=== PATIENT | male | born 1935 | race Caucasian/White ===

== ENCOUNTER → 2018-05-08 16:13 | Outpatient (CLI) | payer MEDICARE, OTHER, SELFPAY ==
[2018-05-08 17:21] LABS: Free T4 (Free Thyroxine) 1.16 ng/dl (0.76-1.46)
== END ==
PROVIDERS: Visit Provider Nurse Practitioner Family
DX: E78.49 Other hyperlipidemia (principal)
CPT/HCPCS: 36415; 84439; 84443

== ENCOUNTER → 2019-01-01 10:51 | Outpatient (CLI) | payer MEDICARE, OTHER, SELFPAY ==
[2019-01-01 11:03] LABS: Basophils % 0.4 % (0.1-2.0); Eosinophils # 0.3 K/mm3 (0.0-0.4); Eosinophils % 3.1 % (0.1-12.0); Lymphocytes % 12.8 % (10-50); Mean Corpuscular HGB Conc 32.5 g/dL (31.8-35.4); Mean Corpuscular Hemoglobin 29.5 pg (27.0-31.2); Mean Corpuscular Volume 90.8 fl (80-94); Mean Platelet Volume 7.3 fl (7.4-10.4); Monocytes # 0.6 K/mm3 (0.1-1.0); Monocytes % 7.7 % (1.7-9.3); Neutrophils # 5.9 K/mm3 (1.8-7.8); Platelet Count 198 K/mm3 (142-424); White Blood Count 7.8 K/mm3 (4.8-10.8)
== END ==
PROVIDERS: Visit Provider Internal Medicine
DX: R53.83 Other fatigue (principal)
CPT/HCPCS: 36415; 85025

== ENCOUNTER → 2019-11-05 09:49 | Outpatient (CLI) | payer MEDICARE, OTHER, SELFPAY ==
--- NOTE | 2019-11-05 09:58 | CA_ITS ---
APPROVED REPORT Hand Twister: Adele Mcnamara RVT Laterality: Bilateral Study Quality: Good Indications: Carotid stenosis Risk Factors Hypertension: Hyperlipidemia Smoking Doppler Spectral Velocity Analysis ECA (R) 91.40/19.10 cm/s ECA (L) 146.80/16.80 cm/s dICA (R) 43.80/8.40 cm/s dICA (L) 64.30/19.60 cm/s Raciel (R) 55.00/12.20 cm/s Raciel (L) 61.40/20.60 cm/s pICA (R) 55.80/10.80 cm/s pICA (L) 47.60/11.30 cm/s dCCA (R) 65.30/13.60 cm/s dCCA (L) 62.80/11.30 cm/s pCCA (R) 70.80/13.30 cm/s pCCA (L) 85.40/18.20 cm/s Vert (R) 39.80/12.30 cm/s Vert (L) 52.20/13.30 cm/s ICA/CCA 0.86 ICA/CCA 1.02 Findings Study suggests 20-49% stenosis of the right internal cartoid artery. Study suggests 20-49% stenosis of the left internal cartoid artery. Antegrade flow seen bilateral vertebral arteries. Conclusion Study suggests 20-49% stenosis of the right internal cartoid artery. Study suggests 20-49% stenosis of the left internal cartoid artery. Antegrade flow seen bilateral vertebral arteries. Electronically signed by : James Walsh MD 11/05/2019 17:21:30
== END ==
PROVIDERS: PCP Family Medicine; Visit Provider Nurse Practitioner Family
DX: R42 Dizziness and giddiness; I65.23 Occlusion and stenosis of bilateral carotid arteries
CPT/HCPCS: 93880

== ENCOUNTER 2019-12-16 17:25 | Observation (INO) | payer MEDICARE, OTHER, SELFPAY ==
[2019-12-16] VITALS (8 sets, daily range): BP systolic 142–194; BP diastolic 84–100; PULSE 60–73; RESP 16–20; TEMP 36.8–37.1; O2SAT 94–98; BMI 26.6; BMI 27.8
--- NOTE | 2019-12-16 17:22 | ECG_ITS ---
APPROVED REPORT Exam: Resting ECG HR:67 bpm ECG Measurements Heart Rate 67 AXES QRSd 158 QRS 8 QT 482 T 116 QTc 509 <Conclusion> Atrial fibrillation,PVC'S vs Aberrancy Left bundle branch block Abnormal ECG Electronically signed by : Clint Kerns, 12/17/2019 09:00:10
--- NOTE | 2019-12-16 18:16 | HMH.EDGENADL ---
ED Disposition Clinical Impression: Chest pain Qualifiers: Chest pain type: unspecified Qualified Code(s): R07.9 - Chest pain, unspecified Disposition: Admitted as Observation Condition on Discharge: Good Time of Disposition: 20:00 - Critical Care Critical Care Time: No Attestation: On 12/16/19, the high probability of a clinically significant, sudden or life threatening deterioration of the following system(s) required my full and direct attention, intervention and personal management. The time I documented below is in addition to time spent performing reported procedures but includes the following listed in this critical care notation. Medical Decision Making - Medical Records Medical records reviewed: Yes: I reviewed the patient's medical records. - Jluis Inquiry Pt receiving controlled substance: No Vital Signs: 12/16/19 17:26 12/16/19 18:26 12/16/19 19:42 Temperature 98.2 F Temperature Source Oral Pulse Rate Pulse Rate [Right] 61 65 73 Respiratory Rate 18 20 20 Blood Pressure Blood Pressure [Right Arm] 142/91 H 181/93 H 190/91 H Blood Pressure Mean [Right Arm] 108 122 124 Blood Pressure Source Blood Pressure Source [Right Arm] Automatic Cuff Blood Pressure Position Blood Pressure Position [Right Arm] Supine Sitting 02 Sat by Pulse Oximetry 97 98 94 L Oxygen Delivery Method Room Air Room Air 12/16/19 20:35 Temperature 98.2 F Temperature Source Oral Pulse Rate 64 Pulse Rate [Right] Respiratory Rate 18 Blood Pressure 188/100 H Blood Pressure [Right Arm] Blood Pressure Mean [Right Arm] Blood Pressure Source Automatic Cuff Blood Pressure Source [Right Arm] Blood Pressure Position Sitting Blood Pressure Position [Right Arm] 02 Sat by Pulse Oximetry Oxygen Delivery Method Room Air - Lab Data Lab Results 12/16/19 17:25: WBC 7.9, RBC 4.13 L, Hgb 12.7 L, Hct 37.3 L, MCV 90.3, MCH 30.8, MCHC 34.1, RDW 14.2, Plt Count 160, MPV 7.9, Neut % (Auto) 74.2, Lymph % (Auto) 13.3, [place] % (Auto) 8.0, Eos % (Auto) 4.0, Baso % (Auto) 0.4, Neut # (Auto) 5.8, Lymph # (Auto) 1.1, [place] # (Auto) 0.6, Eos # (Auto) 0.3, Baso # (Auto) 0.0 12/16/19 17:25: Sodium 140, Potassium 3.8, Chloride 99, Carbon Dioxide 34 H, Anion Gap 10.8, BUN 17, Creatinine 0.80, Estimated Creat Clear 61, Estimated GFR 92, Est GFR ( Amer) 112, Glucose 101 H, Calcium 9.7, Troponin I < 0.01 Result diagrams: 12/16/19 17:25 12/16/19 17:25 Orders (Tests/Meds): ORDERS Category Date Time Status Consult to Cardiology [CONS] Routine Cons 12/16/19 20:00 Active CXR --portable [XR chest portable] Stat Exams 12/16/19 18:19 Taken COVID [Rapid Coronavirus-19 IgG/IgM] Stat Lab 12/16/19 17:25 Received Troponin I Q3H Lab 12/16/19 21:30 Ordered Troponin I Q3H Lab 12/17/19 00:30 Ordered EKG Request [ECG Request by /Chantell] Stat Y 12/16/19 18:20 Ordered Medical Decision Narrative: In summary this is an 84-year-old male with history of CAD and pacemaker presenting to the emergency department with left arm bruising and left-sided chest pain. Patient is clinically stable on arrival. Vital signs within normal limits. Bruising on the arm is most likely due to blood pressure cuff measurements from yesterday. Will obtain CBC, CMP, chest x-ray, EKG, troponin profile to assess for evidence of coronary occlusion. Reviewed patient's chest CT from yesterday. Findings dictate: mild fusiform dilation of the aorta measuring up to 4.2 cm. No evidence of dissection. status post median sternotomy Laboratory results remarkable for troponin within normal limits. No other gross abnormality. Patient continues to have occasional chest pains. Will admit tonight for chest pain observation and cardiology consultation tomorrow. Patient agreeable with plan. General Adult HPI - General Chief complaint: PAIN Stated complaint: LEFT ARM PAIN, BRUISING Time Seen by Provider: 12/16/19 17:46 Mode of Arrival: Ambulatory Limita
--- NOTE | 2019-12-16 18:19 | XR_ITS ---
PROCEDURE: XR CHEST PORTABLE CLINICAL HISTORY: chest pain COMPARISON: No exams were available for comparison FINDINGS: There is cardiomegaly without failure. Single lead pacemaker is present from left subclavian approach overlying the mid aspect of the heart and may be within a dilated right atrium. Left hemidiaphragm is elevated. No lobar consolidation or collapse. There has been a prior CABG. IMPRESSION: Prior CABG with cardiomegaly and cardiac pacemaker present. Dictated by: James Walsh MD 12/17/2019 06:55 James Walsh MD in [place] 12/17/2019 06:55
[2019-12-16 18:26] LABS: Basophils % 0.4 % (0.1-2.0); Eosinophils # 0.3 K/mm3 (0.0-0.4); Hematocrit 37.3 % (42.0-52.0); Hemoglobin 12.7 g/dL (14.1-18.0); Lymphocytes # 1.1 K/mm3 (0.7-4.5); Lymphocytes % 13.3 % (10-50); Mean Corpuscular HGB Conc 34.1 g/dL (31.8-35.4); Mean Corpuscular Hemoglobin 30.8 pg (27.0-31.2); Mean Corpuscular Volume 90.3 fl (80-94); Mean Platelet Volume 7.9 fl (7.4-10.4); Monocytes # 0.6 K/mm3 (0.1-1.0); Neutrophils # 5.8 K/mm3 (1.8-7.8); Neutrophils % 74.2 % (37.0-80.0); Platelet Count 160 K/mm3 (142-424); Red Blood Count 4.13 M/mm3 (4.60-6.20); Red Cell Distribution Width 14.2 % (11.5-17.5); White Blood Count 7.9 K/mm3 (4.8-10.8)
[2019-12-16 18:30] LABS: Anion Gap 10.8 mEq/L (5-15); Blood Urea Nitrogen 17 mg/dl (9-20); Calcium 9.7 mg/dl (8.4-10.2); Carbon Dioxide 34 mmol/L (22.0-30.0); Chloride 99 mmol/L (98-107); Creatinine Clearance Estimated 61 mL/min (50-200); Estimated Glomerular Filt Rate 92 ml/min (>60); GFR (African American) 112 ML/MIN (>60); Glucose 101 mg/dl (74-100); Potassium 3.8 mmoL/L (3.5-5.1); Sodium 140 mmol/L (136-145)
[2019-12-16 18:45] LABS: Troponin I < 0.01 ng/ml (0.00-0.034)
--- NOTE | 2019-12-16 19:29 | PC.NURSE ---
Dr. Torres currently talking to Dr. Durán about admitting for obs.
--- NOTE | 2019-12-16 19:30 | PC.NURSE ---
received report from day shift nurse at 1930.
--- NOTE | 2019-12-16 21:25 | PC.NURSE ---
PT ARRIVED TO FLOOR VIA W/C FROM ER AT [id number]
[2019-12-16 21:54] LABS: Coronavirus 19 IgG Antibody Negative (Negative); Coronavirus 19 IgM Antibody Negative (Negative)
[2019-12-17] VITALS (21 sets, daily range): BP systolic 112–162; BP diastolic 67–97; PULSE 57–70; RESP 14–22; TEMP 36.4–36.7; O2SAT 92–97; BMI 27.5
--- NOTE | 2019-12-17 | IR_ITS ---
APPROVED REPORT Patient Location: Inpatient PROCEDURES Left heart catheterization Left ventriculogram Selective coronary angiogram Selective engagement of the left internal mammary artery with angiography Selective engage in the saphenous vein graft to the circumflex artery Selective engage in the saphenous vein graft to the posterior descending artery Drug-eluting stent deployment to the saphenous vein graft supplying the large circumflex artery INDICATION Unstable angina, Coronary artery disease, History of coronary bypass surgery Informed consent was obtained prior to the procedure. COMPLICATIONS none Estimated Blood Loss: less than 10 mls TECHNIQUE 1% lidocaine used anesthetize the right groin the right femoral artery was accessed via the Salinger technique and a 4 Kenyan sheath was placed in the right femoral artery. A JL4 JR4 catheter was used to perform left heart catheterization left ventriculogram selective coronary angiography. The JR4 catheter was used to selectively intubate the left internal mammary artery as well as the 2 vein grafts as well as the left ventriculogram and perform left heart catheterization. At the end of the diagnostic procedure the 4 Kenyan sheath was exchanged for a 6 Kenyan sheath and therapeutic heparin was administered. An LCB guide catheter was used to intubate the saphenous vein graft and a BMW wire was placed distally. A 4 mm x 12 mm resolute ely stent was deployed at 20 roger for 30 seconds reducing the severe stenosis and thrombus to less than 10%. ESTEBAN-3 flow was present before and after the procedure. At the end of the procedure the apparatus was removed the groin was reprepped gloves were changed sheath was removed and hemostasis was achieved using Perclose device patient was transferred to the postop holding area stable condition ANGIOGRAPHIC RESULTS The left main artery Distally occluded The right coronary artery Proximally subtotally occluded with the distal aspect filling via [id number] collaterals The ANDRE ventriculogram reveals Ejection fraction 45 to 50% The left ventricular end-diastolic pressure 10 mmHg The left internal mammary artery is widely patent to the LAD The saphenous vein graft supplying a large circumflex artery has a proximal 60% stenosis with a large thrombus identified within the stent. Distally there is a 40% stenosis in the graft. At the anastomosis the obtuse marginal artery has a 60% stenosis in the retrograde manner as it supplies 3 smaller terminal obtuse marginal arteries. An 80 to 90% stenosis is also identified proximal to a vestigial first obtuse marginal artery The saphenous vein graft to the posterior descending artery is widely patent with diffuse 20-30 and 40% stenoses IMPRESSION Coronary disease as described above Successful stenting of a large saphenous vein graft to a circumflex artery severe disease accompanied by an apparent thrombus reduced to less than 10% with one drug-eluting stent Reduced ejection fraction Normal left ventricular end-diastolic pressure PLAN 1. Aspirin Plavix Xarelto for 1 month then discontinue aspirin and continue Plavix and Xarelto 2. LDL less than 55 3. Cardiac rehabilitation 4. Avoidance of tobacco products Electronically signed by : Corwin Durán, 12/17/2019 12:57:04
--- NOTE | 2019-12-17 03:20 | PC.NURSE ---
A&OX4. PT HAS TOLERATED RA WELL THIS SHIFT. PT HAS LARGE PURPLE BRUISE PRESENT TO L ARM. PT STATES, I DON'T KNOW WHERE THIS CAME FROM. PT UP INDEPENDENTLY IN ROOM. PT HAS ONLY C/O PAIN IN THE L ARM. TX WITH TYLENOL PER JUN, PT HAS HAD NO C/O PAIN SINCE. PT RESTING WELL IN BED. NO OTHER C/O THUS FAR. NO C/O CP OR SOA. VSS WILL CONTINUE TO MONITOR.
--- NOTE | 2019-12-17 06:10 | PC.NURSE ---
Carlos BAKER notified of consult
--- NOTE | 2019-12-17 07:37 | HMH.PHAVTE ---
[facility] Pharmacy VTE Monitoring - Patient Demographics Admission date: 12/17/19 Report Date: 12/17/19 Time: 07:37 Allergies/Adverse Reactions: Patient Allergies No Known Allergies Allergy (Verified 10/29/19 09:51) Height: 1.7 m Weight: 79.52 kg Patient Problems: Current Active Problems Chest pain (Acute) - VTE Risk Labs: VTE Related Lab Results Hgb 12.7 g/dL (14.1-18.0) L 12/16/19 17:25 Hct 37.3 % (42.0-52.0) L 12/16/19 17:25 Plt Count 160 K/mm3 (142-424) 12/16/19 17:25 BUN 17 mg/dl (9-20) 12/16/19 17:25 Creatinine 0.80 mg/dl (0.66-1.25) 12/16/19 17:25 Estimated Creat Clear 61 mL/min (50-200) 12/16/19 17:25 Was VTE Risk Assessment Performed: Yes VTE Score: 7 VTE Risk Level: Moderate Risk Clinical Trial Participant: No - Prophylaxis VTE Prophylaxis Ordered?: Yes Types of VTE Prophylaxis: TEDS Knee High
--- NOTE | 2019-12-17 07:41 | HMH.PHAINT ---
Completed home medication reconciliation using list from [facility] in [place].
--- NOTE | 2019-12-17 07:43 | HMH.CNCARD ---
History of Present Illness Consult date: 12/17/19 Requesting physician: Richard Minaya Consult reason: chest pain Chief complaint: chest pain Additional Medical History:: 1. Coronary artery disease with history of coronary bypass grafting in 1990 A. Left heart catheterization, 02/2018, YASMEEN to SVG to ramus. Patent SULLIVAN to LAD. SVG to diagonal with 40% lesion, medical therapy. ANGIOGRAPHIC RESULTS: 1. The left main artery is distally subtotally occluded 2. The left anterior descending artery ostially occluded 3. The circumflex artery gives rise to a very small proximal marginal branch but is effectively proximally occluded 4. The right coronary artery gives rise to a small branch but is effectively proximally occluded 5. The ANDRE ventriculogram reveals preserved at 60% 6. The left ventricular end-diastolic pressure mildly elevated at 20 mmHg 7. Left internal mammary artery is widely patent to the mid LAD 8. The saphenous vein graft to the first diagonal artery has a proximal to mid vessel 40% stenosis. It then anastomoses onto the first diagonal artery and then skips over to a terminal obtuse marginal artery. The second limb of this skip graft has 30% stenoses 9. The saphenous vein graft to the ramus intermedius has an ostial 70-80% stenosis followed by 50% stenoses. 10. The ANDRE ventriculogram reveals preserved ejection fraction estimated at 55-60% 11. The left ventricular end-diastolic pressure is 15 mmHg IMPRESSION: 1. Severe disease in the saphenous vein graft supplying the ramus intermedius 2. Successful stenting of the saphenous vein graft to the ramus intermedius severe disease reduced to less than 10% with 1 drug-eluting stent 3. Preserved ejection fraction 4. Mildly elevated LVEDP PLAN: 1. Aspirin Plavix Coumadin for one month then dropped the aspirin 2. Risk factor modification 3. Avoidance of tobacco products 4. Cardiac rehabilitation 2. Permanent pacemaker 3. Chronic atrial fibrillation, on Xarelto therapy 4. History of CVA approximately 2017 5. Hypertension 6. Hyperlipidemia, on statin 7. NATALIE with 20-49% ICA stenosis bilaterally, 10/2019 History of present illness: 84-year-old white male with known coronary artery disease presented to the emergency department here at [facility] for a second opinion regarding chest pain. Patient was originally seen at [facility] yesterday with evaluation and subsequent discharge with no evidence of acute coronary syndrome. Patient is a longtime patient of Dr. Durán's and wanted to come to [place] for further evaluation. He relates a 2-day history of near constant left-sided chest pain with radiation to the left arm and into the left neck. Some symptoms can be reproduced with positioning of the left arm. There is even some atypical features of relief of the chest discomfort with ambulation. Patient is unable to remember his angina symptoms from February 2018. Also of note is a bruise starting in the left upper arm and extending into the left forearm which appears to coincide with blood pressure cuff placement. Patient does state that there was a small bruise prior to that but it has gotten worse since the blood pressure cuff was applied yesterday. EKG shows ventricular pacing with capture. Initial troponin in the ER noted to be negative. COVID testing is negative. Discussed with Dr. Durán and the patient both wish to proceed with cardiac catheterization for further evaluation. [facility] History Medical History: Reports:: Atrial Fibrillation, Congestive Heart Failure, Coronary Artery Disease, Gastroesophageal Reflux Disease(GERD), Hyperlipidemia, Hypertension, Internal Pacemaker, Myocardial Infarction Denies:: Cancer, Diabetes Mellitus Type 1, Diabetes Mellitus Type 2, MRSA, Seizures *Have you ever received a pneumonia vaccine?: Yes *Have you received a flu vaccine this season?: No Other Surgeries: Yes: Angioplasty (2008
--- NOTE | 2019-12-17 08:44 | HMH.HP ---
*Admission Date: 12/17/19 <Wendy Luu - 12/17/19 09:05> *Chief complaint: Chest pain <Wendy Luu - 12/17/19 09:05> *History of present illness: 84-year-old white male with known coronary artery disease presented to the emergency department here at [facility] for a second opinion regarding chest pain. Patient was originally seen at [facility] yesterday with evaluation and subsequent discharge with no evidence of acute coronary syndrome. Patient is a longtime patient of Dr. Durán's and wanted to come to [place] for further evaluation. He relates a 2-day history of near constant left-sided chest pain with radiation to the left arm and into the left neck. Some symptoms can be reproduced with positioning of the left arm. There is even some atypical features of relief of the chest discomfort with ambulation. Patient is unable to remember his angina symptoms from February 2018. Also of note he has a bruise starting in the left upper arm and extending into the left forearm which appears to coincide with blood pressure cuff placement. Patient does state that there was a small bruise prior to that but it has gotten worse since the blood pressure cuff was applied yesterday. EKG shows ventricular pacing with capture. Initial troponin in the ER noted to be negative. COVID testing is negative. Discussed with Dr. Durán and the patient. Both wish to proceed with cardiac catheterization for further evaluation. This is per SAMUEL Salcedo, cardiology. As above patient has been evaluated by cardiology. He continues to have the left shoulder discomfort radiating into the chest and up into the neck and down the left arm. He has very poor range of motion of this left arm. He denies shortness of breath but states he has been short of breath with exertion. To note prior to starting the chest discomfort he had been weed eating. He does not recall any injuries to the left arm. He has been eating and drinking as usual. On admission patient a white blood cell count of 7900 with a hemoglobin of 12.7 and hematocrit of 37.3. Blood chemistries show a normal sodium and potassium with a BUN 17 creatinine 0.8. Troponin I was less than 0.01. <Wendy Luu - 12/17/19 09:05> [facility] History Medical History: Reports:: Atrial Fibrillation, Congestive Heart Failure, Coronary Artery Disease, Cerebrovascular Accident, Gastroesophageal Reflux Disease(GERD), Hyperlipidemia, Hypertension, Internal Pacemaker, Myocardial Infarction Denies:: Cancer, Diabetes Mellitus Type 1, Diabetes Mellitus Type 2, MRSA, Seizures <LuuWendy 12/17/19 09:05> *Have you ever received a pneumonia vaccine?: Yes <Luu,Wendy 12/17/19 09:05> *Have you received a flu vaccine this season?: No <Wendy Luu 12/17/19 09:05> Other Medical History: Reports: Arthritis <Wendy Luu 12/17/19 09:05> Comment:: Enlarged prostate <Wendy Luu 12/17/19 09:05> Laterality Cases: Bilateral: Cataract <Wendy Luu 12/17/19 09:05> Other Surgeries: Yes: Angioplasty (2008, 2000, 05/21/13 no stents), CABG, Cancer Surgery, Cardiac Catheterization, Colonoscopy (09/22/16), Hernia Repair, Pacemaker <Wendy Luu 12/17/19 09:05> Amputation: No <Wendy Luu 12/17/19 09:05> Fractures: No <Wendy Luu 12/17/19 09:05> Comment: Back surgery <Wendy Luu 12/17/19 09:05> - *Social History Last grade of school completed: 11th or 12th <Wendy Luu 12/17/19 09:05> Smoking Status: Never smoker <Wendy Luu 12/17/19 09:05> Alcohol Intake: never <Wendy Luu 12/17/19 09:05> Substance Use Type: denies use <Wendy Luu 12/17/19 09:05> *Occupational Status:: retired, other (He was a [employer]ield) <Wendy Luu 12/17/19 09:05> Housing: house <Wendy Luu 12/17/19 09:05> Household Members: children <Wendy Luu 12/17/19 09:05> *Travel in the last 8 weeks: None <Wendy Luu 12/17/19 09:05> Family Hx:: Coronary Artery D
--- NOTE | 2019-12-17 13:22 | SW/DCPLANNER ---
PATIENT PRESENTED IN FROM [place] AFTER BEING SEEN THERE AND RECOMMENDED TO COME TO [facility] TO BE FOLLOWED FOR POSSIBLE CATH BY DR HUNT. HE WAS ADMITTED TO DR HA AND UNDERWENT A HEART CATH... 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 HE WILL DISCHARGE HOME AFTER MD DECLARES HIM MEDICALLY STABLE TO DO SO WITH MEDICATION ADJUSTMENT. ANY PROBLEMS THAT ARISE MAY BE ADDRESSED IF THERE IS A NEED FOR HOME CARE BUT AT THIS TIME DOES NOT APPEAR TO NEED ANYTHING.. DISCHARGE SHOULD BE SOON..
[2019-12-17 15:14] LABS: CATHL Activated Clotting Time > 400 SEC (74-125)
--- NOTE | 2019-12-17 19:45 | PC.NURSE ---
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 groin site is clean dry intact with no signs of hematoma. vitals stable.
[2019-12-18] VITALS: BP 129/88; PULSE 50; PULSE 65; RESP 18; O2SAT 95
[2019-12-18 02:00] VITALS: BP 138/70; PULSE 65; RESP 16; O2SAT 95
[2019-12-18 04:00] VITALS: BP 138/77; PULSE 59; PULSE 65; RESP 16; TEMP 37.1; O2SAT 93
[2019-12-18 05:10] VITALS: BMI 27.8
--- NOTE | 2019-12-18 05:22 | PC.NURSE ---
patient russo rested well throughout shift. no complaints of chest pain, nausea, vomiting or soa. case monitor has shown junctional rhythm in the 50 and 60s with rare pvc's.
[2019-12-18 06:00] VITALS: BP 145/79; PULSE 64; RESP 18; O2SAT 95
[2019-12-18 06:41] LABS: Basophils % 0.4 % (0.1-2.0); Eosinophils # 0.4 K/mm3 (0.0-0.4); Eosinophils % 5.2 % (0.1-12.0); Hematocrit 32.8 % (42.0-52.0); Hemoglobin 10.7 g/dL (14.1-18.0); Lymphocytes % 12.5 % (10-50); Mean Corpuscular HGB Conc 32.7 g/dL (31.8-35.4); Mean Corpuscular Hemoglobin 29.8 pg (27.0-31.2); Mean Corpuscular Volume 91.1 fl (80-94); Mean Platelet Volume 7.7 fl (7.4-10.4); Monocytes # 0.7 K/mm3 (0.1-1.0); Monocytes % 8.5 % (1.7-9.3); Neutrophils # 5.6 K/mm3 (1.8-7.8); Neutrophils % 73.3 % (37.0-80.0); Platelet Count 148 K/mm3 (142-424); Red Cell Distribution Width 14.5 % (11.5-17.5); White Blood Count 7.6 K/mm3 (4.8-10.8)
[2019-12-18 06:52] LABS: Chloride 102 mmol/L (98-107)
[2019-12-18 06:53] LABS: Potassium 3.8 mmoL/L (3.5-5.1); Sodium 140 mmol/L (136-145)
[2019-12-18 06:56] LABS: Anion Gap 10.8 mEq/L (5-15); Blood Urea Nitrogen 20 mg/dl (9-20); Calcium 9.1 mg/dl (8.4-10.2); Carbon Dioxide 31 mmol/L (22.0-30.0); Creatinine Clearance Estimated 64 mL/min (50-200); Estimated Glomerular Filt Rate 81 ml/min (>60); GFR (African American) 98 ML/MIN (>60); Glucose 97 mg/dl (74-100)
[2019-12-18 08:00] VITALS: BP 152/86; PULSE 60; PULSE 64; RESP 18; TEMP 36.9; O2SAT 98
--- NOTE | 2019-12-18 08:28 | HMH.ACPN2 ---
<Roxy Oneal - Last Filed: 12/18/19 08:28> Internal Medicine - PN: Subj *Date: 12/18/19 *Time: 08:28 Interval history: Patient states he is feeling well today other than some continued left arm pain. He was seen by cardiology and had a heart cath yesterday. He is anxious to go home today. He does request to speak with Dr. Durán. Exam Vital signs and Labs for Last 24 Hours: Temp Pulse Resp BP Pulse Ox 98.7 F 64 18 145/79 H 95 12/18/19 04:00 12/18/19 06:00 12/18/19 06:00 12/18/19 06:00 12/18/19 06:00 Laboratory Results - last 24 hr 12/17/19 12:36: Activated Clotting Time > 400 H* 12/18/19 06:00: WBC 7.6, RBC 3.60 L, Hgb 10.7 L, Hct 32.8 L, MCV 91.1, MCH 29.8, MCHC 32.7, RDW 14.5, Plt Count 148, MPV 7.7, Neut % (Auto) 73.3, Lymph % (Auto) 12.5, [place] % (Auto) 8.5, Eos % (Auto) 5.2, Baso % (Auto) 0.4, Neut # (Auto) 5.6, Lymph # (Auto) 1.0, Green # (Auto) 0.7, Eos # (Auto) 0.4, Baso # (Auto) 0.0 12/18/19 06:00: Sodium 140, Potassium 3.8, Chloride 102, Carbon Dioxide 31 H, Anion Gap 10.8, BUN 20, Creatinine 0.90, Estimated Creat Clear 64, Estimated GFR 81, Est GFR ( Amer) 98, Glucose 97, Calcium 9.1 I & O for Last 24 hours: Intake & Output 12/15/19 12/16/19 12/17/19 12/18/19 11:59 11:59 11:59 11:59 Intake Total 240 / 240 240 / 240 Output Total 400 / 400 Balance 240 / 240 -160 / -160 Weight 175 lb 5 oz 177 lb 6 oz Radiology Reports for the Last 24 Hours: Heart Cath IMPRESSION Coronary disease as described above Successful stenting of a large saphenous vein graft to a circumflex artery severe disease accompanied by an apparent thrombus reduced to less than 10% with one drug-eluting stent Reduced ejection fraction Normal left ventricular end-diastolic pressure PLAN 1. Aspirin Plavix Xarelto for 1 month then discontinue aspirin and continue Plavix and Xarelto 2. LDL less than 55 3. Cardiac rehabilitation 4. Avoidance of tobacco products - Constitutional no acute distress - *Routine Respiratory Exam Present: CTA bilaterally - *Routine Cardiovascular Exam Present: RRR - *Routine Abdominal Exam Present: soft, normoactive bowel sounds. Absent: tenderness - *Routine Extremities Exam Absent: cyanosis, clubbing, edema - *Routine Skin Exam Present: warm. Absent: rash - *Routine Neurological Exam Present: alert, oriented X3 Assessment and Plan (1) Chest pain Current visit: Yes Status: Acute Qualifiers: Chest pain type: unspecified Qualified Code(s): R07.9 - Chest pain, unspecified Category: Medical Code(s): R07.9 - Chest pain, unspecified (2) Atrial fibrillation Current visit: No Status: Chronic Qualifiers: Atrial fibrillation type: unspecified chronic Qualified Code(s): I48.20 - Chronic atrial fibrillation, unspecified Category: Medical Code(s): I48.91 - Unspecified atrial fibrillation (3) Cardiac pacemaker in situ Current visit: No Status: Chronic Category: Medical Code(s): Z95.0 - Presence of cardiac pacemaker (4) Coronary arteriosclerosis Current visit: No Status: Chronic Category: Medical Code(s): I25.10 - Atherosclerotic heart disease of [place] coronary artery without angina pectoris (5) Hyperlipemia Current visit: No Status: Chronic Qualifiers: Hyperlipidemia type: mixed hyperlipidemia Qualified Code(s): E78.2 - Mixed hyperlipidemia Category: Medical Code(s): E78.5 - Hyperlipidemia, unspecified (6) Hypertensive heart disease Current visit: No Status: Chronic Qualifiers: Heart failure presence: without heart failure Qualified Code(s): I11.9 - Hypertensive heart disease without heart failure Category: Medical Code(s): I11.9 - Hypertensive heart disease without heart failure (7) On anticoagulant therapy Current visit: No Status: Chronic Category: Medical Code(s): Z79.01 - shelter (current) use of anticoagulants - Assessment and plan all Dx Assessm
--- NOTE | 2019-12-18 10:09 | HMH.PNCARD ---
Subjective Date: 12/18/19 Time: 09:15 Principal diagnosis: CAD s/p stenting Interval history: This is an 84-year-old gentleman who presented to the hospital here at [facility]. He underwent left catheterization yesterday and had a stent to the saphenous vein graft to the ramus. The patient has been placed on Plavix and aspirin for dual antiplatelet therapy in addition to his Xarelto for anticoagulation. The patient will remain on triple therapy for the first 30 days and then drop his aspirin after the first 30 days and remain on Xarelto and Plavix. However the patient states that the Plavix really makes him foggy and very hyper. He states that he has had issues with Plavix in the past and does not really want to be on this medication. He denies any chest pain or pressure this morning. He states he is still having pain in his left arm. He states that he is having issues with range of motion in the left arm as well as bruising in the left arm. He denies any shortness of breath. He denies any fever, chills, nausea, vomiting, diarrhea, PND or orthopnea. Exam Vital signs and Labs for Last 24 Hours: Temp Pulse Resp BP Pulse Ox 98.4 F 64 18 152/86 H 98 12/18/19 08:00 12/18/19 08:00 12/18/19 08:00 12/18/19 08:00 12/18/19 08:00 Laboratory Results - last 24 hr 12/17/19 12:36: Activated Clotting Time > 400 H* 12/18/19 06:00: WBC 7.6, RBC 3.60 L, Hgb 10.7 L, Hct 32.8 L, MCV 91.1, MCH 29.8, MCHC 32.7, RDW 14.5, Plt Count 148, MPV 7.7, Neut % (Auto) 73.3, Lymph % (Auto) 12.5, [place] % (Auto) 8.5, Eos % (Auto) 5.2, Baso % (Auto) 0.4, Neut # (Auto) 5.6, Lymph # (Auto) 1.0, [place] # (Auto) 0.7, Eos # (Auto) 0.4, Baso # (Auto) 0.0 12/18/19 06:00: Sodium 140, Potassium 3.8, Chloride 102, Carbon Dioxide 31 H, Anion Gap 10.8, BUN 20, Creatinine 0.90, Estimated Creat Clear 64, Estimated GFR 81, Est GFR ( Amer) 98, Glucose 97, Calcium 9.1 I & O for Last 24 hours: Intake & Output 12/15/19 12/16/19 12/17/19 12/18/19 23:59 23:59 23:59 23:59 Intake Total 480 / 480 360 / 360 Output Total 200 / 200 200 / 200 Balance 280 / 280 160 / 160 Weight 177 lb 3 oz 175 lb 5 oz 177 lb 6 oz - Constitutional no acute distress, average body habitus - *Routine HEENT Exam Head: Present: normocephalic, atraumatic Eye: Present: EOMI, PERRL ENT: Present: mucous membranes moist - *Routine Neck Exam Present: supple, full ROM, normal carotid upstroke. Absent: JVD, carotid bruit, lymphadenopathy - *Routine Respiratory Exam Present: CTA bilaterally - *Routine Cardiovascular Exam Present: Normal S1, Normal S2, irregularly irregular. Absent: murmur - *Routine Abdominal Exam Present: soft, normoactive bowel sounds. Absent: tenderness, distended - *Routine Extremities Exam Present: full ROM (Except left upper extremity. He is unable to abduct his left shoulder), pulses intact, normal capillary refill. Absent: cyanosis, clubbing, edema - *Routine Skin Exam Present: intact, warm, ecchymosis (Significant bruising noted to the left upper arm from shoulder to elbow). Absent: erythema, rash - *Routine Neurological Exam Present: alert, oriented X3, CN II-XII intact. Absent: sensory deficit, motor deficit Progress Note: A&P (1) Coronary arteriosclerosis Status: Chronic Current Visit: No (2) Atrial fibrillation Status: Chronic Current Visit: No (3) Cardiac pacemaker in situ Status: Chronic Current Visit: No (4) Hyperlipemia Status: Chronic Current Visit: No (5) Hypertensive heart disease Status: Chronic Current Visit: No (6) On anticoagulant therapy Status: Chronic Current Visit: No (7) Left shoulder pain Status: Acute Current Visit: Yes (8) Thoracic aortic aneurysm Status: Chronic Current Visit: Yes Assessment and Plan for All Diagnoses:: Plan: 1. The patient was admitted to the hospital and underwent left cardiac catheterization yesterday. He has stent to t
--- NOTE | 2019-12-18 10:39 | HMH.PHAINT ---
PHARMACY CLARIFIED BRILINTA ORDER WITH NICOLE NIELSEN APRN BECAUSE PT IS ALSO ON XARELTO AND ASPIRIN (DUPLICATE THERAPY WARNING). SHE TOLD THIS PHARMD THAT DR HUNT WANTS TRIPLE ANTIPLATELET THERAPY FOR FIRST THIRTY DAYS POST-STENTING AND THEN HE WILL HAVE PT DISCONTINUE ASPIRIN.
--- NOTE | 2019-12-18 12:28 | HMH.PHACLD ---
Britney Lua has received discharge medication counseling on the following medications: PATIENT WAS TAKING ATORVASTATIN 40 MG HS. MD STARTING BRILINTA 90 MG BID, ASPIRIN EC 81 MG (OTC) DAILY, LOSARTAN 50 MG DAILY, AND METOPROLOL SUCCINATE 50 MG DAILY. PATIENT'S NEW MEDS WERE FILLED AT CLINIC PHARMACY PRIOR TO DISCHARGE, EXCEPT OTC ASPIRIN. DISCUSSED MEDS WITH PATIENT AND DAUGHTER.
--- NOTE | 2019-12-20 09:22 | HMH.DCSUM ---
General - General Admission date:: 12/16/19 Discharge date: 12/18/19 HPI HPI: 84-year-old white male with known coronary artery disease presented to the emergency department at [facility] for a second opinion regarding chest pain. Patient was originally seen at [facility] the previous day with evaluation and subsequent discharge with no evidence of acute coronary syndrome. Patient was noted to be a longtime patient of Dr. Durán's and wanted to come to [place] for further evaluation. He related a 2-day history of near constant left-sided chest pain with radiation to the left arm and into the left neck. Some symptoms were reproduced with positioning of the left arm. There were even some atypical features of relief of the chest discomfort with ambulation. Patient was unable to remember his angina symptoms from February 2018. Also of note he had a bruise starting in the left upper arm and extending into the left forearm which appeared to coincide with blood pressure cuff placement. Patient did state that there was a small bruise prior to that but it had gotten worse since the blood pressure cuff was applied yesterday. EKG showed ventricular pacing with capture. Initial troponin in the ER noted to be negative. COVID testing was negative. Discussed with Dr. Durán and the patient. Both wished to proceed with cardiac catheterization for further evaluation. This was as per SAMUEL Salcedo, cardiology. As above, the patient was evaluated by cardiology. He continued to have the left shoulder discomfort radiating into the chest and up into the neck and down the left arm. He had limited range of motion of this left arm. He denied shortness of breath but stated he had been short of breath with exertion. To note prior to starting the chest discomfort he had been weed eating. He did not recall any injuries to the left arm. He was eating and drinking as usual. On admission lab data included a white blood cell count of 7900 with a hemoglobin of 12.7 and hematocrit of 37.3. Blood chemistries showed a normal sodium and potassium with a BUN 17 and creatinine 0.8. Troponin I was less than 0.01. Hospital Course Hospital Course: Patient was seen by cardiology on admission. He had a cardiac catheterization on 12/17/2019 with the following results and recommendations: IMPRESSION Coronary disease as described above Successful stenting of a large saphenous vein graft to a circumflex artery severe disease accompanied by an apparent thrombus reduced to less than 10% with one drug-eluting stent Reduced ejection fraction Normal left ventricular end-diastolic pressure PLAN 1. Aspirin Plavix Xarelto for 1 month then discontinue aspirin and continue Plavix and Xarelto 2. LDL less than 55 3. Cardiac rehabilitation 4. Avoidance of tobacco products He was followed by cardiology post stenting and noted to be on antiplatelet therapy with Plavix and aspirin. Due to problems with the Plavix causing him to be foggy and hyper the Plavix was discontinued and he was switched to Brilinta 90 mg twice daily in addition to the aspirin. The patient was also to remain on Xarelto for anticoagulation secondary to his atrial fibrillation. Thus he was noted to continue with triple therapy with aspirin, Brilinta, and Xarelto for the first 30 days. After the first 30 days the patient will be to drop the aspirin and just remain on the Brilinta and Xarelto. Patient continued to have pain in his left arm with decreased range of motion and extensive bruising noted as well. He was instructed to follow-up with his primary care physician for this. Also noted was that he had a 4.2 cm thoracic aneurysm. A repeat CTA of the chest in 6 months will be done to confirm stability of this thoracic aneurysm. The patient was felt to be stable for discharge and thus was discharged on this date. On 12/18/2019 patient was discharged to home in
== END 2019-12-18 13:20 | disposition home or self-care (01) ==
LOC: ER 17:41 → 2ND 20:49
PROVIDERS: Internal Medicine; Admitting Provider Family Medicine; Emergency Provider Emergency Medicine; PCP Family Medicine; Visit Provider Family Medicine
DX: I25.110 Atherosclerotic heart disease of native coronary artery with unstable angina pectoris (principal); I25.710 Atherosclerosis of autologous vein coronary artery bypass graft(s) with unstable angina pectoris; I48.20 Chronic atrial fibrillation, unspecified; Z95.0 Presence of cardiac pacemaker; Z95.1 Presence of aortocoronary bypass graft; I11.0 Hypertensive heart disease with heart failure; I50.9 Heart failure, unspecified; I25.2 Old myocardial infarction; E78.5 Hyperlipidemia, unspecified; Z79.01 Long term (current) use of anticoagulants; Z79.899 Other long term (current) drug therapy
CPT/HCPCS: 36415; 71045; 80048; 84484; 85025; 85347; 86328; 92937; 93005; 93459; 99152; 99284; C1725; C1760; C1769; C1876; C1894; C9604; G0378; J1644; Q9967

== ENCOUNTER 2020-09-19 04:40 | Emergency (ER) | payer MEDICARE, OTHER, SELFPAY ==
[2020-09-19 04:39] VITALS: BP 157/75; PULSE 62; RESP 18; TEMP 36.6; O2SAT 97; BMI 25.1
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
[2020-09-19 05:24] VITALS: BP 142/77; PULSE 61; RESP 18; TEMP 36.6; O2SAT 97
== END 2020-09-19 05:47 | disposition home or self-care (01) ==
PROVIDERS: Emergency Provider Emergency Medicine; PCP Family Medicine
DX: S61.511D Laceration without foreign body of right wrist, subsequent encounter (principal); Z79.01 Long term (current) use of anticoagulants; I48.91 Unspecified atrial fibrillation; I10 Essential (primary) hypertension; Z86.73 Personal history of transient ischemic attack (TIA), and cerebral infarction without residual deficits; I25.10 Atherosclerotic heart disease of native coronary artery without angina pectoris; E78.5 Hyperlipidemia, unspecified; I25.2 Old myocardial infarction
CPT/HCPCS: 12001; 99283

== ENCOUNTER → 2020-11-03 20:01 | Outpatient (CLI) | payer MEDICARE, OTHER, SELFPAY | PROVIDERS: PCP Nurse Practitioner Family; Visit Provider Specialist | DX: G47.33 Obstructive sleep apnea (adult) (pediatric) (principal); I10 Essential (primary) hypertension | CPT/HCPCS: 95810 ==

== ENCOUNTER → 2020-11-10 12:38 | Outpatient (CLI) | payer MEDICARE, OTHER, SELFPAY ==
--- NOTE | 2020-11-10 12:46 | CA_ITS ---
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 2D Dimensions IVSd 1.35 cm LVEF (Visual) 47.80 % PWd 1.24 cm LA Volume 145.20 mL LVDd 4.52 cm LA Volume Index 71.20 mL/m2 (M/F) 16-34 LVDs 3.44 cm Aortic Root 3.24 cm Left Atrium 5.18 cm LVOT 2.07 cm (M/F) 1.5-2.5 M-Mode Dimensions LA Diam 5.67 cm (1.9-4.0) Ao Diam 4.39 cm (2.0-3.7) TAPSE 2.26 (<1.7) LV Diastology E Decel Time 150.00 (160-240 msec) MED E' 6.20 (< 7 cm/sec) E'/MED E' Ratio 17.19 (>14) LAT E' 11.10 (<10 cm/sec) E/LAT E' Ratio 9.60 (>14) Aortic Valve LVOT Max 79.00 (70-110 cm/s) LVOT VTI 17.89 cm AoV Peak Arias. 143.00 (50-130 cm/s) AI PHT 876.00 ms AO Peak GR. 8.20 mmHg AO Mean GR. 4.00 (<5 mmHg) AO VTI 31.70 (18-25 cm) JULIANA (VTI) 1.90 (2.5-4.5 cm2) Mitral Valve MV E Max Arias. 107.00 (40-130 cm/s) MV Decel. Time 150.00 (160-240 ms) MV PHT 44.00 ms Tricuspid Valve TR P. Velocity 280.00 cm/s RAP Estimate 10.00 mmHg RVSP 41.40 mmHg Left Ventricle Left atrium is mildly enlarged, left ventricle is normal size, mild concentric left ventricular hypertrophy, visually estimated ejection fraction 45 to 50%, there is abnormal septal motion. Diastolic parameters are inconclusive. Right Ventricle Right atrium and right ventricle mildly enlarged, there is pacemaker lead seen right atrium and right ventricle. Aortic Valve Aortic valve is thickened and calcified without aortic stenosis, there is mild aortic insufficiency. Mitral Valve Mitral valve is minimally thickened, there is mild mitral regurgitation. Tricuspid Valve Tricuspid valve is grossly normal, there is mild tricuspid regurgitation, calculated right ventricular systolic pressure is 41 mmHg. Pulmonic Valve Pulmonic valve is poorly visualized. Great Vessels Aortic root is normal size. Pericardium No significant pericardial effusion noted. Conclusion 1. Mild biatrial enlargement, normal left ventricular size, mild concentric left ventricular hypertrophy, visually estimated ejection fraction 45 to 50%, there is abnormal septal motion. Diastolic parameters are inconclusive. 2. Mildly enlarged right ventricle with normal contractility. 3. Thickened and calcified aortic valve without aortic stenosis, there is mild aortic insufficiency. 4. Mild mitral and tricuspid regurgitation, calculated right ventricular systolic pressure is 41 mmHg. 5. No significant pericardial effusion noted. Electronically signed by : Buck Diaz, 11/10/2020 18:15:09
== END ==
PROVIDERS: PCP Nurse Practitioner Family; Visit Provider Internal Medicine
DX: R06.00 Dyspnea, unspecified; I25.10 Atherosclerotic heart disease of native coronary artery without angina pectoris; R60.9 Edema, unspecified; E78.2 Mixed hyperlipidemia; I11.9 Hypertensive heart disease without heart failure; I48.20 Chronic atrial fibrillation, unspecified; I65.23 Occlusion and stenosis of bilateral carotid arteries; I71.2 Thoracic aortic aneurysm, without rupture; Z79.01 Long term (current) use of anticoagulants; Z95.0 Presence of cardiac pacemaker
CPT/HCPCS: 93306

== ENCOUNTER 2020-12-06 09:13 | Emergency (ER) | payer MEDICARE, OTHER, SELFPAY ==
[2020-12-06 09:14] VITALS: BP 132/73; PULSE 61; RESP 20; TEMP 36.9; O2SAT 92; BMI 25.1
--- NOTE | 2020-12-06 09:22 | ECG_ITS ---
APPROVED REPORT Exam: Resting ECG HR:67 bpm ECG Measurements Heart Rate 67 AXES QRSd 160 QRS -1 QT 504 T 140 QTc 532 Conclusion Wide QRS rhythm with frequent premature ventricular complexes in a trigeminy pattern Left bundle branch block Abnormal ECG Electronically signed by : Blair Landry MD 12/09/2020 11:52:06
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
[2020-12-06 09:35] VITALS: BMI 25.1
[2020-12-06 09:39] LABS: Basophils % 0.4 % (0.1-2.0); Eosinophils # 0.3 K/mm3 (0.0-0.4); Eosinophils % 4.1 % (0.1-12.0); Hemoglobin 12.1 g/dL (14.1-18.0); Lymphocytes # 0.8 K/mm3 (0.7-4.5); Lymphocytes % 10.2 % (10-50); Mean Corpuscular HGB Conc 31.7 g/dL (31.8-35.4); Mean Corpuscular Hemoglobin 27.8 pg (27.0-31.2); Mean Corpuscular Volume 87.6 fl (80-94); Mean Platelet Volume 8.6 fl (7.4-10.4); Monocytes # 0.5 K/mm3 (0.1-1.0); Monocytes % 7.2 % (1.7-9.3); Neutrophils # 5.6 K/mm3 (1.8-7.8); Platelet Count 157 K/mm3 (142-424); Red Blood Count 4.35 M/mm3 (4.60-6.20); Red Cell Distribution Width 18.7 % (11.5-17.5); White Blood Count 7.2 K/mm3 (4.8-10.8)
[2020-12-06 09:48] LABS: Alanine Aminotransferase 21 U/L (12-78); Albumin Level 4.3 g/dl (3.5-5.0); Albumin/Globulin Ratio 1.3 (1.1-1.8); Alkaline Phosphatase 87 U/L (38-126); Anion Gap 11.5 mEq/L (5-15); Aspartate Amino Transferase 24 U/L (17-59); Bilirubin,Total 1.1 mg/dl (0.2-1.3); Blood Urea Nitrogen 17 mg/dl (9-20); Calcium 8.8 mg/dl (8.4-10.2); Carbon Dioxide 30 mmol/L (22.0-30.0); Chloride 106 mmol/L (98-107); Creatinine Clearance Estimated 64 mL/min (50-200); Estimated Glomerular Filt Rate 80 ml/min (>60); GFR (African American) 97 ML/MIN (>60); Globulin 3.2 g/dL (1.3-3.2); Glucose 124 mg/dl (74-100); Potassium 3.5 mmoL/L (3.5-5.1); Sodium 144 mmol/L (136-145); Total Protein,Serum 7.5 g/dl (6.3-8.2)
[2020-12-06 09:57] LABS: NT Pro Brain Natriuretic Pep. 4880 pg/mL (0-450)
[2020-12-06 10:01] LABS: Troponin I < 0.01 ng/ml (0.00-0.034)
--- NOTE | 2020-12-06 10:08 | HMH.EDGENADL ---
ED Disposition Clinical Impression: Congestive heart failure Qualifiers: Heart failure type: combined systolic and diastolic Heart failure chronicity: acute on chronic Qualified Code(s): I50.43 - Acute on chronic combined systolic (congestive) and diastolic (congestive) heart failure Disposition: Home, Self-Care Condition on Discharge: Good Instructions: Heart Failure Referrals: Acosta Syed APRN [Primary Care Provider] - Corwin Durán MD [Staff Physician] - 12/07/20 - Critical Care Critical Care Time: No Attestation: On 12/06/20, the high probability of a clinically significant, sudden or life threatening deterioration of the following system(s) required my full and direct attention, intervention and personal management. The time I documented below is in addition to time spent performing reported procedures but includes the following listed in this critical care notation. Medical Decision Making - Medical Records Medical records reviewed: Yes: I reviewed the patient's medical records. - Jluis Inquiry Pt receiving controlled substance: No Vital Signs: 12/06/20 09:14 12/06/20 10:16 Temperature 98.5 F Temperature Source Oral Pulse Rate 62 Pulse Rate [Right] 61 Respiratory Rate 20 18 Blood Pressure 133/69 Blood Pressure [Right Arm] 132/73 Blood Pressure Mean [Right Arm] 92 Blood Pressure Source [Right Arm] Automatic Cuff Blood Pressure Position [Right Arm] Supine 02 Sat by Pulse Oximetry 92 L 93 L Oxygen Delivery Method Room Air - Lab Data Lab Results 12/06/20 09:25: WBC 7.2, RBC 4.35 L, Hgb 12.1 L, Hct 38.0 L, MCV 87.6, MCH 27.8, MCHC 31.7 L, RDW 18.7 H, Plt Count 157, MPV 8.6, Neut % (Auto) 78.0, Lymph % (Auto) 10.2, [place] % (Auto) 7.2, Eos % (Auto) 4.1, Baso % (Auto) 0.4, Neut # (Auto) 5.6, Lymph # (Auto) 0.8, [place] # (Auto) 0.5, Eos # (Auto) 0.3, Baso # (Auto) 0.0 12/06/20 09:25: Sodium 144, Potassium 3.5, Chloride 106, Carbon Dioxide 30, Anion Gap 11.5, BUN 17, Creatinine 0.90, Estimated Creat Clear 64, Estimated GFR 80, Est GFR ( Amer) 97, Glucose 124 H, Calcium 8.8, Total Bilirubin 1.1, AST 24, ALT 21, Alkaline Phosphatase 87, Troponin I < 0.01, Total Protein 7.5, Albumin 4.3, Globulin 3.2, Albumin/Globulin Ratio 1.3, TSH 2.70 12/06/20 09:25: NT-Pro-B Natriuret Pep 4880 H Result diagrams: 12/06/20 09:25 12/06/20 09:25 Orders (Tests/Meds): ED MEDICATIONS Discontinued Medications Generic Name Dose Route Start Last Admin Trade Name Freq PRN Reason Stop Dose Admin Furosemide 40 mg 12/06/20 10:43 12/06/20 10:51 Furosemide 40mg/4ml Vial IV 12/06/20 10:44 40 mg ONCE ONE Administration ORDERS Category Date Time Status Troponin I Q3H Lab 12/06/20 12:45 Ordered Troponin I Q3H Lab 12/06/20 15:45 Ordered - Radiology Data #1 Image(s): Chest Image Reviewed: Yes I reviewed the patient's radiology results, Yes I reviewed the patient's radiology image, Yes I have reviewed radiologist's interpretation IMPRESSION: Elevation right hemidiaphragm. Mild adjacent atelectasis. Mild atelectasis left lung base. - ECG Data Tracing #1 No ventricular rate of 68 bpm, wide QRS consistent with ventricular pacemaker, nonspecific changes. ECG initial impression date: 12/06/20 ECG initial impression time: 09:22 - Reevaluation(s) Time: 11:23 Reevaluation #1: On reevaluation, the patient appears to be at his baseline. There is no significant respiratory distress. No critical hypoxia. We did ambulate the patient, and he was found to have no further respiratory compromise. I do believe his patient symptoms are consistent with mild heart failure. He is already on Lasix regimen. I did discuss admission with the patient, however given the current pandemic he would like to try outpatient treatment. 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 I do feel this is appropriate. I did give strict return precautions to both the patien
[2020-12-06 10:16] VITALS: BP 133/69; PULSE 62; RESP 18; O2SAT 93
[2020-12-06 11:25] VITALS: BP 139/79; PULSE 56; RESP 18; TEMP 36.8; O2SAT 96
== END 2020-12-06 11:33 | disposition home or self-care (01) ==
PROVIDERS: Emergency Provider Emergency Medicine; PCP Nurse Practitioner Family
DX: I50.43 Acute on chronic combined systolic (congestive) and diastolic (congestive) heart failure (principal); E87.70 Fluid overload, unspecified; E11.9 Type 2 diabetes mellitus without complications; I25.10 Atherosclerotic heart disease of native coronary artery without angina pectoris; I25.2 Old myocardial infarction; I10 Essential (primary) hypertension; E78.5 Hyperlipidemia, unspecified; I48.0 Paroxysmal atrial fibrillation; K21.9 Gastro-esophageal reflux disease without esophagitis; Z86.73 Personal history of transient ischemic attack (TIA), and cerebral infarction without residual deficits; Z95.0 Presence of cardiac pacemaker; Z79.899 Other long term (current) drug therapy
CPT/HCPCS: 71045; 80053; 83880; 84443; 84484; 85025; 93005; 96374; 99283

== ENCOUNTER → 2020-12-22 14:10 | Outpatient (CLI) | payer MEDICARE, OTHER, SELFPAY ==
--- NOTE | 2020-12-22 14:16 | XR_ITS ---
PROCEDURE: XR CHEST 2V CLINICAL HISTORY: dyspnea COMPARISON: CR XR CHEST PORTABLE from 12/16/2019 CR XR CHEST PORTABLE from 12/06/2020 FINDINGS: Prior CABG. There is cardiomegaly and there is prominence of the mediastinum. Pacemaker wires present from left subclavian approach. The tip of the wires anterior may be in the region the right ventricle. Left hemidiaphragm is slightly elevated. Multiple coronary artery stents are present. No lobar consolidation or collapse. No acute bony findings. IMPRESSION: Cardiomegaly. Prior CABG without failure with pacemaker present. Dictated by: James Walsh MD 12/22/2020 14:55 James Walsh MD in [place] 12/22/2020 14:55
== END ==
PROVIDERS: PCP Nurse Practitioner Family; Visit Provider Internal Medicine
DX: R06.00 Dyspnea, unspecified (principal)
CPT/HCPCS: 71046

== ENCOUNTER 2021-03-05 11:40 | Emergency (ER) | payer MEDICARE, OTHER, SELFPAY ==
[2021-03-05] VITALS (11 sets, daily range): BP systolic 91–123; BP diastolic 36–73; PULSE 60–87; RESP 13–18; TEMP 36.8; O2SAT 95–98; BMI 25.1
--- NOTE | 2021-03-05 12:01 | ECG_ITS ---
APPROVED REPORT Exam: Resting ECG HR:60 bpm ECG Measurements Heart Rate 60 AXES QRSd 166 QRS -1 QT 508 T 154 QTc 508 Conclusion Wide QRS rhythm Left bundle branch block Abnormal ECG Electronically signed by : Blair Landry MD 03/05/2021 13:50:18
--- NOTE | 2021-03-05 12:07 | XR_ITS ---
PROCEDURE: XR CHEST PORTABLE CLINICAL HISTORY: cough COMPARISON: CR XR CHEST PORTABLE from 12/16/2019 CR XR CHEST PORTABLE from 12/06/2020 CR XR CHEST 2V from 12/22/2020 FINDINGS: There is gross generalized cardiomegaly with aortic tortuosity. There is no pulmonary congestion. There are sternal wire sutures and surgical clips from previous CABG. There is a left-sided cardiac pacemaker with unipolar electrode which appears to be in satisfactory position. The lung aguirre are fairly well expanded and appear clear of infiltrate. There is minimal atelectasis or scarring at the left base. IMPRESSION: Stable generalized cardiomegaly, no acute cardiopulmonary disease noted Dictated by: Dr. Morgan Bradford MD 03/05/2021 12:38 Dr. Morgan Bradford MD in [place] 03/05/2021 12:38
[2021-03-05 12:15] LABS: Basophils # 0.1 K/mm3 (0-0.2); Basophils % 0.6 % (0.1-2.0); Eosinophils # 0.1 K/mm3 (0.0-0.4); Hematocrit 33.7 % (42.0-52.0); Hemoglobin 11.2 g/dL (14.1-18.0); Lymphocytes % 13.1 % (10-50); Mean Corpuscular HGB Conc 33.1 g/dL (31.8-35.4); Mean Corpuscular Hemoglobin 30.2 pg (27.0-31.2); Mean Corpuscular Volume 91.2 fl (80-94); Mean Platelet Volume 9.4 fl (7.4-10.4); Monocytes # 0.5 K/mm3 (0.1-1.0); Monocytes % 5.9 % (1.7-9.3); Neutrophils # 6.3 K/mm3 (1.8-7.8); Neutrophils % 79.3 % (37.0-80.0); Platelet Count 172 K/mm3 (142-424); Red Blood Count 3.69 M/mm3 (4.60-6.20); Red Cell Distribution Width 15.4 % (11.5-17.5); White Blood Count 7.9 K/mm3 (4.8-10.8)
[2021-03-05 12:21] LABS: Chloride 97 mmol/L (98-107); Sodium 138 mmol/L (136-145)
[2021-03-05 12:22] LABS: Potassium 4.4 mmoL/L (3.5-5.1)
[2021-03-05 12:24] LABS: Alanine Aminotransferase 17 U/L (12-78); Albumin Level 4.1 g/dl (3.5-5.0); Albumin/Globulin Ratio 1.4 (1.1-1.8); Alkaline Phosphatase 77 U/L (38-126); Anion Gap 13.4 mEq/L (5-15); Aspartate Amino Transferase 39 U/L (17-59); Bilirubin,Total 1.6 mg/dl (0.2-1.3); Blood Urea Nitrogen 34 mg/dl (9-20); Calcium 9.2 mg/dl (8.4-10.2); Carbon Dioxide 32 mmol/L (22.0-30.0); Estimated Glomerular Filt Rate 29 ml/min (>60); GFR (African American) 35 ML/MIN (>60); Globulin 2.9 g/dL (1.3-3.2); Glucose 137 mg/dl (74-100)
[2021-03-05 12:28] LABS: Creatinine Clearance Estimated 29 mL/min (50-200)
[2021-03-05 12:34] LABS: NT Pro Brain Natriuretic Pep. 2870 pg/mL (0-450)
[2021-03-05 13:06] LABS: Troponin I 0.01 ng/ml (0.00-0.034)
--- NOTE | 2021-03-05 13:59 | HMH.EDDIZZ ---
ED Disposition Clinical Impression: Orthostatic hypotension, Acute kidney injury Disposition: Home, Self-Care Condition on Discharge: Good Instructions: Dizziness, Nonvertigo Referrals: Acosta Syed APRN [Primary Care Provider] - - Critical Care Critical Care Time: No Attestation: On 03/05/21, the high probability of a clinically significant, sudden or life threatening deterioration of the following system(s) required my full and direct attention, intervention and personal management. The time I documented below is in addition to time spent performing reported procedures but includes the following listed in this critical care notation. Medical Decision Making - Medical Records Medical records reviewed: Yes: I reviewed the patient's medical records. - Jluis Inquiry Pt receiving controlled substance: No Vital Signs: 03/05/21 11:41 03/05/21 12:00 03/05/21 12:30 Temperature 98.3 F Temperature Source Oral Pulse Rate 60 61 Pulse Rate [Right Radial] 63 Respiratory Rate 18 16 17 Blood Pressure 107/61 L 91/60 L Blood Pressure [Right Arm] 105/60 L Blood Pressure Mean 78 67 Blood Pressure Mean [Right Arm] 75 Blood Pressure Source [Right Arm] Automatic Cuff Blood Pressure Position [Right Arm] Sitting 02 Sat by Pulse Oximetry 96 98 97 Oxygen Delivery Method Room Air 03/05/21 13:00 Temperature Temperature Source Pulse Rate 60 Pulse Rate [Right Radial] Respiratory Rate 15 Blood Pressure 96/61 L Blood Pressure [Right Arm] Blood Pressure Mean 62 Blood Pressure Mean [Right Arm] Blood Pressure Source [Right Arm] Blood Pressure Position [Right Arm] 02 Sat by Pulse Oximetry 95 Oxygen Delivery Method - Lab Data Lab Results 03/05/21 12:07: WBC 7.9, RBC 3.69 L, Hgb 11.2 L, Hct 33.7 L, MCV 91.2, MCH 30.2, MCHC 33.1, RDW 15.4, Plt Count 172, MPV 9.4, Neut % (Auto) 79.3, Lymph % (Auto) 13.1, [place] % (Auto) 5.9, Eos % (Auto) 1.0, Baso % (Auto) 0.6, Neut # (Auto) 6.3, Lymph # (Auto) 1.0, [place] # (Auto) 0.5, Eos # (Auto) 0.1, Baso # (Auto) 0.1 03/05/21 12:07: Sodium 138, Potassium 4.4, Chloride 97 L, Carbon Dioxide 32 H, Anion Gap 13.4, BUN 34 H, Creatinine 2.20 H, Estimated Creat Clear 29, Estimated GFR 29 L, Est GFR ( Amer) 35 L, Glucose 137 H, Calcium 9.2, Total Bilirubin 1.6 H, AST 39, ALT 17, Alkaline Phosphatase 77, Troponin I 0.01, NT-Pro-B Natriuret Pep 2870 H, Total Protein 7.0, Albumin 4.1, Globulin 2.9, Albumin/Globulin Ratio 1.4 Result diagrams: 03/05/21 12:07 03/05/21 12:07 Orders (Tests/Meds): ED MEDICATIONS Generic Name Dose Route Start Last Admin Trade Name Freq PRN Reason Stop Dose Admin Sodium Chloride 1,000 mls @ 500 mls/hr 03/05/21 14:00 Sod Chlor 0.9% 1000ml Bag IV 04/04/21 13:59 .Q2H TREVON ORDERS Category Date Time Status Troponin I Q3H Lab 03/05/21 15:15 Ordered Troponin I Q3H Lab 03/05/21 18:15 Ordered - Radiology Data #2 Image(s): Chest Image Reviewed: Yes I reviewed the patient's radiology results, Yes I reviewed the patient's radiology image, Yes I have reviewed radiologist's interpretation IMPRESSION: Stable generalized cardiomegaly, no acute cardiopulmonary disease noted - ECG Data Tracing #1 I reviewed this ECG and interpreted as documented below: Normal ventricular rate 60 bpm, electronic ventricular pacemaker, nonspecific changes ECG initial impression date: 03/05/21 ECG initial impression time: 12:01 - Reevaluation(s) Time: 14:02 Reevaluation #1: On reevaluation, patient is feeling much better. Does have some mild acute kidney injury. I did notify his image consultant about the patient. We are going to cut his Lasix in half to 20 mg daily and he was also given additional small fluid bolus in the emergency department. Repeat neuro exam is normal. Patient will follow up with cardiology in 48 hours. Given strict return precautions. Verbalized understanding. Medical Decision N
== END 2021-03-05 16:30 | disposition home or self-care (01) ==
PROVIDERS: Emergency Provider Emergency Medicine; PCP Nurse Practitioner Family
DX: I95.1 Orthostatic hypotension (principal); N17.9 Acute kidney failure, unspecified; I48.0 Paroxysmal atrial fibrillation; I25.10 Atherosclerotic heart disease of native coronary artery without angina pectoris; K21.9 Gastro-esophageal reflux disease without esophagitis; I25.2 Old myocardial infarction; I10 Essential (primary) hypertension; E78.5 Hyperlipidemia, unspecified; Z86.73 Personal history of transient ischemic attack (TIA), and cerebral infarction without residual deficits; Z79.899 Other long term (current) drug therapy
CPT/HCPCS: 71045; 80053; 83880; 84484; 85025; 93005; 96365; 99284

== ENCOUNTER → 2021-03-23 12:08 | Outpatient (CLI) | payer MEDICARE, OTHER, SELFPAY ==
[2021-03-23 13:00] LABS: Basophils # 0.1 K/mm3 (0-0.2); Basophils % 0.7 % (0.1-2.0); Eosinophils # 0.3 K/mm3 (0.0-0.4); Eosinophils % 4.5 % (0.1-12.0); Hematocrit 35.9 % (42.0-52.0); Hemoglobin 11.7 g/dL (14.1-18.0); Lymphocytes % 14.6 % (10-50); Mean Corpuscular HGB Conc 32.6 g/dL (31.8-35.4); Mean Corpuscular Hemoglobin 30.4 pg (27.0-31.2); Mean Corpuscular Volume 93.3 fl (80-94); Mean Platelet Volume 8.6 fl (7.4-10.4); Monocytes # 0.6 K/mm3 (0.1-1.0); Monocytes % 8.3 % (1.7-9.3); Platelet Count 185 K/mm3 (142-424); Red Blood Count 3.84 M/mm3 (4.60-6.20); Red Cell Distribution Width 15.4 % (11.5-17.5); White Blood Count 6.9 K/mm3 (4.8-10.8)
[2021-03-23 13:24] LABS: Chloride 104 mmol/L (98-107); Sodium 144 mmol/L (136-145)
[2021-03-23 13:25] LABS: Potassium 4.6 mmoL/L (3.5-5.1)
[2021-03-23 13:27] LABS: Blood Urea Nitrogen 19 mg/dl (9-20); Estimated Glomerular Filt Rate 64 ml/min (>60); GFR (African American) 77 ML/MIN (>60)
[2021-03-23 13:28] LABS: Anion Gap 10.6 mEq/L (5-15); Calcium 9.1 mg/dl (8.4-10.2); Carbon Dioxide 34 mmol/L (22.0-30.0); Glucose 86 mg/dl (74-100)
== END ==
PROVIDERS: Visit Provider Physician Assistant
DX: R06.00 Dyspnea, unspecified; I25.10 Atherosclerotic heart disease of native coronary artery without angina pectoris; I11.0 Hypertensive heart disease with heart failure; E78.2 Mixed hyperlipidemia; Z79.01 Long term (current) use of anticoagulants; I48.20 Chronic atrial fibrillation, unspecified; I65.23 Occlusion and stenosis of bilateral carotid arteries; I71.2 Thoracic aortic aneurysm, without rupture; Z95.0 Presence of cardiac pacemaker
CPT/HCPCS: 36415; 80048; 85025

== ENCOUNTER → 2021-06-17 20:12 | Outpatient (CLI) | payer MEDICARE, OTHER, SELFPAY | PROVIDERS: PCP Nurse Practitioner Family; Visit Provider Nurse Practitioner Family | DX: G47.33 Obstructive sleep apnea (adult) (pediatric) (principal); R06.83 Snoring | CPT/HCPCS: 95811 ==

== ENCOUNTER → 2021-11-02 20:19 | Outpatient (CLI) | payer MEDICARE, OTHER, SELFPAY | PROVIDERS: PCP Nurse Practitioner Family; Visit Provider Nurse Practitioner Family | DX: G47.33 Obstructive sleep apnea (adult) (pediatric) (principal); G47.52 REM sleep behavior disorder; I50.9 Heart failure, unspecified; I11.9 Hypertensive heart disease without heart failure; I65.23 Occlusion and stenosis of bilateral carotid arteries | CPT/HCPCS: 95811 ==

== ENCOUNTER → 2021-12-30 12:08 | Outpatient (CLI) | payer MEDICARE, OTHER, SELFPAY ==
--- NOTE | 2021-12-30 12:08 | NM_ITS ---
APPROVED REPORT Exam: Nuclear Stress Test Indication: CHF, HTN, HYPERLIPIDEMIA, SOB, PACE MAKER, SLEEP APNEA Patient Location: Outpatient Stress Tech: Pamela Urrutia [place] Tech:Isabel Schroeder ARRT RT(R)(N) Ht: 5 ft 11 in Wt: 180 lbs HR: 62 bpm BP: 152/87 mmHg BSA: 2.02 m2 TID: 0.95 BMI: 25.1 History: CHF, HTN, HYPERLIPIDEMIA, SOB, PACE MAKER, SLEEP APNEA Procedure: Patient received a 0.4 mg of intravenous Lexiscan, resting heart rate 62 bpm, resting blood pressure 152/87 mmHg, with Lexiscan maximum heart rate achived was 62 bpm which is Less than 85 % of the maximum predicted heart rate and blood pressure was 95/54 mmHg. With Lexiscan, patient denied any complaint of chest pain. Electrocardiogram Resting electrocardiogram shows electronically paced rhythm. With Lexiscan less than 1.[address] segment depression noted from the baseline EKG. The EKG portion of the Lexiscan is nondiagnostic. Cardiac Stress and Resting SPECT Images: Cardiac Stress and Resting SPECT images were obtained using technetium 99m Myoview 31.6 mCi stress and 10.46 mCi at rest. Gated SPECT analysis of segmental wall motion and calculation of the ejection fraction also done. Cardiac stress and rest SPECT images show uniform myocardial activity without segmental perfusion abnormality, computer derived ejection fraction is 50% with no regional wall motion abnormality, right ventricle is normal size and contractility. Conclusion: 1. The EKG portion of the Lexiscan is nondiagnostic. 2. No scintigraphic evidence of reversible ischemia seen, compared right ejection fraction 50% with no regional wall motion abnormality, right ventricle is normal size and contractility. 3. Normal Lexiscan Myoview study. Electronically signed by : Buck Diaz MD 12/31/2021 09:59:15
--- NOTE | 2021-12-30 14:20 | CA_ITS ---
APPROVED REPORT Exam: Pharmacologic Technologist: Pamela Liang, Ht: 5 ft 11 in Wt: 177 lbs BSA: 2.00 m2 HR: 60 bpm BP: 152/87 mmHg Medical History Medications: Alprazolam,,,,, Metoprolol,,,,, Gabapentin,,,,, Losartan,,,,, TAMSULOSIN,,,,, Montelukast,,,,, Protonix,,,,, Sertraline,,,,, MeLATONIN,,,,, AtorvaASTATIN,,,,, Furosemide,,,,, Stress Test Details Test: LEXISCAN Reason for pharmacologic stress test: physical limitation. HR Resting HR: 62 bpm Max Heart Rate (APMHR): 135 bpm Max HR Achieved: 78 bpm Target HR (85% APMHR): 115 bpm % of APMHR: 58 Recovery HR: 60 bpm BP Resting BP: 152/87 mmHg Max BP: 152/87 mmHg Recovery BP: 141.0/80.0 mmHg ECG Resting ECG: Ventricular paced rhythm Clinical Exercise duration: 04:00 min Highest Stage Achieved: Stress ECG Conclusion Symptoms: Lightheaded, mild soa. No CP. Arrhythmias/Ectopy: Occ PVC or aberrantly conducted beat. ST-T Changes: No significant changes Conclusion: Drop in Bp, otherwise unremarkable Lexiscan stress. Myoview images reported separately. Test Summary REST . . . . . . . Resting REST 04:04 . . 62 . 152/ 87 . . Stage 1 01:00 . . 59 . . . . Stage 2 01:00 . . 62 . . . . Stage 3 01:00 . . 62 . 95/ 54 . . Stage 4 01:00 . . 60 . 108/ 61 . Stop exercise at 04:00 RECOVERY 01:00 . . 63 . 113/ 62 . . RECOVERY 02:00 . . 63 . 113/ 62 . . RECOVERY 03:00 . . 60 . 113/ 62 . . RECOVERY 04:00 . . 62 . 100/ 60 . . RECOVERY 05:00 . . 60 . 99/ 64 . . RECOVERY 06:00 . . 60 . 99/ 64 . . RECOVERY 07:00 . . 61 . 114/ 64 . . RECOVERY 08:00 . . 63 . 117/ 68 . . RECOVERY 09:00 . . 60 . 117/ 68 . . RECOVERY 10:00 . . 64 . 144/ 79 . . RECOVERY 11:00 . . 63 . 144/ 79 . . RECOVERY 12:00 . . 62 . 129/ 79 . . RECOVERY 13:00 . . 60 . 129/ 79 . . RECOVERY 14:00 . . 60 . 129/ 79 . . RECOVERY 15:00 . . 60 . 129/ 79 . . RECOVERY 15:08 . . 60 . 129/ 79 . . Electronically signed by : Buck Diaz MD 12/31/2021 09:57:24
== END ==
PROVIDERS: PCP Nurse Practitioner Family; Visit Provider Internal Medicine
DX: R06.00 Dyspnea, unspecified; R07.9 Chest pain, unspecified; I25.10 Atherosclerotic heart disease of native coronary artery without angina pectoris; I50.43 Acute on chronic combined systolic (congestive) and diastolic (congestive) heart failure; I11.0 Hypertensive heart disease with heart failure; I65.23 Occlusion and stenosis of bilateral carotid arteries; E78.2 Mixed hyperlipidemia; G47.33 Obstructive sleep apnea (adult) (pediatric); Z79.01 Long term (current) use of anticoagulants; Z95.0 Presence of cardiac pacemaker
CPT/HCPCS: 78452; 93017; A9502; J2785

== ENCOUNTER → 2022-05-04 15:11 | Outpatient (CLI) | payer MEDICARE, OTHER, SELFPAY ==
--- NOTE | 2022-05-04 15:14 | CA_ITS ---
APPROVED REPORT EXAM: Comprehensive 2D, Doppler, and color-flow Echocardiogram Before [employer] Babysitter: Magdalena Calvo CRT Ht: 5 ft 11 in Wt: 177lbs BSA: 2.00 BP: 123/74 mmHg Indications: Chest Pain, Shortness of Breath, CVA/TIA, Fatigue, CAD, Hyperlipidemia, Hypertension/HDD, CABG, CARLOS, Pacemaker, [place], CHF 2D Dimensions LVOT 2.03 cm (M/F) 1.5-2.5 LA Volume 98.50 mL LA Volume Index 48.00 mL/m2 (M/F) 16-34 M-Mode Dimensions RVDd 3.50 cm (0.9-2.6) LA Diam 5.03 cm (1.9-4.0) LVDd 3.11 cm (3.5-5.7) Ao Diam 5.39 cm (2.0-3.7) LVDs 2.25 cm (3.5-5.7) IVSd 2.07 cm (0.6-1.1) PWd 0.93 cm (0.6-1.1) EF (Teich) 55.20% FS 27.70% EDV (Teich) 38.20 mL TAPSE 2.14 (<1.7) ESV (Teich) 17.10 mL LV Diastology E Decel Time 377.00 (160-240 msec) E/A Ratio 0.99 Aortic Valve AO Peak GR. 5.50 mmHg Mitral Valve MV A Velocity 66.00 (40-130 cm/s) E/A Ratio 0.99 MV Decel. Time 377.00 (160-240 ms) Pulmonary Valve PV Peak Velocity 180.00 (50-150 cm/s) Tricuspid Valve TR P. Velocity 266.00 cm/s RAP Estimate 10.00 mmHg RVSP 38.30 mmHg Left Ventricle Technically difficult study because of the patient factors and poor acoustic windows. Left atrium is mildly enlarged, left ventricle is normal size mild concentric left ventricular hypertrophy, estimated ejection fraction 55% with no regional wall motion abnormality, diastolic parameters are inconclusive. Right Ventricle Right atrium and right ventricle are mildly enlarged with normal contractility, pacemaker leads in the right ventricle. Aortic Valve Aortic valve is thickened and calcified without Doppler evidence of aortic stenosis or aortic insufficiency. Mitral Valve Mitral valve leaflets are minimally thickened, there is mild mitral regurgitation. Tricuspid Valve Tricuspid valve grossly normal, there is mild tricuspid regurgitation, calculated right ventricular systolic pressure 38 mmHg. Pulmonic Valve Pulmonic valve is poorly visualized. Great Vessels Aortic root is normal size. Inferior vena cava is poorly visualized. Pericardium No significant pericardial effusion noted. Conclusion 1. Mild biatrial enlargement, normal left ventricular size, mild concentric left ventricular hypertrophy, estimated ejection fraction 55% with no regional wall motion abnormality, diastolic parameters are inconclusive. 2. Mildly enlarged right ventricle with normal contractility. 3. Thickened and calcified aortic valve without aortic stenosis or aortic insufficiency. 4. Mild mitral and tricuspid regurgitation, calculated right ventricular systolic pressure 38 mmHg. 5. No significant pericardial effusion. 6. Inferior vena cava is poorly visualized. Electronically signed by : Buck Diaz MD 05/04/2022 18:28:18
[2022-05-04 17:13] LABS: Basophils # 0.1 K/mm3 (0-0.2); Basophils % 0.4 % (0.1-2.0); Eosinophils # 0.4 K/mm3 (0.0-0.4); Eosinophils % 3.4 % (0.1-12.0); Hematocrit 41.9 % (42.0-52.0); Hemoglobin 13.2 g/dL (14.1-18.0); Lymphocytes # 1.8 K/mm3 (0.7-4.5); Lymphocytes % 15.3 % (10-50); Mean Corpuscular HGB Conc 31.6 g/dL (31.8-35.4); Mean Corpuscular Hemoglobin 29.7 pg (27.0-31.2); Mean Platelet Volume 8.1 fl (7.4-10.4); Monocytes # 0.8 K/mm3 (0.1-1.0); Neutrophils # 8.9 K/mm3 (1.8-7.8); Neutrophils % 73.9 % (37.0-80.0); Platelet Count 244 K/mm3 (142-424); Red Blood Count 4.46 M/mm3 (4.60-6.20); Red Cell Distribution Width 14.4 % (11.5-17.5)
[2022-05-04 17:16] LABS: Alanine Aminotransferase 33 U/L (12-78); Albumin Level 4.1 g/dl (3.5-5.0); Alkaline Phosphatase 72 U/L (38-126); Anion Gap 11.2 mEq/L (5-15); Aspartate Amino Transferase 24 U/L (17-59); Bilirubin,Direct 0.1 mg/dl (0.0-0.4); Bilirubin,Indirect 0.6 mg/dL (0.0-0.9); Bilirubin,Total 0.7 mg/dl (0.2-1.3); Bilirubin,Unconjugated 0.5 mg/dL (0.0-1.1); Blood Urea Nitrogen 28 mg/dl (9-20); Calcium 9.4 mg/dl (8.4-10.2); Carbon Dioxide 38 mmol/L (22.0-30.0); Chloride 97 mmol/L (98-107); Chol/HDL Ratio 3.5 (1-3.5); Cholesterol 156 mg/dl (140-200); Estimated Glomerular Filt Rate 48 ml/min (>60); GFR (African American) 58 ML/MIN (>60); Glucose 103 mg/dl (74-100); HDL Cholesterol 44 mg/dl (40-60); Magnesium 2.4 mg/dl (1.6-2.3); Potassium 4.2 mmoL/L (3.5-5.1); Sodium 142 mmol/L (136-145); Total Protein,Serum 7.3 g/dl (6.3-8.2); Triglycerides 193 mg/dl (30-150); VLDL Cholesterol 39 mg/dL (0-40)
[2022-05-04 17:26] LABS: Direct LDL Cholesterol 74.34 mg/dL (100-129)
[2022-05-04 17:32] LABS: Free T4 (Free Thyroxine) 1.23 ng/dl (0.78-2.19)
[2022-05-04 17:46] LABS: Thyroid Stimulating Hormone 3.35 uIU/mL (0.465-4.68)
== END ==
PROVIDERS: PCP Nurse Practitioner Family; Visit Provider Internal Medicine
DX: R06.00 Dyspnea, unspecified; R07.9 Chest pain, unspecified; I11.0 Hypertensive heart disease with heart failure; I50.43 Acute on chronic combined systolic (congestive) and diastolic (congestive) heart failure; I25.10 Atherosclerotic heart disease of native coronary artery without angina pectoris; I48.20 Chronic atrial fibrillation, unspecified; E78.2 Mixed hyperlipidemia; I65.23 Occlusion and stenosis of bilateral carotid arteries; G47.33 Obstructive sleep apnea (adult) (pediatric); Z95.0 Presence of cardiac pacemaker
CPT/HCPCS: 36415; 80048; 80061; 80076; 83735; 84439; 84443; 85025; 93306

== ENCOUNTER 2022-07-28 22:14 | Observation (INO) | payer MEDICARE, OTHER, SELFPAY ==
[2022-07-28 22:16] VITALS: BP 144/91; PULSE 64; RESP 18; TEMP 36.6; O2SAT 95; BMI 25.1
--- NOTE | 2022-07-28 22:22 | ECG_ITS ---
APPROVED REPORT Exam: Resting ECG HR:62 bpm ECG Measurements Heart Rate 62 AXES QRSd 148 QRS 24 QT 428 T 189 QTc 432 Conclusion ELECTRONIC VENTRICULAR PACEMAKER ABNORMAL RHYTHM ECG UNCONFIRMED REPORT Electronically signed by : Blair Landry MD 07/29/2022 17:01:41
--- NOTE | 2022-07-28 22:28 | XR_ITS ---
PROCEDURE INFORMATION: Exam: XR Chest Exam date and time: 07/28/2022 10:33 PM Age: 86 years old Clinical indication: Other: Weakness; Prior surgery TECHNIQUE: Imaging protocol: Radiologic exam of the chest. Views: 2 views. COMPARISON: CR XR CHEST PORTABLE 03/05/2021 12:17 PM FINDINGS: Tubes, catheters and devices: Single lead pacemaker grossly in place. Lungs: Linear subsegmental atelectasis/infiltration of right mid lung zone. Stable atelectasis/scarring of left lung base. Pleural spaces: Unremarkable. No pleural effusion. No pneumothorax. Heart/Mediastinum: Mediastinum aorta cardiac silhouettes stable. Tortuous aorta. Bones/joints: Unremarkable. IMPRESSION: Right lung zone scarring/subsegmental atelectasis. Left basilar scarring/subsegmental atelectasis.
--- NOTE | 2022-07-28 22:28 | CT_ITS ---
PROCEDURE INFORMATION: Exam: CT Head Without Contrast Exam date and time: 07/28/2022 10:47 PM Age: 86 years old Clinical indication: Weakness, extremity TECHNIQUE: Imaging protocol: Computed tomography of the head without contrast. Radiation optimization: All CT scans at this facility use at least one of these dose optimization techniques: automated exposure control; mA and/or kV adjustment per patient size (includes targeted exams where dose is matched to clinical indication); or iterative reconstruction. REPORTING DATA: Count of CT and Cardiac NM exams in prior 12 months: This patient has received 0 known CTs and 0 known cardiac nuclear medicine studies in the 12 months prior to the current study. COMPARISON: US CA CAROTID DUPLEX BI 11/05/2019 10:06 AM FINDINGS: Brain: No abnormal intracranial fluid collection mass effect or hydrocephalus. Chronic, underlying periventricular white matter changes and parenchymal cortical volume loss. Cerebral ventricles: No ventriculomegaly. Paranasal sinuses: Visualized sinuses are unremarkable. No fluid levels. Mastoid air cells: Visualized mastoid air cells are well aerated. Bones/joints: Unremarkable. No acute fracture. Soft tissues: Unremarkable. IMPRESSION: No acute intracranial abnormality. Age-related changes.
[2022-07-28 22:35] LABS: Coronavirus 19, PCR Not Detected (NotDetected); Influenza A, PCR Not Detected (NotDetected); Influenza B, PCR Not Detected (NotDetected)
[2022-07-28 22:41] LABS: Basophils % 0.2 % (0.1-2.0); Eosinophils # 0.1 K/mm3 (0.0-0.4); Eosinophils % 0.6 % (0.1-12.0); Hematocrit 36.5 % (42.0-52.0); Hemoglobin 11.5 g/dL (14.1-18.0); Lymphocytes # 0.7 K/mm3 (0.7-4.5); Mean Corpuscular HGB Conc 31.3 g/dL (31.8-35.4); Mean Corpuscular Hemoglobin 29.9 pg (27.0-31.2); Mean Corpuscular Volume 95.5 fl (80-94); Monocytes # 0.9 K/mm3 (0.1-1.0); Monocytes % 8.7 % (1.7-9.3); Neutrophils # 8.4 K/mm3 (1.8-7.8); Neutrophils % 83.4 % (37.0-80.0); Platelet Count 169 K/mm3 (142-424); Red Blood Count 3.82 M/mm3 (4.60-6.20); Red Cell Distribution Width 14.3 % (11.5-17.5); White Blood Count 10.1 K/mm3 (4.8-10.8)
--- NOTE | 2022-07-28 22:45 | PC.NURSE ---
Pt gone to Rad via wheelchair
--- NOTE | 2022-07-28 22:51 | PC.NURSE ---
Pt back from RAD
[2022-07-28 22:52] LABS: Alanine Aminotransferase 22 U/L (12-78); Albumin Level 4.5 g/dl (3.5-5.0); Albumin/Globulin Ratio 1.4 (1.1-1.8); Alkaline Phosphatase 71 U/L (38-126); Anion Gap 9.1 mEq/L (5-15); Aspartate Amino Transferase 29 U/L (17-59); Bilirubin,Total 1.7 mg/dl (0.2-1.3); Blood Urea Nitrogen 36 mg/dl (9-20); Calcium 9.1 mg/dl (8.4-10.2); Carbon Dioxide 31 mmol/L (22.0-30.0); Chloride 102 mmol/L (98-107); Creatinine Clearance Estimated 35 mL/min (50-200); Estimated Glomerular Filt Rate 36 ml/min (>60); GFR (African American) 44 ML/MIN (>60); Globulin 3.2 g/dL (1.3-3.2); Glucose 143 mg/dl (74-100); Potassium 4.1 mmoL/L (3.5-5.1); Sodium 138 mmol/L (136-145); Total Protein,Serum 7.7 g/dl (6.3-8.2)
[2022-07-28 23:00] VITALS: BP 150/77; PULSE 63; O2SAT 94
[2022-07-28 23:03] LABS: Troponin I 0.02 ng/ml (0.00-0.034)
--- NOTE | 2022-07-28 23:11 | PC.NURSE ---
Dr. Arredondo at
--- NOTE | 2022-07-28 23:12 | HMH.EDWEAK ---
Discharge Plan Disposition Patient Disposition: Admitted As Inpatient Chief Complaint: Weakness Prescriptions Prescriptions: No Action gabapentin 300 mg capsule 300 mg PO DIRECTED Qty: 90 5RF Rx Instructions: 300 mg p.o. every morning and 600 mg at night as long as he experienced persistent pain and no side effects. atorvastatin 40 mg tablet 40 mg PO HS tamsulosin 0.4 mg capsule,extended release 24hr 0.4 mg PO DAILY montelukast 10 mg tablet 10 mg PO QPM pantoprazole [Protonix] 20 mg tablet,delayed release (DR/EC) 20 mg PO HS Xarelto 20 mg tablet 20 mg PO HS Rx Instructions: must administer with evening meal sertraline 50 mg tablet 25 mg PO HS Rx Instructions: CUT 50 MG IN HALF melatonin 3 mg capsule 3 mg PO HS PRN (Reason: Sleep) losartan 25 mg tablet 25 mg PO DAILY furosemide 40 mg tablet 40 mg PO BID Qty: 180 3RF metoprolol succinate 25 MG tablet extended release 24 hr 25 mg PO DAILY ipratropium-albuterol 0.5 mg-3 mg(2.5 mg base)/3 mL solution for nebulization 3 ml INHALATION Q4-6H PRN (Reason: Breathing) Label Comments: INHALE THREE (3) ML EVERY 4-6 HOURS BY NEBULIZATION ROUTE. Saccharomyces boulardii [Probiotic (S.boulardii)] 250 mg capsule 250 mg PO DAILY Label Comments: TAKE ONE (1) CAPSULE BY MOUTH EVERY DAY cholecalciferol (vitamin D3) 50 mcg (2,000 unit) capsule 50 mcg PO DAILY Label Comments: TAKE ONE (1) CAPSULE EVERY DAY BY ORAL ROUTE FOR 30 DAYS. alprazolam 0.25 mg tablet 0.125 mg PO HS Referrals Follow up/Referrals: Acosta Syed APRN [Primary Care Provider] - See instructions Clinical Impressions Clinical Impression: Congestive heart failure, Cardiac pacemaker in situ, Unsteady gait, Falls, Bronchitis Discharge ED Provider: Maria Elena (ED)Josue [facility] General Chief complaint: Weakness Stated complaint: SOB, Unsteady on feet, Time Seen by Provider: 07/28/22 23:00 Mode of Arrival: Wheelchair Source of Information: Patient, Relative and Medical Record Limitations: No Limitations Description of Symptoms (Recalled from ER Triage Doc. by RN): 86 M presents with daughter for c/o unsteady gait that has gotten worse over the last week. Patient lives alone at home, but has a good support system that checks on him daily. His daughter came to his house this evening, noticed him stumbling and thought it was best to have him checked out. Patient has significant cardiac history, denies CVA. No focal neurological deficit on exam. NAD History of Present Illness HPI Narrative: pt with c/c of weakness and unsteady gait which has been progressive this week - family and pt report cough and congestion but no fever and feels sob -has hx of chf MD Complaint: generalized weakness Onset (ago): day(s) Severity: moderate Associated symptoms: shortness of breath Related Data Home Medications Medication Instructions Recorded Confirmed atorvastatin 40 mg tablet 40 mg PO HS Cholesterol 05/15/17 07/28/22 tamsulosin 0.4 mg capsule 0.4 mg PO DAILY BPH 05/15/17 07/28/22 montelukast 10 mg tablet 10 mg PO QPM Asthma 09/06/17 07/28/22 pantoprazole 20 mg tablet,delayed 20 mg PO HS GERD 08/21/18 07/28/22 release (Protonix) rivaroxaban 20 mg tablet (Xarelto) 20 mg PO HS anticoagulant 10/29/19 07/28/22 metoprolol succinate 25 mg 25 mg PO DAILY High blood pressure 09/19/20 07/28/22 tablet,extended release 24 hr melatonin 3 mg capsule 3 mg PO HS PRN Sleep 11/19/20 07/28/22 alprazolam 0.25 mg tablet 0.125 mg PO HS Sleep 05/20/21 07/28/22 losartan 25 mg tablet 25 mg PO DAILY Cholesterol 07/22/21 07/28/22 sertraline 50 mg tablet 25 mg PO HS Depression 12/16/21 07/28/22 Saccharomyces boulardii 250 mg 250 mg PO DAILY Supplement 07/28/22 07/28/22 capsule (Probiotic (S.boulardii)) cholecalciferol (vitamin D3) 50 50 mcg PO DAILY Supplement 07/28/22 07/28/22 mcg (2,000 unit)
[2022-07-28 23:30] VITALS: BP 138/79; PULSE 59; RESP 19; O2SAT 93
[2022-07-28 23:33] LABS: Magnesium 2.1 mg/dl (1.6-2.3)
[2022-07-29] VITALS (17 sets, daily range): BP systolic 111–143; BP diastolic 61–91; PULSE 60–81; RESP 16–26; TEMP 36.4–37.2; O2SAT 80–99; BMI 25.2
[2022-07-29 00:15] LABS: Microscopic, Urine URINE MICROSCOPIC (MICROSCOPIC)
[2022-07-29 00:33] LABS: Appearance,Urine CLEAR (Clear); Bilirubin,Urine Negative (Negative); Blood, Urine 1+ (Negative); Color,Urine YELLOW (Yellow); Glucose,Urine (UA) Negative (Negative); Ketones,Urine Negative (Negative); Leukocyte Esterase,Urine Negative (Negative); Nitrate,Urine Negative (Negative); Protein,Urine TRACE (Negative); Specific Gravity, Urine 1.015 (1.005-1.030); Urobilinogen,Urine 0.2 EU/dl (0.2)
[2022-07-29 00:42] LABS: Magnesium 2.4 mg/dl (1.6-2.3)
[2022-07-29 00:52] LABS: NT Pro Brain Natriuretic Pep. 4950 pg/mL (0-450)
[2022-07-29 01:03] LABS: Squamous Epithelial Cell,Urine Occasional #/hpf (0-5)
--- NOTE | 2022-07-29 01:06 | PC.NURSE ---
second trop drawn and sent to lab
[2022-07-29 01:30] LABS: Troponin I 0.02 ng/ml (0.00-0.034)
--- NOTE | 2022-07-29 02:06 | PC.NURSE ---
Dr. Arredondo s/eddie Meza, hospitalist, for possible admission
--- NOTE | 2022-07-29 02:09 | PC.NURSE ---
hospitalist Susana at bedside to discuss care and possible admission.
--- NOTE | 2022-07-29 02:26 | EXP.HP ---
History of Present Illness *Admission Date: 07/29/22 *Reason for visit:: gait disturbance *History of present illness: this is a very pleasant 86-year-old male with a past medical history of CAD, atrial fibrillation with pacemaker, CKD, CHF who presents emergency department today with his daughter with complaints of gait disturbances and increased shortness of breath daughter reports in the last 4 days he has had increasing shortness of breath, cough and congestion and gait disturbances. Patient reports being unable to hold onto his coffee cup at home. He also reports productive sputum yellow in color. He denies any fever or any sick COVID contacts. He does endorse mild orthopnea. Does see Dr. Durán for cardiology services and was seen approximately 3 months ago. Emergency department work-up remarkable for elevated BNP of 4000, prior BNP around 1999. Chest x-ray with notable scarring and chronic disease. On exam patient was noted to be rhonchorous and clinically volume overloaded. He also endorses sputum production that is yellow in color so will likely component bronchitis/pneumonia. Given the above-mentioned complaints he will be admitted to hospital service for further evaluation management [facility] Disclaimer: The information contained in this section may have been updated after the patient was seen, as this information can be updated by other users. Medical History (Updated 07/29/22 @ 11:36 by Rodrigo Tate MD) Abnormal breath sounds Bleeding nose CHF (congestive heart failure) Confusion Difficulty with speech Dyspnea TIA (transient ischemic attack) Surgical History (Updated 07/29/22 @ 04:51 by Darling Siddiqi RN) History of cardiac catheterization History of colonoscopy History of esophagogastroduodenoscopy (EGD) History of hernia repair History of permanent cardiac pacemaker placement Hx of CABG Family History Other No significant family history Social History (Updated 07/29/22 @ 03:20 by Darling Siddiqi RN) Smoking Status: Never smoker second hand exposure: No alcohol intake: never substance use type: denies use current occupational status: retired Travel in the last 8 weeks: None household members: none housing: house lives independently: Yes marital status: current occupational exposures/hazards: No caffeine: No special freddy needs: No agree to transfusion: No Review of Systems Review of Systems Review of systems:: pertinent systems reviewed and negative unless documented below Constitutional Constitutional: Reports as per HPI Eyes Eyes: Reports as per HPI ENT Ears, Nose, Mouth, and Throat: Reports as per HPI *Cardiovascular Cardiovascular: Reports as per HPI *Respiratory Respiratory: Reports as per HPI Meds Home Medications and Allergies Home Medications Medication Instructions Recorded Confirmed Type atorvastatin 40 mg tablet 40 mg PO HS Cholesterol 05/15/17 07/28/22 History tamsulosin 0.4 mg capsule 0.4 mg PO HS prostate 05/15/17 07/29/22 History montelukast 10 mg tablet 10 mg PO PM Asthma 09/06/17 07/29/22 History pantoprazole 20 mg tablet,delayed 20 mg PO BID Acid reflux 08/21/18 07/29/22 History release (Protonix) rivaroxaban 20 mg tablet (Xarelto) 20 mg PO QPMWITHMEAL 10/29/19 07/29/22 History anticoagulant/atrial fib metoprolol succinate 25 mg 25 mg PO DAILY blood pressure 09/19/20 07/28/22 History tablet,extended release 24 hr alprazolam 0.25 mg tablet 0.125 mg PO HS Sleep 05/20/21 07/28/22 History losartan 25 mg tablet 25 mg PO DAILY blood pressure 07/22/21 07/28/22 History gabapentin 300 mg capsule 300 mg PO DIRECTED Pain #90 caps 09/29/21 07/28/22 Rx furosemide 40 mg tablet 40 mg PO BID Fluid #180 tabs 05/10/22 07/28/22 Rx Saccharomyces boulardii 250 mg 250 mg PO DAILY Supplement 07/28/22 07/28/22 History capsule (Probiotic (S.boulardii)) cholecalcifero
--- NOTE | 2022-07-29 02:41 | PC.NURSE ---
Pt arrived to floor via wheelchair @ [phone]
[2022-07-29 05:04] LABS: Troponin I 0.02 ng/ml (0.00-0.034)
--- NOTE | 2022-07-29 05:41 | PC.NURSE ---
0500 was noted that pt had significant amount of bright red blood on underwear, pants, in bsc and was noted around scrotal area, Susana Lima was called, telephone order to in and out cath to assess hematuria was given repeated and verified, #16 fr 3-way was used for assessment, catheter was inserted using sterile technique and urine was sent to lab for urinalysis, upon insertion of catheter there was no indication of blood in urine at and catheter was removed, catheter insertion was without difficulty, upon removal it was noted small amounft of bleeding from end of penis, moderate amount of bleeding was also noted on bed sheets, rectal area was assessed by Susana lima and no indication of bleeding from rectal area. pt tolerated well.
--- NOTE | 2022-07-29 05:58 | PC.NURSE ---
pt admitted this shift, vss, pt soa with exertion, lung sounds diminished with fine crackles and wheezes in bases, 02 at 1L pnc placed for drop in 02 sats to 80% upon standing at bedside and voiding, pt recovers slowly to above 90%, no acute distress, pt is alert to name, bd, but was confused to place and year, pt forgetful at times. bed alarm in place, pt states he falls at home, pt also stated he lost two of his children in the past 2or 3 years.
[2022-07-29 06:13] LABS: Basophils % 0.2 % (0.1-2.0); Eosinophils % 0.3 % (0.1-12.0); Hematocrit 32.9 % (42.0-52.0); Hemoglobin 10.6 g/dL (14.1-18.0); Lymphocytes # 0.5 K/mm3 (0.7-4.5); Lymphocytes % 5.7 % (10-50); Mean Corpuscular HGB Conc 32.1 g/dL (31.8-35.4); Mean Corpuscular Hemoglobin 30.1 pg (27.0-31.2); Mean Corpuscular Volume 93.9 fl (80-94); Mean Platelet Volume 8.6 fl (7.4-10.4); Monocytes # 0.9 K/mm3 (0.1-1.0); Monocytes % 9.9 % (1.7-9.3); Neutrophils # 7.9 K/mm3 (1.8-7.8); Neutrophils % 83.9 % (37.0-80.0); Platelet Count 144 K/mm3 (142-424); Red Blood Count 3.51 M/mm3 (4.60-6.20); Red Cell Distribution Width 14.3 % (11.5-17.5); White Blood Count 9.4 K/mm3 (4.8-10.8)
[2022-07-29 06:31] LABS: Chloride 105 mmol/L (98-107); Potassium 3.7 mmoL/L (3.5-5.1); Sodium 142 mmol/L (136-145)
[2022-07-29 06:34] LABS: Anion Gap 11.7 mEq/L (5-15); Blood Urea Nitrogen 31 mg/dl (9-20); Carbon Dioxide 29 mmol/L (22.0-30.0); Cholesterol 104 mg/dl (140-200); Creatinine Clearance Estimated 39 mL/min (50-200); Estimated Glomerular Filt Rate 41 ml/min (>60); GFR (African American) 50 ML/MIN (>60); Triglycerides 67 mg/dl (30-150); VLDL Cholesterol 13 mg/dL (0-40)
[2022-07-29 06:35] LABS: Calcium 8.5 mg/dl (8.4-10.2); Chol/HDL Ratio 3.2 (1-3.5); Glucose 143 mg/dl (74-100); HDL Cholesterol 33 mg/dl (40-60); Magnesium 1.9 mg/dl (1.6-2.3)
[2022-07-29 06:45] LABS: Direct LDL Cholesterol 53.79 mg/dL (100-129)
--- NOTE | 2022-07-29 07:47 | HMH.PHAINT1 ---
Pharmacy Intervention Comments: home medication list verified using list from outpatient pharmacy
--- NOTE | 2022-07-29 08:17 | EXP.CARD.CON ---
History of Present Illness History of Present Illness Consult date: 07/29/22 Requesting physician: Rodrigo Tate Consult reason: shortness of breath Chief complaint: SOA Additional Medical History:: 1.? Coronary artery disease with history of coronary bypass grafting in 1990 A.? Left heart catheterization, 02/2018, YASMEEN to SVG to ramus.? Patent SULLIVAN to LAD.? SVG to diagonal with 40% lesion, medical therapy. 2.? [employer]/[place] [employer] permanent pacemaker, implanted October 14, 2011 A. Last interrogation, 05/14/2022, 1.9 years battery life left. No events. Ventricular pacing 96%. 3.? Chronic atrial fibrillation A. On Xarelto therapy 4.? History of CVA approximately [address] of the head, 07/28/22, no acute abnormality with chronic age-related changes. 5.? Hypertension A. Echocardiogram, 05/04/2022, mild biatrial enlargement, normal LV size, mild concentric LVH with EF 55% and no regional WMA. Diastolic parameters inconclusive. Mild RV enlargement with normal contractility. Thickened and calcified aortic valve without aortic stenosis. Mild MR and TR with RVSP 38 mmHg. 6.? Hyperlipidemia, on statin A. LDL 33 on 07/29/2022 7.? NATALIE with 20-49% ICA stenosis bilaterally, 10/2019 History of present illness: this is a very pleasant 86-year-old male with a past medical history of CAD, atrial fibrillation with pacemaker, CKD, CHF who presents emergency department today with his daughter with complaints of gait disturbances and increased shortness of breath daughter reports in the last 4 days he has had increasing shortness of breath, cough and congestion and gait disturbances.? Patient reports being unable to hold onto his coffee cup at home.? He also reports productive sputum yellow in color.? He denies any fever or any sick COVID contacts.? He does endorse mild orthopnea.? Does see Dr. Durán for cardiology services and was seen approximately 3 months ago. ? Emergency department work-up remarkable for elevated BNP of 4000, prior BNP around 1999.? Chest x-ray with notable scarring and chronic disease.? On exam patient was noted to be rhonchorous and clinically volume overloaded.? He also endorses sputum production that is yellow in color so will likely component bronchitis/pneumonia.? Given the above-mentioned complaints he will be admitted to hospital service for further evaluation management The above per SHERI Menjivar, for the Hospitalist service. Patient confirms increasing shortness of breath along with cough and congestion. He is unsure of how he takes his diuretics at home stating that his daughter takes care of his medication. She is not present at this time but is expected later this morning. Patient does feel like his breathing has improved overnight. He is upset about the attempts at [place] catheter placement last evening and states that he has had history of prostate cancer but denies any difficulty urinating at this time. [facility] Disclaimer: The information contained in this section may have been updated after the patient was seen, as this information can be updated by other users. Medical History (Updated 07/29/22 @ 11:36 by Rodrigo Tate MD) Abnormal breath sounds Bleeding nose CHF (congestive heart failure) Confusion Difficulty with speech Dyspnea TIA (transient ischemic attack) Surgical History (Updated 07/29/22 @ 04:51 by Darling Siddiqi RN) History of cardiac catheterization History of colonoscopy History of esophagogastroduodenoscopy (EGD) History of hernia repair History of permanent cardiac pacemaker placement Hx of CABG Family History No significant family history Social History (Updated 07/29/22 @ 03:20 by Darling Siddiqi, JOVANNA) Smoking Status: Never smoker second hand exposure: No alcohol intake: never substance use type: denies use current occupational status: retired Travel in the last 8 weeks: None household members: none housing:
--- NOTE | 2022-07-29 11:28 | EXP.PN ---
Subjective *Date: 07/29/22 *Time: 11:28 Interval history: No acute events overnight. No chest pain. No dyspnea when at rest. He denies recent hospitalization hasn't recently taken any antibiotics. Exam Data for Last 24 hours Vital signs and Labs for Last 24 Hours: Temp Pulse Resp BP Pulse Ox 99.0 F 63 18 111/76 96 07/29/22 08:00 07/29/22 08:00 07/29/22 08:00 07/29/22 08:00 07/29/22 08:00 Laboratory Results - last 24 hr 07/28/22 00:00: Magnesium 2.4 H, NT-Pro-B Natriuret Pep 4950 H 07/28/22 22:23: SARS-CoV-2 (PCR) Not detected, Influenza A Untype (PCR) Not detected, Influenza Type B (PCR) Not detected 07/28/22 22:34: WBC 10.1, RBC 3.82 L, Hgb 11.5 L, Hct 36.5 L, MCV 95.5 H, MCH 29.9, MCHC 31.3 L, RDW 14.3, Plt Count 169, MPV 9.0, Neut % (Auto) 83.4 H, Lymph % (Auto) 7.0 L, [place] % (Auto) 8.7, Eos % (Auto) 0.6, Baso % (Auto) 0.2, Neut # (Auto) 8.4 H, Lymph # (Auto) 0.7, [place] # (Auto) 0.9, Eos # (Auto) 0.1, Baso # (Auto) 0.0 07/28/22 22:34: Sodium 138, Potassium 4.1, Chloride 102, Carbon Dioxide 31 H, Anion Gap 9.1, BUN 36 H, Creatinine 1.80 H, Estimated Creat Clear 35, Estimated GFR 36 L, Est GFR ( Amer) 44 L, Glucose 143 H, Calcium 9.1, Total Bilirubin 1.7 H, AST 29, ALT 22, Alkaline Phosphatase 71, Troponin I 0.02, Total Protein 7.7, Albumin 4.5, Globulin 3.2, Albumin/Globulin Ratio 1.4 07/28/22 22:34: Magnesium 2.1 D 07/29/22 00:10: Urine Color Yellow, Urine Appearance Clear, Urine pH 6.0, Ur Specific [place] 1.015, Urine Protein Trace, Urine Glucose (UA) Negative, Urine Ketones Negative, Urine Blood 1+, Urine Nitrate Negative, Urine Bilirubin Negative, Urine Urobilinogen 0.2, Ur Leukocyte Esterase Negative, Urine RBC 3-5, Ur Squamous Epith Cells Occasional, Urine Bacteria None 07/29/22 01:00: Troponin I 0.02 07/29/22 04:30: Troponin I 0.02 07/29/22 06:05: WBC 9.4, RBC 3.51 L, Hgb 10.6 L, Hct 32.9 L, MCV 93.9, MCH 30.1, MCHC 32.1, RDW 14.3, Plt Count 144, MPV 8.6, Neut % (Auto) 83.9 H, Lymph % (Auto) 5.7 L, [place] % (Auto) 9.9 H, Eos % (Auto) 0.3, Baso % (Auto) 0.2, Neut # (Auto) 7.9 H, Lymph # (Auto) 0.5 L, [place] # (Auto) 0.9, Eos # (Auto) 0.0, Baso # (Auto) 0.0 07/29/22 06:05: Sodium 142, Potassium 3.7, Chloride 105, Carbon Dioxide 29, Anion Gap 11.7, BUN 31 H, Creatinine 1.60 H, Estimated Creat Clear 39, Estimated GFR 41 L, Est GFR ( Amer) 50 L, Glucose 143 H, Calcium 8.5, Magnesium 1.9, Triglycerides 67, Cholesterol 104 L, LDL Cholesterol Direct 53.79 L, VLDL Cholesterol 13, HDL Cholesterol 33 L, Cholesterol/HDL Ratio 3.2 I & O for Last 24 hours: Intake & Output 07/26/22 07/27/22 07/28/22 07/29/22 23:59 23:59 23:59 23:59 Intake Total 120 / 120 Output Total 600 / 600 Balance -480 / -480 Weight 81.647 kg 81.647 kg Microbiology Reports for the Last 24 Hours: Microbiology 07/29/22 00:32 Sputum - Expectorated Sputum Gram Stain - Final Constitutional Constitutional: no acute distress *Routine HEENT Exam Head: Present normocephalic Eye: Present EOMI and PERRL ENT: Present mucous membranes moist *Routine Neck Exam Neck: Present supple; Absent lymphadenopathy *Routine Respiratory Exam Respiratory: Present accessory muscle use, crackles (bilateral bases) and able to speak in complete sentences *Routine Cardiovascular Exam Cardiovascular: Present RRR *Routine Abdominal Exam Abdominal: Present soft and normoactive bowel sounds; Absent tenderness *Routine Extremities Exam Extremities: Absent cyanosis, clubbing or edema *Routine Skin Exam Skin: Present warm; Absent rash *Routine Neurological Exam Neurological: Present alert and oriented X3 Assessment and Plan *Assessment and plan (1) CHF exacerbation: Status: Acute Category: Medical Code(s): I50.9 - Heart failure, unspecified (2) CKD (chronic kidney disease): Status: Acute Category: Medical Code(s): N18.9 - Chronic kidney disease, unspecified (3) Atrial fibrillation: Status: Chronic
--- NOTE | 2022-07-29 14:13 | HMH.OTEV ---
OT Inpatient Evaluation Rehab OT IP Evaluation Start: 07/29/22 10:46 Freq: ONCE Status: Active Protocol: [facility]29/22 14[facility]07 [facility] (Rec: 07/29/22 14:13 [facility] [id number]) Rehab OT IP Assessment Subjective History Pt oriented x 3 on arrival. Pt agreeable to engage in therapy evaluation. Pt's daughter present and supportive. Pt was admitted on 07/29/22 due to gait disturbance and CHF. Prior to being in the hosptial, pt lived at home alone. Pt claims he was independent with all ADLs such as feeding, dressing, and bathing. Pt also explains he could complete most IADLs independently, but did have neighbors that would assist him if needed. he does still drive. He uses a cane during ambulation. Pt has a past medical history of: Abnormal breath sounds Bleeding nose CHF (congestive heart failure) Confusion Difficulty with speech Dyspnea TIA (transient ischemic attack ) Subjective I am moving much better than yesterday. Objective Patient Orientation Person,Place,Birthday Upper Extremity Gross ROM WFL Bed Mobility bed mobility-scooting,bed mobility - supine/sit,bed mobility - rolling Assist Level Supervision/Stand by Transfer Training Sit/Stand Transfer Assist Level Contact Guard/Hand Hold Chair Transfer Ability Contact Guard/Hand Hold Chair Transfer Technique Sit to/from Ambulatory Chair Transfer Assistive Devices Straight Cane Lower Body Dressing Ability Standby Assistance Performing Toilet Hygiene Ability Standby Assistance Overall Commode/Toilet Transfer Ability Assistance x1 Commode/Toilet Transfer Technique Sit to/from Ambulatory Rehab OT IP prob,goals,plan Problems Date of Evaluation: 07/29/22 OT IP Problems Bed Mobility,Transfers,Balance ,Self care,Safety Rehab Potential
--- NOTE | 2022-07-29 14:52 | DIET.NUTRFU ---
Patient ordered 2gmNa diet with 1500ml fluid restriction. This RD provided handouts and reviewed diet recommended. Also reviewed dinner menu selection. According to daughter he typically sips on coffee all day, but he does like soups and ice cream which explained that those counted. Denied any GI distress with last BM today.
--- NOTE | 2022-07-29 16:27 | HMH.PTEV ---
Physical Therapy Evaluation Rehab PT IP Evaluation Start: 07/29/22 10:46 Freq: ONCE Status: Active Protocol: Document 07/29/22 14:39 MICHAEL (Rec: 07/29/22 14:54 MICHAEL [id number]) Subjective/History History History Pt is a pleasant 86 year old male that presents to the ED with reports of increased dyspnea and recent falls/ difficulty walking. Pt has a PMH significant for CAD, atrial fibrillation with pacemaker, CKD, CHF. Pt experienced multiple falls at home over the past few days. Work-up in the ED revealed elevated BNP of 4000, prior BNP around 2000, chest x-ray with notable scarring and chronic disease, and n exam patient was noted to be rhonchorous and clinically volume overloaded. Subjective Subjective Pt presents seated on BSC, daughter at bedside pleasant and agreeable to therapy initial evaluation. Pt denies reports of pain at rest. Pt reports he lives alone in a multilevel home, states he has had too many falls to count prior to coming to the ED. Pt states that he does not use the upstairs of his home. Pt reports that he ambulates with a cane at baseline, is currently driving and gets meals delivered from neighbors /friends. Pt's daughter reports that he is on a meal delivery program that provides one meal/day. Pt performed bed mobility with supervision assistance, sit to stand transfer with CGA for safety and ambulation with CGA and the use of a SPC. Pt required VC for proper use of straight cane and demonstrated poor safety awareness during ambulation such as carrying
--- NOTE | 2022-07-29 17:57 | PC.NURSE ---
HEMATURIA NOTED MULTIPLE TIMES THIS SHIFT. MD JORDAN MADE AWARE. HOLDING XARELTO TONIGHT R/T BLEEDING. TOLERATING ROOM AIR WELL. PT HAS BEEN AMBULATING TO RESTROOM WITH ASSISTANCE.
--- NOTE | 2022-07-29 23:19 | PC.NURSE ---
Susana CHAVES made aware of patients hematuria with clots noted.
[2022-07-30] VITALS (12 sets, daily range): BP systolic 105–146; BP diastolic 65–74; PULSE 50–74; RESP 16–22; TEMP 36.6–36.7; O2SAT 91–96; BMI 25.2
--- NOTE | 2022-07-30 05:01 | PC.NURSE ---
Pt A&Ox4. Wearing 2L NC through the night CARLOS. Received IV abx. Patient had two voids with clots noted. Denies pain when voiding. Most recent void had no clots and was starting to turn nicolas. Patient has rested well through the night. VSS.
--- NOTE | 2022-07-30 07:00 | XR_ITS ---
PROCEDURE INFORMATION: Exam: XR Chest Exam date and time: 07/30/2022 6:08 AM Age: 86 years old Clinical indication: Condition or disease; Lung condition and disease; Pneumonia; Additional info: Chf exacerbation, pneumonia TECHNIQUE: Imaging protocol: Radiologic exam of the chest. Views: 1 view. COMPARISON: CR XR CHEST 2V 07/28/2022 10:33 PM FINDINGS: Lungs: Opacity in the right mid lung and left base may represent atelectasis or pneumonia.. Pleural spaces: Unremarkable. No pleural effusion. No pneumothorax. Heart/Mediastinum: Cardiomegaly Bones/joints: Median sternotomy IMPRESSION: Opacity in the right mid lung and left base may represent atelectasis or pneumonia..
[2022-07-30 07:43] LABS: Basophils % 0.4 % (0.1-2.0); Eosinophils # 0.2 K/mm3 (0.0-0.4); Eosinophils % 3.6 % (0.1-12.0); Hematocrit 32.6 % (42.0-52.0); Hemoglobin 10.4 g/dL (14.1-18.0); Lymphocytes % 16.9 % (10-50); Mean Corpuscular HGB Conc 31.9 g/dL (31.8-35.4); Mean Corpuscular Hemoglobin 29.8 pg (27.0-31.2); Mean Corpuscular Volume 93.5 fl (80-94); Mean Platelet Volume 8.4 fl (7.4-10.4); Monocytes # 0.5 K/mm3 (0.1-1.0); Neutrophils # 4.2 K/mm3 (1.8-7.8); Neutrophils % 70.1 % (37.0-80.0); Platelet Count 156 K/mm3 (142-424); Red Blood Count 3.49 M/mm3 (4.60-6.20); Red Cell Distribution Width 14.2 % (11.5-17.5)
[2022-07-30 07:51] LABS: Chloride 103 mmol/L (98-107); Potassium 3.5 mmoL/L (3.5-5.1); Sodium 143 mmol/L (136-145)
[2022-07-30 07:53] LABS: Blood Urea Nitrogen 34 mg/dl (9-20); Creatinine Clearance Estimated 42 mL/min (50-200); Estimated Glomerular Filt Rate 44 ml/min (>60); GFR (African American) 54 ML/MIN (>60)
[2022-07-30 07:54] LABS: Anion Gap 12.5 mEq/L (5-15); Carbon Dioxide 31 mmol/L (22.0-30.0); Glucose 104 mg/dl (74-100)
[2022-07-30 07:59] LABS: NT Pro Brain Natriuretic Pep. 4340 pg/mL (0-450)
--- NOTE | 2022-07-30 08:37 | EXP.PN ---
Subjective *Date: 07/30/22 *Time: 11:26 Interval history: He was placed on NC overnight but this AM saturating well on RA. i/o +780/-1600mL CBC with 6K wbcs, down from 9K Cr is trending down 1.8 - 1.6 -> 1.5 ProBNP trending down 4950 ->4340 CXR this AM: Opacity in the right mid lung and left base may represent atelectasis or pneumonia He feels much better than yesterday. Less dyspnea. He has been having hematuria ever since he had an i/o catheterization for a urine sample but this seems to be resolving. Exam Data for Last 24 hours Vital signs and Labs for Last 24 Hours: Temp Pulse Resp BP Pulse Ox 97.8 F 65 22 123/74 91 L 07/30/22 08:00 07/30/22 08:00 07/30/22 08:00 07/30/22 08:00 07/30/22 08:00 Laboratory Results - last 24 hr 07/30/22 07:28: WBC 6.0 D, RBC 3.49 L, Hgb 10.4 L, Hct 32.6 L, MCV 93.5, MCH 29.8, MCHC 31.9, RDW 14.2, Plt Count 156, MPV 8.4, Neut % (Auto) 70.1, Lymph % (Auto) 16.9, [place] % (Auto) 9.0, Eos % (Auto) 3.6, Baso % (Auto) 0.4, Neut # (Auto) 4.2, Lymph # (Auto) 1.0, [place] # (Auto) 0.5, Eos # (Auto) 0.2, Baso # (Auto) 0.0 07/30/22 07:28: Sodium 143, Potassium 3.5, Chloride 103, Carbon Dioxide 31 H, Anion Gap 12.5, BUN 34 H, Creatinine 1.50 H, Estimated Creat Clear 42, Estimated GFR 44 L, Est GFR ( Amer) 54 L, Glucose 104 H, Calcium 9.0 07/30/22 07:28: NT-Pro-B Natriuret Pep 4340 H I & O for Last 24 hours: Intake & Output 07/27/22 07/28/22 07/29/22 07/30/22 23:59 23:59 23:59 23:59 Intake Total 702 / 902 200 / 200 Output Total 1300 / 1900 900 / 900 Balance -598 / -998 -700 / -700 Weight 81.647 kg 81.67 kg 81.67 kg Microbiology Reports for the Last 24 Hours: Microbiology 07/29/22 00:32 Sputum - Expectorated Sputum Gram Stain - Final Constitutional Constitutional: no acute distress *Routine HEENT Exam Head: Present normocephalic Eye: Present EOMI and PERRL ENT: Present mucous membranes moist *Routine Neck Exam Neck: Present supple; Absent lymphadenopathy *Routine Respiratory Exam Respiratory: Present accessory muscle use, wheezes, crackles (bilateral bases) and able to speak in complete sentences *Routine Cardiovascular Exam Cardiovascular: Present RRR *Routine Abdominal Exam Abdominal: Present soft and normoactive bowel sounds; Absent tenderness *Routine Extremities Exam Extremities: Absent cyanosis, clubbing or edema *Routine Skin Exam Skin: Present warm; Absent rash *Routine Neurological Exam Neurological: Present alert and oriented X3 Assessment and Plan *Assessment and plan (1) CHF exacerbation: Status: Acute Category: Medical Code(s): I50.9 - Heart failure, unspecified (2) CKD (chronic kidney disease): Status: Acute Category: Medical Code(s): N18.9 - Chronic kidney disease, unspecified (3) Atrial fibrillation: Status: Chronic Qualifiers: Atrial fibrillation type: unspecified chronic Qualified Code(s): I48.20 - Chronic atrial fibrillation, unspecified Category: Medical Code(s): I48.91 - Unspecified atrial fibrillation (4) Coronary arteriosclerosis: Status: Chronic Category: Medical Code(s): I25.10 - Atherosclerotic heart disease of [place] coronary artery without angina pectoris (5) Hyperlipemia: Status: Chronic Qualifiers: Hyperlipidemia type: mixed hyperlipidemia Qualified Code(s): E78.2 - Mixed hyperlipidemia Category: Medical Code(s): E78.5 - Hyperlipidemia, unspecified Plan #CHF exacerbation #Possible pneumonia #hematuria #CKD #CAD #atrial fibrillation #BPH Overall he's doing better today. Continue rocephin/azithromycin. There is gram positive cocci on sputum gram stain; culture is pending i/o +780/-1600mL. Cardiology added aldactone on 07/29. Continue lasix iv 40mg BID. He takes lasix PO 40mg BID at baseline. strict i/o. daily weights 1.5L fluid and 2 g salt restriction. Continue duonebs q6h Will ord
--- NOTE | 2022-07-30 09:23 | PC.NURSE ---
courtesy tech note; rounded on pt, assisted pt to bedside commode, pt voided 150 ml, pt denied need for a drink at this time, call light within reach, no further requests at this time. Saritha Orellana, SRNA
--- NOTE | 2022-07-30 15:38 | PC.NURSE ---
courtesy tech note; rounded on pt, pt denied need for snack, drink, need to use the restroom, need to reposition in bed. call light within reach. no further requests at this time. Saritha Orellana, SRNA
--- NOTE | 2022-07-30 16:03 | PC.NURSE ---
courtesy tech note; assisted pt to bedside commode, standby assist. pt voided 300 ml of cloudy yellow urine at this time. assisted pt back to bed and repositioned in bed. call light within reach. TRENT Romero
--- NOTE | 2022-07-30 18:26 | PC.NURSE ---
courtesy tech note; rounded on pt, pt denies drink, need to reposition, need to use the restroom. call light within reach, no further requests at this time. Saritha Orellana, SRNA
--- NOTE | 2022-07-30 18:42 | PC.NURSE ---
pt has done well this shift. hematuria improving. not requiring o2 support. states he feels better.
[2022-07-31] VITALS: BP 130/64; PULSE 62; PULSE 65; RESP 16; TEMP 36.6; O2SAT 94
[2022-07-31 04:00] VITALS: BP 112/63; PULSE 63; PULSE 72; RESP 16; TEMP 36.7; O2SAT 94; BMI 24.5
--- NOTE | 2022-07-31 05:12 | PC.NURSE ---
pt rested well through the night. 2LNC while sleeping, patient wears at home. received iv abx. no complaints through the night.
--- NOTE | 2022-07-31 05:20 | PC.NURSE ---
No hematuria noted this shift. urine is yellow/clear
[2022-07-31 06:31] VITALS: PULSE 61; O2SAT 94
--- NOTE | 2022-07-31 07:00 | XR_ITS ---
PROCEDURE INFORMATION: Exam: XR Chest Exam date and time: 07/31/2022 8:54 AM Age: 86 years old Clinical indication: Shortness of breath; Additional info: Chf exac, pna? TECHNIQUE: Imaging protocol: Radiologic exam of the chest. Views: 1 view. COMPARISON: CR XR CHEST PORTABLE 07/30/2022 6:08 AM FINDINGS: Tubes, catheters and devices: Cardiac rhythm maintenance device is in place. Lungs: Similar airspace opacity in the mid right lung. Pleural spaces: Unremarkable. No pleural effusion. No pneumothorax. Heart/Mediastinum: Cardiomegaly. Bones/joints: Prior median sternotomy. IMPRESSION: Similar airspace opacity in the mid right lung.
[2022-07-31 07:20] LABS: Basophils % 0.5 % (0.1-2.0); Eosinophils # 0.3 K/mm3 (0.0-0.4); Hematocrit 30.9 % (42.0-52.0); Hemoglobin 10.1 g/dL (14.1-18.0); Lymphocytes # 1.5 K/mm3 (0.7-4.5); Lymphocytes % 22.1 % (10-50); Mean Corpuscular HGB Conc 32.6 g/dL (31.8-35.4); Mean Corpuscular Hemoglobin 30.1 pg (27.0-31.2); Mean Corpuscular Volume 92.3 fl (80-94); Mean Platelet Volume 8.7 fl (7.4-10.4); Monocytes # 0.6 K/mm3 (0.1-1.0); Monocytes % 8.5 % (1.7-9.3); Neutrophils # 4.2 K/mm3 (1.8-7.8); Neutrophils % 63.9 % (37.0-80.0); Platelet Count 175 K/mm3 (142-424); Red Blood Count 3.35 M/mm3 (4.60-6.20); Red Cell Distribution Width 14.2 % (11.5-17.5); White Blood Count 6.6 K/mm3 (4.8-10.8)
[2022-07-31 07:21] LABS: Chloride 101 mmol/L (98-107); Potassium 3.6 mmoL/L (3.5-5.1); Sodium 142 mmol/L (136-145)
[2022-07-31 07:24] LABS: Anion Gap 10.6 mEq/L (5-15); Blood Urea Nitrogen 32 mg/dl (9-20); Carbon Dioxide 34 mmol/L (22.0-30.0); Creatinine Clearance Estimated 41 mL/min (50-200); Estimated Glomerular Filt Rate 44 ml/min (>60); GFR (African American) 54 ML/MIN (>60)
[2022-07-31 07:25] VITALS: BP 107/71; PULSE 65; RESP 20; TEMP 36.3; O2SAT 93
[2022-07-31 07:25] LABS: Calcium 8.8 mg/dl (8.4-10.2); Glucose 105 mg/dl (74-100)
[2022-07-31 07:32] LABS: NT Pro Brain Natriuretic Pep. 2010 pg/mL (0-450)
[2022-07-31 08:00] VITALS: PULSE 60; O2SAT 96
--- NOTE | 2022-07-31 08:52 | EXP.PN ---
Subjective *Date: 07/31/22 *Time: 08:52 Interval history: He is saturating 93% on 2L NC i/o +1.4L/ -2.0L Hgb is stable at 10.1 BNP is improved from 4339 to 2009 Echo reveals LVEF 52% Exam Data for Last 24 hours Vital signs and Labs for Last 24 Hours: Temp Pulse Resp BP Pulse Ox 97.4 F L 65 20 107/71 L 93 L 07/31/22 07:25 07/31/22 07:25 07/31/22 07:25 07/31/22 07:25 07/31/22 07:25 Laboratory Results - last 24 hr 07/31/22 06:57: WBC 6.6, RBC 3.35 L, Hgb 10.1 L, Hct 30.9 L, MCV 92.3, MCH 30.1, MCHC 32.6, RDW 14.2, Plt Count 175, MPV 8.7, Neut % (Auto) 63.9, Lymph % (Auto) 22.1, [place] % (Auto) 8.5, Eos % (Auto) 5.0, Baso % (Auto) 0.5, Neut # (Auto) 4.2, Lymph # (Auto) 1.5, [place] # (Auto) 0.6, Eos # (Auto) 0.3, Baso # (Auto) 0.0 07/31/22 06:57: NT-Pro-B Natriuret Pep 2009 H 07/31/22 06:57: Sodium 142, Potassium 3.6, Chloride 101, Carbon Dioxide 34 H, Anion Gap 10.6, BUN 32 H, Creatinine 1.50 H, Estimated Creat Clear 41, Estimated GFR 44 L, Est GFR ( Amer) 54 L, Glucose 105 H, Calcium 8.8 I & O for Last 24 hours: Intake & Output 07/28/22 07/29/22 07/30/22 07/31/22 23:59 23:59 23:59 23:59 Intake Total 702 / 902 1040 / 1240 560 / 560 Output Total 1300 / 1900 1951 / 2601 1100 / 1100 Balance -598 / -998 -911 / -1361 -540 / -540 Weight 81.647 kg 81.67 kg 81.67 kg 79.651 kg Microbiology Reports for the Last 24 Hours: Microbiology 07/29/22 00:32 Sputum - Expectorated Sputum Gram Stain - Final 07/29/22 00:32 Sputum - Expectorated Sputum Sputum Culture - Preliminary Assessment and Plan *Assessment and plan (1) CHF exacerbation: Status: Acute Category: Medical Code(s): I50.9 - Heart failure, unspecified (2) CKD (chronic kidney disease): Status: Acute Category: Medical Code(s): N18.9 - Chronic kidney disease, unspecified (3) Atrial fibrillation: Status: Chronic Qualifiers: Atrial fibrillation type: unspecified chronic Qualified Code(s): I48.20 - Chronic atrial fibrillation, unspecified Category: Medical Code(s): I48.91 - Unspecified atrial fibrillation (4) Coronary arteriosclerosis: Status: Chronic Category: Medical Code(s): I25.10 - Atherosclerotic heart disease of [place] coronary artery without angina pectoris (5) Hyperlipemia: Status: Chronic Qualifiers: Hyperlipidemia type: mixed hyperlipidemia Qualified Code(s): E78.2 - Mixed hyperlipidemia Category: Medical Code(s): E78.5 - Hyperlipidemia, unspecified Plan 5 day sof an antibiotic? Resume xarelto? #CHF exacerbation #Possible pneumonia #hematuria #CKD #CAD #atrial fibrillation #BPH Overall he's doing better today. Continue rocephin/azithromycin. There is gram positive cocci on sputum gram stain; culture is pending i/o +780/-1600mL. Cardiology added aldactone on 07/29. Continue lasix iv 40mg BID. He takes lasix PO 40mg BID at baseline. strict i/o. daily weights 1.5L fluid and 2 g salt restriction. Continue duonebs q6h Will order am cxr and a probnp level. will need to f/u on echo report Hematuria is resolving. Hgb is stable. It was likely due to trauma from I/O catheterization for UA. He has a history of BPH. Continue holding Xarelto. Continue pt/ot Full code DVT ppx: holding xarelto due to hematuria
--- NOTE | 2022-07-31 09:55 | PC.NURSE ---
ambulated pt in hood. his RA saturation during ambulation was 90% at rest he was 96%
--- NOTE | 2022-07-31 11:01 | EXP.DC.SUM ---
General Admission date:: 07/29/22 Discharge date: 07/31/22 HPI HPI HPI: this is a very pleasant 86-year-old male with a past medical history of CAD, atrial fibrillation with pacemaker, CKD, CHF who presents emergency department today with his daughter with complaints of gait disturbances and increased shortness of breath daughter reports in the last 4 days he has had increasing shortness of breath, cough and congestion and gait disturbances. Patient reports being unable to hold onto his coffee cup at home. He also reports productive sputum yellow in color. He denies any fever or any sick COVID contacts. He does endorse mild orthopnea. Does see Dr. Durán for cardiology services and was seen approximately 3 months ago. Emergency department work-up remarkable for elevated BNP of 4000, prior BNP around 1999. Chest x-ray with notable scarring and chronic disease. On exam patient was noted to be rhonchorous and clinically volume overloaded. He also endorses sputum production that is yellow in color so will likely component bronchitis/pneumonia. Given the above-mentioned complaints he will be admitted to hospital service for further evaluation management Hospital Course Hospital Course Hospital Course: Repeat CXR revealed airspace opacity in the right mid lung. The patient was given Rocephin and azithromycin throughout the hospital course. He required supplemental oxygen via [place] throughout most of the hospital course but on the day of discharge a six minute walk test was done and he did not have hypoxia. He will need to take 5 days of Augmentin. He was given IV lasix 40mg BID for CHF exacerbation and urinated approximately 2 liters per day. The patient was taking lasix PO 40mg BID up until it around 3 weeks ago when it was a reduced to 40mg daily by his Director Of Database Marketing. Cardiology was consulted and started aldactone. His kidney function and potassium levels were stable throughout the hospital course. An echocardiogram revealed an LVEF of 52%. He already has an appointment with Nephrology in one week. Hospital course was complicated by hematuria that began shortly after an i/o urinary catheterization was done. His Xarelto was held and hematuria resolved by day of discharge. He can resume his Xarelto tomorrow. #Acute community acquired pneumonia #CHF exacerbation #hematuria #CKD #CAD #atrial fibrillation #BPH Exam Data for Last 24 hours Vital signs and Labs for Last 24 Hours: Temp Pulse Resp BP Pulse Ox 97.4 F L 60 20 107/71 L 96 07/31/22 07:25 07/31/22 08:00 07/31/22 07:25 07/31/22 07:25 07/31/22 08:00 Laboratory Results - last 24 hr 07/31/22 06:57: WBC 6.6, RBC 3.35 L, Hgb 10.1 L, Hct 30.9 L, MCV 92.3, MCH 30.1, MCHC 32.6, RDW 14.2, Plt Count 175, MPV 8.7, Neut % (Auto) 63.9, Lymph % (Auto) 22.1, [place] % (Auto) 8.5, Eos % (Auto) 5.0, Baso % (Auto) 0.5, Neut # (Auto) 4.2, Lymph # (Auto) 1.5, [place] # (Auto) 0.6, Eos # (Auto) 0.3, Baso # (Auto) 0.0 07/31/22 06:57: NT-Pro-B Natriuret Pep 2010 H 07/31/22 06:57: Sodium 142, Potassium 3.6, Chloride 101, Carbon Dioxide 34 H, Anion Gap 10.6, BUN 32 H, Creatinine 1.50 H, Estimated Creat Clear 41, Estimated GFR 44 L, Est GFR ( Amer) 54 L, Glucose 105 H, Calcium 8.8 I & O for Last 24 hours: Intake & Output 07/28/22 07/29/22 07/30/22 07/31/22 23:59 23:59 23:59 23:59 Intake Total 702 / 902 1040 / 1240 560 / 560 Output Total 1300 / 1900 1951 / 2601 1350 / 1350 Balance -598 / -998 -911 / -1361 -790 / -790 Weight 81.647 kg 81.67 kg 81.67 kg 79.651 kg Microbiology Reports for the Last 24 Hours: Microbiology 07/29/22 00:32 Sputum - Expectorated Sputum Gram Stain - Final 07/29/22 00:32 Sputum - Expectorated Sputum Sputum Culture - Preliminary Results Data Completed and Pending Labs on day of discharge: Labs from last 24 hours 07/31/22 07/31/22 07/31/22 06:57 06:57 06:57 WBC 6.6 RBC 3.35 L Hgb 10.1 L Hct 30.9 L MCV 92.3
[2022-07-31 11:05] VITALS: PULSE 62; O2SAT 90
--- NOTE | 2022-07-31 13:29 | PC.NURSE ---
pt has been discahrged from the unit. Took all belongings with him and voiced understanding of all discahrge education and follow up appts. medications picked up by bhanu @ [facility]. tolerating RA well.
--- NOTE | 2022-08-01 14:22 | CARE MANAGER ---
Spoke with Marizol regarding patient post-discharge, she states patient is doing well and has no issues at this time.
== END 2022-07-31 12:59 | disposition home or self-care (01) ==
LOC: ER 07-29 02:12 → 2ND 07-29 02:44
PROVIDERS: Nurse Practitioner Acute Care; Admitting Provider Internal Medicine; Emergency Provider Emergency Medicine; PCP Nurse Practitioner Family; Visit Provider Internal Medicine
DX: I13.0 Hypertensive heart and chronic kidney disease with heart failure and stage 1 through stage 4 chronic kidney disease, or unspecified chronic kidney disease; N18.9 Chronic kidney disease, unspecified; I48.20 Chronic atrial fibrillation, unspecified; I25.10 Atherosclerotic heart disease of native coronary artery without angina pectoris; I65.23 Occlusion and stenosis of bilateral carotid arteries; Z79.899 Other long term (current) drug therapy; Z79.01 Long term (current) use of anticoagulants; I50.33 Acute on chronic diastolic (congestive) heart failure; Z95.0 Presence of cardiac pacemaker; Z95.1 Presence of aortocoronary bypass graft; Z20.822 Contact with and (suspected) exposure to COVID-19; I71.20 Thoracic aortic aneurysm, without rupture, unspecified
CPT/HCPCS: G0378; 36415; 70450; 71045; 71046; 80048; 80053; 80061; 81001; 83735; 83880; 84484; 85025; 87070; 87077; 87186; 87205; 93005; 93308; 94640; 97116; 97162; 97166; 99285; C9803; J0456; J0696; U0003; U0005

== ENCOUNTER 2022-08-16 15:25 | Inpatient (IN) | payer MEDICARE, OTHER, SELFPAY ==
[2022-08-16] VITALS (7 sets, daily range): BP systolic 98–131; BP diastolic 66–86; PULSE 61–70; RESP 16–18; TEMP 36.4–36.6; O2SAT 90–98; BMI 25.1; BMI 23.8
--- NOTE | 2022-08-16 15:38 | XR_ITS ---
PROCEDURE INFORMATION: Exam: XR Chest Exam date and time: 08/16/2022 4:26 PM Age: 86 years old Clinical indication: Shortness of breath; Prior surgery; Surgery date: 6+ months; Surgery type: Pacemaker, open heart SX; Additional info: SOA TECHNIQUE: Imaging protocol: Radiologic exam of the chest. Views: 1 view. COMPARISON: CR XR CHEST PORTABLE 07/31/2022 8:54 AM FINDINGS: Tubes, catheters and devices: Stable position of the single lead pacer device. Lungs: Mild bibasilar atelectasis or scarring similar to previous. Lungs are otherwise clear. Pleural spaces: Unremarkable. No pleural effusion. No pneumothorax. Heart/Mediastinum: Mild cardiac enlargement with post CABG changes redemonstrated. Vascularity appears normal. Bones/joints: Unremarkable. IMPRESSION: Essentially stable portable chest with cardiomegaly and mild bilateral atelectasis or scarring.
--- NOTE | 2022-08-16 15:38 | CT_ITS ---
FINAL REPORT CLINICAL HISTORY: abnormal movements COMPARISON: July 28, 2022 FINDINGS: Axial images of the head were obtained without contrast. Coronal reformatted images were also obtained. This study was performed with techniques to keep radiation doses as low as reasonably achievable (ALARA). Individualized dose reduction techniques using automated exposure control or adjustment of mA and/or kV according to the patient''s size were employed. There is generalized age-appropriate atrophy. Mild ventriculomegaly is stable. Periventricular low-attenuation areas are seen consistent with mild chronic ischemic changes. There is no evidence of intracranial hemorrhage or mass. There is no evidence of acute infarct. There is no evidence of shift of the midline structures. No skull abnormality is seen on the bone window images. There is mild mucosal thickening in the left maxillary sinus. IMPRESSION: Atrophy and mild periventricular chronic ischemic changes. No acute intracranial abnormality identified. Reviewed, Interpreted and Dictated by Cezar Rachel III, MD Transcribed by Nito Musa Authenticated and [facility]
--- NOTE | 2022-08-16 15:44 | ECG_ITS ---
APPROVED REPORT Exam: Resting ECG HR:60 bpm ECG Measurements Heart Rate 60 AXES QRSd 158 QRS 18 QT 445 T 241 QTc 447 Conclusion ELECTRONIC VENTRICULAR PACEMAKER ABNORMAL RHYTHM ECG UNCONFIRMED REPORT Electronically signed by : Blair Landry MD 08/17/2022 20:30:51
[2022-08-16 16:01] LABS: Basophils % 0.6 % (0.1-2.0); Eosinophils # 0.5 K/mm3 (0.0-0.4); Hematocrit 37.6 % (42.0-52.0); Hemoglobin 12.1 g/dL (14.1-18.0); Lymphocytes # 1.2 K/mm3 (0.7-4.5); Mean Corpuscular HGB Conc 32.1 g/dL (31.8-35.4); Mean Corpuscular Hemoglobin 30.1 pg (27.0-31.2); Mean Corpuscular Volume 93.8 fl (80-94); Mean Platelet Volume 8.1 fl (7.4-10.4); Monocytes # 0.4 K/mm3 (0.1-1.0); Monocytes % 5.4 % (1.7-9.3); Neutrophils # 4.9 K/mm3 (1.8-7.8); Neutrophils % 69.8 % (37.0-80.0); Platelet Count 239 K/mm3 (142-424); Red Cell Distribution Width 14.3 % (11.5-17.5)
[2022-08-16 16:02] LABS: Chloride 99 mmol/L (98-107); Sodium 134 mmol/L (136-145)
[2022-08-16 16:04] LABS: Alanine Aminotransferase 28 U/L (12-78); Aspartate Amino Transferase 31 U/L (17-59); Blood Urea Nitrogen 46 mg/dl (9-20); Creatinine Clearance Estimated 16 mL/min (50-200); Estimated Glomerular Filt Rate 15 ml/min (>60); GFR (African American) 18 ML/MIN (>60)
[2022-08-16 16:05] LABS: Albumin Level 4.8 g/dl (3.5-5.0); Albumin/Globulin Ratio 1.3 (1.1-1.8); Alkaline Phosphatase 73 U/L (38-126); Bilirubin,Total 0.7 mg/dl (0.2-1.3); Calcium 9.4 mg/dl (8.4-10.2); Globulin 3.7 g/dL (1.3-3.2); Glucose 110 mg/dl (74-100); Magnesium 2.5 mg/dl (1.6-2.3); Potassium 6.1 mmoL/L (3.5-5.1); Total Protein,Serum 8.5 g/dl (6.3-8.2)
--- NOTE | 2022-08-16 16:05 | PC.NURSE ---
notified ER of critical potassium result
--- NOTE | 2022-08-16 16:07 | HMH.EDGENADL ---
Discharge Plan Disposition Patient Disposition: Admitted As Inpatient Clinical Impressions Clinical Impression: ZACK (acute kidney injury) Discharge ED Provider: Gera Gonzalez General Adult HPI General Chief complaint: Weakness Stated complaint: weak,unstable Time Seen by Provider: 08/16/22 15:30 Mode of Arrival: Wheelchair Source of Information: Patient and Relative Limitations: No Limitations Description of Symptoms (Recalled from ER Triage Doc. by RN): pt presents with daughterin wheelchair. daughter reports that she has noticed pt becoming more weak over the past week. pt is independant and lives alone. no with no complaints other than being weak. History of Present Illness HPI narrative: 86-year-old male feeling weak over the last week and lightheaded. He has no headache or abdominal pain or chest pain. He has history of pacemaker CHF atrial fibrillation. No cough or fever. Daughter is concerned that he might be over diuresed. No urinary symptoms. No diarrhea. Related Data Home Medications Medication Instructions Recorded Confirmed atorvastatin 40 mg tablet 40 mg PO HS Cholesterol 05/15/17 08/16/22 tamsulosin 0.4 mg capsule 0.4 mg PO HS prostate 05/15/17 08/16/22 pantoprazole 20 mg tablet,delayed 20 mg PO BID Acid reflux 08/21/18 08/16/22 release (Protonix) rivaroxaban 20 mg tablet (Xarelto) 20 mg PO QPMWITHMEAL 10/29/19 08/16/22 anticoagulant/atrial fib metoprolol succinate 25 mg 25 mg PO DAILY blood pressure 09/19/20 08/16/22 tablet,extended release 24 hr alprazolam 0.25 mg tablet 0.125 mg PO HS Sleep 05/20/21 08/16/22 Saccharomyces boulardii 250 mg 250 mg PO DAILY Supplement 07/28/22 08/16/22 capsule (Probiotic (S.boulardii)) cholecalciferol (vitamin D3) 50 50 mcg PO DAILY Supplement 07/28/22 08/16/22 mcg (2,000 unit) capsule ipratropium 0.5 mg-albuterol 3 mg 3 ml inhalation Q4-6H PRN Breathing 07/28/22 08/16/22 (2.5 mg base)/3 mL nebulization soln acetaminophen 500 mg tablet 500 mg PO DIRECTED Pain 07/29/22 08/16/22 cetirizine 10 mg tablet 10 mg PO DAILY Allergy symptoms 07/29/22 08/16/22 melatonin 5 mg tablet 5 mg PO HS sleep 07/29/22 08/16/22 gabapentin 300 mg capsule 300 mg PO DIRECTED Pain 08/03/22 08/16/22 furosemide 20 mg tablet (Lasix) 40 mg PO DAILY 08/16/22 sulfamethoxazole 800 1 tab PO Q12H 08/16/22 08/16/22 mg-trimethoprim 160 mg tablet Previous Rx's Medication Instructions Recorded spironolactone 25 mg tablet 25 mg PO DAILY #30 tabs 08/03/22 Allergies Allergy/AdvReac Type Severity Reaction Status Date / Time nitroglycerin AdvReac Verified 08/16/22 13:07 [facility] Disclaimer: The information contained in this section may have been updated after the patient was seen, as this information can be updated by other users. Medical History Abnormal breath sounds Bleeding nose CHF (congestive heart failure) Confusion Difficulty with speech Dyspnea TIA (transient ischemic attack) Surgical History History of cardiac catheterization History of colonoscopy History of esophagogastroduodenoscopy (EGD) History of hernia repair History of permanent cardiac pacemaker placement Hx of CABG Family History Other No significant family history Social History Smoking Status: Former smoker second hand exposure: No alcohol intake: never substance use type: denies use current occupational status: retired Travel in the last 8 weeks: None household members: none housing: house lives independently: Yes marital status: current occupational exposures/hazards: No caffeine: No special freddy needs: No agree to transfusion: No ROS Obtained: Yes All systems reviewed & no additional complaints except as docume
[2022-08-16 16:20] LABS: NT Pro Brain Natriuretic Pep. 1150 pg/mL (0-450)
[2022-08-16 16:27] LABS: Troponin I < 0.01 ng/ml (0.00-0.034)
--- NOTE | 2022-08-16 16:36 | PC.NURSE ---
BRADFORD BECKETT speaking with hospitalist at this time
[2022-08-16 16:41] LABS: Thyroid Stimulating Hormone 3.32 uIU/mL (0.465-4.68)
--- NOTE | 2022-08-16 16:44 | PC.NURSE ---
notified [facility] of admission.
--- NOTE | 2022-08-16 16:44 | EXP.HP ---
History of Present Illness *Admission Date: 08/16/22 *Reason for visit:: weakness, tremor *History of present illness: Mr. Lua is an 86-year-old male with history of CHF, pacemaker in situ, A-fib, CKD who was recently admitted earlier this month with CHF exacerbation. Started on diuretics due to volume overload and discharged home. He presents today to the ER with his daughter who reports that she has noticed him being more weak over the past week. He is previously independent and lives alone. Denies any confusion, falls, nausea or vomiting. Does complain of some mild constipation with no bowel movement in over a day. No diarrhea, no fevers. Given fatigue, work-up initiated in the ER. Labs concerning for hyperkalemia and acute kidney injury. Of note, per chart review and discussion with family patient has had URI symptoms that were treated with 2 rounds of antibiotics. Most recent course was Bactrim initiated on 08/08. States his breathing is feeling better since diuresis and the antibiotic but he was more weak and having tremors. Afebrile and hemodynamically stable. Medicine consulted for admission. On evaluation, patient is alert and oriented x3. States he has had some decreased urine output over the past week. Has been taking his diuretics as previously prescribed on discharge until the past few days and he has decreased what he has been taking due to weakness and daughters concern for overdiuresis. [facility] Disclaimer: The information contained in this section may have been updated after the patient was seen, as this information can be updated by other users. Medical History Abnormal breath sounds Bleeding nose CHF (congestive heart failure) Confusion Difficulty with speech Dyspnea History of heart attack History of pacemaker TIA (transient ischemic attack) Surgical History History of cardiac catheterization History of colonoscopy History of esophagogastroduodenoscopy (EGD) History of hernia repair History of permanent cardiac pacemaker placement Hx of CABG Family History No significant family history Social History Smoking Status: Former smoker second hand exposure: No alcohol intake: never substance use type: denies use current occupational status: retired Travel in the last 8 weeks: None household members: none housing: house lives independently: Yes marital status: current occupational exposures/hazards: No caffeine: No special freddy needs: No agree to transfusion: No Review of Systems Review of Systems Review of systems (narrative): 14 point review of systems performed, pertinent positives and negatives as per HPI ENT Ears, Nose, Mouth, and Throat: Denies dizziness *Neurologic Neurologic: Denies dizziness Meds Home Medications and Allergies Home Medications Medication Instructions Recorded Confirmed Type atorvastatin 40 mg tablet 40 mg PO HS Cholesterol 05/15/17 08/16/22 History tamsulosin 0.4 mg capsule 0.4 mg PO HS prostate 05/15/17 08/16/22 History pantoprazole 20 mg tablet,delayed 20 mg PO BID Acid reflux 08/21/18 08/16/22 History release (Protonix) rivaroxaban 20 mg tablet (Xarelto) 20 mg PO QPMWITHMEAL 10/29/19 08/16/22 History anticoagulant/atrial fib metoprolol succinate 25 mg 25 mg PO DAILY blood pressure 09/19/20 08/16/22 History tablet,extended release 24 hr alprazolam 0.25 mg tablet 0.125 mg PO HS Sleep 05/20/21 08/16/22 History Saccharomyces boulardii 250 mg 250 mg PO DAILY Supplement 07/28/22 08/16/22 History capsule (Probiotic (S.boulardii)) cholecalciferol (vitamin D3) 50 50 mcg PO DAILY Supplement 07/28/22 08/16/22 History mcg (2,000 unit) capsule ipratropium 0.5 mg-albuterol 3 mg 3 ml inhalation Q4-6H PRN Breathing
[2022-08-16 16:48] LABS: Coronavirus 19, PCR Not Detected (NotDetected); Influenza A, PCR Not Detected (NotDetected); Influenza B, PCR Not Detected (NotDetected)
[2022-08-16 16:49] LABS: Anion Gap 15.1 mEq/L (5-15); Carbon Dioxide 26 mmol/L (22.0-30.0)
--- NOTE | 2022-08-16 16:59 | PC.NURSE ---
report called to Lorena Back on second floor
--- NOTE | 2022-08-16 17:09 | PC.NURSE ---
lab staff reports covid swab will be resulted in approx 2 minutes
--- NOTE | 2022-08-16 17:13 | PC.NURSE ---
Dr. Harden, Hospitalist at
[2022-08-16 17:28] LABS: Microscopic, Urine URINE MICROSCOPIC (MICROSCOPIC)
[2022-08-16 17:29] LABS: Appearance,Urine CLEAR (Clear); Bilirubin,Urine Negative (Negative); Blood, Urine TRACE-I (Negative); Color,Urine YELLOW (Yellow); Glucose,Urine (UA) Negative (Negative); Ketones,Urine Negative (Negative); Leukocyte Esterase,Urine Negative (Negative); Nitrate,Urine Negative (Negative); Protein,Urine Negative (Negative); Urobilinogen,Urine 0.2 EU/dl (0.2)
[2022-08-16 17:54] LABS: Bacteria,Urine Trace /lpf; RBC,Urine Occasional #/hpf (0-3); WBC,Urine Occasional #/hpf (0-3)
--- NOTE | 2022-08-16 18:42 | PC.NURSE ---
Requested medical records from [place]
[2022-08-16 20:55] LABS: Troponin I < 0.01 ng/ml (0.00-0.034)
[2022-08-16 22:12] LABS: Troponin I < 0.01 ng/ml (0.00-0.034)
[2022-08-17] VITALS (13 sets, daily range): BP systolic 97–166; BP diastolic 51–95; PULSE 60–80; RESP 18; TEMP 36.4–37.1; O2SAT 90–96; BMI 24.5
--- NOTE | 2022-08-17 04:03 | PC.NURSE ---
Pt up with assist times one to restroom, also uses a urinal, aox2-3, states he wears 02-2l at night as needed at home.
--- NOTE | 2022-08-17 06:23 | EXP.ACUTE.PN ---
Subjective *Date: 08/17/22 *Time: 15:28 Interval history: Patient did well overnight. No chest pain or shortness of breath. Slight improvement in labs this morning. In bedside chair on exam. Stable on room air. Tolerating p.o. intake. Medical Exam Vital signs and Labs for Last 24 Hours: Vital Signs Temp Pulse Pulse Resp BP BP Pulse Ox 08/17/22 05:55 60 08/17/22 05:55 60 08/17/22 05:55 94 L 08/17/22 04:00 60 08/17/22 04:00 97.5 F L 60 18 97/51 L 90 L 08/17/22 00:00 63 08/17/22 00:00 97.6 F 64 18 120/67 92 L 08/16/22 20:00 97 08/16/22 20:00 97.9 F 63 18 104/66 L 90 L 08/16/22 17:43 97.6 F 64 18 115/66 98 08/16/22 17:02 61 131/68 98 08/16/22 16:30 63 117/86 96 08/16/22 15:44 70 117/73 98 08/16/22 15:37 65 98/73 L 96 08/16/22 15:40 97.8 F 68 16 98/73 L 97 Intake and Output 08/16/22 08/16/22 08/17/22 15:59 23:59 07:59 Intake Total 500 / 500 Output Total 200 / 200 450 / 450 Balance 300 / 300 -450 / -450 Intake: Intake, Total IV Amount 500 / 500 0.9 % Sodium Chloride 1000ML 500 / 500 500 ml @ 250 mls/hr IV .Q2H [facility] Rx#:[id number] Output: Output, Urine Amount 200 / 200 450 / 450 Other: Weight 81.647 kg 77.564 kg 79.492 kg Patient Weight 08/17/22 23:59 Weight 79.492 kg Laboratory Results - last 24 hr 08/16/22 15:51: WBC 7.0, RBC 4.00 L, Hgb 12.1 L, Hct 37.6 L, MCV 93.8, MCH 30.1, MCHC 32.1, RDW 14.3, Plt Count 239, MPV 8.1, Neut % (Auto) 69.8, Lymph % (Auto) 17.0, [place] % (Auto) 5.4, Eos % (Auto) 7.0, Baso % (Auto) 0.6, Neut # (Auto) 4.9, Lymph # (Auto) 1.2, [place] # (Auto) 0.4, Eos # (Auto) 0.5 H, Baso # (Auto) 0.0 08/16/22 15:51: Sodium 134 L, Potassium 6.1 H*, Chloride 99, Carbon Dioxide 26, Anion Gap 15.1 H, BUN 46 H, Creatinine 3.90 H, Estimated Creat Clear 16, Estimated GFR 15 L*, Est GFR ( Amer) 18 L*, Glucose 110 H, Calcium 9.4, Magnesium 2.5 H, Total Bilirubin 0.7, AST 31, ALT 28, Alkaline Phosphatase 73, Troponin I < 0.01, NT-Pro-B Natriuret Pep 1150 H, Total Protein 8.5 H, Albumin 4.8, Globulin 3.7 H, Albumin/Globulin Ratio 1.3, TSH 3.32 08/16/22 16:38: SARS-CoV-2 (PCR) Not detected, Influenza A Untype (PCR) Not detected, Influenza Type B (PCR) Not detected 08/16/22 17:25: Urine Color Yellow, Urine Appearance Clear, Urine pH 6.0, Ur Specific [place] 1.010, Urine Protein Negative, Urine Glucose (UA) Negative, Urine Ketones Negative, Urine Blood Trace-i, Urine Nitrate Negative, Urine Bilirubin Negative, Urine Urobilinogen 0.2, Ur Leukocyte Esterase Negative, Urine RBC Occasional, Urine WBC Occasional, Ur Squamous Epith Cells 3-5, Urine Bacteria Trace 08/16/22 18:50: Troponin I < 0.01 08/16/22 21:33: Troponin I < 0.01 I & O for Labs for Last 24 Hours: Intake & Output 08/14/22 08/15/22 08/16/22 08/17/22 23:59 23:59 23:59 23:59 Intake Total 500 / 500 Output Total 200 / 200 450 / 450 Balance 300 / 300 -450 / -450 Weight 77.564 kg 79.492 kg Constitutional: Present no acute distress, average body habitus and chronically ill appearing Head: Present atraumatic and normocephalic ENT: Present normal exam Neck: Present normal inspection Respiratory: Present normal respiratory effort; Absent rhonchi, wheezes or crackles Comment:: irregularly irregular GI: Present soft and normal bowel sounds; Absent distention or tenderness Extremities: Present normal inspection and full ROM Skin: Present intact; Absent erythema Neuro: Present Grossly Intact, alert, awake, oriented x 3 and moves all extremities Assessment and Plan *Assessment and plan (1) ZACK (acute kidney injury): Status: Acute Category: Medical Code(s): N17.9 - Acute kidney failure, unspecified (2) Hyperkalemia: Status: Acute Category: Medical Code(s): E87.5 - Hyperkalemia (3) Diastolic congestive heart failure, NYHA class 3: Status: Chroni
[2022-08-17 06:32] LABS: Basophils % 0.7 % (0.1-2.0); Eosinophils # 0.4 K/mm3 (0.0-0.4); Eosinophils % 7.1 % (0.1-12.0); Hematocrit 32.9 % (42.0-52.0); Hemoglobin 10.9 g/dL (14.1-18.0); Lymphocytes # 1.3 K/mm3 (0.7-4.5); Lymphocytes % 20.4 % (10-50); Mean Corpuscular Hemoglobin 30.4 pg (27.0-31.2); Mean Corpuscular Volume 92.3 fl (80-94); Mean Platelet Volume 8.5 fl (7.4-10.4); Monocytes # 0.6 K/mm3 (0.1-1.0); Monocytes % 8.8 % (1.7-9.3); Neutrophils # 3.9 K/mm3 (1.8-7.8); Platelet Count 217 K/mm3 (142-424); Red Blood Count 3.57 M/mm3 (4.60-6.20); Red Cell Distribution Width 14.4 % (11.5-17.5); White Blood Count 6.2 K/mm3 (4.8-10.8)
[2022-08-17 06:38] LABS: Chloride 103 mmol/L (98-107); Potassium 5.8 mmoL/L (3.5-5.1); Sodium 137 mmol/L (136-145)
[2022-08-17 06:41] LABS: Alanine Aminotransferase 23 U/L (12-78); Albumin Level 3.9 g/dl (3.5-5.0); Albumin/Globulin Ratio 1.3 (1.1-1.8); Alkaline Phosphatase 62 U/L (38-126); Anion Gap 12.8 mEq/L (5-15); Aspartate Amino Transferase 25 U/L (17-59); Bilirubin,Total 0.5 mg/dl (0.2-1.3); Blood Urea Nitrogen 43 mg/dl (9-20); Calcium 9.4 mg/dl (8.4-10.2); Carbon Dioxide 27 mmol/L (22.0-30.0); Creatinine Clearance Estimated 19 mL/min (50-200); Estimated Glomerular Filt Rate 19 ml/min (>60); GFR (African American) 22 ML/MIN (>60); Glucose 97 mg/dl (74-100); Magnesium 2.2 mg/dl (1.6-2.3); Total Protein,Serum 6.9 g/dl (6.3-8.2)
--- NOTE | 2022-08-17 08:16 | HMH.PHAINT1 ---
Pharmacy Intervention Comments: Reconciled patient's home medications using pharmacy fill history ([facility]) and patient interview.
--- NOTE | 2022-08-17 09:30 | EXP.CARD.CON ---
History of Present Illness History of Present Illness Consult date: 08/17/22 Requesting physician: Terrell Harden Chief complaint: weakness, hypotension, ZACK Additional Medical History:: 1.? Coronary artery disease with history of coronary bypass grafting in 1990 A.? Left heart catheterization, 02/2018, YASMEEN to SVG to ramus.? Patent SULLIVAN to LAD.? SVG to diagonal with 40% lesion, medical therapy. 2.? [employer] permanent pacemaker, implanted October 14, 2011 A.? Last interrogation, 05/14/2022, 1.9 years battery life left.? No events.? Ventricular pacing 96%. 3.? Chronic atrial fibrillation A.? On Xarelto therapy 4.? History of CVA approximately [address] of the head, 07/28/22, no acute abnormality with chronic age-related changes. 5.? Hypertension A.? Echocardiogram, 05/04/2022, mild biatrial enlargement, normal LV size, mild concentric LVH with EF 55% and no regional WMA.? Diastolic parameters inconclusive.? Mild RV enlargement with normal contractility.? Thickened and calcified aortic valve without aortic stenosis.? Mild MR and TR with RVSP 38 mmHg.? B. Echocardiogram, 08/01/2022, EF 52%. 6.? Hyperlipidemia, on statin A.? LDL 33 on 07/29/2022 7.? NATALIE with 20-49% ICA stenosis bilaterally, 10/2019 8. 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 Lua is an 86-year-old male with history of CHF, pacemaker in situ, A-fib, CKD who was recently admitted earlier this month with CHF exacerbation.? Started on diuretics due to volume overload and discharged home.? He presents today to the ER with his daughter who reports that she has noticed him being more weak over the past week.? He is previously independent and lives alone.? Denies any confusion, falls, nausea or vomiting.? Does complain of some mild constipation with no bowel movement in over a day.? No diarrhea, no fevers.? Given fatigue, work-up initiated in the ER.? Labs concerning for hyperkalemia and acute kidney injury.? Of note, per chart review and discussion with family patient has had URI symptoms that were treated with 2 rounds of antibiotics.? Most recent course was Bactrim initiated on 08/08.? States his breathing is feeling better since diuresis and the antibiotic but he was more weak and having tremors.? Afebrile and hemodynamically stable.? Medicine consulted for admission. On evaluation, patient is alert and oriented x3.? States he has had some decreased urine output over the past week.? Has been taking his diuretics as previously prescribed on discharge until the past few days and he has decreased what he has been taking due to weakness and daughters concern for overdiuresis. The above per Dr. Harden Events as noted above confirmed with the patient. Patient is in no acute distress this morning. Potassium is decreasing and renal function improving with IV fluids along with holding diuretic therapy. BNP on admission was 1150 which is significantly improved compared to earlier this month. Chest x-ray shows no evidence of effusions. CT of the head without contrast shows atrophy and mild periventricular chronic ischemic changes. No acute abnormality noted. EKG shows ventricular pacing with pacer induced left bundle branch block at 60 bpm. [facility] Disclaimer: The information contained in this section may have been updated after the patient was seen, as this information can be updated by other users. Medical History (Updated 08/17/22 @ 09:45 by SAMUEL Martino) (HFpEF) heart failure with preserved ejection fraction Abnormal breath sounds Bleeding nose CHF (congestive heart failure) Confusion Difficulty with speech Dyspnea History of heart attack History of pacemaker TIA (transient ischemic attack) Surgical History History of cardiac catheterization History of colono
--- NOTE | 2022-08-17 09:47 | HMH.OTEV ---
OT Inpatient Evaluation Rehab OT IP Evaluation Start: 08/17/22 06:34 Freq: ONCE Status: Active Protocol: Document 08/17/22 09:36 RACHELLELISA (Rec: 08/17/22 09:47 RACHELLELISA [id number]) Rehab OT IP Assessment Subjective History Mr. Lua is an 86-year-old male with history of CHF, pacemaker in situ, A-fib, CKD who was recently admitted earlier this month with CHF exacerbation. Started on diuretics due to volume overload and discharged home. He presents today to the ER with his daughter who reports that she has noticed him being more weak over the past week. He is previously independent and lives alone. Denies any confusion, falls, nausea or vomiting. Does complain of some mild constipation with no bowel movement in over a day. No diarrhea, no fevers. Given fatigue, work-up initiated in the ER. Labs concerning for hyperkalemia and acute kidney injury. Of note, per chart review and discussion with family patient has had URI symptoms that were treated with 2 rounds of antibiotics. Most recent course was Bactrim initiated on 08/08. States his breathing is feeling better since diuresis and the antibiotic but he was more weak and having tremors. Afebrile and hemodynamically stable. Medicine consulted for admission. On evaluation, patient is alert and oriented x3. States he has had some decreased urine output over the past week. Has been taking his diuretics as previously prescribed on discharge until the past few days and he has decreased what he has been
--- NOTE | 2022-08-17 10:38 | SW/DCPLANNER ---
Addendum entered by Norma Koroma 08/18/22 10:18: Nicolas morgan/ [facility] stated that services will begin 08/19/22 or 08/22/22 for this patient. Addendum entered by Norma Koroma 08/18/22 09:54: Patient information has been faxed to [facility]. Original Note: PT/OT evaluated patient this AM and recommended home with home health services. CM spoke with patient: agreeable to home health services and prefers [facility]. I will set up home health services at time of discharge.
--- NOTE | 2022-08-17 11:29 | HMH.PTEV ---
Physical Therapy Evaluation Rehab PT IP Evaluation Start: 08/17/22 06:34 Freq: ONCE Status: Active Protocol: Document 08/17/22 11:24 ADALID (Rec: 08/17/22 11:29 ADALID [id number]) Subjective/History History History 86 yowm adm to [facility] with ZACK with hx of CHF, pacemaker, CKD . He reports he lives alone, 1 -2 steps to enter the home, he ambulates independently without AD at baseline. He does have a daughter that helps him with ADLs at times. Subjective Subjective Pt reports no c/o this am, agrees to ambulation. Rehab PT IP Eval Objective Appearance Patient Behavior Appropriate Patient Orientation Person,Place,Time Difficulty following instructions none Speech Pattern Clear Ambulation Patient Able to Ambulate Yes Ambulation Observation IP General Gait Pattern Observation No Deviations/Normal Ambulation Distance (feet) 100 Ambulation Assistive Device None Ambulation Ability Supervision/Stand by Balance Ability to Arise Able, uses arms to help Sitting Balance Steady, safe Standing Balance Steady, wide stance Dynamic Sitting Balance Ability Good Dynamic Standing Balance Ability Good Transfers Bed Transfer Ability Independent Chair Transfer Ability Independent Sit to Stand Bed Transfer Ability Independent Sit to Stand Chair Transfer Ability Independent ROM All Extremities PT ROM Status WFL MMT All Extremities PT MMT WFL Rehab PT IP prob,goals,plan Problems Date of Evaluation: 08/17/22 Discharge Plan PT Discharge Plan Pt is currently appropriate to return home once medically stable for d/c. He presents at baseline for all mobility at this time. G -code Required No Eval Complexity Eval Charge Codes 34400 - Moderate Complexity PHYSICIAN CERTIFICATION: I certify the specified therapy services for Britney Lua are required, authorized, and reviewed every 30 days.
--- NOTE | 2022-08-17 15:15 | PC.NURSE ---
A&OX4. TOLERATING RA WELL. UP WITH STANDBY ASSIST IN ROOM. HAS BEEN UP TO CHAIR MAJORITY OF DAY. HAS HAD NO NEEDS OR C/O NOTED. STRICT I&O BEING MEASURED. FAMILY AT BEDSIDE. VSS.
[2022-08-17 17:08] LABS: Chloride 100 mmol/L (98-107); Potassium 5.9 mmoL/L (3.5-5.1); Sodium 135 mmol/L (136-145)
[2022-08-17 17:11] LABS: Anion Gap 14.9 mEq/L (5-15); Blood Urea Nitrogen 38 mg/dl (9-20); Calcium 9.7 mg/dl (8.4-10.2); Carbon Dioxide 26 mmol/L (22.0-30.0); Creatinine Clearance Estimated 18 mL/min (50-200); Estimated Glomerular Filt Rate 18 ml/min (>60); GFR (African American) 22 ML/MIN (>60); Glucose 111 mg/dl (74-100)
--- NOTE | 2022-08-17 18:29 | PC.NURSE ---
STARTING LR AT 125ML/HR AT THIS TIME. STOP AFTER 1 BAG IS GIVEN. PER MD GARCÍA.
[2022-08-18] VITALS: PULSE 60
[2022-08-18 04:00] VITALS: BP 101/64; PULSE 60; PULSE 63; RESP 18; TEMP 36.5; O2SAT 94; BMI 24.5
[2022-08-18 06:01] VITALS: PULSE 65; PULSE 68; O2SAT 96
[2022-08-18 06:24] LABS: Chloride 103 mmol/L (98-107); Potassium 5.8 mmoL/L (3.5-5.1); Sodium 136 mmol/L (136-145)
[2022-08-18 06:25] LABS: Basophils % 0.3 % (0.1-2.0); Eosinophils # 0.4 K/mm3 (0.0-0.4); Eosinophils % 5.5 % (0.1-12.0); Hematocrit 34.4 % (42.0-52.0); Lymphocytes % 13.4 % (10-50); Mean Corpuscular HGB Conc 31.9 g/dL (31.8-35.4); Mean Corpuscular Hemoglobin 29.5 pg (27.0-31.2); Mean Corpuscular Volume 92.3 fl (80-94); Mean Platelet Volume 7.8 fl (7.4-10.4); Monocytes # 0.6 K/mm3 (0.1-1.0); Monocytes % 7.5 % (1.7-9.3); Neutrophils # 5.4 K/mm3 (1.8-7.8); Neutrophils % 73.2 % (37.0-80.0); Platelet Count 197 K/mm3 (142-424); Red Blood Count 3.73 M/mm3 (4.60-6.20); Red Cell Distribution Width 14.5 % (11.5-17.5); White Blood Count 7.3 K/mm3 (4.8-10.8)
[2022-08-18 06:27] LABS: Alanine Aminotransferase 24 U/L (12-78); Alkaline Phosphatase 63 U/L (38-126); Anion Gap 11.8 mEq/L (5-15); Aspartate Amino Transferase 26 U/L (17-59); Bilirubin,Total 0.7 mg/dl (0.2-1.3); Blood Urea Nitrogen 39 mg/dl (9-20); Calcium 9.4 mg/dl (8.4-10.2); Carbon Dioxide 27 mmol/L (22.0-30.0); Creatinine Clearance Estimated 22 mL/min (50-200); Estimated Glomerular Filt Rate 22 ml/min (>60); GFR (African American) 26 ML/MIN (>60); Glucose 97 mg/dl (74-100)
[2022-08-18 06:28] LABS: Albumin Level 4.2 g/dl (3.5-5.0); Albumin/Globulin Ratio 1.4 (1.1-1.8); Total Protein,Serum 7.2 g/dl (6.3-8.2)
--- NOTE | 2022-08-18 07:15 | EXP.DC.SUM ---
General Admission date:: 08/16/22 Discharge date: 08/18/22 HPI HPI HPI: Mr. Lua is an 86-year-old male with history of CHF, pacemaker in situ, A-fib, CKD who was recently admitted earlier this month with CHF exacerbation. Started on diuretics due to volume overload and discharged home. He presents today to the ER with his daughter who reports that she has noticed him being more weak over the past week. He is previously independent and lives alone. Denies any confusion, falls, nausea or vomiting. Does complain of some mild constipation with no bowel movement in over a day. No diarrhea, no fevers. Given fatigue, work-up initiated in the ER. Labs concerning for hyperkalemia and acute kidney injury. Of note, per chart review and discussion with family patient has had URI symptoms that were treated with 2 rounds of antibiotics. Most recent course was Bactrim initiated on 08/08. States his breathing is feeling better since diuresis and the antibiotic but he was more weak and having tremors. Afebrile and hemodynamically stable. Medicine consulted for admission. On evaluation, patient is alert and oriented x3. States he has had some decreased urine output over the past week. Has been taking his diuretics as previously prescribed on discharge until the past few days and he has decreased what he has been taking due to weakness and daughters concern for overdiuresis. Hospital Course Hospital Course Hospital Course: Mr. Lua is an 86-year-old male who presented with weakness, found to have ZACK, hyperkalemia.? Suspected secondary to overdiuresis versus medication induced kidney injury (Bactrim in conjunction with Lasix spironolactone).? Responded well to gentle rehydration. Creatinine showed continued improvement. Medically stable for discharge home. Problems addressed as follows: HFpEF CAD Atrial fibrillation -Patient on room air at time of admission. BNP elevated to 1100 on admission however this is better than last admission. Diuretics were held. He was given gentle hydration with 1 L a day IV during admission. Improvement in kidney function. Cardiology was consulted. Recommended holding diuretics and plan to resume as an outpatient when his kidney function improves to baseline with creatinine between 1.4-1.6. Continued home regimen for A-fib with metoprolol and Xarelto. Xarelto renally dosed during admission, resume home dose of 20mg at [place]. Discussed with patient's daughter that I would recommend avoiding Bactrim in the future given ZACK event and risk for recurrence if he takes that medication again. ZACK on CKD -Baseline creatinine 1.4-1.6; creatinine 3.9 on admission, BUN 46. Improved to 2.8 and 39 respectively by day of discharge. Patient seeing a pattern of improvement. Anticipate continued improvement with oral hydration and holding nephrotoxins/diuretics. Will need close follow-up with cardiology in the coming week for repeat labs and to reconsider initiation of diuretic. Potassium elevated above 6 on admission. EKG did not show any significant changes or T wave peaking. Stable less than 6 on serial labs. Anticipate improvement with holding spironolactone and potassium replacement which she has been on previously. Continue tamsulosin for BPH Continue pantoprazole for GERD Continue gabapentin, renally dosed for neuropathy. Takes this for trigeminal neuralgia. Recommend taking 300 mg BID for renal dosing. Continue melatonin for sleep Held alprazolam in the setting of ZACK and fatigue. With improving kidney function, okay to resume at bedtime only if helps with sleep. Dose is very small. Medically stable for discharge home. Will refer to home health for PT and OT. Exam Data for Last 24 hours Vital signs and Labs for Last 24 Hours: Temp Pulse Resp BP Pulse Ox 97.7 F 68 18 101/64 L 96 08/18/22 04:00 08/18/22 06:01 08/18/22 04:00 08/18/22 04:00 08/18/22 06:01 Laboratory Results - last 24 hr 08/17
--- NOTE | 2022-08-18 07:39 | P.PN_ITS ---
Subjective Subjective Date: 08/18/22 Time: 07:39 Principal diagnosis: ZACK Interval history: 86-year-old white male eating breakfast in no acute distress but does complain of some nausea. He still has a congested cough. Creatinine is down to 2.8 this morning with potassium hanging around 5.8 Exam Data for Last 24 hours Vital signs and Labs for Last 24 Hours: Temp Pulse Resp BP Pulse Ox 97.7 F 68 18 101/64 L 96 08/18/22 04:00 08/18/22 06:01 08/18/22 04:00 08/18/22 04:00 08/18/22 06:01 Laboratory Results - last 24 hr 08/17/22 15:50: Sodium 135 L, Potassium 5.9 H, Chloride 100, Carbon Dioxide 26, Anion Gap 14.9, BUN 38 H, Creatinine 3.30 H, Estimated Creat Clear 18, Estimated GFR 18 L*, Est GFR ( Amer) 22 L, Glucose 111 H, Calcium 9.7 08/18/22 06:11: WBC 7.3, RBC 3.73 L, Hgb 11.0 L, Hct 34.4 L, MCV 92.3, MCH 29.5, MCHC 31.9, RDW 14.5, Plt Count 197, MPV 7.8, Neut % (Auto) 73.2, Lymph % (Auto) 13.4, Sierra % (Auto) 7.5, Eos % (Auto) 5.5, Baso % (Auto) 0.3, Neut # (Auto) 5.4, Lymph # (Auto) 1.0, Sierra # (Auto) 0.6, Eos # (Auto) 0.4, Baso # (Auto) 0.0 08/18/22 06:11: Sodium 136, Potassium 5.8 H, Chloride 103, Carbon Dioxide 27, Anion Gap 11.8, BUN 39 H, Creatinine 2.80 H, Estimated Creat Clear 22, Estimated GFR 22 L, Est GFR ( Amer) 26 L, Glucose 97, Calcium 9.4, Magnesium 2.0, Total Bilirubin 0.7, AST 26, ALT 24, Alkaline Phosphatase 63, Total Protein 7.2, Albumin 4.2, Globulin 3.0, Albumin/Globulin Ratio 1.4 I & O for Last 24 hours: Intake & Output 04/08/16/22 08/17/22 08/18/22 11:59 11:59 11:59 11:59 Intake Total 860 / 860 1788 / 1788 Output Total 650 / 650 1150 / 1150 Balance 210 / 210 638 / 638 Weight 175 lb 3.927 oz 175 lb 3 oz Constitutional Constitutional: no acute distress *Routine Respiratory Exam Respiratory: Present rhonchi *Routine Cardiovascular Exam Cardiovascular: Present RRR Progress Note: A&P Assessment and plan (1) ZACK (acute kidney injury): Status: Acute (2) Hyperkalemia: Status: Acute (3) Diastolic congestive heart failure, NYHA class 3: Status: Chronic (4) On anticoagulant therapy: Status: Chronic (5) Cardiac pacemaker in situ: Status: Chronic (6) Atrial fibrillation: Status: Chronic Assessment and Plan Assessment and Plan for All Diagnoses:: 1.? Acute on chronic kidney disease caused by recent antibiotic usage (Bactrim) on top of diuretic therapy.? Diuretics being held at this time with IV fluids ordered. Creatinine down to 2.8 this morning 2.? Hyperkalemia, improving with current potassium 5.8 3.? HFpEF, clinically stable.? Resume diuretic therapy once renal functions return to near baseline creatinine of 1.5-1.6. 4.? Cardiac pacemaker in situ 5.? History of atrial fibrillation, chronic anticoagulation therapy with no recent bleeding. 6. Right lung rhonchi on exam with recent airspace disease on chest x-ray 07/31/2022 That is improving on chest x-ray from 08/16/2022 Continue holding diuretic therapy. If patient is discharged home in the next 24 to 48 hours Continue to hold diuretic therapy until repeat lab work on 08/22/2022 Follow-up in our office next week
[2022-08-18 07:52] VITALS: BP 143/73; PULSE 62; RESP 19; TEMP 36.6; O2SAT 97
[2022-08-18 08:00] VITALS: PULSE 60
--- NOTE | 2022-08-18 09:36 | HMH.PHAINT1 ---
Pharmacy Intervention Comments: Counseled patient and family on medications to HOLD at discharge and medications to STOP at discharge. Patient and family expressed understanding of medication changes.
--- NOTE | 2022-08-19 14:04 | CARE MANAGER ---
Spoke with patient related to hospital discharge. He states that he has diarrhea. His daughter has all his appointments written down and are aware of his meds. Denies other questions or concerns. JOVANNA Stallings
== END 2022-08-18 10:59 | disposition home health service (06) | DRG 683 ==
LOC: ER 16:10 → 2ND 18:23
PROVIDERS: Admitting Provider Internal Medicine Adolescent Medicine; Emergency Provider Emergency Medicine; PCP Nurse Practitioner Family; Visit Provider Internal Medicine Adolescent Medicine
DX: N17.9 Acute kidney failure, unspecified (principal); I48.20 Chronic atrial fibrillation, unspecified; I65.23 Occlusion and stenosis of bilateral carotid arteries; I50.30 Unspecified diastolic (congestive) heart failure; I12.9 Hypertensive chronic kidney disease with stage 1 through stage 4 chronic kidney disease, or unspecified chronic kidney disease; Z79.899 Other long term (current) drug therapy; Z79.01 Long term (current) use of anticoagulants; I25.2 Old myocardial infarction; E87.5 Hyperkalemia; Z95.0 Presence of cardiac pacemaker; N18.9 Chronic kidney disease, unspecified
CPT/HCPCS: 36415; 70450; 71045; 80048; 80053; 81001; 83735; 83880; 84443; 84484; 85025; 93005; 94640; 97162; 97165; 99285; C9803; U0003; U0005

== ENCOUNTER 2022-08-20 16:04 | Inpatient (IN) | payer MEDICARE, OTHER, SELFPAY ==
[2022-08-20] VITALS (8 sets, daily range): BP systolic 114–151; BP diastolic 65–71; PULSE 60–64; RESP 15–20; TEMP 36.4–36.6; O2SAT 93–97; BMI 23.6; BMI 23.9
--- NOTE | 2022-08-20 16:27 | ECG_ITS ---
APPROVED REPORT Exam: Resting ECG HR:60 bpm ECG Measurements Heart Rate 60 AXES QRSd 148 QRS 22 QT 434 T 205 QTc 434 Conclusion ELECTRONIC VENTRICULAR PACEMAKER ABNORMAL RHYTHM ECG UNCONFIRMED REPORT Electronically signed by : Blair Landry MD 08/21/2022 13:39:19
--- NOTE | 2022-08-20 16:29 | CT_ITS ---
PROCEDURE INFORMATION: Exam: CT Cervical Spine Without Contrast Exam date and time: 08/20/2022 5:00 PM Age: 86 years old Clinical indication: Weakness; Additional info: Frequent falls on eliquis TECHNIQUE: Imaging protocol: Computed tomography of the cervical spine without contrast. Radiation optimization: All CT scans at this facility use at least one of these dose optimization techniques: automated exposure control; mA and/or kV adjustment per patient size (includes targeted exams where dose is matched to clinical indication); or iterative reconstruction. REPORTING DATA: Count of CT and Cardiac NM exams in prior 12 months: This patient has received 2 known CTs and 0 known cardiac nuclear medicine studies in the 12 months prior to the current study. COMPARISON: CT HEAD/BRAIN WO CON 08/20/2022 4:57 PM FINDINGS: Bones/joints: Vertebral alignment is maintained. There is preservation of vertebral body heights. Facet joints are aligned. Odontoid process is intact. Atlantoaxial interval maintained. No acute fracture. Uncovertebral and facet arthropathy result in varying degrees of neural foraminal narrowing at multiple levels. Auditory system: Nodular soft tissue thickening in bilateral external auditory canals. While nonspecific statistically represent cerumen. Lungs: Lung apices are normal. Vasculature: The main pulmonary trunk is prominent, which can be seen in the context of pulmonary hypertension. Azygous vein lobule noted Soft tissues: Prevertebral and paravertebral soft tissues are maintained IMPRESSION: No acute fracture. No traumatic subluxation.
--- NOTE | 2022-08-20 16:29 | CT_ITS ---
PROCEDURE INFORMATION: Exam: CT Head Without Contrast Exam date and time: 08/20/2022 4:57 PM Age: 86 years old Clinical indication: Dizziness; Additional info: Frequent falls on eliquis TECHNIQUE: Imaging protocol: Computed tomography of the head without contrast. Radiation optimization: All CT scans at this facility use at least one of these dose optimization techniques: automated exposure control; mA and/or kV adjustment per patient size (includes targeted exams where dose is matched to clinical indication); or iterative reconstruction. REPORTING DATA: Count of CT and Cardiac NM exams in prior 12 months: This patient has received 2 known CTs and 0 known cardiac nuclear medicine studies in the 12 months prior to the current study. COMPARISON: CT HEAD/BRAIN WO CON 08/16/2022 3:56 PM FINDINGS: Brain: There is no evidence of acute intracranial hemorrhage, extra-axial collection or locoregional mass effect. There are scattered hypodensities in the periventricular and subcortical white matter. The appearance is nonspecific, but most likely represents chronic small vessel disease in a person of this age Cerebral ventricles: There is diffuse prominence of the ventricles and CSF containing spaces which can be attributed to age-related volume loss. No hydrocephalus or midline shift identified. Pituitary gland and sella: Sellar/parasellar structures, craniocervical junction and orbits are unremarkable Paranasal sinuses: Visualized sinuses are unremarkable. No fluid levels. Mastoid air cells: Visualized mastoid air cells are well aerated. Bones/joints: No calvarial fracture Soft tissues: Unremarkable. IMPRESSION: No acute intracranial abnormality. No calvarial fracture.
--- NOTE | 2022-08-20 16:29 | XR_ITS ---
PROCEDURE INFORMATION: Exam: XR Chest Exam date and time: 08/20/2022 5:14 PM Age: 86 years old Clinical indication: Shortness of breath; Prior surgery; Surgery date: 6+ months; Surgery type: Open heart, pacemaker; Additional info: SOA TECHNIQUE: Imaging protocol: Radiologic exam of the chest. Views: 1 view. COMPARISON: CR XR CHEST PORTABLE 08/16/2022 4:26 PM FINDINGS: Tubes, catheters and devices: Left subclavian pacemaker leads overlie the right ventricle. Lungs: No acute cardiopulmonary findings. Pleural spaces: Unremarkable. No pleural effusion. No pneumothorax. Heart/Mediastinum: Unremarkable. No cardiomegaly. Bones/joints: Median sternotomy. IMPRESSION: No acute cardiopulmonary findings.
--- NOTE | 2022-08-20 16:31 | HMH.EDGENADL ---
Discharge Plan Disposition Patient Disposition: Admitted As Inpatient Condition: Fair Chief Complaint: Shortness of Breath/Dyspnea Prescriptions Prescriptions: No Action furosemide [Lasix] 20 mg tablet 20 mg PO BID Hold Instructions: Pending follow-up with cardiology atorvastatin 40 mg tablet 40 mg PO HS tamsulosin 0.4 mg capsule,extended release 24hr 0.4 mg PO HS pantoprazole [Protonix] 20 mg tablet,delayed release (DR/EC) 20 mg PO BID Xarelto 20 mg tablet 20 mg PO QPMWITHMEAL Rx Instructions: must administer with evening meal metoprolol succinate 25 MG tablet extended release 24 hr 25 mg PO DAILY ipratropium-albuterol 0.5 mg-3 mg(2.5 mg base)/3 mL solution for nebulization 3 ml INHALATION Q4-6H PRN (Reason: Breathing) Label Comments: INHALE THREE (3) ML EVERY 4-6 HOURS BY NEBULIZATION ROUTE. Saccharomyces boulardii [Probiotic (S.boulardii)] 250 mg capsule 250 mg PO DAILY Label Comments: TAKE ONE (1) CAPSULE BY MOUTH EVERY DAY cholecalciferol (vitamin D3) 50 mcg (2,000 unit) capsule 50 mcg PO DAILY Label Comments: TAKE ONE (1) CAPSULE EVERY DAY BY ORAL ROUTE FOR 30 DAYS. cetirizine 10 mg tablet 10 mg PO DAILY Label Comments: TAKE ONE (1) TABLET BY MOUTH EVERY DAY acetaminophen 500 mg tablet 1,000 mg PO AM Label Comments: TAKE TWO (2) TABLETS (1,000 MG) BY MOUTH IN THE MORNING AND TAKE ONE (1) TABLET IN THE EVENING Rx Instructions: TAKE TWO (2) TABLETS (1,000 MG) BY MOUTH IN THE MORNING AND TAKE ONE (1) TABLET IN THE EVENING melatonin 5 mg tablet 5 mg PO HS Label Comments: TAKE ONE (1) TABLET EVERY DAY BY ORAL ROUTE AT BEDTIME FOR 30 DAYS. furosemide 20 mg tablet 20 - 40 mg PO DAILYP PRN (Reason: Fluid) Hold Instructions: Pending follow-up with cardiology Label Comments: TAKE ONE (1) TO TWO (2) TABLETS BY MOUTH DAILY FOR FLUID NEEDED - IN ADDITION TO PILL PACK LASIX THAT IS SCHEDULED acetaminophen 500 mg tablet 500 mg PO PM Label Comments: TAKE TWO (2) TABLETS (1,000 MG) BY MOUTH IN THE MORNING AND TAKE ONE (1) TABLET IN THE EVENING spironolactone 25 mg tablet 25 mg PO BID Hold Instructions: Pending follow-up with cardiology gabapentin 300 mg capsule 300 mg PO BID 30 Days Qty: 0 0RF Rx Instructions: 300 mg p.o. every morning and 600 mg at night as long as he experienced persistent pain and no side effects. alprazolam 0.25 mg tablet 0.125 mg PO HS Referrals Follow up/Referrals: Acosta Syed APRN [Primary Care Provider] - See instructions Clinical Impressions Clinical Impression: ZACK (acute kidney injury), Diarrhea Discharge ED Provider: Sidney Kelley General Adult HPI General Chief complaint: Shortness of Breath/Dyspnea Stated complaint: Weakness,Diarrhea,SOA Time Seen by Provider: 08/20/22 16:25 Mode of Arrival: Wheelchair Source of Information: Patient and Relative Limitations: No Limitations Description of Symptoms (Recalled from ER Triage Doc. by RN): pt here recently 08/16/22 and discharged home 08/18/22. pt and daughter report that since discharge home pt has been having diarrhea. pt has also been having frequent falls. pt states that he catches himself before he has a hard fall . pt states that he is able to catch himself and slide down to the ground. last reported fall was yesterday. pt reports he did not harm himself. pt does have extensive health health history. 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 History is obtained by patient, daughter at bedside, recent discharge summary from hospital medi
[2022-08-20 16:47] LABS: Basophils # 0.1 K/mm3 (0-0.2); Basophils % 0.9 % (0.1-2.0); Eosinophils # 0.3 K/mm3 (0.0-0.4); Eosinophils % 4.7 % (0.1-12.0); Hematocrit 35.3 % (42.0-52.0); Hemoglobin 11.5 g/dL (14.1-18.0); Lymphocytes # 1.3 K/mm3 (0.7-4.5); Lymphocytes % 18.8 % (10-50); Mean Corpuscular HGB Conc 32.5 g/dL (31.8-35.4); Mean Corpuscular Hemoglobin 29.7 pg (27.0-31.2); Mean Corpuscular Volume 91.6 fl (80-94); Mean Platelet Volume 8.5 fl (7.4-10.4); Monocytes # 0.6 K/mm3 (0.1-1.0); Neutrophils # 4.7 K/mm3 (1.8-7.8); Neutrophils % 67.7 % (37.0-80.0); Platelet Count 216 K/mm3 (142-424); Red Blood Count 3.85 M/mm3 (4.60-6.20); Red Cell Distribution Width 14.6 % (11.5-17.5); White Blood Count 6.9 K/mm3 (4.8-10.8)
[2022-08-20 16:51] LABS: Chloride 97 mmol/L (98-107)
[2022-08-20 16:52] LABS: Potassium 5.1 mmoL/L (3.5-5.1); Sodium 139 mmol/L (136-145)
[2022-08-20 16:54] LABS: Alanine Aminotransferase 32 U/L (12-78); Aspartate Amino Transferase 39 U/L (17-59); Bilirubin,Total 1.1 mg/dl (0.2-1.3); Blood Urea Nitrogen 51 mg/dl (9-20); Creatinine Clearance Estimated 14 mL/min (50-200); Estimated Glomerular Filt Rate 14 ml/min (>60); GFR (African American) 17 ML/MIN (>60)
[2022-08-20 16:55] LABS: Albumin Level 4.6 g/dl (3.5-5.0); Albumin/Globulin Ratio 1.3 (1.1-1.8); Alkaline Phosphatase 81 U/L (38-126); Anion Gap 21.1 mEq/L (5-15); Carbon Dioxide 26 mmol/L (22.0-30.0); Globulin 3.6 g/dL (1.3-3.2); Glucose 120 mg/dl (74-100); Magnesium 2.5 mg/dl (1.6-2.3); Total Protein,Serum 8.2 g/dl (6.3-8.2)
[2022-08-20 17:00] LABS: VBG Base Excess -2.9 mmol/L (-2.4-2.3); VBG HCO3 22.5 mmol/L (23-30); VBG Oxygen Saturation 72.2 % (50-70); VBG PCO2 40.7 mmol/L (35-51); VBG PH 7.36 mmol/L (7.31-7.41); VBG PO2 40.4 mmol/L (28-40); VBG Total CO2 23.8 mmol/L (23-27)
--- NOTE | 2022-08-20 17:00 | PC.NURSE ---
critical lab value called, creat 4.1. MD Kelley made aware.
[2022-08-20 17:04] LABS: NT Pro Brain Natriuretic Pep. 2640 pg/mL (0-450)
[2022-08-20 17:08] LABS: Troponin I < 0.01 ng/ml (0.00-0.034)
--- NOTE | 2022-08-20 17:19 | PC.NURSE ---
speaking with the hospitalist about admitting pt
--- NOTE | 2022-08-20 17:28 | PC.NURSE ---
covid swab sent to lab
--- NOTE | 2022-08-20 17:29 | PC.NURSE ---
called house for bed assignment
[2022-08-20 17:31] LABS: Coronavirus 19, PCR Not Detected (NotDetected); Influenza A, PCR Not Detected (NotDetected); Influenza B, PCR Not Detected (NotDetected)
--- NOTE | 2022-08-20 17:59 | PC.NURSE ---
report called to Ladi on second floor
--- NOTE | 2022-08-20 18:32 | PC.NURSE ---
patient arrived by w/c from ED
--- NOTE | 2022-08-20 18:56 | PC.NURSE ---
per pt and family, all diuretics are currently being held. Xarelto is being held due to a procedure to be done on monday. gabapentin is 300 bid and pt is no longer taking 600 @ hs
--- NOTE | 2022-08-20 19:10 | PC.NURSE ---
pt has had multiple falls at home. His daughter is as involved as she can be but she lives in [place]. Per daughter pts meds were scattered when she arrived to his home. he gets SOA with exertion. care management consult put in
--- NOTE | 2022-08-20 19:31 | EXP.HP ---
History of Present Illness *Admission Date: 08/20/22 *Reason for visit:: Diarrhea *History of present illness: This is a 86 yearold male with a PMHx of HFpEF, atrial fibrillation with cardiac pacer in situ, CAD,CKD who presents to the emergency department with complaints of diarrhea. Patient recently discharged on 08/18/2022 for hospitalization for hyperkalemia and ZACK. He was admitted prior to that for evaluation of volume overload. He was placed on antibiotics at discharge and last admission for upper respiratory infection. Since discharge he has complained of diarrhea and generalized fatigue. He denies any fever, increased shortness of breath, cough or congestion at this time. Emergency department work-up significant for worsening ZACK with a creatinine of 4.5. Discharge creatinine on 08/18/2022 was 2.8. Potassium 5.1. BNP elevated at 2640. He currently is on room air and in no distress from a respiratory standpoint. Given patient's continued diarrhea with new ZACK will admit him for gentle volume resuscitation. He is admitted to hospital service for further evaluation management. [facility] Disclaimer: The information contained in this section may have been updated after the patient was seen, as this information can be updated by other users. Medical History (HFpEF) heart failure with preserved ejection fraction Abnormal breath sounds Bleeding nose CHF (congestive heart failure) Confusion Difficulty with speech Dyspnea History of heart attack History of pacemaker TIA (transient ischemic attack) Surgical History History of cardiac catheterization History of colonoscopy History of esophagogastroduodenoscopy (EGD) History of hernia repair History of permanent cardiac pacemaker placement Hx of CABG Family History No significant family history Social History Smoking Status: Former smoker second hand exposure: No alcohol intake: never substance use type: denies use current occupational status: retired Travel in the last 8 weeks: None household members: none housing: house lives independently: Yes marital status: current occupational exposures/hazards: No caffeine: No special freddy needs: No agree to transfusion: No Review of Systems Review of Systems Review of systems:: pertinent systems reviewed and negative unless documented below Constitutional Constitutional: Reports weakness *Respiratory Respiratory: Reports as per HPI *Gastrointestinal Gastrointestinal: Reports as per HPI *Neurologic Neurologic: Reports weakness Meds Home Medications and Allergies Home Medications Medication Instructions Recorded Confirmed Type atorvastatin 40 mg tablet 40 mg PO HS Cholesterol 05/15/17 08/20/22 History tamsulosin 0.4 mg capsule 0.4 mg PO HS prostate 05/15/17 08/20/22 History pantoprazole 20 mg tablet,delayed 20 mg PO BID Acid reflux 08/21/18 08/20/22 History release (Protonix) rivaroxaban 20 mg tablet (Xarelto) 20 mg PO QPMWITHMEAL 10/29/19 08/20/22 History anticoagulant/atrial fib metoprolol succinate 25 mg 25 mg PO DAILY High blood pressure 09/19/20 08/20/22 History tablet,extended release 24 hr alprazolam 0.25 mg tablet 0.125 mg PO HS Sleep 05/20/21 08/20/22 History Saccharomyces boulardii 250 mg 250 mg PO DAILY Supplement 07/28/22 08/20/22 History capsule (Probiotic (S.boulardii)) cholecalciferol (vitamin D3) 50 50 mcg PO DAILY Supplement 07/28/22 08/20/22 History mcg (2,000 unit) capsule ipratropium 0.5 mg-albuterol 3 mg 3 ml inhalation Q4-6H PRN Breathing 07/28/22 08/20/22 History (2.5 mg base)/3 mL nebulization soln acetaminophen 500 mg tablet 1,000 mg PO AM Pain 07/29/22 08/20/22 History cetirizine 10 mg tablet 10 mg PO DAILY Allergy symptoms
[2022-08-20 20:46] LABS: Troponin I < 0.01 ng/ml (0.00-0.034)
[2022-08-20 23:12] LABS: Troponin I < 0.01 ng/ml (0.00-0.034)
[2022-08-21 03:34] VITALS: BP 130/80; PULSE 63; RESP 16; TEMP 36.7; O2SAT 96; BMI 24.3
[2022-08-21 08:00] VITALS: BP 122/65; PULSE 61; RESP 18; TEMP 36.9; O2SAT 98
[2022-08-21 08:58] LABS: Chloride 104 mmol/L (98-107); Sodium 138 mmol/L (136-145)
[2022-08-21 08:59] LABS: Potassium 4.4 mmoL/L (3.5-5.1)
[2022-08-21 09:01] LABS: Alanine Aminotransferase 28 U/L (12-78); Albumin/Globulin Ratio 1.3 (1.1-1.8); Alkaline Phosphatase 67 U/L (38-126); Anion Gap 12.4 mEq/L (5-15); Aspartate Amino Transferase 34 U/L (17-59); Blood Urea Nitrogen 44 mg/dl (9-20); Calcium 9.1 mg/dl (8.4-10.2); Carbon Dioxide 26 mmol/L (22.0-30.0); Creatinine Clearance Estimated 23 mL/min (50-200); Estimated Glomerular Filt Rate 24 ml/min (>60); GFR (African American) 29 ML/MIN (>60); Globulin 3.1 g/dL (1.3-3.2); Glucose 110 mg/dl (74-100); Total Protein,Serum 7.1 g/dl (6.3-8.2)
[2022-08-21 09:02] LABS: Magnesium 2.3 mg/dl (1.6-2.3)
[2022-08-21 09:04] LABS: Basophils % 0.6 % (0.1-2.0); Eosinophils # 0.5 K/mm3 (0.0-0.4); Eosinophils % 9.5 % (0.1-12.0); Hematocrit 34.1 % (42.0-52.0); Hemoglobin 11.1 g/dL (14.1-18.0); Lymphocytes % 19.4 % (10-50); Mean Corpuscular HGB Conc 32.6 g/dL (31.8-35.4); Mean Corpuscular Hemoglobin 29.8 pg (27.0-31.2); Mean Corpuscular Volume 91.5 fl (80-94); Mean Platelet Volume 7.9 fl (7.4-10.4); Monocytes # 0.4 K/mm3 (0.1-1.0); Monocytes % 7.3 % (1.7-9.3); Neutrophils # 3.2 K/mm3 (1.8-7.8); Neutrophils % 63.1 % (37.0-80.0); Platelet Count 196 K/mm3 (142-424); Red Blood Count 3.73 M/mm3 (4.60-6.20); Red Cell Distribution Width 14.6 % (11.5-17.5); White Blood Count 5.1 K/mm3 (4.8-10.8)
--- NOTE | 2022-08-21 09:57 | P.CONPHA_ITS ---
Pharmacy Intervention Comments: MEDICATION RECONCILIATION COMPLETE
--- NOTE | 2022-08-21 09:57 | HMH.PHAINT1 ---
Pharmacy Intervention Comments: MEDICATION RECONCILIATION COMPLETE
--- NOTE | 2022-08-21 10:49 | EXP.ACUTE.PN ---
Subjective *Date: 08/21/22 *Time: 12:03 Interval history: Subject for better today however had an episode of incontinence overnight, was incontinent of stool and did not know he had a bowel movement. Kidney function improved on morning labs however still elevated above baseline. More unsteady, daughter expresses significant concern about his safety going home as he was falling since last admission due to dizziness associated with his diarrhea and dehydration. He has also been more unsteady for the past month plus per his daughter. She is uncomfortable with him going home by himself. Patient stable on room air, afebrile. Normotensive. Medical Exam Vital signs and Labs for Last 24 Hours: Vital Signs Temp Pulse Pulse Resp BP BP Pulse Ox 08/21/22 08:00 98.5 F 61 18 122/65 98 08/21/22 03:34 98.1 F 63 16 130/80 96 08/20/22 20:00 98 F 64 16 114/71 96 08/20/22 18:34 97.6 F 61 20 130/70 96 08/20/22 18:11 97.7 F 62 16 151/71 H 08/20/22 18:01 62 151/71 H 96 08/20/22 17:30 60 133/67 95 08/20/22 16:30 63 121/71 97 08/20/22 16:12 62 119/65 94 L 08/20/22 16:06 97.7 F 62 15 119/65 93 L Intake and Output 08/20/22 08/21/22 08/21/22 23:59 07:59 15:59 Intake Total 453 / 1173 720 / 1173 Output Total 150 / 150 151 / 151 Balance -150 / 303 302 / 1022 720 / 1022 Intake: Intake, Oral Amount 720 / 720 Intake, Total IV Amount 453 / 453 Lactated Ringers 1000ML 1,000 453 / 453 ml @ 50 mls/hr IV .Q20H [facility] Rx# :[id number] Output: Output, Urine Amount 150 / 150 151 / 151 Other: Number of Unmeasured Voids 1 250 Weight 77.763 kg 78.744 kg Patient Weight 08/21/22 23:59 Weight 78.744 kg Laboratory Results - last 24 hr 08/20/22 16:30: VBG pH 7.36, VBG pCO2 40.7, VBG pO2 40.4 H, VBG HCO3 22.5 L, VBG Total CO2 23.8, VBG O2 Saturation 72.2 H, VBG Base Excess -2.9 L 08/20/22 16:38: WBC 6.9, RBC 3.85 L, Hgb 11.5 L, Hct 35.3 L, MCV 91.6, MCH 29.7, MCHC 32.5, RDW 14.6, Plt Count 216, MPV 8.5, Neut % (Auto) 67.7, Lymph % (Auto) 18.8, [place] % (Auto) 8.0, Eos % (Auto) 4.7, Baso % (Auto) 0.9, Neut # (Auto) 4.7, Lymph # (Auto) 1.3, [place] # (Auto) 0.6, Eos # (Auto) 0.3, Baso # (Auto) 0.1 08/20/22 16:38: Sodium 139, Potassium 5.1, Chloride 97 L, Carbon Dioxide 26, Anion Gap 21.1 H, BUN 51 H D, Creatinine 4.10 H D, Estimated Creat Clear 14, Estimated GFR 14 L*, Est GFR ( Amer) 17 L* D, Glucose 120 H, Calcium 10.0, Magnesium 2.5 H D, Total Bilirubin 1.1, AST 39 D, ALT 32 D, Alkaline Phosphatase 81, Troponin I < 0.01, NT-Pro-B Natriuret Pep 2640 H, Total Protein 8.2, Albumin 4.6, Globulin 3.6 H, Albumin/Globulin Ratio 1.3 08/20/22 17:27: SARS-CoV-2 (PCR) Not detected, Influenza A Untype (PCR) Not detected, Influenza Type B (PCR) Not detected 08/20/22 19:45: Troponin I < 0.01 08/20/22 22:45: Troponin I < 0.01 08/21/22 07:55: WBC 5.1 D, RBC 3.73 L, Hgb 11.1 L, Hct 34.1 L, MCV 91.5, MCH 29.8, MCHC 32.6, RDW 14.6, Plt Count 196, MPV 7.9, Neut % (Auto) 63.1, Lymph % (Auto) 19.4, [place] % (Auto) 7.3, Eos % (Auto) 9.5, Baso % (Auto) 0.6, Neut # (Auto) 3.2, Lymph # (Auto) 1.0, [place] # (Auto) 0.4, Eos # (Auto) 0.5 H, Baso # (Auto) 0.0 08/21/22 07:55: Sodium 138, Potassium 4.4, Chloride 104, Carbon Dioxide 26, Anion Gap 12.4, BUN 44 H, Creatinine 2.60 H D, Estimated Creat Clear 23, Estimated GFR 24 L, Est GFR ( Amer) 29 L D, Glucose 110 H, Calcium 9.1, Magnesium 2.3, Total Bilirubin 1.0, AST 34, ALT 28, Alkaline Phosphatase 67, Total Protein 7.1, Albumin 4.0 D, Globulin 3.1, Albumin/Globulin Ratio 1.3 I & O for Labs for Last 24 Hours: Intake & Output 08/18/22 08/19/22 08/20/22 08/21/22 23:59 23:59 23:59 23:59 Intake Total 1173 / 1173 Output Total 150 / 150 151 / 151 Balance -150 / 303 1022 / 1022 Weight 77.763 kg 78.744 kg Constitutional: Present no acute distress, average body habitus and chronically ill appearing Head: Present at
--- NOTE | 2022-08-21 11:54 | PC.NURSE ---
stool sample sent to LAB
[2022-08-21 11:57] LABS: Adenovirus F 40/41, stool Not Detected (NotDetected); Astrovirus Not Detected (NotDetected); Campylobacter Not Detected (NotDetected); Clostridium Difficile A/B, PCR Not Detected (NotDetected); Cryptosporidium Not Detected (NotDetected); Cyclospora Cayetanesis Not Detected (NotDetected); Entamoeba histolytica Not Detected (NotDetected); Enteroaggregative E coli Not Detected (NotDetected); Enteropathogenic E coli Not Detected (NotDetected); Enterotoxigenic E coli Not Detected (NotDetected); Giardia lamblia Not Detected (NotDetected); Norovirus Not Detected (NotDetected); Plesimonas Shigalloides, PCR Not Detected (NotDetected); Rotavirus A Not Detected (NotDetected); Salmonella, PCR Not Detected (NotDetected); Sapovirus Not Detected (NotDetected); Shiga-like toxin E coli Not Detected (NotDetected); Shigella Enterovasive E coli Not Detected (NotDetected); Vibrio Cholerae Not Detected (NotDetected); Vibrio, PCR Not Detected (NotDetected); Yersinia Entercolitica, PCR Not Detected (NotDetected)
[2022-08-21 16:00] VITALS: BP 170/93; PULSE 62; RESP 18; TEMP 36.9; O2SAT 98
--- NOTE | 2022-08-21 18:06 | PC.NURSE ---
spoke with pt and daughter regarding care management consult. Daughter would like to speak with someone regarding follow up care and pt requiring multiple hospitalizations along with falls and limited support at home.
[2022-08-21 20:00] VITALS: BP 93/57; PULSE 71; RESP 16; TEMP 36.7; O2SAT 97
--- NOTE | 2022-08-22 01:07 | PC.NURSE ---
Pt c/o nausea without emesis upon evening assessment. Rodolfo Pettit APRN contacted for prn zofran order. Zofran administered per MAR with good effect. Pt sleeping without further complaint upon reassessment.
[2022-08-22 04:00] VITALS: BP 120/71; PULSE 63; RESP 16; TEMP 36.7; O2SAT 93; BMI 24.5
[2022-08-22 07:10] LABS: Basophils % 0.4 % (0.1-2.0); Eosinophils # 0.5 K/mm3 (0.0-0.4); Eosinophils % 9.8 % (0.1-12.0); Hematocrit 34.4 % (42.0-52.0); Hemoglobin 11.2 g/dL (14.1-18.0); Lymphocytes # 1.1 K/mm3 (0.7-4.5); Lymphocytes % 20.4 % (10-50); Mean Corpuscular HGB Conc 32.5 g/dL (31.8-35.4); Mean Corpuscular Hemoglobin 30.2 pg (27.0-31.2); Mean Platelet Volume 7.6 fl (7.4-10.4); Monocytes # 0.5 K/mm3 (0.1-1.0); Neutrophils # 3.3 K/mm3 (1.8-7.8); Neutrophils % 60.3 % (37.0-80.0); Platelet Count 183 K/mm3 (142-424); Red Cell Distribution Width 14.6 % (11.5-17.5); White Blood Count 5.5 K/mm3 (4.8-10.8)
[2022-08-22 07:27] LABS: Alanine Aminotransferase 26 U/L (12-78); Albumin Level 3.9 g/dl (3.5-5.0); Albumin/Globulin Ratio 1.3 (1.1-1.8); Alkaline Phosphatase 66 U/L (38-126); Anion Gap 17.6 mEq/L (5-15); Aspartate Amino Transferase 34 U/L (17-59); Bilirubin,Total 0.9 mg/dl (0.2-1.3); Blood Urea Nitrogen 37 mg/dl (9-20); Carbon Dioxide 25 mmol/L (22.0-30.0); Chloride 101 mmol/L (98-107); Creatinine Clearance Estimated 30 mL/min (50-200); Estimated Glomerular Filt Rate 32 ml/min (>60); GFR (African American) 39 ML/MIN (>60); Glucose 90 mg/dl (74-100); Magnesium 2.1 mg/dl (1.6-2.3); Potassium 4.6 mmoL/L (3.5-5.1); Sodium 139 mmol/L (136-145); Total Protein,Serum 6.9 g/dl (6.3-8.2)
[2022-08-22 07:59] VITALS: BP 133/71; PULSE 61; RESP 21; TEMP 36.4; O2SAT 96
--- NOTE | 2022-08-22 09:30 | EXP.DC.SUM ---
General Admission date:: 08/20/22 Discharge date: 08/22/22 HPI HPI HPI: This is a 86 yearold male with a PMHx of HFpEF, atrial fibrillation with cardiac pacer in situ, CAD,CKD who presents to the emergency department with complaints of diarrhea. Patient recently discharged on 08/18/2022 for hospitalization for hyperkalemia and ZACK. He was admitted prior to that for evaluation of volume overload. He was placed on antibiotics at discharge and last admission for upper respiratory infection. Since discharge he has complained of diarrhea and generalized fatigue. He denies any fever, increased shortness of breath, cough or congestion at this time. Emergency department work-up significant for worsening ZACK with a creatinine of 4.5. Discharge creatinine on 08/18/2022 was 2.8. Potassium 5.1. BNP elevated at 2640. He currently is on room air and in no distress from a respiratory standpoint. Given patient's continued diarrhea with new ZACK will admit him for gentle volume resuscitation. He is admitted to hospital service for further evaluation management. Hospital Course Hospital Course Hospital Course: The patient was admitted to the telemetry unit with IV fluid resuscitation for his diarrhea. He characterizes diarrhea as water faucet. His laboratory studies and inflammatory markers were trended. His presenting creatinine was 4.1 and on discharge it reduced to 2.0 with a baseline of 1.8. He typically follows with Dr. 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 He was maintained on PPI therapy. He identified improvement and inquired about discharge home. His daughter at bedside on day of discharge inquired about cardiology consult for planned upcoming cardiomems procedure. Cardiology evaluated the patient. Case management assisted with next site of care and the patient requested home discharge. He was amendable to home health with PT/OT evaluations, ongoing speech evaluations and group home for medication education, daily weight review and heart failure education. The patient will hold his loop diuretic therapy until his cardiology appointment on Monday, August 22. We have recommended BMP as outpatient to follow-up on his improved creatinine clearance. He will continue routine follow-up with his PCP. Exam Data for Last 24 hours Vital signs and Labs for Last 24 Hours: Temp Pulse Resp BP Pulse Ox 97.5 F L 61 21 133/71 96 08/22/22 07:59 08/22/22 07:59 08/22/22 07:59 08/22/22 07:59 08/22/22 07:59 Laboratory Results - last 24 hr 08/21/22 11:50: Stl Aeromonas (PCR) Not detected, Stl C. cayetanensis PCR Not detected, Stool Rotavirus (PCR) Not detected, Stl Adenov F 40/41 PCR Not detected, Stool Astrovirus (PCR) Not detected, Stool Campylobacter PCR Not detected, Stl C.difficile Tox PCR Not detected, Stool Cryptosporidium PCR Not detected, Stl E.coli Shiga Tox PCR Not detected, Stool E coli O157 PCR Not detected, Stl Enterotoxigenic E PCR Not detected, Stool EPEC (PCR) Not detected, Stool EAEC (PCR) Not detected, Stl E. histolytica PCR Not detected, Stool Giardia Lamblia PCR Not detected, Stool Salmonella PCR Not detected, Stool Sapovirus (PCR) Not detected, Stl P. shigelloides PCR Not detected, Stl Shigella/EIEC PCR Not detected, St Y.enterocolitica PCR Not detected, Stool Vibrio (PCR) Not detected, Stl Vibrio cholerae PCR Not detected, Stl Norovirus GI/GII PCR Not detected 08/22/22 06:52: WBC 5.5, RBC 3.70 L, Hgb 11.2 L, Hct 34.4 L, MCV 93.0, MCH 30.2, MCHC 32.5, RDW 14.6, Plt Count 183, MPV 7.6, Neut % (Auto) 60.3, Lymph % (Auto) 20.4, [place] % (Auto) 9.0, Eos % (Auto) 9.8, Baso % (Auto) 0.4, Neut # (Auto) 3.3, Lymph # (Auto) 1.1, [place] # (Auto) 0.5, Eos # (Auto) 0.5 H, Baso # (Auto) 0.0 08/22/22 06:52: Sodium 139, Potassi
--- NOTE | 2022-08-22 09:41 | EXP.CARD.CON ---
History of Present Illness History of Present Illness Consult date: 08/22/22 Requesting physician: Terrell Harden Chief complaint: diarrhea History of present illness: This is an 86-year-old white gentleman who presented to the emergency department complaints of diarrhea. The patient was recently discharged from [facility] on 08/18/2022 for hyperkalemia and acute kidney injury. The patient was discharged and represented to the hospital for complaints of diarrhea and fatigue. The patient states that he had abrupt onset of diarrhea and described his diarrhea as running out of me like a water faucet . He denies chest pain or pressure. He does have some shortness of breath with exertion. He states that this is nearly baseline for him and no worse than usual but has not gotten any better. He denies any lower extremity edema. He denies any fever, chills, nausea, vomiting, PND or orthopnea. On admission the patient had a creatinine of 4.1 and elevated BNP of 2640. At the time of discharge the patient creatinine was 2.8 but after developing diarrhea his creatinine went up to 4.1. The patient was admitted and given some gentle fluid resuscitation. This morning he states he is feeling a little bit better and still having fatigue. He does not verbalize any diarrhea this morning. [facility] Disclaimer: The information contained in this section may have been updated after the patient was seen, as this information can be updated by other users. Medical History (Updated 08/22/22 @ 09:46 by Yaritza Sarabia APRN) (HFpEF) heart failure with preserved ejection fraction Abnormal breath sounds Bleeding nose CHF (congestive heart failure) Confusion Difficulty with speech Dyspnea History of heart attack History of pacemaker TIA (transient ischemic attack) Surgical History History of cardiac catheterization History of colonoscopy History of esophagogastroduodenoscopy (EGD) History of hernia repair History of permanent cardiac pacemaker placement Hx of CABG Family History No significant family history Social History Smoking Status: Former smoker second hand exposure: No alcohol intake: never substance use type: denies use current occupational status: retired Travel in the last 8 weeks: None household members: none housing: house lives independently: Yes marital status: current occupational exposures/hazards: No caffeine: No special freddy needs: No agree to transfusion: No Review of Systems Review of Systems Review of systems:: pertinent systems reviewed and negative unless documented below Constitutional Constitutional: Reports fatigue, Reports lethargy and Reports weakness Eyes Eyes: Reports system reviewed and no additional complaints, except as documented ENT Ears, Nose, Mouth, and Throat: Reports system reviewed and no additional complaints, except as documented *Cardiovascular Cardiovascular: Reports system reviewed and no additional complaints, except as documented, Denies chest pain and Reports dyspnea on exertion *Respiratory Respiratory: Reports system reviewed and no additional complaints, except as documented and Reports dyspnea on exertion *Gastrointestinal Gastrointestinal: Reports system reviewed and no additional complaints, except as documented, Reports diarrhea and Denies vomiting *Genitourinary Genitourinary: Reports system reviewed and no additional complaints, except as documented *Musculoskeletal Musculoskeletal: Reports system reviewed and no additional complaints, except as documented Integumentary/Breasts Skin/Breast: Reports system reviewed and no additional complaints, except as documented *Neurologic Neurologic: Reports weakness Psychiatric Psychiatric: Reports system reviewed and no additional complaints, except as docu
--- NOTE | 2022-08-22 10:00 | SW/DCPLANNER ---
Addendum entered by Norma Koroma 08/22/22 13:03: Stephanie morgan/ [facility] stated that services will start tomorrow 08/23/22. Original Note: Patient was recently discharged from [facility] and set up home health services. Home Health has not started at this time due to re-admission. PT/OT evaluated patient this AM and recommended returning home with home health services. Patient information/order will be faxed to [facility]. I will follow up with [facility] once information is reviewed.
--- NOTE | 2022-08-22 10:44 | HMH.OTEV ---
OT Inpatient Evaluation Rehab OT IP Evaluation Start: 08/21/22 10:24 Freq: ONCE Status: Active Protocol: Document 08/22/22 10:39 [facility] (Rec: 08/22/22 10:44 [facility] [id number]) Rehab OT IP Assessment Subjective History Pt oriented x 4 on arrival. Pt agreeable to engage in therapy evaluation. Pt was admitted on 08/20/22 due to dehydration and diarrhea. Patient recently discharged on 08/18/2022 for hospitalization for hyperkalemia and ZACK. He was admitted prior to that for evaluation of volume overload. He was placed on antibiotics at discharge and last admission for upper respiratory infection. Since discharge he has complained of diarrhea and generalized fatigue. Pt was living at home alone and was independent with all ADLs. He was also able to complete all IADLs such as cleaning and cooking. He still drove short distances like to his muslim. He uses a cane during ambulation. His daugther takes him grocery shopping. Pt has a past medical history of: HFpEF) heart failure with preserved ejection fraction Abnormal breath sounds Bleeding nose CHF (congestive heart failure) Confusion Difficulty with speech Dyspnea History of heart attack History of pacemaker TIA (transient ischemic attack ) Subjective I do feel better today. Objective Patient Orientation Person,Place,Birthday,Year Upper Extremity Gross ROM WFL Bed Mobility bed mobility-scooting,bed mobility - supine/sit,bed mobility - rolling Assist Level Supervision/Stand by Transfer Training Sit/Stand Transfer Assist Arielle
--- NOTE | 2022-08-22 10:48 | HMH.PTEV ---
Physical Therapy Evaluation Rehab PT IP Evaluation Start: 08/21/22 10:24 Freq: ONCE Status: Active Protocol: Document 08/22/22 09:15 [facility] (Rec: 08/22/22 10:47 PHOTYREL [id number]) Subjective/History History History 86 yowm adm to [facility] with ZACK and diarrhea. He has hx of CHF and CKD. He was scheduled for a cardiac procedure today, but this has been put on hold. He reports he lives alone, 1- 2 steps to enter the home, he uses a cane for all ambulation at baseline. Subjective Subjective Pt reports no c/o at this time except he continues to feel as if he may have diarrhea. Rehab PT IP Eval Objective Appearance Patient Behavior Appropriate Patient Orientation Person,Place,Time Difficulty following instructions none Speech Pattern Clear Ambulation Patient Able to Ambulate Yes Ambulation Observation IP General Gait Pattern Observation No Deviations/Normal Ambulation Distance (feet) 50 Ambulation Assistive Device Straight Cane Ambulation Ability Independent Balance Ability to Arise Able, w/o using arms Sitting Balance Steady, safe Standing Balance Narrow stance w/o support Dynamic Sitting Balance Ability Good Dynamic Standing Balance Ability Good Transfers Bed Transfer Ability Independent Chair Transfer Ability Independent Sit to Stand Bed Transfer Ability Independent Sit to Stand Chair Transfer Ability Independent ROM All Extremities PT ROM Status WFL MMT All Extremities PT MMT WFL Rehab PT IP prob,goals,plan Problems Date of Evaluation: 08/22/22 Discharge Plan PT Discharge Plan Pt is currently at baseline for all mobility and is appropriate to return home once medically stable. Recommend Home Health therapy after d/c. G -code Required No Eval Complexity Eval Charge Codes 59906 - Moderate Complexity PHYSICIAN CERTIFICATION: I certify the specified therapy services for Britney Lua are required, authorized, and reviewed every 30 days.
--- NOTE | 2022-08-23 13:27 | CARE MANAGER ---
Spoke with patient for post-discharge phone interview, no issues noted.
== END 2022-08-22 13:06 | disposition home health service (06) | DRG 683 ==
LOC: ER 17:28 → 2ND 17:32
PROVIDERS: Admitting Provider Internal Medicine Adolescent Medicine; Emergency Provider Emergency Medicine; PCP Nurse Practitioner Family; Visit Provider Internal Medicine Adolescent Medicine
DX: N17.9 Acute kidney failure, unspecified (principal); I48.20 Chronic atrial fibrillation, unspecified; I50.32 Chronic diastolic (congestive) heart failure; Z79.01 Long term (current) use of anticoagulants; Z95.0 Presence of cardiac pacemaker; E78.2 Mixed hyperlipidemia; N18.9 Chronic kidney disease, unspecified; I25.10 Atherosclerotic heart disease of native coronary artery without angina pectoris; I65.23 Occlusion and stenosis of bilateral carotid arteries; Z95.1 Presence of aortocoronary bypass graft; Z95.5 Presence of coronary angioplasty implant and graft; Z86.73 Personal history of transient ischemic attack (TIA), and cerebral infarction without residual deficits; R19.7 Diarrhea, unspecified
CPT/HCPCS: 36415; 70450; 71045; 72125; 80053; 82803; 83735; 83880; 84484; 85025; 87507; 93005; 97162; 97165; 99285; C9803; J2405; U0003; U0005

== ENCOUNTER 2022-08-26 09:35 | Day surgery (SDC) | payer MEDICARE, OTHER, SELFPAY ==
[2022-08-26] VITALS (12 sets, daily range): BP systolic 115–156; BP diastolic 61–88; PULSE 60–70; RESP 16–20; O2SAT 96–98; BMI 25.7
--- NOTE | 2022-08-26 07:09 | IR_ITS ---
APPROVED REPORT Patient Location: Outpatient [facility] Consultant: SUJATA Greenwood RT (R) PROCEDURES Right heart catheterization Right femoral vein central access Catheter placement in the left pulmonary artery Left pulmonary artery selective angiogram Placement of Cardiomem-pulmonary artery sensor in the left pulmonary artery Post pulmonary artery sensor right heart catheterization INDICATION Left pulmonary artery pressure measuring, Acute on chronic CHF exacerbation Informed consent was obtained prior to the procedure. COMPLICATIONS None Estimated Blood Loss: Less than 10 ML TECHNIQUE One percent lidocaine was used to anesthetize the right groin. The right femoral vein was accessed via the Seldinger technique and an 11 Italian sheath was placed in the right femoral vein. A Spring-Ester catheter was floated into the pulmonary artery and a right heart catheterization was performed along with cardiac output using the Fabricio correlation. The Spring-Ester catheter was then wedged into the left pulmonary artery and a pulmonary artery angiogram was performed. Following this an nitinol wire was placed into the pulmonary artery and the Spring-Ester catheter was removed. The Cardiomem pulmonary artery sensor was deployed in the left pulmonary artery. Following this the Spring-Ester catheter was placed back into the pulmonary artery and repeat right heart catheterization was performed. The device was then synchronized with the pulmonary artery tracings. At the end of the procedure the patient was transferred to the postop holding area in stable condition for sheath removal. ANGIOGRAPHIC RESULTS HEMODYNAMICS: Right atrial pressure is 15 mm Hg. Right ventricular pressure is 37/15 mm Hg. Pulmonary arterial pressure is 40/22 mm Hg. Pulmonary artery occlusion pressure is 22 mm Hg. SATURATIONS: RA is 71.4 %. PA is 72.5 %. Femoral artery saturation: 99 % Fabricio cardiac output: L/m IMPRESSION Successful placement of Cardiomem pulmonary artery sensor into the pulmonary artery Successful pulmonary artery angiogram Successful right heart catheterization PLAN 1. Continue management of congestive heart hailure Electronically signed by : Corwin Durán MD 08/26/2022 14:13:09
[2022-08-26 10:07] LABS: Basophils % 0.5 % (0.1-2.0); Eosinophils # 0.5 K/mm3 (0.0-0.4); Eosinophils % 9.5 % (0.1-12.0); Hematocrit 34.8 % (42.0-52.0); Hemoglobin 10.8 g/dL (14.1-18.0); Lymphocytes % 17.5 % (10-50); Mean Corpuscular HGB Conc 31.1 g/dL (31.8-35.4); Mean Corpuscular Hemoglobin 29.6 pg (27.0-31.2); Mean Corpuscular Volume 95.2 fl (80-94); Monocytes # 0.5 K/mm3 (0.1-1.0); Monocytes % 9.2 % (1.7-9.3); Neutrophils # 3.5 K/mm3 (1.8-7.8); Neutrophils % 63.4 % (37.0-80.0); Platelet Count 160 K/mm3 (142-424); Red Blood Count 3.66 M/mm3 (4.60-6.20); Red Cell Distribution Width 14.6 % (11.5-17.5); White Blood Count 5.6 K/mm3 (4.8-10.8)
[2022-08-26 10:09] LABS: Chloride 101 mmol/L (98-107)
[2022-08-26 10:10] LABS: Potassium 4.9 mmoL/L (3.5-5.1); Sodium 141 mmol/L (136-145)
[2022-08-26 10:13] LABS: Anion Gap 15.9 mEq/L (5-15); Blood Urea Nitrogen 26 mg/dl (9-20); Calcium 8.7 mg/dl (8.4-10.2); Carbon Dioxide 29 mmol/L (22.0-30.0); Creatinine Clearance Estimated 43 mL/min (50-200); Estimated Glomerular Filt Rate 44 ml/min (>60); GFR (African American) 54 ML/MIN (>60); Glucose 98 mg/dl (74-100)
[2022-08-26 12:27] LABS: CATHL Arterial O2 SAT 72.5 % (90-100); CATHL Venous O2 SAT 71.4 % (75-80)
== END 2022-08-26 15:51 | disposition home or self-care (01) ==
PROVIDERS: PCP Nurse Practitioner Family; Visit Provider Internal Medicine
DX: I11.0 Hypertensive heart disease with heart failure (principal); I50.33 Acute on chronic diastolic (congestive) heart failure; I65.23 Occlusion and stenosis of bilateral carotid arteries; I48.20 Chronic atrial fibrillation, unspecified; Z79.899 Other long term (current) drug therapy; Z79.01 Long term (current) use of anticoagulants
CPT/HCPCS: 33289; 80048; 82810; 85025; 99152; 99153; C1769; C2624; J1644; Q9967

== ENCOUNTER 2023-07-10 13:34 | Outpatient (CLI) | payer MEDICARE, OTHER, SELFPAY ==
--- NOTE | 2023-07-10 13:39 | XR_ITS ---
FINAL REPORT CLINICAL HISTORY: dyspnea COMPARISON: 08/16/2022 FINDINGS: Two views of the chest were obtained. Cardiomegaly is present. The patient has undergone a previous midline sternotomy. A left subclavian pacemaker is once again noted. The mediastinum is normal. There is worsening of a previously noted left base opacity, that may represent atelectasis or pneumonia. There is no pneumothorax. The bony thorax is intact. IMPRESSION: Worsening of previously noted left base opacity, atelectasis or pneumonia. Reviewed, Interpreted and Dictated by Cezar Rachel III, MD Transcribed by Shirley Zhang Authenticated and . [facility]
[2023-07-10 14:18] LABS: Basophils % 0.5 % (0.1-2.0); Eosinophils # 0.3 K/mm3 (0.0-0.4); Eosinophils % 5.5 % (0.1-12.0); Hematocrit 38.6 % (42.0-52.0); Hemoglobin 12.1 g/dL (14.1-18.0); Lymphocytes % 17.9 % (10-50); Mean Corpuscular HGB Conc 31.5 g/dL (31.8-35.4); Mean Corpuscular Hemoglobin 30.6 pg (27.0-31.2); Mean Corpuscular Volume 97.2 fl (80-94); Mean Platelet Volume 8.6 fl (7.4-10.4); Monocytes # 0.3 K/mm3 (0.1-1.0); Monocytes % 5.5 % (1.7-9.3); Neutrophils % 70.6 % (37.0-80.0); Platelet Count 164 K/mm3 (142-424); Red Blood Count 3.97 M/mm3 (4.60-6.20); White Blood Count 5.7 K/mm3 (4.8-10.8)
--- NOTE | 2023-07-10 14:26 | CA_ITS ---
APPROVED REPORT EXAM: Comprehensive 2D, Doppler, and color-flow Echocardiogram Coding File Clerk: Adele Mcnamara RVT Ht: 5 ft 11 in Wt: 178lbs BSA: 2.01 BP: 151/94 mmHg Indications: DYSPENA,CABG,PACER,CARLOS,CHF,A-FIB,PHTN,HTN TDS-LIMITED WINDOWS 2D Dimensions LA Volume 102.10 mL LA Volume Index 50.80 mL/m2 (M/F) 16-34 M-Mode Dimensions RVDd 2.79 cm (0.9-2.6) LA Diam 5.92 cm (1.9-4.0) LVDd 4.55 cm (3.5-5.7) LVDs 3.48 cm (3.5-5.7) IVSd 1.22 cm (0.6-1.1) PWd 0.39 cm (0.6-1.1) EF (Teich) 47.10% FS 23.50% EDV (Teich) 94.90 mL ESV (Teich) 50.20 mL LV Diastology E Decel Time 150 (160-240 msec) E/A Ratio 4.3 Aortic Valve JULIANA Index 1.17 cm2/m2 AoV Peak Arias. 75.0 (50-130 cm/s) AI PHT 1403.00 ms AO Peak GR. 2.30 mmHg AO Mean GR. 1.20 (<5 mmHg) AO VTI 17.4 (18-25 cm) JULIANA (VTI) 2.41 (2.5-4.5 cm2) Mitral Valve MV E Max Arias. 119.0 (40-130 cm/s) MV A Velocity 28.0 (40-130 cm/s) E/A Ratio 4.18 MV PHT 44.0 ms Pulmonary Valve PV Peak Velocity 68.0 (50-150 cm/s) Tricuspid Valve TR P. Velocity 271.00 cm/s RAP Estimate 10.00 mmHg RVSP 39.30 mmHg Left Ventricle The left ventricle is normal size. Left ventricular systolic function is mildly decreased. There is increased LV wall thickness. Mild global hypokinesis is present. The septum is asynchronous. Grade 3 diastolic dysfunction is present. LVEF is 45%. Right Ventricle The right ventricle is not very well-visualized, but grossly appears mildly dilated with mild reduction in RV function. There is a device lead present in the right ventricle. Atria Left atrium is moderately dilated. Right atrium is moderately dilated. There is no Doppler evidence of interatrial shunt. Aortic Valve The aortic valve is mildly thickened. There is no aortic valvular stenosis. Mild aortic regurgitation. Mitral Valve The mitral valve leaflets are mildly thickened. No evidence of mitral valve stenosis. Mild mitral regurgitation. Tricuspid Valve The tricuspid valve leaflets are thin and pliable. Moderate tricuspid regurgitation. RVSP is 30 mmHg + RA pressure. Pulmonic Valve The pulmonary valve is normal in structure. Trace pulmonic regurgitation. Great Vessels The aortic root is normal in size. Ascending aorta is not well-visualized. The IVC is not well-visualized. Pericardium There is no pericardial effusion. Other Information Study Quality: Technically Difficult Conclusion Technically difficult study due to poor acoustic windows. Mild reduction in LV systolic function (LVEF 45%). Right ventricle is not well-visualized. Asynchronous septum. Biatrial dilation. Mild AI, mild MR. Moderate TR. RVSP 30 mmHg + RA pressure. Electronically signed by : Kristy Robledo MD 07/12/2023 12:00:11
[2023-07-10 14:46] LABS: Chloride 110 mmol/L (98-107); Potassium 4.5 mmoL/L (3.5-5.1); Sodium 144 mmol/L (136-145)
[2023-07-10 14:48] LABS: Alanine Aminotransferase 25 U/L (12-78); Anion Gap 9.5 mEq/L (5-15); Aspartate Amino Transferase 26 U/L (17-59); Bilirubin,Unconjugated 0.9 mg/dL (0.0-1.1); Blood Urea Nitrogen 23 mg/dl (9-20); Carbon Dioxide 29 mmol/L (22.0-30.0); Estimated Glomerular Filt Rate 48 ml/min (>60); GFR (African American) 58 ML/MIN (>60)
[2023-07-10 14:49] LABS: Albumin Level 4.1 g/dl (3.5-5.0); Alkaline Phosphatase 64 U/L (38-126); Bilirubin,Direct 0.1 mg/dl (0.0-0.4); Bilirubin,Indirect 0.9 mg/dL (0.0-0.9); Calcium 9.2 mg/dl (8.4-10.2); Chol/HDL Ratio 4.5 (1-3.5); Cholesterol 163 mg/dl (140-200); Glucose 139 mg/dl (74-100); HDL Cholesterol 36 mg/dl (40-60); Magnesium 2.2 mg/dl (1.6-2.3); Total Protein,Serum 6.8 g/dl (6.3-8.2); Triglycerides 107 mg/dl (30-150); VLDL Cholesterol 21 mg/dL (0-40)
[2023-07-10 15:21] LABS: Direct LDL Cholesterol 87.71 mg/dL (100-129)
[2023-07-10 17:08] LABS: Free T4 (Free Thyroxine) 1.26 ng/dl (0.78-2.19)
== END 2023-07-10 23:59 ==
LOC: RT 13:35
PROVIDERS: PCP Nurse Practitioner Family; Visit Provider Internal Medicine
DX: I25.10 Atherosclerotic heart disease of native coronary artery without angina pectoris (principal); I11.0 Hypertensive heart disease with heart failure; I50.43 Acute on chronic combined systolic (congestive) and diastolic (congestive) heart failure; I65.23 Occlusion and stenosis of bilateral carotid arteries; I48.20 Chronic atrial fibrillation, unspecified; R06.2 Wheezing; E78.2 Mixed hyperlipidemia; Z79.01 Long term (current) use of anticoagulants; Z95.0 Presence of cardiac pacemaker; Z87.891 Personal history of nicotine dependence
CPT/HCPCS: 36415; 71046; 80048; 80061; 80076; 83735; 84439; 84443; 85025; 93306

== ENCOUNTER 2023-07-21 11:12 | Day surgery (SDC) | payer MEDICARE, OTHER, SELFPAY ==
--- NOTE | 2023-07-21 07:05 | IR_ITS ---
APPROVED REPORT Patient Location: Outpatient [facility]: SUJATA Cerda RT (R) PROCEDURES 1. Pocket Revision 2. Placement of left ventricular sensing pacing lead into the coronary sinus. 3. Permanent cardiac resynchronization therapy with ICD implantation/biventricular pacemaker. INDICATION 94% RV pacing Informed consent was obtained prior to the procedure. COMPLICATIONS NONE Estimated Blood Loss: LESS THAN 10 ML TECHNIQUE 1% lidocaine with epinephrine used to anesthetize the left anterior aspect of the chest. Scalpel was used to make the initial cutaneous incision and to dissect down into the fascia. The generator was removed from the existing pocket. Digital manipulation was required along with intermittent usage of scalpel in order to revise the pocket. The leads were removed from the old generator. The patient was then placed in Trendelenburg position and the subclavian vein was accessed 1 time via the Selinger technique. A 9.5 Kiswahili sheath was placed under fluoroscopic guidance into the subclavian vein. The dilator was removed from the sheath. Under fluoroscopic guidance the coronary sinus was cannulated and confirmed with an injection of contrast. An 0.014 wire was then placed distally in the inferior posterior segment of the left ventricle via the coronary sinus and the left ventricular lead was advanced. After achieving excellent thresholds and interrogation numbers the sheath was then peeled away and the lead was then secured into place using silk suture. Ancef was used to flush the pocket and the 3 leads were attached to the [employer]-D generator. The generator was then secured into place by heavy silk suture. Monocryl was used to close the subcutaneous layers while prasad were used to close the subcutaneous layers while prasad were used to close the cutaneous layer. A pressure dressing was placed and the patient was transferred to the postop holding area in stable condition for postoperative care. INTERROGATION Generator Model number: Snip.ly Lissa MP [id number] Generator Serial number: [id number] Right Ventricular lead model number: [id number] Right Ventricular lead serial number: [id number] R-wave: 8 mV Impedence: 390 Ohms Threshold: 0.875V @ 0.4ms Left Ventricular lead model number: Quartet [id number] Left Ventricular lead serial number: [id number] R-wave: [place]edence: Threshold: 0.5V @ 1.0ms Pacing Parameters: Mode: DDDR Base/Max Track:60 ppm / 130 ppm No diaphragmatic stimulation at 10 volts. IMPRESSION 1. Successful pocket revision for biventricular pacemaker generator with cardiac resynchronization/defibrillator therapy. 2. Successful placement of left ventricular sensing pacing lead via the coronary sinus. 3. Successful permanent cardiac resynchronization plus AICD generator device. PLAN 1. Postop wound care. Electronically signed by : Corwin Durán MD 07/31/2023 10:20:23
[2023-07-21 11:17] VITALS: BMI 24.8
[2023-07-21 12:30] LABS: Basophils # 0.1 K/mm3 (0-0.2); Basophils % 1.4 % (0.1-2.0); Eosinophils # 0.5 K/mm3 (0.0-0.4); Eosinophils % 6.7 % (0.1-12.0); Hematocrit 41.1 % (42.0-52.0); Hemoglobin 12.9 g/dL (14.1-18.0); Lymphocytes # 1.2 K/mm3 (0.7-4.5); Lymphocytes % 15.7 % (10-50); Mean Corpuscular HGB Conc 31.4 g/dL (31.8-35.4); Mean Corpuscular Hemoglobin 30.9 pg (27.0-31.2); Mean Corpuscular Volume 98.5 fl (80-94); Mean Platelet Volume 8.1 fl (7.4-10.4); Monocytes # 0.5 K/mm3 (0.1-1.0); Monocytes % 6.6 % (1.7-9.3); Neutrophils # 5.5 K/mm3 (1.8-7.8); Neutrophils % 69.6 % (37.0-80.0); Platelet Count 164 K/mm3 (142-424); Red Blood Count 4.17 M/mm3 (4.60-6.20); White Blood Count 7.8 K/mm3 (4.8-10.8)
[2023-07-21 12:31] LABS: Chloride 105 mmol/L (98-107); Potassium 4.2 mmoL/L (3.5-5.1); Sodium 142 mmol/L (136-145)
[2023-07-21 12:34] LABS: Anion Gap 7.2 mEq/L (5-15); Blood Urea Nitrogen 24 mg/dl (9-20); Calcium 9.5 mg/dl (8.4-10.2); Carbon Dioxide 34 mmol/L (22.0-30.0); Creatinine Clearance Estimated 36 mL/min (50-200); Estimated Glomerular Filt Rate 38 ml/min (>60); GFR (African American) 46 ML/MIN (>60); Glucose 98 mg/dl (74-100)
[2023-07-21] MEDS: LIDOCAINE 1% W/EPI 1:100,000 20ML VIAL 20 ML SQ (14:26)
[2023-07-21] MEDS: CEFAZOLIN SODIUM 1 GM in 0.9 % SODIUM CHLORIDE 50 ML IV (14:27)
[2023-07-21] MEDS: CEFAZOLIN 1GM VIAL 1 GM TP (14:27)
[2023-07-21] MEDS: 0.9 % SODIUM CHLORIDE 500 ML 25 ML IV (14:27)
[2023-07-21] MEDS: FENTANYL 100MCG/2ML VIAL 50 MCG IV (14:45)
[2023-07-21] MEDS: MIDAZOLAM HCL 1MG/1ML 5ML VIAL 1 MG IV (14:45)
--- NOTE | 2023-07-21 15:33 | XR_ITS ---
FINAL REPORT CLINICAL HISTORY: post pacemaker COMPARISON: 07/10/2023 FINDINGS: SINGLE-VIEW CHEST There is moderate cardiomegaly. The patient is status post median sternotomy. Pacer is identified. There is scarring at the left base. There is no pneumothorax. IMPRESSION: No acute cardiopulmonary process. Reviewed, Interpreted and Dictated by Jose G Andres MD Transcribed by Wendy Wayne Authenticated and [facility]
[2023-07-21 15:44] VITALS: BP 123/69; PULSE 76; RESP 19; O2SAT 96
[2023-07-21] MEDS: IOPAMIDOL-370 (76%);100ML BOTTLE 15 ML IV (15:44)
[2023-07-21 16:00] VITALS: BP 128/79; PULSE 80; RESP 16; O2SAT 95
[2023-07-21 16:15] VITALS: BP 119/71; PULSE 70; RESP 16; O2SAT 97
[2023-07-21 16:30] VITALS: BP 110/70; PULSE 72; RESP 17; O2SAT 96
[2023-07-21 16:45] VITALS: BP 110/46; PULSE 76; RESP 17; O2SAT 98
[2023-07-21 17:00] VITALS: BP 113/82; PULSE 75; RESP 17; RESP 18; O2SAT 94; O2SAT 96
== END 2023-07-21 17:36 | disposition home or self-care (01) ==
PROVIDERS: PCP Nurse Practitioner Family; Visit Provider Internal Medicine
DX: Z45.02 Encounter for adjustment and management of automatic implantable cardiac defibrillator (principal); I11.0 Hypertensive heart disease with heart failure; I50.43 Acute on chronic combined systolic (congestive) and diastolic (congestive) heart failure; I48.20 Chronic atrial fibrillation, unspecified; Z79.01 Long term (current) use of anticoagulants; I65.23 Occlusion and stenosis of bilateral carotid arteries; Z87.891 Personal history of nicotine dependence; I42.8 Other cardiomyopathies; Z79.899 Other long term (current) drug therapy; G47.33 Obstructive sleep apnea (adult) (pediatric)
CPT/HCPCS: 33225; 33229; 71045; 80048; 85025; C1769; C1900; C2621; Q9967

== ENCOUNTER 2023-07-26 13:53 | Observation (INO) | payer MEDICARE, OTHER, SELFPAY ==
--- NOTE | 2023-07-26 14:09 | HMH.PHAINT1 ---
Pharmacy Intervention Comments: HOME MEDICATIONS VERIFIED VIA OUTSIDE PHARMACY AND OFFICE VISIT
[2023-07-26 14:15] VITALS: BP 119/71; PULSE 69; RESP 18; TEMP 36.5; O2SAT 98
--- NOTE | 2023-07-26 14:17 | EXP.CARD.CON ---
History of Present Illness History of Present Illness Consult date: 07/26/23 Consult reason: post-op evaluation Chief complaint: pacemaker site hematoma History of present illness: This is an 87-year-old white male with a history of CAD status post CABG, YASMEEN 2020. He also has paroxysmal A-fib and pacemaker. Recent evaluation indicated he was pacing 90% and had a decline in EF to 45% with daily exertional dyspnea on exertion and fatigue. Monday he came for outpatient elective upgrade to BiV pacer. He returned to the office today with complaints of severe pressure and swelling around his pacemaker site. On exam he has significant hematoma and bruising noted over the entire left chest which is very tender to palpation. Of note patient is on Xarelto. He also complains of rash on right lower quadrant with several small vesicles noted which are itchy rather than painful. He has had shingles previously and is vaccinated. Patient was admitted for pain control and possible drainage of hematoma site tomorrow in the [facility]. Labs are pending. [facility] Disclaimer: The information contained in this section may have been updated after the patient was seen, as this information can be updated by other users. Medical History Dyspnea In the setting of CHF exacerbation, cardiomyopathy. Improving w/ diuretic therapy according to daughter. (HFpEF) heart failure with preserved ejection fraction History of pacemaker History of heart attack CHF (congestive heart failure) Abnormal breath sounds Bleeding nose Difficulty with speech Confusion TIA (transient ischemic attack) Surgical History Hx of CABG History of hernia repair History of esophagogastroduodenoscopy (EGD) History of cardiac catheterization History of colonoscopy History of permanent cardiac pacemaker placement Family History Other No significant family history Social History (Updated 07/26/23 @ 15:33 by Rosa Isela Elaine RN) Smoking Status: Former smoker second hand exposure: No alcohol intake: never substance use type: denies use current occupational status: retired Travel in the last 8 weeks: None household members: none housing: house lives independently: Yes marital status: current occupational exposures/hazards: No caffeine: No special freddy needs: No agree to transfusion: No Review of Systems Review of Systems Review of systems:: pertinent systems reviewed and negative unless documented below *Respiratory Comments: Chest wall pain and bruising Exam Constitutional Constitutional: no acute distress Routine Chest/Breast/Axilla Exam Breast: Present tenderness and swelling Comments: Left anterior chest wall hematoma noted around pacemaker site with bruising and tenderness present *Routine Respiratory Exam Respiratory: Present CTA bilaterally and symmetric chest movement *Routine Cardiovascular Exam Cardiovascular: Present RRR, Normal S1 and Normal S2 *Routine Abdominal Exam Abdominal: Present soft and normoactive bowel sounds; Absent tenderness *Routine Extremities Exam Extremities: Present full ROM and normal capillary refill; Absent edema *Routine Skin Exam Skin: Present intact, dry and warm Detailed Neck Exam: Thyroids Thyroid: Absent bruit Meds Home Medications and Allergies Home Medications Medication Instructions Recorded Confirmed Type atorvastatin 40 mg tablet 40 mg PO HS Cholesterol 05/15/17 07/26/23 History tamsulosin 0.4 mg capsule 0.4 mg PO HS 05/15/17 07/26/23 History pantoprazole 20 mg tablet,delayed 20 mg PO BID 08/21/18 07/26/23 History release (Protonix) rivaroxaban 20 mg tablet (Xarelto) 20 mg PO QPMWITHMEAL 10/29/19 07/26/23 History anticoagulant/atrial fib metoprolol succinate 25 mg 25 mg PO DAILY 09/19/20 07/26/23 History tablet,extended release 24 hr alprazolam 0.25 mg tablet 0.125 mg PO HS Sleep 05/20/21 07/26/23 History Saccharomyces boulardii 250 mg 250 mg PO DAILY Supplement 07/28/22 07/26/23 History capsule (Probiotic (S.boulardii)) cholecalciferol (vitamin D3) 50 50 mcg PO DAILY Supplement 07/28/22 07/26/23 History mcg (2,000 unit) capsule ipratropium 0.5 mg-albuterol 3 mg 3 ml inhalation Q4-6H PRN Breathing 07/28/22 07/26/23 History (2.5 mg base)/3 mL nebulization soln acetaminophen 500 mg tablet 1,000 mg PO AM 07/29/22 07/26/23 History cetirizine 10 mg tablet 10 mg PO DAILY Allergy symptoms 07/29/22 07/26/23 History melatonin 5 mg tablet 5 mg PO HS sleep 07/29/22 07/26/23 History acetaminophen 500 mg tablet 500 mg PO PM 08/17/22 07/26/23 History gabapentin 300 mg capsule 300 mg PO BID Pain 30 days #0 caps 08/18/22 07/26/23 Rx ondansetron 4 mg disintegrating 4 mg PO Q8H PRN nausea and 08/22/22 07/26/23 Rx tablet vomiting #10 tabs furosemide 40 mg tablet (Lasix) 20 mg PO DAILY 11/30/22 07/26/23 History folic acid 1 mg tablet 1 mg PO DAILY 04/10/23 07/26/23 History mecobalamin (vitamin B12) 1,000 1,000 mcg PO WEEKLY 04/10/23 07/26/23 History mcg chewable tablet levofloxacin 500 mg tablet 500 mg PO DAILY #10 tabs 07/18/23 07/26/23 Rx acyclovir 400 mg tablet 400 mg PO TID 5 days #15 tabs 07/27/23 Rx diphenhydramine-zinc acetate 2 0 applic topical BID 10 days #10 07/27/23 Rx %-0.1 % topical cream (Itch Relief) grams tramadol 25 mg tablet 25 mg PO Q4-6H PRN pain #10 tabs 07/27/23 Rx New Prescriptions to Start Prescriptions: acyclovir Erwin Luna diphenhydramine-zinc acetate [Itch Relief] Erwin Luna Allergies Allergy/AdvReac Type Severity Reaction Status Date / Time nitroglycerin AdvReac Verified 07/26/23 13:06 Assessment and Plan *Assessment and plan (1) Cardiac pacemaker in situ: Status: Chronic Category: Medical Code(s): Z95.0 - Presence of cardiac pacemaker (2) Pacemaker pocket hematoma: Status: Acute Category: Medical Code(s): T82.837A - Hemorrhage due to cardiac prosthetic devices, implants and grafts, initial encounter (3) Heart failure with reduced ejection fraction: Status: Acute Category: Medical Code(s): I50.20 - Unspecified systolic (congestive) heart failure Plan History of HFrEF Recent upgrade to BiV pacemaker History of A-fib on Xarelto Pacemaker pocket hematoma -Hold evening dose of xarelto -Plan to go to [facility] tomorrow for drainage of pocket hematoma. Discussed risk versus benefits with patient he is agreeable to proceed -Will defer pain management to primary service Shingles-like rash to abdomen -Defer to primary service CV summary 07/26/2023: Will proceed with drainage of pocket hematoma tomorrow in the [facility]. Please keep patient n.p.o. after midnight.
[2023-07-26 14:38] VITALS: BMI 24.5
[2023-07-26 15:38] LABS: Basophils # 0.1 K/mm3 (0-0.2); Basophils % 0.7 % (0.1-2.0); Eosinophils # 0.3 K/mm3 (0.0-0.4); Eosinophils % 3.5 % (0.1-12.0); Hematocrit 36.8 % (42.0-52.0); Hemoglobin 11.8 g/dL (14.1-18.0); Lymphocytes % 13.7 % (10-50); Mean Corpuscular Hemoglobin 31.5 pg (27.0-31.2); Mean Corpuscular Volume 98.4 fl (80-94); Monocytes # 0.5 K/mm3 (0.1-1.0); Monocytes % 6.5 % (1.7-9.3); Neutrophils # 5.4 K/mm3 (1.8-7.8); Neutrophils % 75.6 % (37.0-80.0); Platelet Count 178 K/mm3 (142-424); Red Blood Count 3.74 M/mm3 (4.60-6.20); White Blood Count 7.2 K/mm3 (4.8-10.8)
[2023-07-26 15:46] LABS: Chloride 105 mmol/L (98-107); Potassium 3.8 mmoL/L (3.5-5.1); Sodium 140 mmol/L (136-145)
[2023-07-26 15:49] LABS: Anion Gap 7.8 mEq/L (5-15); Blood Urea Nitrogen 20 mg/dl (9-20); Carbon Dioxide 31 mmol/L (22.0-30.0); Creatinine Clearance Estimated 35 mL/min (50-200); Estimated Glomerular Filt Rate 38 ml/min (>60); GFR (African American) 46 ML/MIN (>60)
[2023-07-26 15:50] LABS: Glucose 120 mg/dl (74-100)
--- NOTE | 2023-07-26 16:33 | P.HP_ITS ---
History of Present Illness *Admission Date: 07/26/23 *Reason for visit:: hematoma chest *History of present illness: Patient is a 87-year-old female with past medical history of heart failure with preserved ejection fraction atrial fibrillation obstructive sleep apnea CKD who presented to hospital from cardiology office due to bleeding from site of pacemaker implantation. Reportedly patient had pacemaker implantation on Monday, she has been on Xarelto for atrial fibrillation, patient has been bruising and bleeding from the site of pacemaker. She had visit today in cardiology office and she was recommended to come to the hospital for further evaluation and possible drainage of bleeding site. [facility] Disclaimer: The information contained in this section may have been updated after the patient was seen, as this information can be updated by other users. Medical History Dyspnea In the setting of CHF exacerbation, cardiomyopathy. Improving w/ diuretic therapy according to daughter. (HFpEF) heart failure with preserved ejection fraction History of pacemaker History of heart attack CHF (congestive heart failure) Abnormal breath sounds Bleeding nose Difficulty with speech Confusion TIA (transient ischemic attack) Surgical History Hx of CABG History of hernia repair History of esophagogastroduodenoscopy (EGD) History of cardiac catheterization History of colonoscopy History of permanent cardiac pacemaker placement Family History Other No significant family history Social History (Updated 07/26/23 @ 15:33 by Rosa Isela Elaine RN) Smoking Status: Former smoker second hand exposure: No alcohol intake: never substance use type: denies use current occupational status: retired Travel in the last 8 weeks: None household members: none housing: house lives independently: Yes marital status: current occupational exposures/hazards: No caffeine: No special freddy needs: No agree to transfusion: No Review of Systems Review of Systems Review of systems (narrative): as per [facility] Meds Home Medications and Allergies Home Medications Medication Instructions Recorded Confirmed Type atorvastatin 40 mg tablet 40 mg PO HS Cholesterol 05/15/17 07/26/23 History tamsulosin 0.4 mg capsule 0.4 mg PO HS prostate 05/15/17 07/26/23 History pantoprazole 20 mg tablet,delayed 20 mg PO BID Acid reflux 08/21/18 07/26/23 History release (Protonix) rivaroxaban 20 mg tablet (Xarelto) 20 mg PO QPMWITHMEAL 10/29/19 07/26/23 History anticoagulant/atrial fib metoprolol succinate 25 mg 25 mg PO DAILY High blood pressure 09/19/20 07/26/23 History tablet,extended release 24 hr alprazolam 0.25 mg tablet 0.125 mg PO HS Sleep 05/20/21 07/26/23 History Saccharomyces boulardii 250 mg 250 mg PO DAILY Supplement 07/28/22 07/26/23 Hi story capsule (Probiotic (S.boulardii)) cholecalciferol (vitamin D3) 50 50 mcg PO DAILY Supplement 07/28/22 07/26/23 History mcg (2,000 unit) capsule ipratropium 0.5 mg-albuterol 3 mg 3 ml inhalation Q4-6H PRN Breathing 07/28/22 07/26/23 History (2.5 mg base)/3 mL nebulization soln acetaminophen 500 mg tablet 1,000 mg PO AM Pain 07/29/22 07/26/23 History cetirizine 10 mg tablet 10 mg PO DAILY Allergy symptoms 07/29/22 07/26/23 History melatonin 5 mg tablet 5 mg PO HS sleep 07/29/22 07/26/23 History acetaminophen 500 mg tablet 500 mg PO PM Pain 08/17/22 07/26/23 History gabapentin 300 mg capsule 300 mg PO BID Pain 30 days #0 caps 08/18/22 07/26/23 Rx ondansetron 4 mg disintegrating 4 mg PO Q8H PRN nausea and 08/22/22 07/26/23 Rx tablet vomiting #10 tabs furosemide 40 mg tablet (Lasix) 20 mg PO DAILY 11/30/22 07/26/23 History folic acid 1 mg tablet 1 mg PO DAILY 04/10/23 07/26/23 History mecobalamin (vitamin B12) 1,000 1,000 mcg PO WEEKLY 04/10/23 07/26/23 History mcg chewable tablet levofloxacin 500 mg tablet 500 mg PO DAILY #10 tabs 07/18/23 07/26/23 Rx New Prescriptions to Start Prescriptions: Allergies Allergy/AdvReac Type Severity Reaction Status Date / Time nitroglycerin AdvReac Verified 07/26/23 13:06 Exam Data for Last 24 hours Vital signs and Labs for Last 24 Hours: Temp Pulse Resp BP Pulse Ox O2 Del Method 97.7 F 69 18 119/71 98 Room Air 07/26/23 14:15 07/26/23 14:15 07/26/23 14:15 07/26/23 14:15 07/26/23 14:15 07/26/23 14:15 Laboratory Results - last 24 hr 07/26/23 15:25: WBC 7.2, RBC 3.74 L, Hgb 11.8 L, Hct 36.8 L, MCV 98.4 H, MCH 31.5 H, MCHC 32.0, RDW 14.0, Plt Count 178, MPV 8.0, Neut % (Auto) 75.6, Lymph % (Auto) 13.7, [place] % (Auto) 6.5, Eos % (Auto) 3.5, Baso % (Auto) 0.7, Neut # (Auto) 5.4, Lymph # (Auto) 1.0, [place] # (Auto) 0.5, Eos # (Auto) 0.3, Baso # (Auto) 0.1, Sodium 140, Potassium 3.8, Chloride 105, Carbon Dioxide 31 H, Anion Gap 7.8, BUN 20, Creatinine 1.70 H, Estimated Creat Clear 35, Estimated GFR 38 L , Est GFR ( Amer) 46 L, Glucose 120 H, Calcium 9.0 I & O for Last 24 hours: Intake & Output 07/23/23 07/24/23 07/25/23 07/26/23 23:59 23:59 23:59 23:59 Weight 79.832 kg Constitutional Constitutional: no acute distress *Routine HEENT Exam Head: Present normocephalic Eye: Present EOMI and PERRL ENT: Present mucous membranes moist *Routine Neck Exam Neck: Present supple; Absent lymphadenopathy *Routine Respiratory Exam Respiratory: Present CTA bilaterally *Routine Cardiovascular Exam Cardiovascular: Present RRR *Routine Abdominal Exam Abdominal: Present soft and normoactive bowel sounds; Absent tenderness *Routine Rectal Exam Rectal:: deferred *Routine Genitalia Exam Genitalia:: deferred *Routine Extremities Exam Extremities: Absent cyanosis, clubbing or edema *Routine Skin Exam Skin: Present erythema and warm; Absent rash Comments: on RLQ abdomen with redenss *Routine Neurological Exam Neurological: Present alert and oriented X3 Assessment and Plan *Assessment and plan (1) Pacemaker pocket hematoma: Status: Acute Category: Medical Code(s): T82.837A - Hemorrhage due to cardiac prosthetic devices, implants and grafts, initial encounter (2) (HFpEF) heart failure with preserved ejection fraction: Status: Acute Qualifiers: Heart failure chronicity: chronic Qualified Code(s): I50.32 - Chronic diastolic (congestive) heart failure Category: Medical Code(s): I50.30 - Unspecified diastolic (congestive) heart failure (3) Cardiac pacemaker in situ: Status: Chronic Category: Medical Code(s): Z95.0 - Presence of cardiac pacemaker (4) Atrial fibrillation: Status: Chronic Qualifiers: Atrial fibrillation type: unspecified chronic Qualified Code(s): I48.20 - Chronic atrial fibrillation, unspecified Category: Medical Code(s): I48.91 - Unspecified atrial fibrillation (5) Coronary arteriosclerosis: Status: Chronic Category: Medical Code(s): I25.10 - Atherosclerotic heart disease of [place] coronary artery without angina pectoris (6) Hyperlipemia: Status: Chronic Qualifiers: Hyperlipidemia type: mixed hyperlipidemia Qualified Code(s): E78.2 - Mixed hyperlipidemia Category: Medical Code(s): E78.5 - Hyperlipidemia, unspecified (7) Carotid artery stenosis: Status: Chronic Qualifiers: Laterality: bilateral Qualified Code(s): I65.23 - Occlusion and stenosis of bilateral carotid arteries Category: Medical Code(s): I65.29 - Occlusion and stenosis of unspecified carotid artery (8) Hypertensive heart disease: Status: Chronic Qualifiers: Heart failure chronicity: acute on chronic Heart failure presence: with heart failure Heart failure type: diastolic Qualified Code(s): I11.0 - Hypertensive heart disease with heart failure; I50.33 - Acute on chronic diastolic (congestive) heart failure Category: Medical Code(s): I11.9 - Hypertensive heart disease without heart failure Plan Patient is a 87-year-old female with past medical history of heart failure with preserved ejection fraction atrial fibrillation obstructive sleep apnea CKD who presented to hospital from cardiology office due to bleeding from site of pacemaker implantation. Reportedly patient had pacemaker implantation on Monday, she has been on Xarelto for atrial fibrillation, patient has been bruising and bleeding from the site of pacemaker. She had visit today in cardiology office and she was recommended to come to the hospital for further evaluation and possible drainage of bleeding site. Assessment and plan Hematoma at site of pacemaker implantation History of atrial fibrillation on Xarelto Heart failure with refused ejection fraction Hold home Xarelto, antiplatelets Cardiology consulted Monitor hemoglobin Monitor and replace electrolytes Monitor on cardiac telemetry N.p.o. after midnight Shingles rash on Abdomen - Oral topical acyclovir - Topical Benadryl - Patient is vaccinated against zoster History of TIA History of CABG History of CKD Monitor BMP, CBC, resume home statin, Lasix, Protonix, Flomax DVT prophylaxis-SCDs for now
[2023-07-26 16:34] VITALS: O2SAT 98
[2023-07-26] MEDS: APAP/HYDROCODONE 325MG/7.5MG TAB 1 TAB PO (17:48)
[2023-07-26] MEDS: diphenhydrAMINE 50MG/ML VIAL 50 MG IV (17:49)
[2023-07-26 20:00] VITALS: BP 135/59; PULSE 72; RESP 17; TEMP 36.4; O2SAT 97
[2023-07-26] MEDS: ATORVASTATIN 40MG TABLET 40 MG PO (22:25)
[2023-07-26] MEDS: ALPRAZolam 0.25MG TABLET 0.125 MG PO (22:25)
[2023-07-26] MEDS: GABAPENTIN 300MG CAPSULE 300 MG PO (22:26)
[2023-07-26] MEDS: MELATONIN 5MG TABLET 5 MG PO (22:27)
[2023-07-26] MEDS: TAMSULOSIN 0.4MG CAPSULE 0.400000000000000022 MG PO (22:28)
[2023-07-26] MEDS: PANTOPRAZOLE 20 MG PO (22:28)
[2023-07-26] MEDS: [UNRECOGNIZED DRUG - OTHER] PO (22:28)
[2023-07-27 04:00] VITALS: BP 102/59; PULSE 69; RESP 17; TEMP 36.4; O2SAT 95; BMI 25.4
--- NOTE | 2023-07-27 05:45 | PC.NURSE ---
LARGE AMT OF BRUISING PRESENT ON THE LEFT UPPER CHEST WALL DUE TO HEMATOMA FORMATION OVER NEW PACEMAKER.. HAS BEEN NPO PAST [place] FOR I&D OF HEMATOMA. CONSENT SIGNED . VITAL SIGNS STABLE/AFEBRILE. HAS NOT REQUIRED PAIN PILL THIS SHIFT.
[2023-07-27 07:54] VITALS: O2SAT 95
[2023-07-27 08:00] VITALS: BP 104/56; PULSE 71; RESP 20; TEMP 36.6; O2SAT 97
--- NOTE | 2023-07-27 08:50 | P.PN_ITS ---
Subjective Subjective Date: 07/27/23 Time: 08:00 Interval history: Doing well this morning, no complaints. morning labs reviewed. Exam Data for Last 24 hours Vital signs and Labs for Last 24 Hours: Temp Pulse Resp BP Pulse Ox O2 Del Method 97.8 F 71 20 104/56 L 97 Room Air 07/27/23 08:00 07/27/23 08:00 07/27/23 08:00 07/27/23 08:00 07/27/23 08:00 07/27/23 08:00 Laboratory Results - last 24 hr 07/26/23 15:25: WBC 7.2, RBC 3.74 L, Hgb 11.8 L, Hct 36.8 L, MCV 98.4 H, MCH 31.5 H, MCHC 32.0, RDW 14.0, Plt Count 178, MPV 8.0, Neut % (Auto) 75.6, Lymph % (Auto) 13.7, [place] % (Auto) 6.5, Eos % (Auto) 3.5, Baso % (Auto) 0.7, Neut # (Auto) 5.4, Lymph # (Auto) 1.0, [place] # (Auto) 0.5, Eos # (Auto) 0.3, Baso # (Auto) 0.1, Sodium 140, Potassium 3.8, Chloride 105, Carbon Dioxide 31 H, Anion Gap 7.8, BUN 20, Creatinine 1.70 H, Estimated Creat Clear 35, Estimated GFR 38 L , Est GFR ( Amer) 46 L, Glucose 120 H, Calcium 9.0 I & O for Last 24 hours: Intake & Output 07/24/23 07/25/23 07/26/23 07/27/23 23:59 23:59 23:59 23:59 Intake Total 540 / 980 680 / 680 Output Total 0 / 0 0 / 0 Balance 540 / 980 680 / 680 Weight 176 lb 182 lb Constitutional Constitutional: no acute distress Routine Chest/Breast/Axilla Exam Breast: Present tenderness and swelling Comments: Left anterior chest wall hematoma noted around pacemaker site with bruising and tenderness present *Routine Respiratory Exam Respiratory: Present CTA bilaterally and symmetric chest movement *Routine Cardiovascular Exam Cardiovascular: Present RRR, Normal S1 and Normal S2 *Routine Abdominal Exam Abdominal: Present soft and normoactive bowel sounds; Absent tenderness *Routine Extremities Exam Extremities: Present full ROM and normal capillary refill; Absent edema *Routine Skin Exam Skin: Present intact, dry and warm Detailed Neck Exam: Thyroids Thyroid: Absent bruit Progress Note: A&P Assessment and plan (1) Pacemaker pocket hematoma: Status: Acute (2) (HFpEF) heart failure with preserved ejection fraction: Status: Acute (3) Cardiac pacemaker in situ: Status: Chronic (4) Atrial fibrillation: Status: Chronic (5) Coronary arteriosclerosis: Status: Chronic (6) Hyperlipemia: Status: Chronic (7) Carotid artery stenosis: Status: Chronic (8) Hypertensive heart disease: Status: Chronic Assessment and Plan Assessment and Plan for All Diagnoses:: History of HFrEF Recent upgrade to BiV pacemaker History of A-fib on Xarelto Pacemaker pocket hematoma -Hold evening dose of xarelto -Will defer pain management to primary service 07/27/2023: Hgb stable. will dc patient and have patient follow up in cards clinic on Monday. Will DC home with Tramadol for pain. Shingles-like rash to abdomen -Defer to primary service CV summary 07/27/2023: Patient CV stable for discharge home. Please have patient follow-up in cardiology clinic on Monday for reevaluation. Patient is to continue to hold Xarelto until after follow-up. Prescription for tramadol has been sent to pharmacy, please see order. The following risks of using controlled substances were discussed with patient: Risk associated with treatment using controlled substances include side effects such as constipation, difficulty in thinking, sleepiness, nausea and vomiting, etc. Controlled substance medications may make it unsafe to drive or operate machinery. Inappropriate use of controlled substances can have adverse effects on breathing which can lead to brain damage or . Combining medications and drugs such as benzodiazepines, narcotics and/or alcohol can have additive effects which can also lead to respiratory depression, brain damage or . Sharing or selling prescribed controlled substances may cause serious injury or to others and is a federal offense. Abruptly stopping prescribed controlled substances without your doctors knowledge may cause serious withdrawal symptoms. Controlled substances may cause addiction. In women who are and taking controlled substances the baby may be harmed. Over time, people taking controlled substance can develop a tolerance to the medication resulting in an increase in dosage in order to reduce symptoms. Taking high doses of controlled substances for pain can result in a condition called hyperalgesia where increasing the controlled substance dosage can increase pain. Patient verbalizes understanding and denies further questions.
[2023-07-27] MEDS: LACTOBACILLUS PROBIOTIC COMB CAPSULE 1 CAP PO (10:03)
[2023-07-27] MEDS: METOPROLOL SUCCINATE XL 25MG TABLET 25 MG PO (10:04)
[2023-07-27] MEDS: FOLIC ACID 1MG TABLET 1 MG PO (10:04)
[2023-07-27] MEDS: LORATADINE 10MG TABLET 10 MG PO (10:04)
[2023-07-27] MEDS: FUROSEMIDE 20MG TABLET 20 MG PO (10:04)
[2023-07-27] MEDS: GABAPENTIN 300MG CAPSULE 300 MG PO (10:04)
[2023-07-27] MEDS: DIPHENHYDRAMINE 2% CREAM 28GM TP (10:05)
[2023-07-27] MEDS: ACYCLOVIR 5% TP ×2 (10:06→12:56)
--- NOTE | 2023-07-27 14:04 | EXP.DC.SUM ---
General Admission date:: 07/26/23 Discharge date: 07/27/23 HPI HPI HPI: Patient is a 87-year-old female with past medical history of heart failure with preserved ejection fraction atrial fibrillation obstructive sleep apnea CKD who presented to hospital from cardiology office due to bleeding from site of pacemaker implantation. Reportedly patient had pacemaker implantation on Monday, she has been on Xarelto for atrial fibrillation, patient has been bruising and bleeding from the site of pacemaker. She had visit today in cardiology office and she was recommended to come to the hospital for further evaluation and possible drainage of bleeding site. Hospital Course Hospital Course Hospital Course: Patient is a 87-year-old female with past medical history of heart failure with preserved ejection fraction atrial fibrillation obstructive sleep apnea CKD who presented to hospital from cardiology office due to bleeding from site of pacemaker implantation. Reportedly patient had pacemaker implantation on Monday, she has been on Xarelto for atrial fibrillation, patient has been bruising and bleeding from the site of pacemaker. She had visit today in cardiology office and she was recommended to come to the hospital for further evaluation and possible drainage of bleeding site. Assessment and plan Hematoma at site of pacemaker implantation History of atrial fibrillation on Xarelto Heart failure with refused ejection fraction Hold home Xarelto, antiplatelets until cardiology Ok to take, cardiology plans to drain as OP Shingles rash on Abdomen - Oral acyclovir 400 TID for 5 days, reduced dose gievn CKD, patient advised to f/u with PCP as well - Topical Benadryl - Patient is vaccinated against zoster History of TIA History of CABG History of CKD - stable Exam Data for Last 24 hours Vital signs and Labs for Last 24 Hours: Temp Pulse Resp BP Pulse Ox O2 Del Method 97.8 F 71 20 104/56 L 97 Room Air 07/27/23 08:00 07/27/23 08:00 07/27/23 08:00 07/27/23 08:00 07/27/23 08:00 07/27/23 13:00 Laboratory Results - last 24 hr 07/26/23 15:25: WBC 7.2, RBC 3.74 L, Hgb 11.8 L, Hct 36.8 L, MCV 98.4 H, MCH 31.5 H, MCHC 32.0, RDW 14.0, Plt Count 178, MPV 8.0, Neut % (Auto) 75.6, Lymph % (Auto) 13.7, [place] % (Auto) 6.5, Eos % (Auto) 3.5, Baso % (Auto) 0.7, Neut # (Auto) 5.4, Lymph # (Auto) 1.0, [place] # (Auto) 0.5, Eos # (Auto) 0.3, Baso # (Auto) 0.1, Sodium 140, Potassium 3.8, Chloride 105, Carbon Dioxide 31 H, Anion Gap 7.8, BUN 20, Creatinine 1.70 H, Estimated Creat Clear 35, Estimated GFR 38 L, Est GFR ( Amer) 46 L, Glucose 120 H, Calcium 9.0 I & O for Last 24 hours: Intake & Output 07/24/23 07/25/23 07/26/23 07/27/23 23:59 23:59 23:59 23:59 Intake Total 540 / 980 680 / 680 Output Total 0 / 0 0 / 0 Balance 540 / 980 680 / 680 Weight 79.832 kg 82.554 kg Constitutional Constitutional: no acute distress *Routine HEENT Exam Head: Present normocephalic Eye: Present EOMI and PERRL ENT: Present mucous membranes moist *Routine Neck Exam Neck: Present supple; Absent lymphadenopathy *Routine Respiratory Exam Respiratory: Present CTA bilaterally *Routine Cardiovascular Exam Cardiovascular: Present RRR *Routine Abdominal Exam Abdominal: Present soft and normoactive bowel sounds; Absent tenderness Comments: he seems to have zoster/shingles rash in RLQ *Routine Extremities Exam Extremities: Absent cyanosis, clubbing or edema *Routine Skin Exam Skin: Present warm; Absent rash *Routine Neurological Exam Neurological: Present alert and oriented X3 Results Data Completed and Pending Labs on day of discharge: Labs from last 24 hours 07/26/23 15:25 WBC 7.2 RBC 3.74 L Hgb 11.8 L Hct 36.8 L MCV 98.4 H MCH 31.5 H MCHC 32.0 RDW 14.0 Plt Count 178 MPV 8.0 Neut % (Auto) 75.6 Lymph % (Auto) 13.7 [place] % (Auto) 6.5 Eos % (Auto) 3.5 Baso % (Auto) 0.7 Neut # (Auto) 5.4 Lymph # (Auto) 1.0 [place] # (Auto) 0.5 Eos # (Auto) 0.3 Baso # (Auto) 0.1 Sodium 140 Potassium 3.8 Chloride 105 Carbon Dioxide 31 H Anion Gap 7.8 BUN 20 Creatinine 1.70 H Estimated Creat Clear 35 Estimated GFR 38 L Est GFR ( Amer) 46 L Glucose 120 H Calcium 9.0 DS: Diagnosis Discharge Diagnosis (1) Pacemaker pocket hematoma: Status: Acute Code(s): T82.837A - Hemorrhage due to cardiac prosthetic devices, implants and grafts, initial encounter (2) (HFpEF) heart failure with preserved ejection fraction: Status: Acute Code(s): I50.30 - Unspecified diastolic (congestive) heart failure Qualifiers: Heart failure chronicity: chronic Qualified Code(s): I50.32 - Chronic diastolic (congestive) heart failure (3) Cardiac pacemaker in situ: Status: Chronic Code(s): Z95.0 - Presence of cardiac pacemaker (4) Atrial fibrillation: Status: Chronic Code(s): I48.91 - Unspecified atrial fibrillation Qualifiers: Atrial fibrillation type: unspecified chronic Qualified Code(s): I48.20 - Chronic atrial fibrillation, unspecified (5) Coronary arteriosclerosis: Status: Chronic Code(s): I25.10 - Atherosclerotic heart disease of [place] coronary artery without angina pectoris (6) Hyperlipemia: Status: Chronic Code(s): E78.5 - Hyperlipidemia, unspecified Qualifiers: Hyperlipidemia type: mixed hyperlipidemia Qualified Code(s): E78.2 - Mixed hyperlipidemia (7) Carotid artery stenosis: Status: Chronic Code(s): I65.29 - Occlusion and stenosis of unspecified carotid artery Qualifiers: Laterality: bilateral Qualified Code(s): I65.23 - Occlusion and stenosis of bilateral carotid arteries (8) Hypertensive heart disease: Status: Chronic Code(s): I11.9 - Hypertensive heart disease without heart failure Qualifiers: Heart failure presence: with heart failure Heart failure type: diastolic Heart failure chronicity: acute on chronic Qualified Code(s): I11.0 - Hypertensive heart disease with heart failure; I50.33 - Acute on chronic diastolic (congestive) heart failure Meds Home Medications and Allergies Home Medications Medication Instructions Recorded Confirmed Type atorvastatin 40 mg tablet 40 mg PO HS Cholesterol 05/15/17 07/26/23 History tamsulosin 0.4 mg capsule 0.4 mg PO HS 05/15/17 07/26/23 History pantoprazole 20 mg tablet,delayed 20 mg PO BID 08/21/18 07/26/23 History release (Protonix) rivaroxaban 20 mg tablet (Xarelto) 20 mg PO QPMWITHMEAL 10/29/19 07/26/23 History anticoagulant/atrial fib metoprolol succinate 25 mg 25 mg PO DAILY 09/19/20 07/26/23 History tablet,extended release 24 hr alprazolam 0.25 mg tablet 0.125 mg PO HS Sleep 05/20/21 07/26/23 History Saccharomyces boulardii 250 mg 250 mg PO DAILY Supplement 07/28/22 07/26/23 History capsule (Probiotic (S.boulardii)) cholecalciferol (vitamin D3) 50 50 mcg PO DAILY Supplement 07/28/22 07/26/23 History mcg (2,000 unit) capsule ipratropium 0.5 mg-albuterol 3 mg 3 ml inhalation Q4-6H PRN Breathing 07/28/22 07/26/23 History (2.5 mg base)/3 mL nebulization soln acetaminophen 500 mg tablet 1,000 mg PO AM 07/29/22 07/26/23 History cetirizine 10 mg tablet 10 mg PO DAILY Allergy symptoms 07/29/22 07/26/23 History melatonin 5 mg tablet 5 mg PO HS sleep 07/29/22 07/26/23 History acetaminophen 500 mg tablet 500 mg PO PM 08/17/22 07/26/23 History gabapentin 300 mg capsule 300 mg PO BID Pain 30 days #0 caps 08/18/22 07/26/23 Rx ondansetron 4 mg disintegrating 4 mg PO Q8H PRN nausea and 08/22/22 07/26/23 Rx tablet vomiting #10 tabs furosemide 40 mg tablet (Lasix) 20 mg PO DAILY 11/30/22 07/26/23 History folic acid 1 mg tablet 1 mg PO DAILY 04/10/23 07/26/23 History mecobalamin (vitamin B12) 1,000 1,000 mcg PO WEEKLY 04/10/23 07/26/23 History mcg chewable tablet levofloxacin 500 mg tablet 500 mg PO DAILY #10 tabs 07/18/23 07/26/23 Rx acyclovir 400 mg tablet 400 mg PO TID 5 days #15 tabs 07/27/23 Rx diphenhydramine-zinc acetate 2 0 applic topical BID 10 days #10 07/27/23 Rx %-0.1 % topical cream (Itch Relief) grams tramadol 25 mg tablet 25 mg PO Q4-6H PRN pain #10 tabs 07/27/23 Rx New Prescriptions to Start Prescriptions: acyclovir Jeremy,Irfan diphenhydramine-zinc acetate [Itch Relief] Jeremy,Irfan Allergies Allergy/AdvReac Type Severity Reaction Status Date / Time nitroglycerin AdvReac Verified 07/26/23 13:06 Discharge Plan Disposition Patient Disposition: Home, Self-Care Condition: Good Follow up Plan Follow up with: Acosta Syed APRN [Primary Care Provider] - 08/15/23 2:20 pm Corwin Durán MD [Staff Physician] - 07/31/23 9:00 am Prescriptions/Medication Reconciliation: New Itch Relief 2-0.1 % Cream 0 applic topical BID 10 Days Qty: 10 0RF acyclovir 400 mg tablet 400 mg PO TID 5 Days Qty: 15 0RF Continued furosemide [Lasix] 40 mg tablet 20 mg PO DAILY atorvastatin 40 mg tablet 40 mg PO HS tamsulosin 0.4 mg capsule,extended release 24hr 0.4 mg PO HS pantoprazole [Protonix] 20 mg tablet,delayed release (DR/EC) 20 mg PO BID folic acid 1 mg tablet 1 mg PO DAILY mecobalamin (vitamin B12) 1,000 mcg tablet,chewable 1,000 mcg PO WEEKLY levofloxacin 500 mg tablet 500 mg PO DAILY Qty: 10 0RF tramadol 25 mg tablet 25 mg PO Q4-6H PRN (Reason: pain) Qty: 10 0RF metoprolol succinate 25 MG tablet extended release 24 hr 25 mg PO DAILY ipratropium-albuterol 0.5 mg-3 mg(2.5 mg base)/3 mL solution for nebulization 3 ml INHALATION Q4-6H PRN (Reason: Breathing) Patient Comments: INHALE THREE (3) ML EVERY 4-6 HOURS BY NEBULIZATION ROUTE. Saccharomyces boulardii [Probiotic (S.boulardii)] 250 mg capsule 250 mg PO DAILY Patient Comments: TAKE ONE (1) CAPSULE BY MOUTH EVERY DAY cholecalciferol (vitamin D3) 50 mcg (2,000 unit) capsule 50 mcg PO DAILY Patient Comments: TAKE ONE (1) CAPSULE EVERY DAY BY ORAL ROUTE FOR 30 DAYS. cetirizine 10 mg tablet 10 mg PO DAILY Patient Comments: TAKE ONE (1) TABLET BY MOUTH EVERY DAY acetaminophen 500 mg tablet 1,000 mg PO AM Rx Instructions: TAKE TWO (2) TABLETS (1,000 MG) BY MOUTH IN THE MORNING AND TAKE ONE (1) TABLET IN THE EVENING melatonin 5 mg tablet 5 mg PO HS Patient Comments: TAKE ONE (1) TABLET EVERY DAY BY ORAL ROUTE AT BEDTIME FOR 30 DAYS. acetaminophen 500 mg tablet 500 mg PO PM Patient Comments: TAKE TWO (2) TABLETS (1,000 MG) BY MOUTH IN THE MORNING AND TAKE ONE (1) TABLET IN THE EVENING gabapentin 300 mg capsule 300 mg PO BID 30 Days Qty: 0 0RF alprazolam 0.25 mg tablet 0.125 mg PO HS ondansetron 4 mg tablet,disintegrating 4 mg PO Q8H PRN (Reason: nausea and vomiting) Qty: 10 0RF Held Xarelto 20 mg tablet 20 mg PO QPMWITHMEAL Rx Instructions: must administer with evening meal Problem Reconciliation Problems Reviewed?: Yes Patient Discharge Instructions ACTIVITY: Ambulate as tolerated DIET: continue same diet Providers Primary Care Provider: Acosta Syed Admit Provider: Erwin Luna Attending Provider: Erwin Luna
--- NOTE | 2023-07-28 15:40 | CARE MANAGER ---
Called and spoke with patient's regarding recent discharge. She stated that he has started new medication and it seems to be helping. Was aware of scheduled f/u appts. No concerns voiced at time of call.
== END 2023-07-27 14:12 | disposition home or self-care (01) ==
PROVIDERS: Internal Medicine Cardiovascular Disease; Nurse Practitioner; Admitting Provider Internal Medicine; PCP Nurse Practitioner Family; Visit Provider Internal Medicine
DX: T82.837A Hemorrhage due to cardiac prosthetic devices, implants and grafts, initial encounter (principal); Z95.0 Presence of cardiac pacemaker; I48.20 Chronic atrial fibrillation, unspecified; I25.10 Atherosclerotic heart disease of native coronary artery without angina pectoris; E78.2 Mixed hyperlipidemia; I65.23 Occlusion and stenosis of bilateral carotid arteries; I50.33 Acute on chronic diastolic (congestive) heart failure; Y83.1 Surgical operation with implant of artificial internal device as the cause of abnormal reaction of the patient, or of later complication, without mention of misadventure at the time of the procedure; Z86.73 Personal history of transient ischemic attack (TIA), and cerebral infarction without residual deficits; Z95.1 Presence of aortocoronary bypass graft; I13.0 Hypertensive heart and chronic kidney disease with heart failure and stage 1 through stage 4 chronic kidney disease, or unspecified chronic kidney disease; N18.9 Chronic kidney disease, unspecified; Z79.01 Long term (current) use of anticoagulants; B02.9 Zoster without complications
CPT/HCPCS: G0379; 36415; 80048; 85025; G0378

== ENCOUNTER 2023-09-12 12:30 | Outpatient (CLI) | payer MEDICARE, OTHER, SELFPAY ==
--- NOTE | 2023-09-12 12:35 | XR_ITS ---
FINAL REPORT CLINICAL HISTORY: cough, congestion, pacemaker. COMPARISON: 07/21/2023 FINDINGS: TWO-VIEW CHEST There is moderate cardiomegaly. Patient is status post median sternotomy. Pacer is identified. There is scarring at the left base. There is no pneumothorax. IMPRESSION: No acute cardiopulmonary process. Right knee Reviewed, Interpreted and Dictated by Jose G Andres MD Transcribed by Wendy Wayne Authenticated and [facility]
[2023-09-12 13:09] LABS: Basophils % 0.3 % (0.1-2.0); Eosinophils # 0.4 K/mm3 (0.0-0.4); Eosinophils % 6.9 % (0.1-12.0); Hematocrit 34.8 % (42.0-52.0); Hemoglobin 12.2 g/dL (14.1-18.0); Lymphocytes % 16.1 % (10-50); Mean Corpuscular Hemoglobin 34.3 pg (27.0-31.2); Mean Corpuscular Volume 97.9 fl (80-94); Mean Platelet Volume 8.7 fl (7.4-10.4); Monocytes # 0.5 K/mm3 (0.1-1.0); Monocytes % 8.3 % (1.7-9.3); Neutrophils # 4.2 K/mm3 (1.8-7.8); Neutrophils % 68.4 % (37.0-80.0); Platelet Count 133 K/mm3 (142-424); Red Blood Count 3.56 M/mm3 (4.60-6.20); White Blood Count 6.1 K/mm3 (4.8-10.8)
[2023-09-12 14:01] LABS: 25-OH Vitamin D, Total 64.2 ng/mL (30-100)
== END 2023-09-12 23:59 | disposition home or self-care (01) ==
LOC: LAB 12:32
PROVIDERS: PCP Nurse Practitioner Family; Visit Provider Internal Medicine
DX: R06.00 Dyspnea, unspecified (principal); R05.9 Cough, unspecified; R09.89 Other specified symptoms and signs involving the circulatory and respiratory systems; R06.2 Wheezing; I50.32 Chronic diastolic (congestive) heart failure; Z79.01 Long term (current) use of anticoagulants; Z95.0 Presence of cardiac pacemaker; I48.20 Chronic atrial fibrillation, unspecified; I25.10 Atherosclerotic heart disease of native coronary artery without angina pectoris; E78.2 Mixed hyperlipidemia; I65.23 Occlusion and stenosis of bilateral carotid arteries; I11.0 Hypertensive heart disease with heart failure; I50.33 Acute on chronic diastolic (congestive) heart failure; G47.33 Obstructive sleep apnea (adult) (pediatric); I50.30 Unspecified diastolic (congestive) heart failure
CPT/HCPCS: 36415; 71046; 82306; 85025

== ENCOUNTER 2024-01-08 11:48 | Outpatient (CLI) | payer MEDICARE, OTHER, SELFPAY ==
--- NOTE | 2024-01-08 11:53 | XR_ITS ---
FINAL REPORT CLINICAL HISTORY: cough COMPARISON: 09/12/2023 FINDINGS: 2 views of the chest were obtained . There is stable cardiomegaly. Patient is status post median sternotomy. Left subclavian pacemaker is unchanged. The mediastinum is within normal limits. New right midlung opacity is seen. Pneumonia not excluded. There is no pneumothorax. Osseous structures are unremarkable. IMPRESSION: New mid right lung opacity. Pneumonia not excluded. Reviewed, Interpreted and Dictated by Shirin Barrientos MD Transcribed by Zoey Can Authenticated and [facility]
== END 2024-01-08 23:59 | disposition home or self-care (01) ==
LOC: RAD 11:50
PROVIDERS: PCP Nurse Practitioner Family; Visit Provider Internal Medicine
DX: R09.89 Other specified symptoms and signs involving the circulatory and respiratory systems (principal); I95.9 Hypotension, unspecified; R05.9 Cough, unspecified
CPT/HCPCS: 71046

== ENCOUNTER 2024-12-01 17:28 | Inpatient (IN) | payer MEDICARE, OTHER, SELFPAY ==
--- OUTSIDE RECORDS SUMMARY | 2024-11-29 09:40 | XMS_ITS | Encounter Summary ---
Author Organization Healthcare Address [address] [place] [address] Care Team Providers Care Spikemaking Supervisor Name Role Phone Robel Castellanos MD Primary Care Provider [phone] Reason for Visit * Reason Comments Neuroendocrine neoplasm of stomach Abdominal Pain Encounter Details Date Type Department Care Team (Late st Contact Info) Description 11/29/2024 9:40 AM EDT Office Visit [place] [facility] Medicine [facility] [address] [place] [address] Justin Daniels MD [address] [place] [address] Gastric intestinal metaplasia with low [...] Patient confirms they are physically located in [place]? Yes If the patient is not physically located in [place], the provider has confirmed with [facility] thatthe provider is authorized to provide services in patient's stated location? N/A Provider Location: [facility] facility Audio and video or audio only? [...] gastric lesion. He is currently in a correction following pneumonia and UTI and he tells [...] Date BACK SURGERY N/A Back Surgery from [email or web address] CARDIAC STENT x2 most recent ~ 2019 CARDIAC SURGERY N/A CABG 5V ~ 1989 CATARACT EXTRACTION W/ INTRAOCULAR LENS IMPLANT N/A Cataract Extraction With Insertion Of Intraocular Lens from [email or web address] ESOPHAGOGASTRODUODENOSCOPY 05/28/2024 with biopsy x2 in 2024. GALLBLADDER SURGERY N/A Gallbladder Surgery from [email or web address] HERNIA REPAIR N/A Hernia Repair from [email or web address] INSERT / REPLACE / REMOVE PACEMAKER pacemaker [...] documented as of this encounter Care Teams Spikemaking Supervisor Relationship Specialty Start Date End Date Robel Castellanos MD [address] [place] [address] PCP - General 09/04/20 documented as of this encounter
[2024-12-01] VITALS (10 sets, daily range): BP systolic 96–110; BP diastolic 57–65; PULSE 70–72; RESP 13–22; TEMP 35.7–37; O2SAT 96–98; BMI 27.8; BMI 21.6
--- NOTE | 2024-12-01 17:33 | ECG_ITS ---
APPROVED REPORT Exam: Resting ECG HR:69 bpm ECG Measurements Heart Rate 69 AXES QRSd 140 QRS 133 QT 493 T 220 QTc 513 Conclusion ELECTRONIC VENTRICULAR PACEMAKER ABNORMAL RHYTHM ECG UNCONFIRMED REPORT Electronically signed by : GISELLE LEIGH, 12/02/2024 23:48:51
--- OUTSIDE RECORDS SUMMARY | 2024-12-01 17:40 | XMS_ITS | Encounter Summary ---
Author Organization [facility] Address [address] [place] [address] Care Team Providers Care Web Operations Lead Name Role Phone Robel Castellanos MD Primary Care Provider [phone] Encounter Details Date Type Department Care Team (Late st Contact Info) Description 10/15/2024 Telephone [facility] Medicine Specialties [address] [place] [id number] [place] [address] Social History Tobacco Use Types Packs/Day Years Used Date Smoking Tobacco: Former Pipe Smokeless Tobacco: Never Comments:Remote hx of pipe s moking and younger years smoked cigarettes Alcohol Use Standard Drinks/Week Comments Not Currently 0 (1 standard drink = 0.6 oz pur e alcohol) PHQ-2 Answer Date Recorded Patient Health Questionnaire-2 Score 0 12/03/2020 Sex and Gender Information Value Date Recorded Sex Assigned at Not on file Legal Sex Male 6:12 PM EDT Gender Identity Not on file Sexual Orientation Not on file documented as of this encounter Miscellaneous Notes * Telephone Encounter - Piedad Taylor - 11/22/2024 12:44 PM EDT Patient's daughter called She was calling to follow up and see if patient's appointment on Monday can be a telehealth appointment CB: [phone] * Telephone Encounter - Izabella Lugo - 10/15/2024 10:37 AM EDT ----- Message from Justin Daniels MD sent at 10/15/2024 7:56 AM EDT ----- Regarding: Clinic in October or November Can this patient be scheduled into one of my Monday clinics in October or November to discuss next steps? Telehalth or phone visit is fine if the patient is unable to come in person. Thanks! documented in this encounter Plan of Treatment Not on file documented as of this encounter Visit Diagnoses Not on filedocumented in this encounter Additional Health Concerns Assessment Noted Time A fall risk assessment has been complete d for the patient 12/03/2020 2:58 PM EDT documented as of this encounter Care Teams Web Operations Lead Relationship Specialty [place] [address] [place] [address] PCP - General 09/04/20 documented as of this encounter
--- OUTSIDE RECORDS SUMMARY | 2024-12-01 17:40 | XMS_ITS | Encounter Summary ---
Author Organization Healthcare Address [address] [place] [address] Care Team Providers Care Oil Change Technician Name Role Phone Robel Castellanos MD Primary Care Provider [phone] Encounter Details Date Type Department Care Team (Latest Contact Info) Description 11/25/2024 Travel Social History Tobacco Use Types Packs/Day Years [...] on file documented as of this encounter Plan of Treatment Not on file documented as of this encounter Visit Diagnoses Not on filedocumented in this encounter Additional Health Concerns Assessment Noted Time A fall risk assessment has been complete d for the patient 12/03/2020 2:58 PM EDT documented as of this encounter Care Teams Oil Change Technician Relationship Specialty Start Date End Date Robel Castellanos MD [address] [place] [address] PCP - General 09/04/20 documented as of this encounter
--- OUTSIDE RECORDS SUMMARY | 2024-12-01 17:40 | XMS_ITS | Encounter Summary ---
Author Organization [facility] Address [address] [place] [address] Care Team Providers Care Computer Consultant Name Role Phone Robel Castellanos MD Primary Care Provider [phone] Encounter Details Date Type Department Care Team (Late st Contact Info) Description 04/09/2024 Orders Only External Location [address] [place] [address] Kymberly Syed, PRODUCT/INDUSTRY CONSULTANT [address] [facility] [place] [address] Social History Tobacco Use Types Packs/Day Years Used Date Smoking Tobacco: Former Smokeless Tobacco: Never PHQ-2 Answer Date Recorded Patient Health Questionnaire-2 Score 0 12/03/2020 Sex and Gender Information Value Date Recorded Sex Assigned at Not on file Legal Sex Male 6:12 PM EDT Gender Identity Not on file Sexual Orientation Not on file documented as of this encounter Plan of Treatment Not on file documented as of this encounter Procedures Procedure Name Priority Date/Time Associated Diagnosis Comments US OUTSIDE IMAGES 04/09/2024 12:29 PM EST documented in this encounter Results * US OUTSIDE IMAGES (04/09/2024 12:29 PM EST) Anatomical Region Laterality Modality Ultrasound 04/09/2024 12:2 9 PM EST us Kymberly Syed PRODUCT/INDUSTRY CONSULTANT IMG US PROCEDURES Final Result documented in this encounter Visit Diagnoses Not on filedocumented in this encounter Additional Health Concerns Assessment Noted Time A fall risk assessment has been complete d for the patient 12/03/2020 2:58 PM EDT documented as of this encounter Care Teams Computer Consultant Relationship Specialty Start Date End Date Robel Castellanos MD [address] [place] [address] PCP - General 09/04/20 documented as of this encounter
--- OUTSIDE RECORDS SUMMARY | 2024-12-01 17:40 | XMS_ITS | Clinical Summary ---
Author Organization [facility] Address [address] [place] [address] Care Team Providers Care Clinical Laboratory Director Name Role Phone Robel Castellanos MD Primary Care Provider [phone] Allergies Active Allergy Reactions Criticality Noted Date Comments Carbamazepine Other - please docum ent in the comment field Low 11/29/2024 Hallucinations Clopidogrel Unknown - Patient st ates they do not know rxn details Low 02/12/2016 Patient and daughter states they do not recall him having a reaction to Plavix Nitroglycerin Unknown - Patient st ates they do not know rxn details,Headache Low 02/12/2016 Medications ALPRAZolam (Xanax) 0.25 MG tablet Take 0.0125 mg by mouth nightly. 6 Active atorvastatin (Lipitor) 40 MG tablet Take 1 tablet by mouth nightly. 6 Active olopatadine (Patanol) 0.1 % ophthalmic solution Take by mouth every 6 (six) hours. 6 Active tamsulosin (Flomax) 0.4 MG 24 hr capsule Take 1 capsule by mouth nightly. 6 Active gabapentin (Neurontin) 300 MG capsule Take 1 capsule by mouth nightly. 1 Active metoprolol succinate XL (Toprol-XL) 25 MG 24 hr tablet TAKE ONE (1) TABLET BY MOUTH EVERY DAY 1 Active pantoprazole (ProtoNix) 20 MG EC tablet Take 1 tablet by mouth 2 (two) times a day. 1 Active Xarelto 20 MG tablet Take 1 tablet by mouth nightly. 1 Active Melatonin 5 MG tablet tablet Take 1 tablet by mouth at night as needed. Active acetaminophen (Tylenol) 500 MG tablet Take 2 tablets by mouth 2 (two) times a day. 1000 qam, 500mg qhs Active lactobacillus (Culturelle Immunity Support) capsule Take 1 capsule by mouth daily. Active cholecalciferol (Vitamin D-3) 50 MCG (2000 UT) capsule Take 1 capsule by mouth daily. Active Cyanocobalamin ER 1000 MCG tablet controlled-rele ase daily. Active cetirizine (ZyrTEC) 10 MG tablet Take 1 tablet by mouth daily. Active docusate sodium (Colace) 100 MG capsule Take 1 capsule by mouth 2 (two) times a day. Active folic acid (Folvite) 1 MG tablet Take 1 tablet by mouth daily. Active ofloxacin (Ocuflox) 0.3 % ophthalmic solution Administer 2 drops into both eyes as needed. Active ipratropium-alb uterol (Duo-Neb) 0.5-2.5 mg/3 mL nebulizer solution Take 3 mL by nebulization as needed for wheezing. Active clotrimazole-be tamethasone (Lotrisone) cream Apply 1 Application topically 2 (two) times a day. Active famotidine (Pepcid) 20 MG tablet Take 1 tablet by mouth daily. 5 Active omeprazole (PriLOSEC) [address] capsule Take 1 capsule by mouth daily. 5 Active ondansetron (Zofran) 4 MG tablet Take 1 tablet by mouth as needed. 5 Active polyethylene glycol (Miralax) 17 GM/SCOOP powder Take 17 g by mouth as needed. 5 Active saccharomyces boulardii (Florastor) 250 MG capsule Take 1 capsule by mouth daily. Active metoprolol tartrate (Lopressor) 25 MG tablet Take 1 tablet by mouth daily. 5 Active mirtazapine (Remeron) 7.5 MG tablet Take 1 tablet by mouth nightly. 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); Neuroendocrine neoplasm of stomach 11/25/2024 Travel 10/15/2024 Telephone [facility] [address] [place] [address] Izabella Lugo from Last 3 Months Immunizations Immunization Administration Dates Next Due Influenza, High-dose, Split Virus, Trivalent, Injectable, preservative free 01/02/2024,01/26/2018,01/27/2017 Influenza, high-dose, quadrivalent 01/25,01/18/2022,01/12/2021,02/07 Influenza, injectable, quadr ivalent, preservative free 02/08/2020 Pneumococcal Conjugate PCV 13 11/10/2020, 017 Pneumococcal Polysaccharide PPV23 12/30/2021,04/2009 Td (adult), unspecified 07/16/2020 Tetanus Toxoid, Unspecified 01/22/2010 Zoster, Recombinant 11/30/2022 Zoster, live 06/10/2009 Family History Medical History Relation Name Comments Diabetes Daughter Cardiac disorder Father Hypertension Father Cardiac disorder Mother Cataracts Mother Hypertension Mother Anesthesia problems Neg Hx Malig Hyperthermia Neg Hx Relation Name Status Comments Daughter Father Mother Social History Tobacco Use Types Packs/Day Years Used Date Smoking Tobacco: Former Pipe Smokeless Tobacco: Never Tobacco Cessation:Counseling Given: Not Answered Comments:Remote hx of pipe smoking and younger years smoked cigarettes Alcohol Use [...] on file Sexual Orientation Not on file Last Filed Vital Signs Vital Sign Reading Time Taken Comments Blood Pressure 119/83 08/15/2024 10:55 AM EDT Pulse 70 08/15/2024 10:55 AM EDT Temperature 36.1 C (97 F) 08/15/2024 10:40 AM EDT Respiratory Rate 19 08/15/2024 10:55 AM EDT Oxygen Saturation 96% 08/15/2024 10:55 AM EDT Inhaled Oxygen Concentration - - Weight 71.2 kg (157 lb) 11/29/2024 9:42 AM EDT Height 180.3 cm (5' 11 ) 11/29/2024 9:42 AM EDT Body Mass Index 21.9 11/29/2024 9:42 AM EDT Plan of Treatment Health Maintenance Due Date Last Done Comments [facility]-Medicare Annual Wellness (AWV) 1935 [facility]-/Child/Adol SDOH Screenings 1935 [facility]- SDOH Screenings 1954 [facility]-Adult SDOH Screenings 1953 [facility]-RSV Vaccine: 60+ Years or (1 - 1-dose 75+ series) 09/15/2011 [facility]-DTaP,Tdap,and Td Vaccines (1 - Tdap) 07/17/2020 07/16/2020 [facility]-Zoster Vaccines (2 of 2) 01/25/2023 11/30/2022, 06/10/2009 [id number]-[id number]-88 Vaccine (6 - 2023- season) 2023 02/14/2023, 02/14/2022, 03/12/2021, Additional history exists [facility]-Influenza Vaccine (#1) 12/23/202401/01, 01/25/2023, 01/18/2022, Additional history exists [facility]-Depression Screening 11/29/2025 11/29/2024, 0811/2024 [facility]-Pneumococcal Vaccine: 50+ Years Completed 12/30/2021, 11/10/2020, 03/31/2017, Additional history exists HPV Vaccines Aged Out No longer eligi ble based on patient's age to complete this topic [facility]-HIB Vaccines Aged Out No longer e ligible based on patient's age to complete this topic [facility]-Hepatitis A Vaccines Aged Out No longer eligible based on patient's age to complete this topic [facility]-IPV Vaccines Aged Out No longer e ligible based on patient's age to complete this topic [facility]-Rotavirus Vaccines Aged Out No lo nger eligible based on patient's age to complete this topic Medical Devices Implanted Type Area Wood Piler Device Identifier Shelf Expiration Date Model / Serial / Lot Duraclip 16mm - [id number] Implanted:Qty: 1 on 08/15/2024 by Justin Daniels MD at [id number] 11/21/2026 [id number] / / [id number] Insurance MEDICARE [employer] Care Teams Clinical Laboratory Director Relationship Specialty Start Date End Date Robel Castellanos MD [address] [place] [id number] PCP - General 09/04/20
--- OUTSIDE RECORDS SUMMARY | 2024-12-01 17:40 | XMS_ITS | Clinical Summary ---
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 863365206 (SNOMED CT) 05/29 Removed 05/29 Red Jane MA Spondylolisthes is LUMBAR RADICULOPATH Y, RIGHT 359912916 (SNOMED CT) 05/29 Active 05/29 Denis Vincent MD Lumbar radiculopathy SACROILIAC JOINT DYSFUNCTION 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 (SNOMED CT) 05/11 Active 05/11 Gail Sims MD Sacroiliac disorder SPINAL STENOSIS, LUMBAR M48.06 (ICD-10-CM ) 05/11 Active 05/11 Gail Sims MD Spinal stenosis, lumbar region SPONDYLOLIST HESIS 928401923 (SNOMED CT) 05/11 Active 05/11 Gail Sims MD Spondylolisthes is Medications Medication Instructions Start Date Stop Date Generic Name [facility] Provider MEDROL 4 MG TBPK Use as directed METHYLPREDNISOLONE 61275594964 Gail Sims MD LISINOPRIL 10 MG TABS 1 daily Non-Harmony LISINOPRIL 23025773985 Gail Sims MD NAPROXEN SODIUM TABS 1 daily Non-Harmony NAPROXEN SODIUM TABS 21291745856 Gail Sims MD FLOMAX 0.4 MG ORAL CAPSULE 1 daily Non-Harmony TAMSULOSIN HCL 32035665093 Gail Sims MD PRADAXA CAPS 1 daily Non-Fry DABIGATRAN ETEXILATE MESYLATE CAPS 40039329137 Gail Sims MD VYTORIN 10-80 MG TABS 1 daily Non-Fry EZETIMIBE-SIMVASTATI N 57931021730 Gail Sims MD Medications Administered No information available. Allergies, Adverse Reactions, Alerts Allergy Name Reaction Description Start Date Severity Statu s Provider NITROGLYCERIN Severe headache Critical Gail Sims MD Results No information available. Plan of Care No information available. Procedures Code Procedure Name Date Entry Date G8427 Medication Reconciliation Completed CPT-G 8427 [id number] Lumbar or Sacral CPT-73100 2 [id number] Additional Level, Lumbar or Sacral CPT-64 484 J1100 Dexamethosone 1 MG 1 Vital Signs Date Name Value Unit Description BMI (Body Mass Index) 25.80 kg/m2 Bod y Mass Index (Ratio) BP Diastolic 68 mm[Hg] blood pressu re, diastolic BP Systolic 119 mm[Hg] blood pressur e, systolic Heart Rate 60 /min pulse rate Height 71 [in_us] height E&M Weight Measured 185 [lb_av] weight E& M Weight Measured 185 [lb_av] weight E& M Immunizations No information available. Advance Directives No information available.
--- OUTSIDE RECORDS SUMMARY | 2024-12-01 17:40 | XMS_ITS | Encounter Summary ---
Author Organization [facility] Address [address] [place] [address] Care Team Providers Care Float Builder Name Role Phone Robel Castellanos MD Primary Care Provider [phone] Encounter Details Date Type Department Care Team (Late st Contact Info) Description 08/26/2024 Lab Requisition [facility] [address] [place] [address] Wolfgang Abraham MD [address] [facility] [address] [place] [address] Acute gastric ulcer without hemorrhage or perforation Social History Tobacco Use Types Packs/Day Years [...] Procedure Name Priority Date/Time Associated Diagnosis Comments SURGICAL PATHOLOGY CONSULT Routine 08/26/2024 10:15 AM EDT Acute gastric ulcer without hemorrhage or perforation documented in this encounter Results * Surgical Pathology Consult (08/26/2024 10:15 AM EDT) Case Report Sugical Pathology Consult Case: [id number] Authorizing Provider: Wolfgang Abraham MD Collected: 08/26/2024 1015 Ordering Location: [facility] Lab Received: 08/26/2024 1015 Pathologist: Yanet Bella MD Specimen: Gastric, [id number] 08/27/2024 11:[address] [facility] Final Diagnosis STOMACH, ANTRUM, BIOPSY ([id number]; 04/23/2024): - REACTIVE GASTROPATHY. - NO H. PYLORI ORGANISMS IDENTIFIED ON H&E SLIDE. - NEGATIVE FOR INTESTINAL METAPLASIA. STOMACH, BODY, BIOPSY ([id number]; 04/23/2024): - NO PATHOLOGIC ABNORMALITIES. - NO H. PYLORI ORGANISMS IDENTIFIED ON H&E SLIDE. - NEGATIVE FOR INTESTINAL METAPLASIA. STOMACH, POLYPOID LESION, BIOPSY ([id number]; 04/23/2024): - WELL-DIFFERENTIATED NEUROENDOCRINE TUMOR, GRADE 1 (Ki-67 INDEX: <1%, SIZE OF TUMOR ON THE BIOPSY: 5 MM). - NEGATIVE FOR INTESTINAL METAPLASIA ON THE SUBMITTED BIOPSY. 08/27/2024 11:[address] [facility] at 1116 EDT Comment The submitted immunohistochemical stains are positive for INSM1 and negative for gastrin. 08/27/2024 11:[address] [facility] Clinical Information K25.3 - Acute gastric ulcer without hemorrhage or perforation [ICD-10-CM] 08/27/2024 11:[address] [facility] Gross Description A. [id number] Received along with a corresponding pathology report from [facility] are 7 slide(s) labeled outside case: [id number] collected on 04/23/2024. 08/27/2024 11:[address] [facility] Note: A resident was involved in the service. I attest I examined the relevant preparations for the specimens and confirmed the diagnosis or interpretation. 08/27/2024 11:[address] [facility] Tissue Stomach structure / Unknown 08/26/2024 10:15 AM EDT 08/26/2024 10:15 AM EDT us Wolfgang Abraham MD LAB PATHOLOGY ORDERABLES Fin al Result [facility] [address] [place] [address] documented in this encounter Visit Diagnoses Diagnosis Acute gastric ulcer without hemorrhage or perforation Acute gastric ulcer without mention of hemorrhage, perforation, or obstruction documented in this encounter Additional Health Concerns Assessment Noted Time A fall risk assessment has been complete d for the patient 12/03/2020 2:58 PM EDT documented as of this encounter Care Teams Float Builder Relationship Specialty Start Date End Date Robel Castellanos MD [address] [place] [address] PCP - General 09/04/20 documented as of this encounter
--- NOTE | 2024-12-01 17:46 | CT_ITS ---
PROCEDURE INFORMATION: Exam: CTA Chest With Contrast Exam date and time: 12/01/2024 7:08 PM Age: 89 years old Clinical indication: Other: Hypoxic TECHNIQUE: Imaging protocol: Computed tomographic angiography of the chest with contrast. Exam focused on the arteries. 3D rendering (Not supervised by radiologist): MIP and/or 3D reconstructed images were created by the technologist. Radiation optimization: All CT scans at this facility use at least one of these dose optimization techniques: automated exposure control; mA and/or kV adjustment per patient size (includes targeted exams where dose is matched to clinical indication); or iterative reconstruction. Contrast material: ISOVUE; Contrast volume: 80 ml; Contrast route: INTRAVENOUS (IV); COMPARISON: XA CL PULMONARY ANGIOGRAM 08/26/2022 11:09 AM FINDINGS: Limitations: Motion artifact does moderately limit the sensitivity of this examination. Tubes, catheters and devices: Triple chamber pacemaker/cardioverter in appropriate position with lead tips in the right atrium, coronary sinus, and right ventricle. Pulmonary arteries: Enlargement of the main pulmonary artery measuring 3.8 cm, seen with pulmonary arterial hypertension. No pulmonary emboli within the main pulmonary arteries or segmental branches. Subsegmental branches are obscured by motion artifact. Aorta: Ectasia of the mid ascending thoracic aorta measuring 4 cm. Moderate diffuse calcific atherosclerosis of the aorta. No acute pathology in the aorta. Trachea: Mucoid material within the trachea. Lungs: Normal variant azygous fissure is present. Subpleural atelectasis of the dependent portions of the lungs. Bilateral bronchial wall thickening. Subtle ground-glass and patchy consolidations in the right lung base. Chronic lingular scarring/atelectasis. Pleural spaces: Unremarkable. No pneumothorax. No pleural effusion. Heart: Calcifications of the aortic valve annulus. Severe cardiomegaly. Questionable eccentric/peripheral filling defect in the tip of the left atrial appendage. The right heart chambers are enlarged, however this is of chronic etiology. There is no significant septal flattening or bulging to suggest acute right heart strain at this time. Coronary arteries: There is severe atherosclerotic calcification of the coronary arteries. Lymph nodes: Unremarkable. No enlarged lymph nodes. Bones/joints: Sternotomy wires and mediastinal surgical clips are present, consistent with previous coronary arterial bypass grafting. There are healed right rib fractures. There are healed left rib fractures. Moderate multilevel degenerative changes of the spine. Chronic superior endplate compression/burst fractures at T11, T12, and L1 (worse at L1 with greater than 50% loss in vertebral body height and 6 mm retropulsion of fracture fragments, causing mild central canal stenosis. No acute skeletal abnormality or aggressive osseous lesion. Soft tissues: Unremarkable. IMPRESSION: 1. Questionable eccentric/peripheral filling defect in the tip of the left atrial appendage. A chronic thrombus is in the differential diagnosis. Consider correlation with echocardiography. 2. No pulmonary emboli within the main pulmonary arteries or segmental branches. Subsegmental branches are obscured by motion artifact. 3. Acute/chronic bronchitis or reactive airways disease. 4. Subtle ground-glass and patchy consolidations in the right lung base. Most probably compressive atelectasis, though developing pneumonia is in the differential diagnosis. 5. Mucoid material within the trachea. Aspiration or retained secretions in the differential diagnosis. COMMENTS: Please review abdomen and pelvic CT performed on the same date for other findings.
--- NOTE | 2024-12-01 17:46 | CT_ITS ---
PROCEDURE INFORMATION: Exam: CT Abdomen And Pelvis With Contrast Exam date and time: 12/01/2024 7:08 PM Age: 89 years old Clinical indication: Abdominal pain TECHNIQUE: Imaging protocol: Computed tomography of the abdomen and pelvis with contrast. 3D rendering (Not supervised by radiologist): MIP and/or 3D reconstructed images were created by the technologist. Radiation optimization: All CT scans at this facility use at least one of these dose optimization techniques: automated exposure control; mA and/or kV adjustment per patient size (includes targeted exams where dose is matched to clinical indication); or iterative reconstruction. Contrast material: ISOVUE; Contrast volume: 80 ml; Contrast route: IV; COMPARISON: CR XR CHEST 2V 01/08/2024 11:55 AM FINDINGS: Tubes, catheters and devices: There are sternal wires consistent with previous sternotomy incision. Lungs: Patchy consolidations in the right lung base with bilateral bronchial wall thickening and bilateral dependent atelectasis. Heart: Severe cardiomegaly. Liver: Multiple (less than 10) liver cysts, the largest measuring 8.3 cm in the right hepatic lobe. 20 cm hepatomegaly and suggested mild diffuse hepatic steatosis. Gallbladder and biliary ducts: Cholecystectomy. No biliary dilation. Pancreas: Normal. No ductal dilation. Spleen: Normal. No splenomegaly. Adrenal glands: Normal. No mass. Kidneys and ureters: Benign bilateral renal cysts, largest on the right measuring 5.2 cm and largest on the left 3 cm. No follow-up recommended. No hydronephrosis or hydroureter. No solid renal masses. Stomach and bowel: Severe wall thickening and mucosal hyperenhancement in the rectum sigmoid, and descending colon with extensive pericolonic inflammatory changes and engorgement of the pericolonic vasculature. And fluid distended transverse and ascending colon. Diffusely air and fluid-filled small bowel loops throughout the abdomen, measuring up to 3.5 cm in greatest dimension without a discernible pinpoint transition. Mild diverticulosis. Appendix: No evidence of appendicitis. Intraperitoneal space: Low volume reactive ascites in the pelvis. No fluid collections. No free intraperitoneal air. Vasculature: Severe calcific atherosclerosis. 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 Lymph nodes: Unremarkable. No enlarged lymph nodes. Urinary bladder: Bladder is decompressed and difficult to evaluate. There are multiple punctate stones layering in the urinary bladder. Reproductive: Severe prostatomegaly with a prostate volume of 138 cc. Bones/joints: There are healed right rib fractures. Bone demineralization. Chronic compression/burst fractures at T11, T12, and L1 (worse at L1 with more than 50% loss in vertebral body height and 6 mm retropulsion of fracture fragments, causing mild central canal stenosis. Severe multilevel degenerative changes of the spine. Grade 2 anterolisthesis of L5 in relation to S1. Bilateral pars interarticularis defects at L5-S1. No acutely displaced fractures. No joint dislocation. Soft tissues: Unremarkable. IMPRESSION: 1. Severe acute proctocolitis. 2. Moderate reactive ileus. A component of partial obstruction by the severe distal colonic inflammation is also possible, but felt less likely. 3. Suspect early pneumonia in the right lung base versus more prominent compressive atelectasis. 4. Severe prostatomegaly with a prostate volume of 138 cc. A component of urinary retention is likely present. Consider correlation with PSA levels and bladder ultrasound (to include pre and postvoid images). COMMENTS: Consistent with the [employer]'s Incidental Findings Committee white paper (J Am Duran Radiol 2018): Any incidental renal lesion less than 1 cm or classified as too small to characterize, or any incidental cystic renal lesion characterized as simple-appearing, is likely benign. No follow-up imaging is recommended for these lesions per consensus recommendations based on imaging criteria.
[2024-12-01] MEDS: 0.9 % SODIUM CHLORIDE 1000ML 1,000 ML 999 ML IV (18:03)
[2024-12-01 18:09] LABS: Hematocrit 34.5 % (42.0-52.0); Hemoglobin 10.6 g/dL (14.1-18.0); Immature Granulocytes % 0.3 %; Mean Corpuscular HGB Conc 30.7 g/dL (31.8-35.4); Mean Corpuscular Hemoglobin 29.0 pg (27.0-31.2); Mean Corpuscular Volume 94.3 fl (80-94); Nucleated Red Blood Cells % 0 %; Platelet Count 172 K/mm3 (142-424); Red Blood Count 3.66 M/mm3 (4.60-6.20); Red Cell Distribution Width-SD 55.8 fL; White Blood Count 10.0 K/mm3 (4.8-10.8)
[2024-12-01 18:11] LABS: Albumin Level 3.1 g/dl (3.5-5.0); Chloride 106 mmol/L (98-107); Sodium 141 mmol/L (136-145)
[2024-12-01 18:12] LABS: Potassium 3.8 mmoL/L (3.5-5.1)
[2024-12-01 18:14] LABS: Alanine Aminotransferase 17 U/L (12-78); Albumin/Globulin Ratio 1.1 (1.1-1.8); Alkaline Phosphatase 68 U/L (38-126); Anion Gap 12.8 mEq/L (5-15); Aspartate Amino Transferase 28 U/L (17-59); Bilirubin,Total 1.2 mg/dl (0.2-1.3); Blood Urea Nitrogen 63 mg/dl (9-20); Carbon Dioxide 26 mmol/L (22.0-30.0); Creatinine Clearance Estimated 28 mL/min (50-200); Creatinine,Serum 2.30 mg/dl (0.66-1.25); Estimated Glomerular Filt Rate 27 ml/min (>60); GFR (African American) 33 ML/MIN (>60); Globulin 2.7 g/dL (1.3-3.2); Lipase 13 U/L (23-300); Phosphorous 5.2 mg/dl (2.5-4.5); Total Protein,Serum 5.8 g/dl (6.3-8.2)
[2024-12-01 18:15] LABS: Calcium 7.6 mg/dl (8.4-10.2); Glucose 152 mg/dl (74-100); INR 2.08 (0.9-1.1); Magnesium 2.6 mg/dl (1.6-2.3); Prothrombin Time 21.9 seconds (10.1-12.5)
[2024-12-01 18:26] LABS: Troponin I 0.04 ng/ml (0.00-0.034)
[2024-12-01 18:39] LABS: RBC Morphology Normal; Total Cells Counted 100
--- NOTE | 2024-12-01 18:45 | HMH.ITSTN ---
This two way radio installer called the ER regarding this patients GFR level, to see if the MD wanted to proceed with scans since the GFR is low. Polo Melendez said the MD was in the room with another patient and she would call radiology back when she talked to the MD.
--- NOTE | 2024-12-01 19:03 | HMH.EDGENADL ---
Discharge Plan Disposition Patient Disposition: Admitted Condition: Fair Clinical Impressions Clinical Impression: Sepsis Qualifiers: Sepsis type: sepsis due to unspecified organism Severe sepsis acute organ dysfunction type: unspecified Severe sepsis shock status: without septic shock Discharge ED Provider: Veronica Palacios Adult HPI General Chief complaint: Abdominal Pain Stated complaint: abd pain Time Seen by Provider: 12/01/24 17:30 Mode of Arrival: Ambulatory Source of Information: Patient, EMS and Medical Record Description of Symptoms (Recalled from ER Triage Doc. by RN): pt was sent from [facility] for abd pain and low bp, pt has been given suppositories and is having lots of liquid stool now, pt is alox3 and only complains of all over belly pain History of Present Illness HPI narrative: Patient is an 89-year-old gentleman who presented to the emergency department from the nursing facility with concern for diarrhea and abdominal pain. Patient states that she is having lower suprapubic abdominal pain. Patient states that he had not had a bowel movement for 3 or 4 days therefore he was getting suppositories and then had diarrhea today. No blood in the diarrhea. Patient reports some mild chest pain no shortness of breath. Patient states that he typically wears oxygen at night does not typically wear oxygen during the day. Patient denies any fevers. Patient denies any nausea or vomiting. Patient denies any recent surgeries. Patient is on Xarelto for A-fib. Related Data Home Medications ?Medication ?Instructions ?Recorded ?Confirmed atorvastatin 40 mg tablet 40 mg PO HS Cholesterol 05/15/17 12/01/24 tamsulosin 0.4 mg capsule 0.4 mg PO HS 05/15/17 12/01/24 rivaroxaban 20 mg tablet (Xarelto) 20 mg PO QPMWITHMEAL 10/29/19 12/01/24 anticoagulant/atrial fib alprazolam 0.25 mg tablet 0.25 mg PO BID 05/20/21 12/02/24 Saccharomyces boulardii 250 mg 250 mg PO DAILY Supplement 07/28/22 12/01/24 capsule (Probiotic (S.boulardii)) cholecalciferol (vitamin D3) 50 50 mcg PO DAILY Supplement 07/28/22 12/01/24 mcg (2,000 unit) capsule acetaminophen 500 mg tablet 1,000 mg PO QIDP PRN Back Pain 07/29/22 12/02/24 cetirizine 10 mg tablet 10 mg PO DAILY Allergy symptoms 07/29/22 12/01/24 melatonin 5 mg tablet 5 mg PO HS sleep 07/29/22 12/01/24 famotidine 20 mg tablet 20 mg PO BID 12/02/24 12/02/24 gabapentin 100 mg capsule 100 mg PO DAILY 12/02/24 12/02/24 lidocaine 4 % topical patch 1 patch topical DAILY Back Pain 12/02/24 12/02/24 metoprolol tartrate 25 mg tablet 25 mg PO DAILY 12/02/24 12/02/24 mirtazapine 7.5 mg tablet 7.5 mg PO HS 12/02/24 12/02/24 omeprazole 20 mg capsule,delayed 20 mg PO DAILY 12/02/24 12/02/24 release polyethylene glycol 3350 17 17 g PO DAILY 12/02/24 12/02/24 gram/dose oral powder (Miralax) sennosides 8.6 mg-docusate sodium 2 tab-cap PO DAILYP PRN 12/02/24 12/02/24 50 mg tablet (Senna-S) Constipation therapeutic multivitamin 1 tab PO DAILY 12/02/24 12/02/24 (Thera-Tabs tablet) Previous Rx's ?Medication ?Instructions ?Recorded diphenhydramine-zinc acetate 2 0 applic topical BID 10 days #10 07/27/23 %-0.1 % topical cream (Itch Relief) grams Allergies Allergy/AdvReac Type Severity Reaction Status Date / Time No Known Allergies Allergy Verified 12/01/24 18:20 [facility] Disclaimer: The information contained in this section may have been updated after the patient was seen, as this information can be updated by other users. Medical History (Updated 12/04/24 @ 13:50 by Rachael Arceo APRN) Acute respiratory failure with hypoxia Aspiration pneumonia Altered mental status Failure to thrive Gastroparesis Chest congestion Dyspnea (HFpEF) heart failure with preserved ejection fraction History of pacemaker History of heart attack CHF (congestive heart failure) Abnormal breath sounds Bleeding nose Difficulty with speech Confusion TIA (transient ischemic attack) Surgical History Hx of CABG History of hernia repair History of esophagogastroduodenoscopy (EGD) History of cardiac catheterization History of colonoscopy History of permanent cardiac pacemaker placement Family History Other No significant family history Social History Smoking Status: Unknown if ever smoked second hand exposure: No alcohol intake: never substance use type: denies use current occupational status: retired Travel in the last 8 weeks?: None household members: none housing: house lives independently: Yes marital status: current occupational exposures/hazards: No caffeine: No special freddy needs: No agree to transfusion: No Other Medical History Have you received the Flu Vaccine for this season: No Have you received the Pneumonia Vaccine: Yes ROS Obtained: Yes All systems reviewed & no additional complaints except as documented and Yes Systems reviewed as appropriate & no additional complaints except as documented Physical Exam General General appearance: alert and in no apparent distress Head Head exam: atraumatic, normocephalic and normal inspection Eye Eye exam: Present normal appearance, PERRL and EOMI; Absent scleral icterus ENT ENT exam: Present normal exam and normal external ear exam Neck Neck exam: Present normal inspection and full ROM Chest Chest inspection: Present normal inspection and symmetric chest wall rise Respiratory Respiratory exam: Present normal lung sounds bilaterally; Absent respiratory distress or wheezes Cardiovascular Cardiovascular exam: Present regular rate, normal rhythm and normal heart sounds Abdominal Exam Abdominal exam: Present soft, distention and tenderness (Suprapubic); Absent guarding or rebound Extremities Exam Extremities exam: Present normal inspection and full ROM Back Exam Back exam: Present normal inspection and full ROM Neurological Exam Neurological exam: Present alert and oriented X3 Psychiatric Psychiatric exam: Present normal affect and normal mood Skin Skin exam: Present warm and dry Medical Decision Making Medical Records Screening: Per USPSTF and CDC recommendations, given the prevalence of disease in our region, it is our hospital?s policy to screen for HIV and viral Hepatitis for all patients aged 18 and over and those with ongoing risk factors. Jluis Inquiry Pt receiving controlled substance: No Vital Signs: 12/01/24 17:56 12/01/24 18:00 12/01/24 18:55 Temperature 98.5 F Temperature Source Rectal Pulse Rate 70 Pulse Rate [Left Radial] 70 Respiratory Rate 13 22 17 Blood Pressure 96/57 L 107/63 L Blood Pressure [Right Arm] 96/57 L Blood Pressure Mean [Right Arm] 70 Blood Pressure Source Blood Pressure Position 02 Sat by Pulse Oximetry 96 97 Oxygen Delivery Method Nasal Cannula Nasal Cannula Oxygen Flow Rate (LPM) 2 2 12/01/24 19:30 12/01/24 19:57 12/01/24 20:00 Temperature 96.3 F L Temperature Source Pulse Rate 70 71 70 Pulse Rate [Left Radial] Respiratory Rate 19 19 15 Blood Pressure 97/61 L 109/61 L 100/60 L Blood Pressure [Right Arm] Blood Pressure Mean [Right Arm] Blood Pressure Source Blood Pressure Position 02 Sat by Pulse Oximetry 98 96 98 Oxygen Delivery Method Oxygen Flow Rate (LPM) 12/01/24 20:31 12/01/24 21:00 12/01/24 21:52 Temperature 98.4 F 98.4 F Temperature Source Pulse Rate 70 70 Pulse Rate [Left Radial] Respiratory Rate 17 22 Blood Pressure 98/62 L 108/64 L Blood Pressure [Right Arm] Blood Pressure Mean [Right Arm] Blood Pressure Source Blood Pressure Position 02 Sat by Pulse Oximetry 97 98 Oxygen Delivery Method Nasal Cannula Oxygen Flow Rate (LPM) 3 12/01/24 22:03 Temperature 98.4 F Temperature Source Core Pulse Rate 72 Pulse Rate [Left Radial] Respiratory Rate 18 Blood Pressure 100/65 L Blood Pressure [Right Arm] Blood Pressure Mean [Right Arm] Blood Pressure Source Automatic Cuff Blood Pressure Position Sitting 02 Sat by Pulse Oximetry Oxygen Delivery Method Nasal Cannula Oxygen Flow Rate (LPM) 3 Lab Data Lab results reviewed: Yes I reviewed the patient's lab results. Lab Results 12/01/24 17:24: NT-Pro-B Natriuret Pep 3330 H 12/01/24 17:27: WBC 10.0, RBC 3.66 L, Hgb 10.6 L, Hct 34.5 L, MCV 94.3 H, MCH 29.0, MCHC 30.7 L, RDW 16.2, Plt Count 172, MPV 11.1 H, Neut % (Auto) 81.1 H, Lymph % (Auto) 4.7 L, Phillips % (Auto) 13.8 H, Eos % (Auto) 0.0 L, Baso % (Auto) 0.1, Neut # (Auto) 8.1 H, Lymph # (Auto) 0.5 L, Phillips # (Auto) 1.4 H, Eos # (Auto) 0.0, Baso # (Auto) 0.0, Total Counted 100, Neutrophils % (Manual) 85 H, Lymphocytes % (Manual) 10, Monocytes % (Manual) 5, Platelet Estimate Normal, RBC Morphology Normal, PT 21.9 H, INR 2.08 H, Sodium 141, Potassium 3.8, Chloride 106, Carbon Dioxide 26, Anion Gap 12.8, BUN 63 H, Creatinine 2.30 H, Estimated Creat Clear 28, Estimated GFR 27 L, Est GFR ( Amer) 33 L, Glucose 152 H, Calcium 7.6 L, Phosphorus 5.2 H, Magnesium 2.6 H, Total Bilirubin 1.2, AST 28, ALT 17, Alkaline Phosphatase 68, Troponin I 0.04 H, Total Protein 5.8 L, Albumin 3.1 L, Globulin 2.7, Albumin/Globulin Ratio 1.1, Lipase 13 L 12/01/24 18:56: Stl C. cayetanensis PCR Not detected, Stool Rotavirus (PCR) Not detected, Stl Adenov F 40/41 PCR Not detected, Stool Astrovirus (PCR) Not detected, Stool Campylobacter PCR Not detected, Stl C.difficile Tox PCR Not detected, Stool Cryptosporidium PCR Not detected, Stl E.coli Shiga Tox PCR Not detected, Stool E coli O157 PCR Not detected, Stl Enterotoxigenic E PCR Not detected, Stool EPEC (PCR) Not detected, Stool EAEC (PCR) Not detected, Stl E. histolytica PCR Not detected, Stool Giardia Lamblia PCR Not detected, Stool Salmonella PCR Not detected, Stool Sapovirus (PCR) Not detected, Stl P. shigelloides PCR Not detected, Stl Shigella/EIEC PCR Not detected, St Y.enterocolitica PCR Not detected, Stool Vibrio (PCR) Not detected, Stl Vibrio cholerae PCR Not detected, Stl Norovirus GI/GII PCR Not detected 12/01/24 19:45: Urine Color Yellow, Urine Appearance Clear, Urine pH 6.5, Ur Specific [place] 1.025, Urine Protein 2+ A, Urine Glucose (UA) Negative, Urine Ketones 1+, Urine Blood 3+ A, Urine Nitrate Positive A, Urine Bilirubin 2+ A, Urine Urobilinogen 1.0, Ur Leukocyte Esterase 1+ A, Urine RBC Tntc, Ur Squamous Epith Cells 12/01/24 20:28: Lactate 1.5 12/04/24 08:12 12/04/24 08:12 Orders (Tests/Meds): ED MEDICATIONS Generic Name Dose Route Start Last Admin Trade Name Yadi PRN Reason Stop Dose Admin Acetaminophen 650 mg 12/01/24 21:41 12/04/24 17:45 Acetaminophen 325mg Tab PO 12/31/24 21:40 325 mg Q4HP PRN Administration Fever or Mild Pain (1-3) Albuterol/Ipratropium 3 ml 12/02/24 10:59 Ipratropium/Albuterol 3 Ml Neb IH 01/01/25 10:58 Q6HP PRN Shortness Of Breath Diazepam 2.5 mg 12/04/24 19:55 12/04/24 20:16 Diazepam 10mg/2ml Syringe IV 12/04/24 19:56 2.5 mg ONCE ONE Administration Docusate Sodium 100 mg 12/02/24 09:00 12/04/24 09:49 Docusate Sodium 100 Mg Capsule PO 01/01/25 08:59 100 mg DAILY TREVON Administration Famotidine 20 mg 12/02/24 21:00 12/04/24 21:46 Famotidine 20mg Tablet PO 01/01/25 20:59 20 mg Q48H TREVON Administration Metronidazole 500 mg in 100 mls @ 100 mls/hr 12/04/24 14:00 12/04/24 15:13 Flagyl 500mg/100ml Ivpb IV 12/14/24 13:59 100 mls/hr Q12H TREVON Administration Levofloxacin 750 mg 12/04/24 11:00 12/04/24 12:07 Levofloxacin 750 Mg Tablet PO 12/08/24 11:01 750 mg Q48H TREVON Administration Metoprolol Tartrate 25 mg 12/03/24 09:00 12/04/24 09:49 Metoprolol Tartrate 25mg Tablet PO 01/02/25 08:59 25 mg DAILY TREVON Administration Mirtazapine 7.5 mg 12/02/24 21:00 12/04/24 21:47 Mirtazapine 15 Mg Tablet PO 01/01/25 20:59 7.5 mg HS TREVON Administration Pantoprazole Sodium 40 mg 12/04/24 21:00 12/04/24 21:46 Pantoprazole 40mg Tablet PO 01/03/25 20:59 40 mg BID TREVON Administration Polyethylene Glycol 17 gm 12/03/24 09:00 12/04/24 10:04 Polyethylene Glycol 3350 238gm Powder PO 01/02/25 08:59 17 gm DAILY TREVON Administration Senna/Docusate Sodium 2 tab 12/02/24 10:45 Sennosides 8.6mg/Docusate 50mg Tablet PO 01/01/25 10:44 DAILYP PRN Constipation Tamsulosin HCl 0.4 mg 12/02/24 21:00 12/04/24 21:46 Tamsulosin 0.4mg Capsule PO 01/01/25 20:59 0.4 mg HS TREVON Administration Discontinued Medications Generic Name Dose Route Start Last Admin Trade Name Freq PRN Reason Stop Dose Admin Aspirin 81 mg 12/03/24 09:00 12/04/24 11:58 Aspirin 81mg Chewable Tablet PO 01/02/25 08:59 Not Given DAILY TREVON Hydralazine HCl 25 mg 12/04/24 00:48 12/04/24 01:11 Hydralazine Hcl 25mg Tablet PO 12/04/24 00:49 Not Given ONCE ONE Sodium Chloride 1,000 mls @ 999 mls/hr 12/01/24 17:51 12/01/24 18:03 Sod Chlor 0.9% 1000ml Bag IV 12/01/24 18:51 999 mls/hr .Q1H1M ONE Administration Ceftriaxone Sodium 2 gm/ 100 mls @ 200 mls/hr 12/01/24 20:15 12/01/24 20:49 Sodium Chloride IV 12/11/24 20:14 200 mls/hr Q24H TREVON Administration Metronidazole 500 mg in 100 mls @ 100 mls/hr 12/01/24 20:59 12/01/24 21:05 Flagyl 500mg/100ml Ivpb IV 12/01/24 21:58 100 mls/hr ONCE ONE Administration Lactated Ringer's 1,000 mls @ 50 mls/hr 12/01/24 21:45 12/01/24 22:37 Lactated Ringer's 1000 Ml Bag IV 12/31/24 21:44 50 mls/hr .Q20H TREVON Administration Levofloxacin/Dextrose 750 mg in 150 mls @ 100 mls/hr 12/02/24 12:00 12/02/24 11:34 Levofloxacin 750mg/150ml Premix IV 12/12/24 11:59 100 mls/hr Q48H TREVON Administration Iopamidol 80 ml 12/01/24 19:05 12/01/24 19:09 Iopamidol-370 (76%);100ml Bottle IV 12/01/24 19:06 80 ml ONCE ONE Administration Lorazepam 0.25 mg 12/04/24 01:08 12/04/24 02:01 Lorazepam 2mg/Ml Vial IV 12/04/24 01:09 0.25 mg ONCE ONE Administration Ondansetron HCl 4 mg 12/03/24 12:33 12/03/24 13:20 Ondansetron 4mg/2ml Vial IV 01/02/25 12:32 4 mg Q6HP PRN Administration Nausea Pantoprazole Sodium 40 mg 12/03/24 21:00 12/03/24 21:18 Pantoprazole 40mg Tablet PO 01/02/25 20:59 40 mg HS TREVON Administration Pantoprazole Sodium 40 mg 12/04/24 09:30 12/04/24 09:00 Pantoprazole 40mg Vial IV 01/03/25 09:29 Not Given BID TREVON Perflutren Lipid Microsphere 2 mg 12/02/24 07:59 12/02/24 08:01 Definity Us Echo Contrast 2ml Inj IV 12/02/24 08:00 2 mg ONCE ONE Administration Potassium Chloride 40 meq 12/04/24 09:45 12/04/24 15:13 Potassium Chloride 20meq Tab PO 12/04/24 13:46 40 meq Q4H TREVON Administration Rivaroxaban 15 mg 12/02/24 17:30 12/03/24 17:19 Rivaroxaban 15mg Tablet PO 01/01/25 17:29 15 mg QPMWITHMEAL TREVON Administration Sodium Chloride 40 ml 12/01/24 19:05 12/01/24 19:09 0.9 % Sodium Chloride 50 Ml Vial IV 12/01/24 19:06 40 ml ONCE ONE Administration Sodium Chloride 10 ml 12/01/24 21:41 Sodium Chloride 0.9% 10ml Flush Syringe IV 12/31/24 21:40 NEEDED PRN Maintain IV Site Sodium Chloride 10 ml 12/04/24 01:08 Sodium Chloride 0.9% 10ml Vial IV 01/03/25 01:07 NEEDED PRN to Dilute Lorazepam inj Sodium Chloride 10 ml 12/04/24 09:29 12/04/24 09:39 Sodium Chloride 0.9% 10ml Vial IV 01/03/25 09:28 10 ml NEEDED PRN Administration dilute protonix ORDERS Category Date Time Status CT abdomen pelvis w con Stat Cat Scan 12/01/24 17:[address] angio chest PE protocol Stat Cat Scan 12/01/24 17:46 Completed CXR --portable [XR chest portable] Stat Exams 12/01/24 19:08 Completed BNP [NT Pro Brain Natriuretic Pep.] Stat Lab 12/01/24 17:24 Completed CBC w/Auto Diff [Complete Blood Count Auto Diff] Stat Lab 12/01/24 17:27 Completed CMP [Comprehensive Metabolic Panel] Stat Lab 12/01/24 17:27 Completed Diarrhea 6-11 Panel, Cdiff PCR Stat Lab 12/01/24 18:56 Completed Lactic Acid Stat Lab 12/01/24 20:28 Completed Lipase Stat Lab 12/01/24 17:27 Completed MAG [Magnesium] Stat Lab 12/01/24 17:27 Completed PHOS [Phosphorous] Stat Lab 12/01/24 17:27 Completed PT INR [Prothrombin Time INR] Stat Lab 12/01/24 17:27 Completed Trop I [Troponin I] Stat Lab 12/01/24 17:27 Completed Troponin I Q3H Lab 12/01/24 21:25 Completed Troponin I Q3H Lab 12/02/24 00:50 Completed UA [Urinalysis and Microscopic] Stat Lab 12/01/24 19:45 Completed Blood Culture Stat Micro 12/01/24 20:46 Results Urine Culture Stat Micro 12/01/24 19:45 Results Medical Decision Narrative: Patient is an 89-year-old man who presented to the emergency department with abdominal pain and diarrhea. On arrival, patient was borderline hypotensive, not tachycardic, vital signs were otherwise unremarkable. Differential includes but not limited to: C.difficile, other GI illness, diarrhea secondary to stool softeners, ileus, bowel obstruction, intra-abdominal abscess, dehydration, electrolyte abnormalities, amongst others. Patient's labs were reviewed and interpreted by myself, CBC showed no leukocytosis, hemoglobin was stable. INR elevated at 2.08. Magnesium normal, phosphorus normal. CMP did have an elevated creatinine of 2.3 up from patient's baseline of 1.7. Initial troponin 0.04. Lipase normal. Initial troponin 0.04. Patient did CT scans reviewed and interpreted by myself: Patient CT abdomen showed concern for proctocolitis as well as ileus. Patient CT scan of the chest showed concern for possible developing pneumonia. Patient was given IV fluids in the emergency department. However given patient's elevated BNP I did not want to give patient with his elevated creatinine. Patient's urine showed significant UTI. Patient was treated for pneumonia, UTI as well as proctocolitis with antibiotics. Given patient's ZACK, borderline low blood pressure and multiple abnormalities on CT scans and felt the patient warranted admission. Hospital medicine was consulted and patient was ultimately admitted to their service for further evaluation workup. Critical Care Critical Care Time Critical Care Time: No
[2024-12-01 19:08] LABS: Adenovirus F 40/41, stool Not Detected (NotDetected); Clostridium Difficile A/B, PCR Not Detected (NotDetected); Cyclospora Cayetanesis Not Detected (NotDetected); Plesimonas Shigalloides, PCR Not Detected (NotDetected); Salmonella, PCR Not Detected (NotDetected); Shiga-like toxin E coli Not Detected (NotDetected); Shigella Enterovasive E coli Not Detected (NotDetected); Vibrio, PCR Not Detected (NotDetected); Yersinia Entercolitica, PCR Not Detected (NotDetected)
--- NOTE | 2024-12-01 19:08 | XR_ITS ---
PROCEDURE INFORMATION: Exam: XR Chest Exam date and time: 12/01/2024 7:14 PM Age: 89 years old Clinical indication: Pain; Chest pressure; Additional info: Chest pain TECHNIQUE: Imaging protocol: Radiologic exam of the chest. Views: 1 view. COMPARISON: CT ANGIO CHEST PE PROTOCOL 12/01/2024 7:08 PM FINDINGS: Tubes, catheters and devices: Triple chamber pacemaker/cardioverter in appropriate position with lead tips in the right atrium, coronary sinus, and right ventricle. Lungs: Patchy consolidation in the right lung base. Pleural spaces: Blunting of the right costophrenic angle. Left costophrenic angle is grossly clear. No pneumothorax. Heart/Mediastinum: Severe cardiomegaly. Vasculature: Calcified aortic knob. Bones/joints: Sternotomy wires and mediastinal surgical clips are present, consistent with previous coronary arterial bypass grafting. Gastrointestinal tract: Dilated small bowel loops in the upper abdomen. Please review abdomen and pelvic CT performed on the same date for further details. IMPRESSION: Concern for a small right pleural effusion and a likely combination of atelectasis and developing pneumonia in the right lung base. Differential would include developing focal pulmonary edema.
[2024-12-01] MEDS: IOPAMIDOL-370 (76%);100ML BOTTLE 80 ML IV (19:09)
[2024-12-01] MEDS: 0.9 % SODIUM CHLORIDE 50 ML VIAL 40 ML IV (19:09)
--- NOTE | 2024-12-01 19:13 | PC.NURSE ---
patient back from radiology
[2024-12-01 20:00] LABS: Microscopic, Urine URINE MICROSCOPIC (MICROSCOPIC)
[2024-12-01 20:03] LABS: Color,Urine YELLOW (Yellow); Glucose,Urine (UA) Negative (Negative); Ketones,Urine 1+ (Negative); Leukocyte Esterase,Urine 1+ (Negative); PH,Urine 6.5 (5.0-8.5); Protein,Urine 2+ (Negative); Specific Gravity, Urine 1.025 (1.005-1.030); Urobilinogen,Urine 1.0 EU/dl (0.2)
[2024-12-01 20:06] LABS: Bilirubin,Urine 2+ (Negative)
[2024-12-01 20:15] LABS: NT Pro Brain Natriuretic Pep. 3330 pg/mL (0-450)
--- NOTE | 2024-12-01 20:21 | PC.NURSE ---
Addendum entered by Rosangela Loera RN 12/01/24 20:22: 194 pericare provided due to patient having loose bowel movement. In/out catheter performed per provider order. after sample was obtained provider requested mendez catheter be inserted to monitor patient output.Catheter placed by Francesca NUGENT Original Note: [id number]
[2024-12-01 20:34] LABS: RBC,Urine TNTC #/hpf (0-3)
[2024-12-01] MEDS: METRONIDAZ/SOD CHL 500 MG/100 ML PIGGYBACK 100 MG IV (21:05)
[2024-12-01 21:52] LABS: Troponin I 0.03 ng/ml (0.00-0.034)
--- NOTE | 2024-12-01 21:53 | PC.NURSE ---
report called to [facility]
--- NOTE | 2024-12-01 22:03 | PC.NURSE ---
1899- patient noted to have blanchable redness on bottom at arrival
--- NOTE | 2024-12-01 22:33 | P.HP_ITS ---
<Statement entered by Terrell Harden MD - 12/02/24 18:42> Rounded on patient after nurse practitioner. Personally examined and interviewed patient. Agree with exam findings and care plan as documented. History of Present Illness *Admission Date: 12/01/24 *Reason for visit:: Blood in urine question pneumonia failure to thrive *History of present illness: Mr. Lua an 89-year-old correction patient, has had increased weakness no longer able to ambulate by himself blood in urine.. Also showing some confusion. After talking with the ER physician do agree there is potential for pneumonia specially right lower lung. Also blood in urine with possible UTI., Question some colitis with alternating constipation and diarrhea. Noting that the patient's H&H is also decreasing with significant amount of blood in urine after Meyers placed patient is on anticoagulation Question distal coronary artery bypass thing has had cath with extra stents has been in A-fib. Pacemaker has been placed believe it was changed to a dual chamber place maker in the past. Ejection fraction being in A-fib began to decrease from 52% down to 45% per notes. Also given a cardiac mems implant.. Patient now requiring oxygen which she normally just wears at night. Patient do es have sleep apnea but never adjusted to mask and never wears it. Notes began to list congestive heart failure in 2021 and now also some gastroparesis. Will go ahead and admit the patient after talking the ER provider provide oxygen. Try to tune the patient up balance any fluid needs. Meyers catheter with blood may need to adjust anticoagulation. Consult cardiology to look at the cardiac mems and to adjust any medication as able. Patient is a DNR but will keep on monitor and pulse ox while on the floor.. Noting ER has started Rocephin and Flagyl questioning whether the patient was developing sepsis, and noting that the BNP is greater than 3000 troponin was only at 0.04 but will continue to monitor PFSH PFSH Disclaimer: The information contained in this section may have been updated after the patient was seen, as this information can be updated by other users. Medical History (Updated 12/02/24 @ 14:59 by SAMUEL Martino) Acute respiratory failure with hypoxia Aspiration pneumonia Altered mental status Failure to thrive Gastroparesis Chest congestion Dyspnea (HFpEF) heart failure with preserved ejection fraction History of pacemaker History of heart attack CHF (congestive heart failure) Abnormal breath sounds Bleeding nose Difficulty with speech Confusion TIA (transient ischemic attack) Surgical History Hx of CABG History of hernia repair History of esophagogastroduodenoscopy (EGD) History of cardiac catheterization History of colonoscopy History of permanent cardiac pacemaker placement Family History Other No significant family history Social History Smoking Status: Unknown if ever smoked second hand exposure: No alcohol intake: never substance use type: denies use current occupational status: retired Travel in the last 8 weeks?: None household members: none housing: house lives independently: Yes marital status: current occupational exposures/hazards: No caffeine: No special freddy needs: No agree to transfusion: No Other Medical History Have you received the Flu Vaccine for this season: No Have you received the Pneumonia Vaccine: Yes Review of Systems Review of Systems Review of systems:: pertinent systems reviewed and negative unless documented below Constitutional Constitutional: Reports as per HPI, Reports anorexia, Reports fatigue, Reports lethargy, Reports stops breathing during sleep, Reports weakness and Reports weight loss Comments: Daughter states the patient has lost 25 pounds in the last year ENT Ears, Nose, Mouth, and Throat: Reports as per HPI *Cardiovascular Cardiovascular: Reports as per HPI and Reports dyspnea *Respiratory Respiratory: Reports as per HPI and Reports dyspnea *Gastrointestinal Gastrointestinal: Reports as per HPI *Genitourinary Genitourinary: Reports as per HPI *Musculoskeletal Musculoskeletal: Reports as per HPI, Reports atrophy and Reports muscle weakness Integumentary/Breasts Skin/Breast: Reports as per HPI *Neurologic Neurologic: Reports as per HPI and Reports weakness Comments: Confusion at this point in time difficult to understand his speech Endocrine Endocrine: Reports as per HPI and Reports fatigue Hematologic/Lymphatic Hematologic/Lymphatic: Reports as per HPI Allergic/Immunologic Allergic/Immunologic: Reports as per HPI Meds Home Medications and Allergies Home Medications ?Medication ?Instructions ?Recorded ?Confirmed ?Type atorvastatin 40 mg tablet 40 mg PO HS Cholesterol 04/2512/01/24 History tamsulosin 0.4 mg capsule 0.4 mg PO HS 05/15/17 History rivaroxaban 20 mg tablet (Xarelto) 20 mg PO QPMWITHMEA L 10/29/19 12/01/24 History anticoagulant/atrial fib alprazolam 0.25 mg tablet 0.25 mg PO BID 05/20/2111/22 History Saccharomyces boulardii 250 mg 250 mg PO DAILY Supplem ent 07/28/22 12/01/24 History capsule (Probiotic (S.boulardii)) cholecalciferol (vitamin D3) 50 50 mcg PO DAILY Supple ment 07/28/22 12/01/24 History mcg (2,000 unit) capsule acetaminophen 500 mg tablet 1,000 mg PO QIDP PRN Back Pain 07/29/22 12/02/24 History cetirizine 10 mg tablet 10 mg PO DAILY Allergy sympt oms 07/29/22 12/01/24 History melatonin 5 mg tablet 5 mg PO HS sleep 07/29/22 History diphenhydramine-zinc acetate 2 0 applic topical BID 10 days #10 07/27/23 12/01/24 Rx %-0.1 % topical cream (Itch Relief) grams famotidine 20 mg tablet 20 mg PO BID 12/02/24 History gabapentin 100 mg capsule 100 mg PO DAILY 12/02/2403/18 History lidocaine 4 % topical patch 1 patch topical DAILY Back Pain 12/02/24 12/02/24 History metoprolol tartrate 25 mg tablet 25 mg PO DAILY 12/02/24 History mirtazapine 7.5 mg tablet 7.5 mg PO HS 12/02/24 History omeprazole 20 mg capsule,delayed 20 mg PO DAILY 12/02/24 History release polyethylene glycol 3350 17 17 g PO DAILY 12/02/2403/18 History gram/dose oral powder (Miralax) sennosides 8.6 mg-docusate sodium 2 tab-cap PO DAILYP PRN 12/02/24 12/02/24 History 50 mg tablet (Senna-S) Constipation therapeutic multivitamin 1 tab PO DAILY 12/02/2411/22 History (Thera-Tabs tablet) New Prescriptions to Start Prescriptions: Allergies Allergy/AdvReac Type Severity Reaction Status Date / Time No Known Allergies Allergy Verified 12/01/24 18:20 Exam Data for Last 24 hours Vital signs and Labs for Last 24 Hours: Temp Pulse Resp BP Pulse Ox O2 Del Method O2 Flow Rate 98.4 F 72 18 100/65 L 98 Nasal Cannula 3 12/01/24 22:03 12/01/24 22:03 12/01/24 22:03 12/01/24 22:03 12/01/24 21:00 12/01/24 22:03 12/01/24 22:03 Laboratory Results - last 24 hr 12/01/24 17:24: NT-Pro-B Natriuret Pep 3330 H 12/01/24 17:27: WBC 10.0, RBC 3.66 L, Hgb 10.6 L, Hct 34.5 L, MCV 94.3 H, MCH 29.0, MCHC 30.7 L, RDW 16.2, Plt Count 172, MPV 11.1 H, Neut % (Auto) 81.1 H, Lymph % (Auto) 4.7 L, [place] % (Auto) 13.8 H, Eos % (Auto) 0.0 L, Baso % (Auto) 0.1, Neut # (Auto) 8.1 H, Lymph # (Auto) 0.5 L, [place] # (Auto) 1.4 H, Eos # (Auto) 0.0, Baso # (Auto) 0.0, Total Counted 100, Neutrophils % (Manual) 85 H, Lymphocytes % (Manual) 10, Monocytes % (Manual) 5, Platelet Estimate Normal, RBC Morphology Normal, PT 21.9 H, INR 2.08 H, Sodium 141, Potassium 3.8, Chloride 106, Carbon Dioxide 26, Anion Gap 12.8, BUN 63 H, Creatinine 2.30 H, Estimated Creat Clear 28, Estimated GFR 27 L, Est GFR ( Amer) 33 L, Glucose 152 H, Calcium 7.6 L, Phosphorus 5.2 H, Magnesium 2.6 H, Total Bilirubin 1.2, AST 28, ALT 17, Alkaline Phosphatase 68, Troponin I 0.04 H, Total Protein 5.8 L, Albumin 3.1 L, Globulin 2.7, Albumin/Globulin Ratio 1.1, Lipase 13 L 12/01/24 19:45: Urine Color Yellow, Urine Appearance Clear, Urine pH 6.5, Ur Specific Lyle 1.025, Urine Protein 2+ A, Urine Glucose (UA) Negative, Urine Ketones 1+, Urine Blood 3+ A, Urine Nitrate Positive A, Urine Bilirubin 2+ A, Urine Urobilinogen 1.0, Ur Leukocyte Esterase 1+ A, Urine RBC Tntc, Ur Squamous Epith Cells 12/01/24 20:28: Lactate 1.5 12/01/24 21:25: Troponin I 0.03 I & O for Last 24 hours: Intake & Output 11/29/24 11/30/24 12/01/24 12/02/24 05:59 05:59 05:59 05:59 Weight 200 lb Radiology Reports for the Last 24 Hours: Questionable eccentric/peripheral filling defect in the tip of the left atrial appendage. A chronic thrombus is in the differential IMAGING [phone] [facility] 3 Patient name: Britney Lua diagnosis. Consider correlation with echocardiography. 2. No pulmonary emboli within the main pulmonary arteries or segmental branches. Subsegmental branches are obscured by motion artifact. 3. Acute/chronic bronchitis or reactive airways disease. 4. Subtle ground-glass and patchy consolidations in the right lung base. Most probably compressive atelectasis, though developing pneumonia is in the differential diagnosis. 5. Mucoid material within the trachea. Aspiration or retained Constitutional Constitutional: mild distress, thin, cachectic, chronically ill appearing, cooperative and somnolent Comments: Patient lying in hospital bed does answer some questions difficult to understand his speech., Daughter is in room and feels he is confused and states normally is very bright and alert *Routine HEENT Exam Head: Present normocephalic and atraumatic Eye: Present EOMI and PERRL ENT: Present mucous membranes moist *Routine Neck Exam Neck: Present supple *Routine Respiratory Exam Respiratory: Present decreased breath sounds, respiratory distress, able to speak in complete sentences and symmetric chest movement *Routine Cardiovascular Exam Cardiovascular: Present irregularly irregular Comments: Has pacer and has capture on monitor history of atrial fibs *Routine Abdominal Exam Abdominal: Present soft and tenderness Comments: Mild tenderness throughout abdomen *Routine Rectal Exam Rectal:: deferred *Routine Genitalia Exam Genitalia:: deferred Comment:: Meyers in place *Routine Extremities Exam Extremities: Present pallor and vascular access *Routine Skin Exam Skin: Present intact, dry and warm *Routine Neurological Exam Neurological: Present alert and altered mental status Comments: Mild confusion H&P: Result Impressions 1. Failure to thrive. With weight loss 2. Chronic A-fib with pacer and history of CHF 3. Right lower lung infiltrate versus atelectasis question early pneumonia 4. Chronic abdominal pain with constipation alternating with diarrhea with now some colitis involved per scanning 5. Chronic anticoagulation with blood in urine possible UTI Imaging and Cardiology CT scan - abdomen: Status: image reviewed by me Additional comments: Questionable eccentric/peripheral filling defect in the tip of the left atrial appendage. A chronic thrombus is in the differential IMAGING [id number] [facility] 3 Patient name: Britney Lua diagnosis. Consider correlation with echocardiography. 2. No pulmonary emboli within the main pulmonary arteries or segmental branches. Subsegmental branches are obscured by motion artifact. 3. Acute/chronic bronchitis or reactive airways disease. 4. Subtle ground-glass and patchy consolidations in the right lung base. Most probably compressive atelectasis, though developing pneumonia is in the differential diagnosis. 5. Mucoid material within the trachea. Aspiration or retained Assessment and Plan *Assessment and plan (1) Pneumonia: Status: Acute Qualifiers: Laterality: right Lung location: lower lobe of lung Pneumonia type: due to unspecified organism Qualified Code(s): J18.9 - Pneumonia, unspecified organism Category: Medical Code(s): J18.9 - Pneumonia, unspecified organism (2) Dyspnea: Status: Acute Qualifiers: Dyspnea type: dyspnea on exertion Qualified Code(s): R06.00 - Dyspnea, unspecified Category: Medical Code(s): R06.00 - Dyspnea, unspecified (3) ZACK (acute kidney injury): Status: Acute Category: Medical Code(s): N17.9 - Acute kidney failure, unspecified (4) Failure to thrive: Status: Acute Qualifiers: Failure to thrive age range: in adult Qualified Code(s): R62.7 - Adult failure to thrive Category: Medical (5) Hematuria: Status: Acute Qualifiers: Hematuria type: gross Qualified Code(s): R31.0 - Gross hematuria Category: Medical Code(s): R31.9 - Hematuria, unspecified (6) Atrial fibrillation: Status: Chronic Qualifiers: Atrial fibrillation type: unspecified chronic Qualified Code(s): I48.20 - Chronic atrial fibrillation, unspecified Category: Medical Code(s): I48.91 - Unspecified atrial fibrillation (7) Heart failure with reduced ejection fraction: Status: Chronic Category: Medical Code(s): I50.20 - Unspecified systolic (congestive) heart failure (8) Gastroparesis: Status: Acute Category: Medical Code(s): K31.84 - Gastroparesis (9) Chronic anemia: Problem Comment: Due for CMP, CBC today as directed by 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 Status: Chronic Category: Medical Code(s): D64.9 - Anemia, unspecified (10) Hypotension: Problem Comment: Active follow-up with cardiology. Furosemide was discontinued and he was given a prescription for midodrine but currently not taking it. Status: Chronic Qualifiers: Hypotension type: other hypotension type Qualified Code(s): I95.89 - Other hypotension Category: Medical Code(s): I95.9 - Hypotension, unspecified (11) Altered mental status: Status: Acute Qualifiers: Altered mental status type: unspecified Qualified Code(s): R41.82 - Altered mental status, unspecified Category: Medical Code(s): R41.82 - Altered mental status, unspecified Plan 1. Will place patient on the floor continuous cardiac monitoring and continuous pulse ox with oxygen provided on a continuous basis 2. Continue Meyers until hematuria but with IV fluid only at 50 cc an hour. 3. Consult cardiology to look at pacemaker and cardiac mems implant., Possible need for adjustment of medications 4. Failure to thrive will have physical therapy evaluate the patient to see if he is able to stand. 5. Alternating constipation and diarrhea. Question inflammation of the bowel. 6. I will adjust patient's medications as needed valuate labs for any adjustments that would be needed. Patient has failure to thrive has been going downhill for quite some time. Question condition of cardiac function whether or not he is falling further into congestive heart failure or whether he truly has a pneumonia/atelectasis that is now requiring 24 hours a day oxygen.
[2024-12-01] MEDS: LACTATED RINGERS 1000ML 1,000 ML 50 ML IV (22:37)
[2024-12-02] VITALS (7 sets, daily range): BP systolic 119–149; BP diastolic 72–88; PULSE 69–91; RESP 14–20; TEMP 36.3–37.1; O2SAT 93–99; BMI 21.6
[2024-12-02 01:21] LABS: Troponin I 0.03 ng/ml (0.00-0.034)
--- NOTE | 2024-12-02 02:08 | PC.NURSE ---
pt new admit this shift. AOx1-2. has had several bowel movements since being admitted. mendez anchored and draining brown urine. pt receiving fluidis @ 50mL/hr. currently resting in bed with eyes closed. respirations even and unlabored. bed is low, locked, and call light in reach. bed alarm on and functioning.
[2024-12-02 06:05] LABS: Hematocrit 38.5 % (42.0-52.0); Hemoglobin 11.6 g/dL (14.1-18.0); Immature Granulocytes % 0.3 %; Mean Corpuscular HGB Conc 30.1 g/dL (31.8-35.4); Mean Corpuscular Hemoglobin 28.9 pg (27.0-31.2); Mean Corpuscular Volume 95.8 fl (80-94); Nucleated Red Blood Cells % 0 %; Platelet Count 146 K/mm3 (142-424); Red Blood Count 4.02 M/mm3 (4.60-6.20); Red Cell Distribution Width-SD 57.8 fL; White Blood Count 9.5 K/mm3 (4.8-10.8)
[2024-12-02 06:17] LABS: Albumin Level 3.9 g/dl (3.5-5.0); Chloride 107 mmol/L (98-107); Potassium 4.0 mmoL/L (3.5-5.1); Sodium 142 mmol/L (136-145)
[2024-12-02 06:20] LABS: Alanine Aminotransferase 21 U/L (12-78); Albumin/Globulin Ratio 1.3 (1.1-1.8); Alkaline Phosphatase 110 U/L (38-126); Anion Gap 17.0 mEq/L (5-15); Aspartate Amino Transferase 68 U/L (17-59); Bilirubin,Total 1.3 mg/dl (0.2-1.3); Blood Urea Nitrogen 71 mg/dl (9-20); Calcium 7.9 mg/dl (8.4-10.2); Carbon Dioxide 22 mmol/L (22.0-30.0); Creatinine Clearance Estimated 24 mL/min (50-200); Creatinine,Serum 2.10 mg/dl (0.66-1.25); Estimated Glomerular Filt Rate 30 ml/min (>60); GFR (African American) 36 ML/MIN (>60); Globulin 3.1 g/dL (1.3-3.2); Glucose 137 mg/dl (74-100); Magnesium 2.9 mg/dl (1.6-2.3); Total Protein,Serum 7.0 g/dl (6.3-8.2)
[2024-12-02 06:22] LABS: INR 1.37 (0.9-1.1); Prothrombin Time 14.9 seconds (10.1-12.5)
[2024-12-02 06:36] LABS: Total Cells Counted 100
[2024-12-02 07:12] LABS: VBG HCO3 22.0 mmol/L (23-30); VBG PCO2 40.2 mmol/L (35-51); VBG PH 7.36 mmol/L (7.31-7.41); VBG PO2 55.8 mmol/L (28-40)
[2024-12-02 07:15] LABS: Lactate Venous 2.3 mmol/L (0.4-2.0)
[2024-12-02] MEDS: DEFINITY US ECHO CONTRAST 2ML INJ 2 MG IV (08:01)
--- NOTE | 2024-12-02 08:17 | SW/DCPLANNER ---
Addendum entered by Norma Koroma 12/06/24 14:25: Patient will return to [facility] level of care today. Addendum entered by Norma Koroma 12/06/24 11:00: I have updated Janie that patient may be ready for discharge later today or over the weekend. Per Janie patient can return over the weekend. Addendum entered by Norma Koroma 12/05/24 07:44: Updated patient information faxed to Janie morgan/ [facility]. Addendum entered by Norma Koroma 12/03/24 10:33: I have updated Janie the plan for this patient is to return tomorrow pending no setbacks. Per Janie will return SNF level of care. I will continue to follow up. Addendum entered by Norma Koroma 12/03/24 08:57: Updated patient information has been faxed to Janie morgan/ [facility]. Original Note: aruna currently resides at [facility] level of care. Updated patient information has been faxed. I will continue to follow up wWilliam Lima at [facility] until medically stable for discharge. Discharge date is unknown at this time.
[2024-12-02] MEDS: DOCUSATE SODIUM 100 MG CAPSULE PO (08:20)
--- NOTE | 2024-12-02 08:49 | P.CONPHA_ITS ---
Pharmacy Intervention Comments: VERIFIED HOME MEDICATION LIST USING LIST FROM [facility]
--- NOTE | 2024-12-02 08:49 | HMH.PHAINT1 ---
Pharmacy Intervention Comments: VERIFIED HOME MEDICATION LIST USING LIST FROM [facility]F [facility]
--- NOTE | 2024-12-02 09:42 | HMH.OTEV ---
OT Inpatient Evaluation Rehab OT IP Evaluation Start: 12/01/24 22:46 Freq: ONCE Status: Active Protocol: [facility]02/24 09:[address] [facility] (Rec: 12/02/24 09:42 [facility] [id number]) Rehab OT IP Assessment Subjective History Pt oriented x 2 on arrival. Pt agreeable to engage in therapy evaluation. Pt admitted on 12/01/24 due to UTI and sepsis. History and physical: Mr. Mobley an 89-year-old residential patient, has had increased weakness no longer able to ambulate by himself blood in urine.. Also showing some confusion. After talking with the ER physician do agree there is potential for pneumonia specially right lower lung. Also blood in urine with possible UTI., Question some colitis with alternating constipation and diarrhea. Noting that the patient's H&H is also decreasing with significant amount of blood in urine after Meyers placed patient is on anticoagulation Question distal coronary artery bypass thing has had cath with extra stents has been in A-fib. Pacemaker has been placed believe it was changed to a dual chamber place maker in the past. Ejection fraction being in A-fib began to decrease from 52% down to 45% per notes. Also given a cardiac mems implant.. Patient now requiring oxygen which she normally just wears at night. Patient does have sleep apnea but never adjusted to mask and never wears it. Notes began to list congestive heart failure in 2021 and now also some gastroparesis. Will go ahead and admit the patient after talking the ER provider provide oxygen. Try to tune the patient up balance any fluid needs. Meyers catheter with blood may need to adjust anticoagulation. Consult cardiology to look at the cardiac mems and to adjust any medication as able. Patient is a DNR but will keep on monitor and pulse ox while on the floor.. Noting ER has started Rocephin and Flagyl questioning whether the patient was developing sepsis, and noting that the BNP is greater than 3000 troponin was only at 0.04 but will continue to monitor Subjective Pt slightly confused; he reports he was living alone prior to being in the hospital, but after chart review he was a residential patient for nursing home care. Pt claims he was able to transfer with rolling walker and complete ADLs independently; however information provided by patient may be untrustworthy due to his confusion. Objective Patient Orientation Person,Name Bed Mobility bed mobility-scooting,bed mobility - supine/sit Assist Level Moderate x 1 (50% assist) Transfer Training Sit/Stand/Step Transfer Assist Level Moderate x 1 (50% assist) Chair Transfer Moderate x 1 (50% assist) Ability Chair Transfer Stand Step Pivot Technique Rehab OT IP prob,goals,plan Problems Date of Evaluation: 12/02/24 OT IP Problems Bed Mobility,Transfers,Balance,Self care,Safety Rehab Potential Rehab Potential Good Equipment Needs Assistive Devices Rolling / Wheeled Walker Plan OT intervention Plan Bed Mobility,Transfers,Balance,Self care,Safety, Therapeutic Exercise OT Plan Frequency Daily Duration LOS Discharge Goals Bed Mobility Ability Assistance x1 Sit to Stand Chair Minimal x 1 (25% assist) Transfer Ability Chair Transfer Minimal x 1 (25% assist) Ability Chair Transfer Sit to/from Ambulatory Technique Chair Transfer Rolling Walker Assistive Devices Lower Body Dressing Minimal Assistance Ability Upper Body Dressing Standby Assistance Ability Performing Toilet Moderate Assistance Hygiene Ability Overall Commode/ Minimal Assistance Toilet Transfer Ability Commode/Toilet Sit to/from Ambulatory Transfer Technique Discharge Plan OT Discharge Plan Pt will continue to be seen for OT services while at [facility]. Pt would benefit most from short term rehab when returning back to SNF. Continued skilled therapy is important in order for patient to improve strength, safety, endurance, ADL independence, and functional transfers to reach PLOF. Eval Complexity Eval Charge Codes 80729 - Moderate Complexity PHYSICIAN CERTIFICATION: I certify the specified therapy services for Britney Lua are required, authorized, and reviewed every 30 days.
--- NOTE | 2024-12-02 10:39 | HMH.PTEV ---
Physical Therapy Evaluation Rehab PT IP Evaluation Start: 12/01/24 22:46 Freq: ONCE Status: Active Protocol: Document 12/02/24 10:26 DUKE (Rec: 12/02/24 10:38 DUKE [id number]) Subjective/History History History Per H&P: Mr. Mobley an 89-year-old [facility] patient, has had increased weakness no longer able to ambulate by himself blood in urine.. Also showing some confusion. After talking with the ER physician do agree there is potential for pneumonia specially right lower lung. Also blood in urine with possible UTI., Question some colitis with alternating constipation and diarrhea. Noting that the patient's H&H is also decreasing with significant amount of blood in urine after Meyers placed patient is on anticoagulation Question distal coronary artery bypass thing has had cath with extra stents has been in A-fib. Pacemaker has been placed believe it was changed to a dual chamber place maker in the past. Ejection fraction being in A-fib began to decrease from 52% down to 45% per notes. Also given a cardiac mems implant.. Patient now requiring oxygen which she normally just wears at night. Patient does have sleep apnea but never adjusted to mask and never wears it. Notes began to list congestive heart failure in 2021 and now also some gastroparesis. Will go ahead and admit the patient after talking the ER provider provide oxygen. Try to tune the patient up balance any fluid needs. Meyers catheter with blood may need to adjust anticoagulation. Consult cardiology to look at the cardiac mems and to adjust any medication as able. Patient is a DNR but will keep on monitor and pulse ox while on the floor.. Noting ER has started Rocephin and Flagyl questioning whether the patient was developing sepsis, and noting that the BNP is greater than 3000 troponin was only at 0.04 but will continue to monitor Subjective Subjective Pt had difficulty answering hx questions. Questionable historian. Pt reports he lives alone in a single-story home. Pt uses a RW for ambulation. New diagnosis of No cancer in past 12 months? [facility] How much help from another person do you currently need... Turning from your A little back to your side while in a flat bed without using bedrails? Moving from lying on A little back to sitting on the side of a flat bed without using bedrails? Moving to and from a A lot bed to a chair ( including a wheelchair)? Standing up from a A lot chair using your arms? (e.g., wheelchair, bedside chair) Walking in hospital A lot room? Climbing 3-5 steps A lot with a railing? Mobility Score 14 Mobility Level [facility] Mobility 4 Move to chair/commode Mobility Calculator Rehab PT IP Eval Objective Appearance Patient Behavior Appropriate,Cooperative Patient Orientation Person Difficulty following none instructions Speech Pattern Clear Ambulation Patient Able to No Ambulate Balance Ability to Arise Able, uses arms to help Sitting Balance Steady, safe Standing Balance Unsteady Transfers Bed Transfer Ability Moderate x 1 (50% assist) Chair Transfer Moderate x 1 (50% assist) Ability Sit to Stand Bed Moderate x 1 (50% assist) Transfer Ability Rehab PT IP prob,goals,plan Problems Date of Evaluation: 12/02/24 PT IP Problems Bed Mobility,Transfers,Gait,Balance,Self care,Safety Rehab Potential Rehab Potential Good Plan PT Intervention Plan Bed Mobility,Transfers,Gait,Balance,Self care,Safety, Therapeutic Exercise Other Intervention 1-2 time Plan PT Plan Frequency Daily Duration LOS Discharge Goals Bed Transfer Ability Minimal x 1 (25% assist) Sit to Stand Chair Minimal x 1 (25% assist) Transfer Ability Discharge Plan PT Discharge Plan Initial physical therapy evaluation performed. Patient presents below baseline at this time in functional mobility, transfers, and strength. Pt not safe to return home at this time d/t current level of functional mobility. PT recommending short-term rehabilitation stay upon d/c from [facility]. Pt would benefit from skilled PT while at [facility] to prevent further functional decline and maximize safety with mobility. Eval Complexity Eval Charge Codes 67365 - Moderate Complexity PHYSICIAN CERTIFICATION: I certify the specified therapy services for Britney Lua are required, authorized, and reviewed every 30 days.
[2024-12-02 11:16] LABS: Reflex Lactic Add Lactic Reflex
--- NOTE | 2024-12-02 11:29 | P.PN_ITS ---
Subjective *Date: 12/02/24 *Time: 18:59 Interval history: Patient still weak today but showing some improved energy per daughter at bedside. Eating breakfast on exam. No nausea or vomiting. States he gets full easily. Has known history of tortuous esophagus. Along with history of melisa roparesis. Catheter remains in place, has had indwelling catheter due to enlarged prostate. Denies significant urinary pain. We oxygen, currently on 1 L. Afebrile Medical Exam Vital signs and Labs for Last 24 Hours: Vital Signs Temp Pulse Pulse Resp BP BP Pulse Ox 12/02/24 10:58 12/02/24 08:00 12/02/24 08:00 97.6 F 70 16 130/75 99 12/02/24 06:43 12/02/24 05:00 12/02/24 04:00 98.7 F 91 H 16 124/88 99 12/02/24 04:00 98.7 F 91 H 16 124/88 99 12/02/24 03:00 12/02/24 01:00 12/02/24 00:00 98.6 F 69 14 125/72 99 12/01/24 23:21 98.6 F 70 17 110/62 97 12/01/24 23:00 12/01/24 22:03 98.4 F 72 18 100/65 L 12/01/24 21:52 12/01/24 21:00 98.4 F 70 22 108/64 L 98 12/01/24 20:31 98.4 F 70 17 98/62 L 97 12/01/24 20:00 96.3 F L 70 15 100/60 L 98 12/01/24 19:57 71 19 109/61 L 96 12/01/24 19:30 70 19 97/61 L 98 12/01/24 18:55 17 107/63 L 12/01/24 18:00 70 22 96/57 L 97 12/01/24 17:56 98.5 F 70 13 96/57 L 96 O2 Del Method O2 Flow Rate 12/02/24 10:58 Nasal Cannula 3 12/02/24 08:00 Nasal Cannula 3 12/02/24 08:00 Nasal Cannula 3 12/02/24 06:43 Nasal Cannula 3 12/02/24 05:00 Nasal Cannula 3 12/02/24 04:00 Nasal Cannula 3 12/02/24 04:00 Nasal Cannula 3 12/02/24 03:00 Nasal Cannula 3 12/02/24 01:00 Nasal Cannula 3 12/02/24 00:00 Nasal Cannula 3 12/01/24 23:21 Nasal Cannula 3 12/01/24 23:00 Nasal Cannula 3 12/01/24 22:03 Nasal Cannula 3 12/01/24 21:52 Nasal Cannula 3 12/01/24 21:00 12/01/24 20:31 12/01/24 20:00 12/01/24 19:57 12/01/24 19:30 12/01/24 18:55 12/01/24 18:00 Nasal Cannula 2 12/01/24 17:56 Nasal Cannula 2 Intake and Output 12/01/24 12/02/24 12/02/24 23:59 07:59 15:59 Intake Total 0 / 0 Output Total 0 / 375 375 / 375 Balance 0 / -375 -375 / -375 Intake: Intake, Oral Amount 0 / 0 Output: Output, Urine Amount 0 / 375 375 / 375 Other: Number of Unmeasured Voids 0 Number of Bowel Movements 1 3 Weight 70.1 kg 70.1 kg Patient Weight 12/02/24 23:59 Weight 70.1 kg Laboratory Results - last 24 hr 12/01/24 17:24: NT-Pro-B Natriuret Pep 3330 H 12/01/24 17:27: WBC 10.0, RBC 3.66 L, Hgb 10.6 L, Hct 34.5 L, MCV 94.3 H, MCH 29.0, MCHC 30.7 L, RDW 16.2, Plt Count 172, MPV 11.1 H, Neut % (Auto) 81.1 H, Lymph % (Auto) 4.7 L, Phillips % (Auto) 13.8 H, Eos % (Auto) 0.0 L, Baso % (Auto) 0.1, Neut # (Auto) 8.1 H, Lymph # (Auto) 0.5 L, Phillips # (Auto) 1.4 H, Eos # (Auto) 0.0, Baso # (Auto) 0.0, Total Counted 100, Neutrophils % (Manual) 85 H, Lymphocytes % (Manual) 10, Monocytes % (Manual) 5, Platelet Estimate Normal, RBC Morphology Normal, PT 21.9 H, INR 2.08 H, Sodium 141, Potassium 3.8, Chloride 106, Carbon Dioxide 26, Anion Gap 12.8, BUN 63 H, Creatinine 2.30 H, Estimated Creat Clear 28, Estimated GFR 27 L, Est GFR ( Amer) 33 L, Glucose 152 H, Calcium 7.6 L, Phosphorus 5.2 H, Magnesium 2.6 H, Total Bilirubin 1.2, AST 28, ALT 17, Alkaline Phosphatase 68, Troponin I 0.04 H, Total Protein 5.8 L, Albumin 3.1 L, Globulin 2.7, Albumin/Globulin Ratio 1.1, Lipase 13 L 12/01/24 18:56: Stl C. cayetanensis PCR Not detected, Stool Rotavirus (PCR) Not detected, Stl Adenov F 40/41 PCR Not detected, Stool Astrovirus (PCR) Not detected, Stool Campylobacter PCR Not detected, Stl C.difficile Tox PCR Not detected, Stool Cryptosporidium PCR Not detected, Stl E.coli Shiga Tox PCR Not detected, Stool E coli O157 PCR Not detected, Stl Enterotoxigenic E PCR Not detected, Stool EPEC (PCR) Not detected, Stool EAEC (PCR) Not detected, Stl E. histolytica PCR Not detected, Stool Giardia Lamblia PCR Not detected, Stool Salmonella PCR Not detected, Stool Sapovirus (PCR) Not detected, Stl P. shigello ides PCR Not detected, Stl Shigella/EIEC PCR Not detected, St Y.enterocolitica PCR Not detected, Stool Vibrio (PCR) Not detected, Stl Vibrio cholerae PCR Not detected, Stl Norovirus GI/GII PCR Not detected 12/01/24 19:45: Urine Color Yellow, Urine Appearance Clear, Urine pH 6.5, Ur Specific [place] 1.025, Urine Protein 2+ A, Urine Glucose (UA) Negative, Urine Ketones 1+, Urine Blood 3+ A, Urine Nitrate Positive A, Urine Bilirubin 2+ A, Urine Urobilinogen 1.0, Ur Leukocyte Esterase 1+ A, Urine RBC Tntc, Ur Squamous Epith Cells 12/01/24 20:28: Lactate 1.5 12/01/24 21:25: Troponin I 0.03 12/02/24 00:50: Troponin I 0.03 12/02/24 05:53: WBC 9.5, RBC 4.02 L, Hgb 11.6 L, Hct 38.5 L, MCV 95.8 H, MCH 28.9, MCHC 30.1 L, RDW 16.4, Plt Count 146, MPV 11.2 H, Neut % (Auto) 81.4 H, Lymph % (Auto) 4.3 L, Phillips % (Auto) 13.8 H, Eos % (Auto) 0.0 L, Baso % (Auto) 0.2, Neut # (Auto) 7.7, Lymph # (Auto) 0.4 L, Phillips # (Auto) 1.3 H, Eos # (Auto) 0.0, Baso # (Auto) 0.0, Total Counted 100, Neutrophils % (Manual) 69, Band Neutrophils % 11 H, Lymphocytes % (Manual) 9 L, Monocytes % (Manual) 11 H, PT 14.9 H, INR 1.37 H, Sodium 142, Potassium 4.0, Chloride 107, Carbon Dioxide 22, Anion Gap 17.0 H, BUN 71 H, Creatinine 2.10 H, Estimated Creat Clear 24, Estimated GFR 30 L, Est GFR ( Amer) 36 L, Glucose 137 H, Lactate 1.6, Calcium 7.9 L, Magnesium 2.9 H D, Total Bilirubin 1.3, AST 68 H D, ALT 21, Alkaline Phosphatase 110, Total Protein 7.0, Albumin 3.9 D, Globulin 3.1, Albumin/Globulin Ratio 1.3 12/02/24 07:00: VBG pH 7.36, VBG pCO2 40.2, VBG pO2 55.8 H, VBG HCO3 22.0 L, VBG Total CO2 23.3, VBG O2 Saturation 87.1 H, VBG Base Excess -3.4 L, VBG Lactic Acid 2.3 H I & O for Labs for Last 24 Hours: Intake & Output 11/29/24 11/30/24 12/01/24 12/02/24 23:59 23:59 23:59 23:59 Intake Total 0 / 0 Output Total 375 / 375 Balance -375 / -375 Weight 70.1 kg 70.1 kg Constitutional: Present no acute distress, thin, chronically ill appearing and cooperative Head: Present atraumatic and normocephalic ENT: Present normal exam Respiratory: Present prolonged expiratory phase, crackles (Bilateral bases), normal respiratory effort and able to speak in complete sentences; Absent rhonchi or wheezes Cardiac: Present Reg Rate and Rhythm GI: Present soft and normal bowel sounds; Absent distention or tenderness Extremities: Present normal inspection and full ROM; Absent edema Skin: Present intact; Absent erythema Neuro: Present Grossly Intact, alert, awake and moves all extremities Comment:: Oriented to self and place Assessment and Plan *Assessment and plan (1) Pneumonia: Status: Acute Qualifiers: Laterality: right Lung location: lower lobe of lung Pneumonia type: due to unspecified organism Qualified Code(s): J18.9 - Pneumonia, unspecified organism Category: Medical Code(s): J18.9 - Pneumonia, unspecified organism (2) Dyspnea: Status: Acute Qualifiers: Dyspnea type: dyspnea on exertion Qualified Code(s): R06.00 - Dyspnea, unspecified Category: Medical Code(s): R06.00 - Dyspnea, unspecified (3) ZACK (acute kidney injury): Status: Acute Category: Medical Code(s): N17.9 - Acute kidney failure, unspecified (4) Failure to thrive: Status: Acute Qualifiers: Failure to thrive age range: in adult Qualified Code(s): R62.7 - Adult failure to thrive Category: Medical (5) Hematuria: Status: Acute Qualifiers: Hematuria type: gross Qualified Code(s): R31.0 - Gross hematuria Category: Medical Code(s): R31.9 - Hematuria, unspecified (6) Atrial fibrillation: Status: Chronic Qualifiers: Atrial fibrillation type: unspecified chronic Qualified Code(s): I48.20 - Chronic atrial fibrillation, unspecified Category: Medical Code(s): I48.91 - Unspecified atrial fibrillation (7) Heart failure with reduced ejection fraction: Status: Chronic Category: Medical Code(s): I50.20 - Unspecified systolic (congestive) heart failure (8) Gastroparesis: Status: Acute Category: Medical Code(s): K31.84 - Gastroparesis (9) Chronic anemia: Problem Comment: Due for CMP, CBC today as directed by his form worker. Status: Chronic Category: Medical Code(s): D64.9 - Anemia, unspecified (10) Hypotension: Problem Comment: Active follow-up with cardiology. Furosemide was discontinued and he was given a prescription for midodrine but currently not taking it. Status: Chronic Qualifiers: Hypotension type: other hypotension type Qualified Code(s): I95.89 - Other hypotension Category: Medical Code(s): I95.9 - Hypotension, unspecified (11) Altered mental status: Status: Acute Qualifiers: Altered mental status type: unspecified Qualified Code(s): R41.82 - Altered mental status, unspecified Category: Medical Code(s): R41.82 - Altered mental status, unspecified (12) Severe protein-calorie malnutrition: Status: Acute Category: Medical Code(s): E43 - Unspecified severe protein-calorie malnutrition Plan 89-year-old presents from nursing facility with shortness of breath. Found to have pneumonia. Also concerning for UTI associated with his catheter. Admitted for broad-spectrum antibiotics and continued monitoring. Cardiology and pulmonology consulted to assist with care. Continues to require inpatient management. Therapy evaluating today. Problems addressed as follows: Pneumonia UTI Encephalopathy - White count remains normal this morning at 9.5. Hemoglobin 11.6. - Given his enlarged prostate and concern for UTI, transition to Levaquin 750 mg every 48 hours renally dosed. - Cultures still pending. - Speech/swallow eval recommended per discussion with pulmonology. - Continue DuoNebs every 6 hours as needed. Continue supplemental oxygen for goal sats greater than 90%. - Metabolic encephalopathy due to infection. Seems to be improving today. - Per my review of CT abdomen, has severe prostatomegaly. HFrEF with BiV pacemaker in situ Chronic A-fib CAD with history of CABG in 1990, coronary stents placed in 2019 -Cardiology evaluated today. Patient has CardioMEMS in place since 2022. Holding diuretics due to acute on chronic renal insufficiency. BNP elevated but does not appear frankly overloaded. EF 45% on echo -Abnormal CTA with questionable chronic left atrial appendage thrombus -Continue Xarelto and add aspirin 81 mg daily -Consider outpatient KENDELL or outpatient CCTA in the future at cardiology recommendation - On imaging of chest, patient's thoracic aortic aneurysm appears stable at 4.1 to 4.2 cm. This is a known condition. Following with cardiology - Continue metoprolol tartrate 25 mg daily Chronic gastroparesis with tortuous esophagus - Speech to evaluate. Complicates patient's nutritional status. Losing weight because of this. CKD 3 - BUN 71, creatinine 2.1. Appears to be more or less at his baseline. Repeat CBC, CMP, magnesium ordered for the morning. Severe protein calorie malnutrition: Has documented weight loss. Evaluated by helper maintenance cleaning, patient has poor p.o. intake. Initiate protein supplementation. Albumin 3.1 on labs at admission DNR/DNI Soft mechanical diet Resume Xarelto renally dosed 15mg daily
[2024-12-02] MEDS: LEVOFLOXACIN/D5W 750 MG/150 ML 750 MG/150 ML PIGGYBACK 100 MG IV (11:34)
--- NOTE | 2024-12-02 12:21 | EXP.PULM.CON ---
History of Present Illness History of present illness: Mr. Lua is a 89-year-old male around less than [id number] smoking last more when he was 51 years old not using any inhalers or oxygen supplementation at baseline presented to the ER with worsening weakness and increasing oxygen requirements and pulmonary was called for further evaluation and management. [facility] Disclaimer: The information contained in this section may have been updated after the patient was seen, as this information can be updated by other users. Medical History (Updated 12/02/24 @ 13:08 by Jonas Woodard MD) Acute respiratory failure with hypoxia Aspiration pneumonia Altered mental status Failure to thrive Gastroparesis Chest congestion Dyspnea (HFpEF) heart failure with preserved ejection fraction History of pacemaker History of heart attack CHF (congestive heart failure) Abnormal breath sounds Bleeding nose Difficulty with speech Confusion TIA (transient ischemic attack) Surgical History Hx of CABG History of hernia repair History of esophagogastroduodenoscopy (EGD) History of cardiac catheterization History of colonoscopy History of permanent cardiac pacemaker placement Family History Other No significant family history Social History Smoking Status: Unknown if ever smoked second hand exposure: No alcohol intake: never substance use type: denies use current occupational status: retired Travel in the last 8 weeks?: None household members: none housing: house lives independently: Yes marital status: current occupational exposures/hazards: No caffeine: No special freddy needs: No agree to transfusion: No Review of Systems Constitutional Constitutional: Reports difficulty sleeping, Reports fatigue, Reports poor appetite, Reports lethargy and Reports weakness Eyes Eyes: Denies eye discharge, Denies dry eyes, Denies irritation and Denies itchy eyes ENT Ears, Nose, Mouth, and Throat: Reports abnormal hearing, Denies epistaxis, Denies facial pain, Denies lip swelling and Denies throat swelling *Cardiovascular Cardiovascular: Reports dyspnea and Reports dyspnea on exertion *Respiratory Respiratory: Denies change in phlegm color, Reports chest congestion, Reports cough, Reports dyspnea, Reports dyspnea on exertion, Denies excessive phlegm production, Denies hemoptysis, Denies pain on inspiration, Denies pain with cough and Denies wheezing *Gastrointestinal Gastrointestinal: Denies abdominal pain, Denies belching and Denies cramping *Musculoskeletal Musculoskeletal: Reports back pain, Reports myalgias and Reports other (No small joint swelling or Pain) *Neurologic Neurologic: Reports as per HPI, Reports abnormal hearing and Reports weakness Psychiatric Psychiatric: Denies homicidal ideation and Denies suicidal ideation Endocrine Endocrine: Reports fatigue and Denies heat intolerance Hematologic/Lymphatic Hematologic/Lymphatic: Denies easy bleeding and Denies lymphadenopathy Allergic/Immunologic Allergic/Immunologic: Denies itchy eyes, Denies lip swelling, Denies throat swelling and Denies wheezing Pulmonology Exam Inpatient Vital signs and Labs for Last 24 Hours: Temp Pulse Resp BP Pulse Ox O2 Del Method O2 Flow Rate 97.6 F 70 16 130/75 99 Nasal Cannula 3 12/02/24 08:00 12/02/24 08:00 12/02/24 08:00 12/02/24 08:00 12/02/24 08:00 12/02/24 10:58 12/02/24 10:58 Laboratory Results - last 24 hr 12/01/24 17:24: NT-Pro-B Natriuret Pep 3330 H 12/01/24 17:27: WBC 10.0, RBC 3.66 L, Hgb 10.6 L, Hct 34.5 L, MCV 94.3 H, MCH 29.0, MCHC 30.7 L, RDW 16.2, Plt Count 172, MPV 11.1 H, Neut % (Auto) 81.1 H, Lymph % (Auto) 4.7 L, [place] % (Auto) 13.8 H, Eos % (Auto) 0.0 L, Baso % (Auto) 0.1, Neut # (Auto) 8.1 H, Lymph # (Auto) 0.5 L, [place] # (Auto) 1.4 H, Eos # (Auto) 0.0, Baso # (Auto) 0.0, Total Counted 100, Neutrophils % (Manual) 85 H, Lymphocytes % (Manual) 10, Monocytes % (Manual) 5, Platelet Estimate Normal, RBC Morphology Normal, PT 21.9 H, INR 2.08 H, Sodium 141, Potassium 3.8, Chloride 106, Carbon Dioxide 26, Anion Gap 12.8, BUN 63 H, Creatinine 2.30 H, Estimated Creat Clear 28, Estimated GFR 27 L, Est GFR ( Amer) 33 L, Glucose 152 H, Calcium 7.6 L, Phosphorus 5.2 H, Magnesium 2.6 H, Total Bilirubin 1.2, AST 28, ALT 17, Alkaline Phosphatase 68, Troponin I 0.04 H, Total Protein 5.8 L, Albumin 3.1 L, Globulin 2.7, Albumin/Globulin Ratio 1.1, Lipase 13 L 12/01/24 18:56: Stl C. cayetanensis PCR Not detected, Stool Rotavirus (PCR) Not detected, Stl Adenov F 40/41 PCR Not detected, Stool Astrovirus (PCR) Not detected, Stool Campylobacter PCR Not detected, Stl C.difficile Tox PCR Not detected, Stool Cryptosporidium PCR Not detected, Stl E.coli Shiga Tox PCR Not detected, Stool E coli O157 PCR Not detected, Stl Enterotoxigenic E PCR Not detected, Stool EPEC (PCR) Not detected, Stool EAEC (PCR) Not detected, Stl E. histolytica PCR Not detected, Stool Giardia Lamblia PCR Not detected, Stool Salmonella PCR Not detected, Stool Sapovirus (PCR) Not detected, Stl P. shigelloides PCR Not detected, Stl Shigella/EIEC PCR Not detected, St Y.enterocolitica PCR Not detected, Stool Vibrio (PCR) Not detected, Stl Vibrio cholerae PCR Not detected, Stl Norovirus GI/GII PCR Not detected 12/01/24 19:45: Urine Color Yellow, Urine Appearance Clear, Urine pH 6.5, Ur Specific [place] 1.025, Urine Protein 2+ A, Urine Glucose (UA) Negative, Urine Ketones 1+, Urine Blood 3+ A, Urine Nitrate Positive A, Urine Bilirubin 2+ A, Urine Urobilinogen 1.0, Ur Leukocyte Esterase 1+ A, Urine RBC Tntc, Ur Squamous Epith Cells 12/01/24 20:28: Lactate 1.5 12/01/24 21:25: Troponin I 0.03 12/02/24 00:50: Troponin I 0.03 12/02/24 05:53: WBC 9.5, RBC 4.02 L, Hgb 11.6 L, Hct 38.5 L, MCV 95.8 H, MCH 28.9, MCHC 30.1 L, RDW 16.4, Plt Count 146, MPV 11.2 H, Neut % (Auto) 81.4 H, Lymph % (Auto) 4.3 L, [place] % (Auto) 13.8 H, Eos % (Auto) 0.0 L, Baso % (Auto) 0.2, Neut # (Auto) 7.7, Lymph # (Auto) 0.4 L, [place] # (Auto) 1.3 H, Eos # (Auto) 0.0, Baso # (Auto) 0.0, Total Counted 100, Neutrophils % (Manual) 69, Band Neutrophils % 11 H, Lymphocytes % (Manual) 9 L, Monocytes % (Manual) 11 H, PT 14.9 H, INR 1.37 H, Sodium 142, Potassium 4.0, Chloride 107, Carbon Dioxide 22, Anion Gap 17.0 H, BUN 71 H, Creatinine 2.10 H, Estimated Creat Clear 24, Estimated GFR 30 L, Est GFR ( Amer) 36 L, Glucose 137 H, Lactate 1.6, Calcium 7.9 L, Magnesium 2.9 H D, Total Bilirubin 1.3, AST 68 H D, ALT 21, Alkaline Phosphatase 110, Total Protein 7.0, Albumin 3.9 D, Globulin 3.1, Albumin/Globulin Ratio 1.3 12/02/24 07:00: VBG pH 7.36, VBG pCO2 40.2, VBG pO2 55.8 H, VBG HCO3 22.0 L, VBG Total CO2 23.3, VBG O2 Saturation 87.1 H, VBG Base Excess -3.4 L, VBG Lactic Acid 2.3 H I & O for Labs for Last 24 Hours: Intake & Output 11/29/24 11/30/24 12/01/24 12/02/24 23:59 23:59 23:59 23:59 Intake Total 0 / 0 Output Total 375 / 375 Balance -375 / -375 Weight 154 lb 8.705 oz 154 lb 8.705 oz Constitutional: Present severe distress Head: Present normocephalic and atraumatic ENT: Present normal exam, normal oropharynx and mucous membranes moist Neck: Present normal inspection and full ROM Respiratory: Present respiratory distress and able to speak in complete sentences; Absent prolonged expiratory phase, wheezes, distant breath sounds or diminished air movement Cardiac: Present S1/S2, Tachycardia and radial pulses present GI: Present soft and distention; Absent tenderness or guarding Skin: Present intact; Absent cyanosis or jaundice Neuro: Present awake; Absent alert or oriented x 3 Comment:: Lethargic, easily arousable and responding appropriately to verbal commands and question Extremities: Present normal inspection; Absent clubbing or cyanosis Psychiatric: Present normal affect and cooperative Meds Home Medications and Allergies Home Medications ?Medication ?Instructions ?Recorded ?Confirmed ?Type atorvastatin 40 mg tablet 40 mg PO HS Cholesterol 05/15/17 12/01/24 History tamsulosin 0.4 mg capsule 0.4 mg PO HS 05/15/17 12/01/24 History rivaroxaban 20 mg tablet (Xarelto) 20 mg PO QPMWITHMEAL 10/29/19 12/01/24 History anticoagulant/atrial fib alprazolam 0.25 mg tablet 0.25 mg PO BID 05/20/21 12/02/24 History Saccharomyces boulardii 250 mg 250 mg PO DAILY Supplement 07/28/22 12/01/24 History capsule (Probiotic (S.boulardii)) cholecalciferol (vitamin D3) 50 50 mcg PO DAILY Supplement 07/28/22 12/01/24 History mcg (2,000 unit) capsule acetaminophen 500 mg tablet 1,000 mg PO QIDP PRN Back Pain 07/29/22 12/02/24 History cetirizine 10 mg tablet 10 mg PO DAILY Allergy symptoms 07/29/22 12/01/24 History melatonin 5 mg tablet 5 mg PO HS sleep 07/29/22 12/01/24 History diphenhydramine-zinc acetate 2 0 applic topical BID 10 days #10 07/27/23 12/01/24 Rx %-0.1 % topical cream (Itch Relief) grams famotidine 20 mg tablet 20 mg PO BID 12/02/24 12/02/24 History gabapentin 100 mg capsule 100 mg PO DAILY 12/02/24 12/02/24 History lidocaine 4 % topical patch 1 patch topical DAILY Back Pain 12/02/24 12/02/24 History metoprolol tartrate 25 mg tablet 25 mg PO DAILY 12/02/24 12/02/24 History mirtazapine 7.5 mg tablet 7.5 mg PO HS 12/02/24 12/02/24 History omeprazole 20 mg capsule,delayed 20 mg PO DAILY 12/02/24 12/02/24 History release polyethylene glycol 3350 17 17 g PO DAILY 12/02/24 12/02/24 History gram/dose oral powder (Miralax) sennosides 8.6 mg-docusate sodium 2 tab-cap PO DAILYP PRN 12/02/24 12/02/24 History 50 mg tablet (Senna-S) Constipation therapeutic multivitamin 1 tab PO DAILY 12/02/24 12/02/24 History (Thera-Tabs tablet) New Prescriptions to Start Prescriptions: Allergies Allergy/AdvReac Type Severity Reaction Status Date / Time No Known Allergies Allergy Verified 12/01/24 18:20 Results Laboratory Findings 12/02/24 05:53 12/02/24 05:53 PT/INR, D-dimer PT 14.9 seconds (10.1-12.5) H 12/02/24 05:53 INR 1.37 (0.9-1.1) H 12/02/24 05:53 Abnormal lab findings: Abnormal Labs 12/01/24 12/01/24 12/01/24 17:24 17:27 19:45 RBC 3.66 L Hgb 10.6 L Hct 34.5 L MCV 94.3 H MCHC 30.7 L MPV 11.1 H Neut % (Auto) 81.1 H Lymph % (Auto) 4.7 L [place] % (Auto) 13.8 H Eos % (Auto) 0.0 L Neut # (Auto) 8.1 H Lymph # (Auto) 0.5 L [place] # (Auto) 1.4 H Neutrophils % (Manual) 85 H Band Neutrophils % Lymphocytes % (Manual) Monocytes % (Manual) PT 21.9 H INR 2.08 H VBG pO2 VBG HCO3 VBG O2 Saturation VBG Base Excess VBG Lactic Acid Anion Gap BUN 63 H Creatinine 2.30 H Estimated GFR 27 L Est GFR ( Amer) 33 L Glucose 152 H Calcium 7.6 L Phosphorus 5.2 H Magnesium 2.6 H AST Troponin I 0.04 H NT-Pro-B Natriuret Pep 3330 H Total Protein 5.8 L Albumin 3.1 L Lipase 13 L Urine Protein 2+ A Urine Blood 3+ A Urine Nitrate Positive A Urine Bilirubin 2+ A Ur Leukocyte Esterase 1+ A 12/02/24 12/02/24 05:53 07:00 RBC 4.02 L Hgb 11.6 L Hct 38.5 L MCV 95.8 H MCHC 30.1 L MPV 11.2 H Neut % (Auto) 81.4 H Lymph % (Auto) 4.3 L [place] % (Auto) 13.8 H Eos % (Auto) 0.0 L Neut # (Auto) Lymph # (Auto) 0.4 L [place] # (Auto) 1.3 H Neutrophils % (Manual) Band Neutrophils % 11 H Lymphocytes % (Manual) 9 L Monocytes % (Manual) 11 H PT 14.9 H INR 1.37 H VBG pO2 55.8 H VBG HCO3 22.0 L VBG O2 Saturation 87.1 H VBG Base Excess -3.4 L VBG Lactic Acid 2.3 H Anion Gap 17.0 H BUN 71 H Creatinine 2.10 H Estimated GFR 30 L Est GFR ( Amer) 36 L Glucose 137 H Calcium 7.9 L Phosphorus Magnesium 2.9 H D AST 68 H D Troponin I NT-Pro-B Natriuret Pep Total Protein Albumin Lipase Urine Protein Urine Blood Urine Nitrate Urine Bilirubin Ur Leukocyte Esterase Assessment and Plan *Assessment and plan (1) Aspiration pneumonia: Status: Acute Category: Medical Code(s): J69.0 - Pneumonitis due to inhalation of food and vomit (2) Acute respiratory failure with hypoxia: Status: Acute Category: Medical Code(s): J96.01 - Acute respiratory failure with hypoxia Plan Mr. Lua is a 89-year-old male around less than [id number] smoking last more when he was 51 years old not using any inhalers or oxygen supplementation at baseline presented to the ER with worsening weakness and increasing oxygen requirements and pulmonary was called for further evaluation and management. Afebrile. Hemodynamically stable. No evidence of leukocytosis. VBG from this morning did not show any evidence of hypercarbic respiratory failure CT abdomen concerning for Proctocolitis and also enlarged prostate CTA PE protocol, suboptimal secondary to motion artifact, no proximal pulmonary emboli noted. Distorted trachea with likely aspirated food. Likely right lower lobe atelectasis/aspiration pneumonia noted. Patient admits difficulty swallowing. Examination mild respiratory distress. Appears lethargic. Complains of back pain. Chest clear to auscultate. Plan: Aspiration precautions. Recommend speech and swallow evaluation. DuoNebs 4 times daily as needed Continue oxygen supplementation to maintain O2 saturation goal of 90% and above as tolerated. Given improving oxygen Will hold off on repeating CT PE protocol despite initial suboptimal study Continue levofloxacin pending final culture results. # Thank you for involving pulmonary in this patient care. Will continue to follow.
[2024-12-02] MEDS: ACETAMINOPHEN 325MG TAB 650 MG PO (12:24)
--- NOTE | 2024-12-02 14:13 | EXP.CARD.CON ---
History of Present Illness History of Present Illness Consult date: 12/02/24 Requesting physician: Terrell Harden Consult reason: known to you Chief complaint: diarrhea, abdominal pain Additional Medical History:: 1. CAD Hx of CABG.1990 YASMEEN in SVG to Ramus in 2017 and 2019 (patent SULLIVAN to LAD, SVG to 1st diagonal/OM) 2. Pulmonary HTN-stable. 3. A-fib-, paced, A/C with Xarelto. 4. NATALIE is present -20-49% bilateral ICA's (OCTOBER 2019). 5. CTA of chest showed mild fusiform dilatation of the ascending thoracic aorta through the level of the arch with a maximum diameter 4.2 cm. No evidence of dissection or leak, no further testing needed. 6. HFpEF-combined Lopez Bi-V pacemaker implanted 07/21/2023. D/L 10/2024, BiV paced >99%, 6 yrs of battery left. Echo EF of 45% CardioMEM 06/2023 see download in chart. 7. Hyperlipidemia LDL goal is < 55. LDL is 87 in 06/2023. On statin. 8. gastroparesis and neuroendocrine tumors- follows with [facility]- is unsure if malignant or benign 9. UTI/Sepsis, 11/2024 10. CVA, 2017 History of present illness: Mr. Mobley an 89-year-old [facility] patient, has had increased weakness no longer able to ambulate by himself blood in urine.. Also showing some confusion. After talking with the ER physician do agree there is potential for pneumonia specially right lower lung. Also blood in urine with possible UTI., Question some colitis with alternating constipation and diarrhea. Noting that the patient's H&H is also decreasing with significant amount of blood in urine after Meyers placed patient is on anticoagulation Question distal coronary artery bypass thing has had cath with extra stents has been in A-fib. Pacemaker has been placed believe it was changed to a dual chamber place maker in the past. Ejection fraction being in A-fib began to decrease from 52% down to 45% per notes. Also given a cardiac mems implant.. Patient now requiring oxygen which she normally just wears at night. Patient does have sleep apnea but never adjusted to mask and never wears it. Notes began to list congestive heart failure in 2021 and now also some gastroparesis. Will go ahead and admit the patient after talking the ER provider provide oxygen. Try to tune the patient up balance any fluid needs. Meyers catheter with blood may need to adjust anticoagulation. Consult cardiology to look at the cardiac mems and to adjust any medication as able. Patient is a DNR but will keep on monitor and pulse ox while on the floor.. Noting ER has started Rocephin and Flagyl questioning whether the patient was developing sepsis, and noting that the BNP is greater than 3000 troponin was only at 0.04 but will continue to monitor. The above per Daniel Connors APRN for the hospitalist service. Cardiology asked to see the patient due to long time cardiac patient. Patient denies any specific cardiac complaints at this time. Troponins this admission are normal. BNP is elevated at 3330 which may be likely due to his possible pneumonia. Daughter is present in the room and helps give information since patient still has some confusion at times. CTA of the chest pertinent for possible pneumonia in the right lung, questionable filling defect in the left atrial appendage with differential diagnosis concerning for thrombus and mucoid material within the trachea with concern for aspiration. No pulmonary emboli noted. CT of the abdomen pelvis shows severe acute proctocolitis, moderate reactive ileus and suspected early pneumonia in the right lung base. Severe prostamegaly (prostate volume 138 cc) With component of urinary retention noted. Echo this admission shows EF 45% with asynchronous septum, biatrial dilation, mild to moderate IN, mild MR/TR. Ascending aorta measures 4.1 cm. [facility] Disclaimer: The information contained in this section may have been updated after the patient was seen, as this information can be updated by other users. Medical History (Updated 12/02/24 @ 14:59 by SAMUEL Martino) Acute respiratory failure with hypoxia Aspiration pneumonia Altered mental status Failure to thrive Gastroparesis Chest congestion Dyspnea (HFpEF) heart failure with preserved ejection fraction History of pacemaker History of heart attack CHF (congestive heart failure) Abnormal breath sounds Bleeding nose Difficulty with speech Confusion TIA (transient ischemic attack) Surgical History Hx of CABG History of hernia repair History of esophagogastroduodenoscopy (EGD) History of cardiac catheterization History of colonoscopy History of permanent cardiac pacemaker placement Family History Other No significant family history Social History Smoking Status: Unknown if ever smoked second hand exposure: No alcohol intake: never substance use type: denies use current occupational status: retired Travel in the last 8 weeks?: None household members: none housing: house lives independently: Yes marital status: current occupational exposures/hazards: No caffeine: No special freddy needs: No agree to transfusion: No Review of Systems Review of Systems Review of systems:: pertinent systems reviewed and negative unless documented below Constitutional Constitutional: Reports weakness ENT Ears, Nose, Mouth, and Throat: Reports abnormal hearing *Cardiovascular Cardiovascular: Denies chest pain and Reports dyspnea on exertion *Respiratory Respiratory: Reports cough and Reports dyspnea on exertion *Gastrointestinal Gastrointestinal: Reports loose stools, Reports nausea and Denies vomiting *Neurologic Neurologic: Reports as per HPI, Reports abnormal hearing and Reports weakness Exam Data for Last 24 hours Vital signs and Labs for Last 24 Hours: Temp Pulse Resp BP Pulse Ox O2 Del Method O2 Flow Rate 97.7 F 70 20 119/73 96 Nasal Cannula 1 12/02/24 12:00 12/02/24 12:00 12/02/24 12:00 12/02/24 12:00 12/02/24 13:29 12/02/24 13:29 12/02/24 13:29 Laboratory Results - last 24 hr 12/01/24 17:24: NT-Pro-B Natriuret Pep 3330 H 12/01/24 17:27: WBC 10.0, RBC 3.66 L, Hgb 10.6 L, Hct 34.5 L, MCV 94.3 H, MCH 29.0, MCHC 30.7 L, RDW 16.2, Plt Count 172, MPV 11.1 H, Neut % (Auto) 81.1 H, Lymph % (Auto) 4.7 L, [place] % (Auto) 13.8 H, Eos % (Auto) 0.0 L, Baso % (Auto) 0.1, Neut # (Auto) 8.1 H, Lymph # (Auto) 0.5 L, [place] # (Auto) 1.4 H, Eos # (Auto) 0.0, Baso # (Auto) 0.0, Total Counted 100, Neutrophils % (Manual) 85 H, Lymphocytes % (Manual) 10, Monocytes % (Manual) 5, Platelet Estimate Normal, RBC Morphology Normal, PT 21.9 H, INR 2.08 H, Sodium 141, Potassium 3.8, Chloride 106, Carbon Dioxide 26, Anion Gap 12.8, BUN 63 H, Creatinine 2.30 H, Estimated Creat Clear 28, Estimated GFR 27 L, Est GFR ( Amer) 33 L, Glucose 152 H, Calcium 7.6 L, Phosphorus 5.2 H, Magnesium 2.6 H, Total Bilirubin 1.2, AST 28, ALT 17, Alkaline Phosphatase 68, Troponin I 0.04 H, Total Protein 5.8 L, Albumin 3.1 L, Globulin 2.7, Albumin/Globulin Ratio 1.1, Lipase 13 L 12/01/24 18:56: Stl C. cayetanensis PCR Not detected, Stool Rotavirus (PCR) Not detected, Stl Adenov F 40/41 PCR Not detected, Stool Astrovirus (PCR) Not detected, Stool Campylobacter PCR Not detected, Stl C.difficile Tox PCR Not detected, Stool Cryptosporidium PCR Not detected, Stl E.coli Shiga Tox PCR Not detected, Stool E coli O157 PCR Not detected, Stl Enterotoxigenic E PCR Not detected, Stool EPEC (PCR) Not detected, Stool EAEC (PCR) Not detected, Stl E. histolytica PCR Not detected, Stool Giardia Lamblia PCR Not detected, Stool Salmonella PCR Not detected, Stool Sapovirus (PCR) Not detected, Stl P. shigelloides PCR Not detected, Stl Shigella/EIEC PCR Not detected, St Y.enterocolitica PCR Not detected, Stool Vibrio (PCR) Not detected, Stl Vibrio cholerae PCR Not detected, Stl Norovirus GI/GII PCR Not detected 12/01/24 19:45: Urine Color Yellow, Urine Appearance Clear, Urine pH 6.5, Ur Specific [place] 1.025, Urine Protein 2+ A, Urine Glucose (UA) Negative, Urine Ketones 1+, Urine Blood 3+ A, Urine Nitrate Positive A, Urine Bilirubin 2+ A, Urine Urobilinogen 1.0, Ur Leukocyte Esterase 1+ A, Urine RBC Tntc, Ur Squamous Epith Cells 12/01/24 20:28: Lactate 1.5 12/01/24 21:25: Troponin I 0.03 12/02/24 00:50: Troponin I 0.03 12/02/24 05:53: WBC 9.5, RBC 4.02 L, Hgb 11.6 L, Hct 38.5 L, MCV 95.8 H, MCH 28.9, MCHC 30.1 L, RDW 16.4, Plt Count 146, MPV 11.2 H, Neut % (Auto) 81.4 H, Lymph % (Auto) 4.3 L, [place] % (Auto) 13.8 H, Eos % (Auto) 0.0 L, Baso % (Auto) 0.2, Neut # (Auto) 7.7, Lymph # (Auto) 0.4 L, [place] # (Auto) 1.3 H, Eos # (Auto) 0.0, Baso # (Auto) 0.0, Total Counted 100, Neutrophils % (Manual) 69, Band Neutrophils % 11 H, Lymphocytes % (Manual) 9 L, Monocytes % (Manual) 11 H, PT 14.9 H, INR 1.37 H, Sodium 142, Potassium 4.0, Chloride 107, Carbon Dioxide 22, Anion Gap 17.0 H, BUN 71 H, Creatinine 2.10 H, Estimated Creat Clear 24, Estimated GFR 30 L, Est GFR ( Amer) 36 L, Glucose 137 H, Lactate 1.6, Calcium 7.9 L, Magnesium 2.9 H D, Total Bilirubin 1.3, AST 68 H D, ALT 21, Alkaline Phosphatase 110, Total Protein 7.0, Albumin 3.9 D, Globulin 3.1, Albumin/Globulin Ratio 1.3 12/02/24 07:00: VBG pH 7.36, VBG pCO2 40.2, VBG pO2 55.8 H, VBG HCO3 22.0 L, VBG Total CO2 23.3, VBG O2 Saturation 87.1 H, VBG Base Excess -3.4 L, VBG Lactic Acid 2.3 H I & O for Last 24 hours: Intake & Output 11/30/24 12/01/24 12/02/24 12/03/24 11:59 11:59 11:59 11:59 Intake Total 480 / 480 738 / 738 Output Total 375 / 375 Balance 105 / 105 738 / 738 Weight 154 lb 8.705 oz Constitutional Constitutional: no acute distress *Routine Respiratory Exam Respiratory: Present decreased breath sounds and crackles; Absent wheezes *Routine Cardiovascular Exam Cardiovascular: Present RRR; Absent murmur, gallop or rubs *Routine Extremities Exam Extremities: Absent edema Meds Home Medications and Allergies Home Medications ?Medication ?Instructions ?Recorded ?Confirmed ?Type atorvastatin 40 mg tablet 40 mg PO HS Cholesterol 05/15/17 12/01/24 History tamsulosin 0.4 mg capsule 0.4 mg PO HS 05/15/17 12/01/24 History rivaroxaban 20 mg tablet (Xarelto) 20 mg PO QPMWITHMEAL 10/29/19 12/01/24 History anticoagulant/atrial fib alprazolam 0.25 mg tablet 0.25 mg PO BID 05/20/21 12/02/24 History Saccharomyces boulardii 250 mg 250 mg PO DAILY Supplement 07/28/22 12/01/24 History capsule (Probiotic (S.boulardii)) cholecalciferol (vitamin D3) 50 50 mcg PO DAILY Supplement 07/28/22 12/01/24 History mcg (2,000 unit) capsule acetaminophen 500 mg tablet 1,000 mg PO QIDP PRN Back Pain 07/29/22 12/02/24 History cetirizine 10 mg tablet 10 mg PO DAILY Allergy symptoms 07/29/22 12/01/24 History melatonin 5 mg tablet 5 mg PO HS sleep 07/29/22 12/01/24 History diphenhydramine-zinc acetate 2 0 applic topical BID 10 days #10 07/27/23 12/01/24 Rx %-0.1 % topical cream (Itch Relief) grams famotidine 20 mg tablet 20 mg PO BID 12/02/24 12/02/24 History gabapentin 100 mg capsule 100 mg PO DAILY 12/02/24 12/02/24 History lidocaine 4 % topical patch 1 patch topical DAILY Back Pain 12/02/24 12/02/24 History metoprolol tartrate 25 mg tablet 25 mg PO DAILY 12/02/24 12/02/24 History mirtazapine 7.5 mg tablet 7.5 mg PO HS 12/02/24 12/02/24 History omeprazole 20 mg capsule,delayed 20 mg PO DAILY 12/02/24 12/02/24 History release polyethylene glycol 3350 17 17 g PO DAILY 12/02/24 12/02/24 History gram/dose oral powder (Miralax) sennosides 8.6 mg-docusate sodium 2 tab-cap PO DAILYP PRN 12/02/24 12/02/24 History 50 mg tablet (Senna-S) Constipation therapeutic multivitamin 1 tab PO DAILY 12/02/24 12/02/24 History (Thera-Tabs tablet) New Prescriptions to Start Prescriptions: Allergies Allergy/AdvReac Type Severity Reaction Status Date / Time No Known Allergies Allergy Verified 12/01/24 18:20 Assessment and Plan *Assessment and plan (1) Sepsis: Status: Acute Qualifiers: Sepsis type: sepsis due to unspecified organism Severe sepsis acute organ dysfunction type: unspecified Severe sepsis shock status: without septic shock Category: Medical Code(s): A41.9 - Sepsis, unspecified organism (2) Altered mental status: Status: Acute Qualifiers: Altered mental status type: unspecified Qualified Code(s): R41.82 - Altered mental status, unspecified Category: Medical Code(s): R41.82 - Altered mental status, unspecified (3) Acute respiratory failure with hypoxia: Status: Acute Category: Medical Code(s): J96.01 - Acute respiratory failure with hypoxia (4) Pneumonia: Status: Acute Qualifiers: Pneumonia type: due to unspecified organism Laterality: right Lung location: lower lobe of lung Qualified Code(s): J18.9 - Pneumonia, unspecified organism Category: Medical Code(s): J18.9 - Pneumonia, unspecified organism (5) On anticoagulant therapy: Status: Chronic Category: Medical Code(s): Z79.01 - exterminator termite (current) use of anticoagulants (6) Cardiac pacemaker in situ: Status: Chronic Category: Medical Code(s): Z95.0 - Presence of cardiac pacemaker (7) Atrial fibrillation: Status: Chronic Qualifiers: Atrial fibrillation type: unspecified chronic Qualified Code(s): I48.20 - Chronic atrial fibrillation, unspecified Category: Medical Code(s): I48.91 - Unspecified atrial fibrillation (8) Thoracic aortic aneurysm: Status: Chronic Qualifiers: Presence of rupture: without rupture Qualified Code(s): I71.2 - Thoracic aortic aneurysm, without rupture Category: Medical Code(s): I71.20 - Thoracic aortic aneurysm, without rupture, unspecified (9) CARLOS (obstructive sleep apnea): Problem Comment: Moderate CARLOS (AHI 20). Intolerance to CPAP, Bipap, numerous masks, numerous headgears. Discontinued therapy. Did not meet requirements for nocturnal oxygen supplementation. Oxygen supplementation prescribed by PCP after a low in office SPO2 (according to daughter). Status: Chronic Category: Medical Code(s): G47.33 - Obstructive sleep apnea (adult) (pediatric) (10) CKD (chronic kidney disease) stage 3, GFR 30-59 ml/min: Status: Acute Qualifiers: Chronic kidney disease stage 3 subtype: stage 3b (GFR 30-44) Qualified Code(s): N18.32 - Chronic kidney disease, stage 3b Category: Medical Code(s): N18.30 - Chronic kidney disease, stage 3 unspecified Plan 1. UTI/sepsis/altered mental status -IV levofloxacin -Cultures pending -Severe prostatomegaly on abdominal/pelvis CTA 2. Pneumonia with acute respiratory failure/hypoxia -On oxygen -Pulmonary consulted 3. HFrEF with BiV pacemaker in situ -BNP 3330 with chest x-ray evidence of small right pleural effusion and combination of atelectasis/pneumonia, R lung base -EF 45% this admission -Patient has CardioMEMS in place since 2022 -Holding diuretics due to acute on chronic renal insufficiency 4. Chronic atrial fibrillation -Abnormal CTA with questionable chronic left atrial appendage thrombus -Continue Xarelto and add aspirin 81 mg daily -Consider outpatient KENDELL or outpatient CCTA in the future 5. Chronic gastroparesis, now with acute proctocolitis and moderate reactive ileus -Defer to hospitalist 6. CKD, stage III with chronic mild anemia in the 10-12 range -Baseline creatinine 1.7 with GFR 38 in July 2023 -Currently 2.1 with GFR 30 7. Liver cysts on abdominal CTA with normal liver functions -INR 2.08 on admission (likely related to Xarelto use but question clinical significance) 8. CAD with history of CABG (1990) and coronary stenting (2019) 9. Known ascending thoracic aorta, stable at 4.1-4.2 cm. Continue metoprolol for rate control Continue Xarelto for A-fib Add aspirin 81 mg daily No plans for further procedures or intervention at this time. Will follow with you.
--- NOTE | 2024-12-02 17:42 | PC.NURSE ---
PT IS RESTING IN BED WITH FAMILY AT BEDSIDE. ALERT AND ORIENTED X3. APPETITE HAS BEEN POOR. LUNG SOUNDS DIMINISHED. ABDOMEN SOFT WITH LUQ TENDERNESS NOTED. REDNESS NOTED TO BUTTOCKS AND OZZIE AREA. O2 SATURATION HAS MAINTAINED 92-96% ON 1 L NC. MEDICATED PER MAR WITH TYLENOL FOR BACK DISCOMFORT. TOLERATED SITTING UP IN THE CHAIR FOR SEVERAL HOURS THIS SHIFT. CARLOS DRAINING DARK/ANATOLY URINE. WILL CONTINUE TO MONITOR.
[2024-12-02] MEDS: TAMSULOSIN 0.4MG CAPSULE 0.4 MG PO (21:11)
[2024-12-02] MEDS: FAMOTIDINE 20MG TABLET 20 MG PO (21:11)
[2024-12-02] MEDS: MIRTAZAPINE 15 MG TABLET 7.5 MG PO (21:11)
--- NOTE | 2024-12-02 21:59 | CA_ITS ---
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 6.40 mmHg Mitral Valve MV E Max Arias. 97.0 (40-130 cm/s) MV A Velocity 26.0 (40-130 cm/s) E/A Ratio 3.69 MV PHT 60.0 ms Pulmonary Valve PV Peak Velocity 170.0 (50-150 cm/s) Tricuspid Valve TR P. Velocity 282.00 cm/s RAP Estimate 10.00 mmHg RVSP 41.70 mmHg Left Ventricle The left ventricle is normal size. Left ventricular systolic function is mildly reduced. There is increased left ventricular wall thickness. The septum is asynchronous. The left ventricular diastolic function is indeterminate. No left ventricle apical thrombus noted on this study. LVEF is 45% Right Ventricle The right ventricle is not well visualized, but grossly appears normal in size and function. Atria The left atrium is moderately dilated. The right atrium is moderately dilated. There is no color Doppler evidence of interatrial shunt. Aortic Valve The aortic valve is mildly thickened. There is no hemodynamically significant aortic valvular stenosis. Trace aortic regurgitation is present. Mitral Valve The mitral valve is mildly thickened. No evidence of mitral valve stenosis. Mild mitral regurgitation is present. Tricuspid Valve The tricuspid valve leaflets are thin and pliable. Mild tricuspid regurgitation. RVSP is 30-35 mmHg. Pulmonic Valve The pulmonary valve is grossly normal in structure. Mild to moderate pulmonic valve regurgitation is present. Great Vessels The aortic root is normal in size. The ascending aorta is mildly dilated, measuring 4.1 cm in diameter. IVC is normal in size and collapses >50% with inspiration. Pericardium There is no pericardial effusion. Other Information Study Quality: Fair Conclusion Mildly reduced LV systolic function (LVEF 45%). Asynchronous septum. Biatrial dilation. Mild to moderate RI. Mild MR, mild TR. The ascending aorta is mildly dilated, measuring 4.1 cm in diameter. Correlation with new or recent CTA chest is suggested. Electronically signed by : Kristy Robledo MD 12/02/2024 08:38:02
[2024-12-03] VITALS (7 sets, daily range): BP systolic 127–157; BP diastolic 69–86; PULSE 66–74; RESP 16–20; TEMP 36.4–36.7; O2SAT 91–100; BMI 21.7
--- NOTE | 2024-12-03 06:28 | PC.NURSE ---
v/s, alert to self and place only, pt on 1LNC-RA. No acute events to report. Plan of care ongoing.
[2024-12-03 06:30] LABS: Albumin Level 3.8 g/dl (3.5-5.0); Chloride 106 mmol/L (98-107); Sodium 140 mmol/L (136-145)
[2024-12-03 06:31] LABS: Hematocrit 36.9 % (42.0-52.0); Hemoglobin 11.6 g/dL (14.1-18.0); Immature Granulocytes % 0.4 %; Mean Corpuscular HGB Conc 31.4 g/dL (31.8-35.4); Mean Corpuscular Hemoglobin 30.7 pg (27.0-31.2); Mean Corpuscular Volume 97.6 fl (80-94); Nucleated Red Blood Cells % 0 %; Platelet Count 125 K/mm3 (142-424); Potassium 3.7 mmoL/L (3.5-5.1); Red Blood Count 3.78 M/mm3 (4.60-6.20); Red Cell Distribution Width-SD 57.5 fL; White Blood Count 6.7 K/mm3 (4.8-10.8)
[2024-12-03 06:33] LABS: Alanine Aminotransferase 19 U/L (12-78); Albumin/Globulin Ratio 1.2 (1.1-1.8); Alkaline Phosphatase 81 U/L (38-126); Anion Gap 14.7 mEq/L (5-15); Aspartate Amino Transferase 40 U/L (17-59); Bilirubin,Total 0.9 mg/dl (0.2-1.3); Blood Urea Nitrogen 69 mg/dl (9-20); Carbon Dioxide 23 mmol/L (22.0-30.0); Creatinine Clearance Estimated 36 mL/min (50-200); Creatinine,Serum 1.40 mg/dl (0.66-1.25); Estimated Glomerular Filt Rate 48 ml/min (>60); GFR (African American) 58 ML/MIN (>60); Globulin 3.1 g/dL (1.3-3.2); Total Protein,Serum 6.9 g/dl (6.3-8.2)
[2024-12-03 06:34] LABS: Calcium 8.7 mg/dl (8.4-10.2); Glucose 127 mg/dl (74-100); Magnesium 2.9 mg/dl (1.6-2.3)
[2024-12-03] MEDS: ACETAMINOPHEN 325MG TAB 650 MG PO (06:36)
[2024-12-03 07:12] LABS: Total Cells Counted 100
[2024-12-03 07:13] LABS: RBC Morphology Normal
[2024-12-03] MEDS: METOPROLOL TARTRATE 25MG TABLET 25 MG PO (08:20)
[2024-12-03] MEDS: ASPIRIN 81MG CHEWABLE TABLET 81 MG PO (08:20)
[2024-12-03] MEDS: DOCUSATE SODIUM 100 MG CAPSULE PO (08:20)
[2024-12-03] MEDS: POLYETHYLENE GLYCOL 3350 238GM POWDER 17 GM PO (08:21)
--- NOTE | 2024-12-03 08:23 | P.PN_ITS ---
Subjective Subjective Date: 12/03/24 Time: 08:23 Principal diagnosis: UTI, sepsis Interval history: 89 yo WM in bed in NAD. Still slightly confused but pleasant. Exam Data for Last 24 hours Vital signs and Labs for Last 24 Hours: Temp Pulse Resp BP Pulse Ox O2 Del Method O2 Flow Rate 97.7 F 73 16 155/82 H 96 Nasal Cannula 1 12/03/24 07:51 12/03/24 07:51 12/03/24 07:51 12/03/24 07:51 12/03/24 07:51 12/03/24 07:51 12/03/24 07:51 Laboratory Results - last 24 hr 12/03/24 05:29: WBC 6.7 D, RBC 3.78 L, Hgb 11.6 L, Hct 36.9 L, MCV 97.6 H, MCH 30.7, MCHC 31.4 L, RDW 16.3, Plt Count 125 L, MPV 11.2 H, Neut % (Auto) 78.7, Lymph % (Auto) 6.7 L, [place] % (Auto) 13.8 H, Eos % (Auto) 0.3, Baso % (Auto) 0.1, Neut # (Auto) 5.3, Lymph # (Auto) 0.5 L, [place] # (Auto) 0.9, Eos # (Auto) 0.0, Baso # (Auto) 0.0, Total Counted 100, Neutrophils % (Manual) 79 H, Band Neutrophils % 1.0, Lymphocytes % (Manual) 20, Platelet Estimate Normal, RBC Morphology Normal, Sodium 140, Potassium 3.7, Chloride 106, Carbon Dioxide 23, Anion Gap 14.7, BUN 69 H, Creatinine 1.40 H D, Estimated Creat Clear 36, Estimated GFR 48 L, Est GFR ( Amer) 58 L D, Glucose 127 H, Calcium 8.7, Magnesium 2.9 H, Total Bilirubin 0.9, AST 40 D, ALT 19, Alkaline Phosphatase 81, Total Protein 6.9, Albumin 3.8, Globulin 3.1, Albumin/Globulin Ratio 1.2 I & O for Last 24 hours: Intake & Output 11/30/24 12/01/24 12/02/24 12/03/24 11:59 11:59 11:59 11:59 Intake Total 480 / 480 1338 / 1338 Output Total 375 / 375 275 / 275 Balance 105 / 105 1063 / 1063 Weight 154 lb 8.705 oz 155 lb Microbiology Reports for the Last 24 Hours: Microbiology 12/01/24 20:46 Blood Blood Culture - Preliminary NO GROWTH AFTER 24 HOURS 12/01/24 20:26 Blood Blood Culture - Preliminary NO GROWTH AFTER 24 HOURS Constitutional Constitutional: no acute distress *Routine Respiratory Exam Respiratory: Present CTA bilaterally *Routine Cardiovascular Exam Cardiovascular: Present RRR; Absent murmur, gallop or rubs *Routine Extremities Exam Extremities: Absent edema *Routine Neurological Exam Neurological: Present alert Comments: confused Progress Note: A&P Assessment and plan (1) Pneumonia: Status: Acute (2) Dyspnea: Status: Acute (3) ZACK (acute kidney injury): Status: Acute (4) Failure to thrive: Status: Acute (5) Hematuria: Status: Acute (6) Atrial fibrillation: Status: Chronic (7) Heart failure with reduced ejection fraction: Status: Chronic (8) Gastroparesis: Status: Acute (9) Chronic anemia: Problem details: Due for CMP, CBC today as directed by his core winding operator. Status: Chronic (10) Hypotension: Problem details: Active follow-up with cardiology. Furosemide was discontinued and he was given a prescription for midodrine but currently not taking it. Status: Chronic (11) Altered mental status: Status: Acute (12) Severe protein-calorie malnutrition: Status: Acute Assessment and Plan Assessment and Plan for All Diagnoses:: 1. UTI/sepsis/altered mental status -IV levofloxacin -Cultures pending, no growth so far -Severe prostatomegaly on abdominal/pelvis CTA 2. Aspiration Pneumonia with acute respiratory failure/hypoxia -On oxygen -Pulmonary following -swallowing eval pending 3. HFrEF with BiV pacemaker in situ -BNP 3330 with chest x-ray evidence of small right pleural effusion and combination of atelectasis/pneumonia, R lung base -EF 45% this admission -Patient has CardioMEMS in place since 2022 -Holding diuretics due to acute on chronic renal insufficiency 4. Chronic atrial fibrillation -continue metoprolol for rate control -Abnormal CTA with questionable chronic left atrial appendage thrombus -Continue Xarelto and add aspirin 81 mg daily -Consider outpatient KENDELL or outpatient CCTA in the future 5. Chronic gastroparesis, now with acute proctocolitis and moderate reactive ileus -Defer to hospitalist 6. CKD, stage III with chronic mild anemia in the 10-12 range -Baseline creatinine 1.7 with GFR 38 in July 2023 -Currently 2.1 with GFR 30 7. Liver cysts on abdominal CTA with normal liver functions -INR 2.08 on admission (likely related to Xarelto use but question clinical significance) 8. CAD -history of CABG (1990) and coronary stenting (2019) -on ASA, metoprolol and statin 9. Known ascending thoracic aorta -stable at 4.1-4.2 cm. Will talk to daughter to see what CardioMEMS reading was compared to elevated BNP Nothing new to add at this time.
--- NOTE | 2024-12-03 09:38 | P.PN_ITS ---
Subjective *Date: 12/03/24 *Time: 10:29 Interval history: No acute respiratory events overnight. Patient denies any new respiratory complaints. Pulmonology Exam Inpatient Vital signs and Labs for Last 24 Hours: Temp Pulse Resp BP Pulse Ox O2 Del Method O2 Flow Rate 97.7 F 73 16 155/82 H 96 Room Air 1 12/03/24 07:51 12/03/24 07:51 12/03/24 07:51 12/03/24 07:51 12/03/24 07:51 12/03/24 09:00 12/03/24 08:00 Laboratory Results - last 24 hr 12/03/24 05:29: WBC 6.7 D, RBC 3.78 L, Hgb 11.6 L, Hct 36.9 L, MCV 97.6 H, MCH 30.7, MCHC 31.4 L, RDW 16.3, Plt Count 125 L, MPV 11.2 H, Neut % (Auto) 78.7, Lymph % (Auto) 6.7 L, [place] % (Auto) 13.8 H, Eos % (Auto) 0.3, Baso % (Auto) 0.1, Neut # (Auto) 5.3, Lymph # (Auto) 0.5 L, [place] # (Auto) 0.9, Eos # (Auto) 0.0, Baso # (Auto) 0.0, Total Counted 100, Neutrophils % (Manual) 79 H, Band Neutrophils % 1.0, Lymphocytes % (Manual) 20, Platelet Estimate Normal, RBC Morphology Normal, Sodium 140, Potassium 3.7, Chloride 106, Carbon Dioxide 23, Anion Gap 14.7, BUN 69 H, Creatinine 1.40 H D, Estimated Creat Clear 36, Estimated GFR 48 L, Est GFR ( Amer) 58 L D, Glucose 127 H, Calcium 8.7, Magnesium 2.9 H, Total Bilirubin 0.9, AST 40 D, ALT 19, Alkaline Phosphatase 81, Total Protein 6.9, Albumin 3.8, Globulin 3.1, Albumin/Globulin Ratio 1.2 Temp Pulse Resp BP Pulse Ox O2 Del Method O2 Flow Rate 97.6 F 70 16 130/75 99 Nasal Cannula 3 12/02/24 08:00 12/02/24 08:00 12/02/24 08:00 12/02/24 08:00 12/02/24 08:00 12/02/24 10:58 12/02/24 10:58 Laboratory Results - last 24 hr 12/01/24 17:24: NT-Pro-B Natriuret Pep 3330 H 12/01/24 17:27: WBC 10.0, RBC 3.66 L, Hgb 10.6 L, Hct 34.5 L, MCV 94.3 H, MCH 29.0, MCHC 30.7 L, RDW 16.2, Plt Count 172, MPV 11.1 H, Neut % (Auto) 81.1 H, Lymph % (Auto) 4.7 L, [place] % (Auto) 13.8 H, Eos % (Auto) 0.0 L, Baso % (Auto) 0.1, Neut # (Auto) 8.1 H, Lymph # (Auto) 0.5 L, [place] # (Auto) 1.4 H, Eos # (Auto) 0.0, Baso # (Auto) 0.0, Total Counted 100, Neutrophils % (Manual) 85 H, Lymphocytes % (Manual) 10, Monocytes % (Manual) 5, Platelet Estimate Normal, RBC Morphology Normal, PT 21.9 H, INR 2.08 H, Sodium 141, Potassium 3.8, Chloride 106, Carbon Dioxide 26, Anion Gap 12.8, BUN 63 H, Creatinine 2.30 H, Estimated Creat Clear 28, Estimated GFR 27 L, Est GFR ( Amer) 33 L, Glucose 152 H, Calcium 7.6 L, Phosphorus 5.2 H, Magnesium 2.6 H, Total Bilirubin 1.2, AST 28, ALT 17, Alkaline Phosphatase 68, Troponin I 0.04 H, Total Protein 5.8 L, Albumin 3.1 L, Globulin 2.7, Albumin/Globulin Ratio 1.1, Lipase 13 L 12/01/24 18:56: Stl C. cayetanensis PCR Not detected, Stool Rotavirus (PCR) Not detected, Stl Adenov F 40/41 PCR Not detected, Stool Astrovirus (PCR) Not detected, Stool Campylobacter PCR Not detected, Stl C.difficile Tox PCR Not detected, Stool Cryptosporidium PCR Not detected, Stl E.coli Shiga Tox PCR Not detected, Stool E coli O157 PCR Not detected, Stl Enterotoxigenic E PCR Not detected, Stool EPEC (PCR) Not detected, Stool EAEC (PCR) Not detected, Stl E. histolytica PCR Not detected, Stool Giardia Lamblia PCR Not detected, Stool Salmonella PCR Not detected, Stool Sapovirus (PCR) Not detected, Stl P. shigelloides PCR Not detected, Stl Shigella/EIEC PCR Not detected, St Y.enterocolitica PCR Not detected, Stool Vibrio (PCR) Not detected, Stl Vibrio cholerae PCR Not detected, Stl Norovirus GI/GII PCR Not detected 12/01/24 19:45: Urine Color Yellow, Urine Appearance Clear, Urine pH 6.5, Ur Specific [place] 1.025, Urine Protein 2+ A, Urine Glucose (UA) Negative, Urine Ketones 1+, Urine Blood 3+ A, Urine Nitrate Positive A, Urine Bilirubin 2+ A, Urine Urobilinogen 1.0, Ur Leukocyte Esterase 1+ A, Urine RBC Tntc, Ur Squamous Epith Cells 12/01/24 20:28: Lactate 1.5 12/01/24 21:25: Troponin I 0.03 12/02/24 00:50: Troponin I 0.03 12/02/24 05:53: WBC 9.5, RBC 4.02 L, Hgb 11.6 L, Hct 38.5 L, MCV 95.8 H, MCH 28.9, MCHC 30.1 L, RDW 16.4, Plt Count 146, MPV 11.2 H, Neut % (Auto) 81.4 H, Lymph % (Auto) 4.3 L, [place] % (Auto) 13.8 H, Eos % (Auto) 0.0 L, Baso % (Auto) 0.2, Neut # (Auto) 7.7, Lymph # (Auto) 0.4 L, [place] # (Auto) 1.3 H, Eos # (Auto) 0.0, Baso # (Auto) 0.0, Total Counted 100, Neutrophils % (Manual) 69, Band Neutrophils % 11 H, Lymphocytes % (Manual) 9 L, Monocytes % (Manual) 11 H, PT 14.9 H, INR 1.37 H, Sodium 142, Potassium 4.0, Chloride 107, Carbon Dioxide 22, Anion Gap 17.0 H, BUN 71 H, Creatinine 2.10 H, Estimated Creat Clear 24, Estimated GFR 30 L, Est GFR ( Amer) 36 L, Glucose 137 H, Lactate 1.6, Calcium 7.9 L, Magnesium 2.9 H D, Total Bilirubin 1.3, AST 68 H D, ALT 21, Alkaline Phosphatase 110, Total Protein 7.0, Albumin 3.9 D, Globulin 3.1, Albumin/Globulin Ratio 1.3 12/02/24 07:00: VBG pH 7.36, VBG pCO2 40.2, VBG pO2 55.8 H, VBG HCO3 22.0 L, VBG Total CO2 23.3, VBG O2 Saturation 87.1 H, VBG Base Excess -3.4 L, VBG Lactic Acid 2.3 H I & O for Labs for Last 24 Hours: Intake & Output 11/30/24 12/01/24 12/02/24 12/03/24 23:59 23:59 23:59 23:59 Intake Total 1698 / 1818 590 / 590 Output Total 650 / 650 Balance 1048 / 1168 590 / 590 Weight 154 lb 8.705 oz 154 lb 8.705 oz 155 lb Intake & Output 11/29/24 11/30/24 12/01/24 12/02/24 23:59 23:59 23:59 23:59 Intake Total 0 / 0 Output Total 375 / 375 Balance -375 / -375 Weight 154 lb 8.705 oz 154 lb 8.705 oz Microbiology Reports for the Last 24 Hours: Microbiology 12/01/24 20:46 Blood Blood Culture - Preliminary NO GROWTH AFTER 24 HOURS 12/01/24 20:26 Blood Blood Culture - Preliminary NO GROWTH AFTER 24 HOURS Constitutional: Present severe distress Head: Present normocephalic and atraumatic ENT: Present normal exam, normal oropharynx and mucous membranes moist Neck: Present normal inspection and full ROM Respiratory: Present respiratory distress and able to speak in complete sentences; Absent prolonged expiratory phase, wheezes, distant breath sounds or diminished air movement Cardiac: Present S1/S2, Tachycardia and radial pulses present GI: Present soft and distention; Absent tenderness or guarding Skin: Present intact; Absent cyanosis or jaundice Neuro: Present alert and awake; Absent oriented x 3 Comment:: Lethargic, easily arousable and responding appropriately to verbal commands and question Extremities: Present normal inspection; Absent clubbing or cyanosis Psychiatric: Present normal affect and cooperative Assessment and Plan *Assessment and plan (1) Aspiration pneumonia: Status: Acute Category: Medical Code(s): J69.0 - Pneumonitis due to inhalation of food and vomit (2) Acute respiratory failure with hypoxia: Status: Acute Category: Medical Code(s): J96.01 - Acute respiratory failure with hypoxia Plan Mr. Lua is a 89-year-old male around less than 16-tark-udmo smoking last more when he was 51 years old not using any inhalers or oxygen supplementation at baseline presented to the ER with worsening weakness and increasing oxygen requirements and pulmonary was called for further evaluation and management. Afebrile. Hemodynamically stable. No evidence of leukocytosis. VBG from this morning did not show any evidence of hypercarbic respiratory failure CT abdomen concerning for Proctocolitis and also enlarged prostate CTA PE protocol, suboptimal secondary to motion artifact, no proximal pulmonary emboli noted. Distorted trachea with likely aspirated food. Likely right lower lobe atelectasis/aspiration pneumonia noted. Patient admits difficulty swallowing. Examination mild respiratory distress. Appears lethargic. Complains of back pain. Chest clear to auscultate. Clinical update: No acute respiratory vents overnight. Increasing oxygen, weaned to 1 L nasal cannula. Continue to wean as tolerated. Mentation improved more alert this morning. Plan: Incentive spirometry and flutter valve Aspiration precautions. Follow-up with speech and swallow recommendation DuoNebs 4 times daily as needed Continue oxygen supplementation to maintain O2 saturation goal of 90% and above as tolerated. Continue levofloxacin to complete a total of 5-day course from pulmonary standpoint. # Thank you for involving pulmonary in this patient care. Will follow the patient in pulmonary clinic 2 to 4 weeks post discharge
--- NOTE | 2024-12-03 10:49 | PC.NURSE ---
RESP CARE NOTE: Oxygen weaned to room air per Dr Woodard telephone order. SPO2 at 100% on room air, and we will continue to monitor patient.
[2024-12-03] MEDS: ONDANSETRON 4MG/2ML VIAL 4 MG IV (13:20)
--- NOTE | 2024-12-03 13:34 | HMH.SLDYSPHA ---
Speech & Language Evaluation Speech/Language Dysphagia Evaluation Start: 12/03/24 13:22 Freq: ONCE Status: Active Protocol: Document 12/03/24 13:22 CARLOSOCTAVIO (Rec: 12/03/24 13:34 [facility] [id number]) Dysphagia Assess/Goals/Plan Assessment Date of Evaluation: 12/03/24 Evaluation Type Initial Certification Assessment/Problems aspiration risk per MD order Does Patient Qualify No for Service Qualify/Failure Based on clinical observations made throughout bedside Comment swallow evaluation, pt's mastication and manipulation of bolus and swallowing are WFL. No further skilled speech therapy services are warranted at this time. Recommendations PHYSICIAN CERTIFICATION: The specified therapy services are required, authorized, and reviewed every 30 days. Diet Recommendations Mechanical Soft Liquid Type Normal/Thin Recommendations SL Swallow Alt bite w/sip thru meal,Standard Aspiration Prec., Guidelines Reflux precautions Crush Meds Small pills w/applesauce,Crush lge pills w/applesa Dysphagia Swallow Sitting Upright (90 deg),Double Swallow,Small Bites and Precautions/ Sips,Alternate Liquids/Solids Strategies Plan Pt/Guardian verbally Yes ack understanding of dx/prognosis/ goals G -code Required No Education Instructions Discussed CSE results, reviewed diet recommendations provided and aspiration precautions/compensatory strategies, and educated pt and family on aspiration risks/s/sxs of overt aspiration as well as passing information to nursing and care management all of which expressed understanding. Pt/Caregiver able to Able to recall/restate recall information Reinforcement needed No Speech & Language HPI History Present Illness Description of CAKE [employer]KER pulled following information from chart review and Patient Problem H&P, Mr. Lua an 89-year-old correction patient , has had increased weakness no longer able to ambulate by himself blood in urine.. Also showing some confusion. After talking with the ER physician do agree there is potential for pneumonia specially right lower lung. Also blood in urine with possible UTI., Question some colitis with alternating constipation and diarrhea. Noting that the patient's H&H is also decreasing with significant amount of blood in urine after Meyers placed patient is on anticoagulation Question distal coronary artery bypass thing has had cath with extra stents has been in A-fib. Pacemaker has been placed believe it was changed to a dual chamber place maker in the past. Ejection fraction being in A-fib began to decrease from 52% down to 45% per notes. Also given a cardiac mems implant.. Patient now requiring oxygen which she normally just wears at night. Patient does have sleep apnea but never adjusted to mask and never wears it. Notes began to list congestive heart failure in 2021 and now also some gastroparesis. Will go ahead and admit the patient after talking the ER provider provide oxygen. Try to tune the patient up balance any fluid needs. Meyers catheter with blood may need to adjust anticoagulation. Consult cardiology to look at the cardiac mems and to adjust any medication as able. Patient is a DNR but will keep on monitor and pulse ox while on the floor.. Noting ER has started Rocephin and Flagyl questioning whether the patient was developing sepsis, and noting that the BNP is greater than 3000 troponin was only at 0.04 but will continue to monitor. PMHx: Acute respiratory failure with hypoxia Aspiration pneumonia Altered mental status Failure to thrive Gastroparesis Chest congestion Dyspnea (HFpEF) heart failure with preserved ejection fraction History of pacemaker History of heart attack CHF (congestive heart failure) Abnormal breath sounds Bleeding nose Difficulty with speech Confusion TIA (transient ischemic attack) CXR results IMPRESSION: Concern for a small right pleural effusion and a likely combination of atelectasis and developing pneumonia in the right lung base. Differential would include developing focal pulmonary edema. CTA results: IMPRESSION: 1. Questionable eccentric/peripheral filling defect in the tip of the left atrial appendage. A chronic thrombus is in the differential diagnosis. Consider correlation with echocardiography. 2. No pulmonary emboli within the main pulmonary arteries or segmental branches. Subsegmental branches are obscured by motion artifact. 3. Acute/chronic bronchitis or reactive airways disease. 4. Subtle ground-glass and patchy consolidations in the right lung base. Most probably compressive atelectasis, though developing pneumonia is in the differential diagnosis. 5. Mucoid material within the trachea. Aspiration or retained secretions in the differential diagnosis. Pt/Caregiver Family reports that he has a hx of reflux, Concerns gastroparesis, and reduced PO intake at home with reports of globus sensation and belching during meals. Language Primary Language Polish General Information General Current Food Mechanical Soft,Thin Liquids Consistancy Dentition Upper & Lower Dentures Oxygen Status Nasal Cannula Dysphagia:Food Presentation Evaluation Food Type Pureed,Mechanical Soft,Regular,Liquid,Pudding Dysphagia Evaluation Difficulty chewing,Residual on tongue Regular Food Behavior Response Dysphagia Evaluation Pt was seen sitting upright in chair following PT/OT. Summary He was A&O to name and birthday. Pt was able to produce volitional cough and throat clear. Family present at bedside. All trials administered x 2 to assess for consistency/fatigue. Pt was given the following trials: thin liquids (ice chip, spoonful, open cup/straw sip, subsequent sips from open cup/straw), pudding, pureed applesauce, mechanical soft (nutrigrain bar), and regular (livan cracker.) No overt s/sxs of aspiration were observed throughout CSE. Residual and increased mastication time observed with regular solids. Family reports ill fitting dentures and he does not wish to wear polygrip but they believe it takes part in difficulty chewing. Pt was observed to belch on subsequent sips of thin liquids. This is reported to be typical for him per family report. CAKE MAKER discussed RLL and educated on aspiration pna/aspiration s/sxs, and silent aspiration, as well as reviewed MBSS and provided walkthrough. CAKE MAKER educated that at bedside oropharyngeal phase is WFL but MBSS is only way to ensure no silent aspiration, they expressed understanding. CAKE MAKER provided diet recommendations, reviewed compensatory strategies, and aspiration risks/ precaution. They expressed understanding. No further skilled speech therapy services are warranted at this time. CAKE MAKER will f/u if they wish to pursue MBSS. Stroke Dysphagia Assessment PHYSICIAN CERTIFICATION: I certify the specified therapy services for Britney Lua are required, authorized, and reviewed every 30 days.
--- NOTE | 2024-12-03 17:40 | PC.NURSE ---
pt resting in chair at this time with daughter at bedside. a&ox4. mendez in place draining dark urine. abx given per jun. urine cultures pending. pt did have a red tinged bm this shift, aware and sample sent to lab. tolerating po intake. no complaints of pain. call light within reach.
[2024-12-03 17:53] LABS: Occult Blood,Stool Positive (Negative)
--- NOTE | 2024-12-03 18:37 | EXP.PN ---
Subjective *Date: 12/03/24 *Time: 18:37 Interval history: Encephalopathy continues to improve, still pending urine cultures. Had been on ciprofloxacin for almost 2 weeks without improvement in UTI. Exam Data for Last 24 hours Vital signs and Labs for Last 24 Hours: Temp Pulse Resp BP Pulse Ox O2 Del Method O2 Flow Rate 97.6 F 74 18 131/69 91 L Room Air 1 12/03/24 16:00 12/03/24 16:00 12/03/24 16:00 12/03/24 16:00 12/03/24 16:00 12/03/24 17:00 12/03/24 15:00 Laboratory Results - last 24 hr 12/03/24 05:29: WBC 6.7 D, RBC 3.78 L, Hgb 11.6 L, Hct 36.9 L, MCV 97.6 H, MCH 30.7, MCHC 31.4 L, RDW 16.3, Plt Count 125 L, MPV 11.2 H, Neut % (Auto) 78.7, Lymph % (Auto) 6.7 L, [place] % (Auto) 13.8 H, Eos % (Auto) 0.3, Baso % (Auto) 0.1, Neut # (Auto) 5.3, Lymph # (Auto) 0.5 L, [place] # (Auto) 0.9, Eos # (Auto) 0.0, Baso # (Auto) 0.0, Total Counted 100, Neutrophils % (Manual) 79 H, Band Neutrophils % 1.0, Lymphocytes % (Manual) 20, Platelet Estimate Normal, RBC Morphology Normal, Sodium 140, Potassium 3.7, Chloride 106, Carbon Dioxide 23, Anion Gap 14.7, BUN 69 H, Creatinine 1.40 H D, Estimated Creat Clear 36, Estimated GFR 48 L, Est GFR ( Amer) 58 L D, Glucose 127 H, Calcium 8.7, Magnesium 2.9 H, Total Bilirubin 0.9, AST 40 D, ALT 19, Alkaline Phosphatase 81, Total Protein 6.9, Albumin 3.8, Globulin 3.1, Albumin/Globulin Ratio 1.2 12/03/24 13:36: Stool Occult Blood Positive A I & O for Last 24 hours: Intake & Output 11/30/24 12/01/24 12/02/24 12/03/24 23:59 23:59 23:59 23:59 Intake Total 1698 / 1818 1250 / 1250 Output Total 650 / 650 525 / 525 Balance 1048 / 1168 725 / 725 Weight 70.1 kg 70.1 kg 70.307 kg Microbiology Reports for the Last 24 Hours: Microbiology 12/01/24 19:45 Urine,Catheterized Urine Culture - Preliminary 12/01/24 20:46 Blood Blood Culture - Preliminary NO GROWTH AFTER 24 HOURS 12/01/24 20:26 Blood Blood Culture - Preliminary NO GROWTH AFTER 24 HOURS Constitutional Constitutional: no acute distress *Routine HEENT Exam Head: Present normocephalic Eye: Present EOMI and PERRL ENT: Present mucous membranes moist *Routine Neck Exam Neck: Present supple; Absent lymphadenopathy *Routine Respiratory Exam Respiratory: Present CTA bilaterally *Routine Cardiovascular Exam Cardiovascular: Present RRR *Routine Abdominal Exam Abdominal: Present soft and normoactive bowel sounds; Absent tenderness *Routine Extremities Exam Extremities: Absent cyanosis, clubbing or edema *Routine Skin Exam Skin: Present warm; Absent rash *Routine Neurological Exam Neurological: Present alert Assessment and Plan *Assessment and plan (1) Pneumonia: Status: Acute Qualifiers: Pneumonia type: due to unspecified organism Laterality: right Lung location: lower lobe of lung Qualified Code(s): J18.9 - Pneumonia, unspecified organism Category: Medical Code(s): J18.9 - Pneumonia, unspecified organism (2) Dyspnea: Status: Acute Qualifiers: Dyspnea type: dyspnea on exertion Qualified Code(s): R06.00 - Dyspnea, unspecified Category: Medical Code(s): R06.00 - Dyspnea, unspecified (3) ZACK (acute kidney injury): Status: Acute Category: Medical Code(s): N17.9 - Acute kidney failure, unspecified (4) Failure to thrive: Status: Acute Qualifiers: Failure to thrive age range: in adult Qualified Code(s): R62.7 - Adult failure to thrive Category: Medical (5) Hematuria: Status: Acute Qualifiers: Hematuria type: gross Qualified Code(s): R31.0 - Gross hematuria Category: Medical Code(s): R31.9 - Hematuria, unspecified (6) Atrial fibrillation: Status: Chronic Qualifiers: Atrial fibrillation type: unspecified chronic Qualified Code(s): I48.20 - Chronic atrial fibrillation, unspecified Category: Medical Code(s): I48.91 - Unspecified atrial fibrillation (7) Heart failure with reduced ejection fraction: Status: Chronic Category: Medical Code(s): I50.20 - Unspecified systolic (congestive) heart failure (8) Gastroparesis: Status: Acute Category: Medical Code(s): K31.84 - Gastroparesis (9) Chronic anemia: Problem Comment: Due for CMP, CBC today as directed by his web marketing manager. Status: Chronic Category: Medical Code(s): D64.9 - Anemia, unspecified (10) Hypotension: Problem Comment: Active follow-up with cardiology. Furosemide was discontinued and he was given a prescription for midodrine but currently not taking it. Status: Chronic Qualifiers: Hypotension type: other hypotension type Qualified Code(s): I95.89 - Other hypotension Category: Medical Code(s): I95.9 - Hypotension, unspecified (11) Altered mental status: Status: Acute Qualifiers: Altered mental status type: unspecified Qualified Code(s): R41.82 - Altered mental status, unspecified Category: Medical Code(s): R41.82 - Altered mental status, unspecified (12) Severe protein-calorie malnutrition: Status: Acute Category: Medical Code(s): E43 - Unspecified severe protein-calorie malnutrition Plan Britney Lua 89-year-old presents from nursing facility with shortness of breath. Found to have pneumonia. Also concerning for UTI associated with his catheter. Admitted for broad-spectrum antibiotics and continued monitoring. Cardiology and pulmonology consulted to assist with care. Continues to require inpatient management. Therapy evaluating today. Problems addressed as follows: Pneumonia UTI Acute metabolic encephalopathy - White count remains normal this morning at 6.7. Hemoglobin 11.6. - CT abdomen shows severe prostatomegaly. Follow-up PSA. - Given his enlarged prostate and concern for prostatitis, patient had previously been on ciprofloxacin for 2 weeks. May lead longer dose. ? Continue IV levofloxacin 750 mg every 48 hours. - Cultures still pending. - Speech/swallow eval recommended per discussion with pulmonology. - Continue DuoNebs every 6 hours as needed. Continue supplemental oxygen for goal sats greater than 90%. - Metabolic encephalopathy due to infection. Continues to improve. #ZACK on CKD stage III ? Initial creatinine 2.3, improved to 1.4 today with IV and oral fluid repletion. HFrEF with BiV pacemaker in situ Chronic A-fib CAD with history of CABG in 1990, coronary stents placed in 2019 -Cardiology following, patient has CardioMEMS in place since 2022. Holding diuretics due to acute on chronic renal insufficiency. BNP elevated but does not appear frankly overloaded. EF 45% on echo -Abnormal CTA with questionable chronic left atrial appendage thrombus -Continue Xarelto and add aspirin 81 mg daily -Consider outpatient KENDELL or outpatient CCTA in the future at cardiology recommendation - On imaging of chest, patient's thoracic aortic aneurysm appears stable at 4.1 to 4.2 cm. This is a known condition. Following with cardiology - Continue metoprolol tartrate 25 mg daily. ? Cardiology is evaluating CardioMEMS, will follow-up report. Chronic gastroparesis with tortuous esophagus - Speech therapy consulted, recommend mechanical soft with normal/thin fluids. Severe protein calorie malnutrition: Has documented weight loss. Evaluated by primary clinician, patient has poor p.o. intake. Initiate protein supplementation. Albumin 3.1 on labs at admission DNR/DNI Soft mechanical diet Resume Xarelto renally dosed 15mg daily
[2024-12-03] MEDS: TAMSULOSIN 0.4MG CAPSULE 0.4 MG PO (21:17)
[2024-12-03] MEDS: PANTOPRAZOLE 40MG TABLET 40 MG PO (21:18)
[2024-12-03] MEDS: MIRTAZAPINE 15 MG TABLET 7.5 MG PO (21:18)
[2024-12-04] VITALS (12 sets, daily range): BP systolic 142–167; BP diastolic 68–102; PULSE 65–90; RESP 16–20; TEMP 36.4–37.3; O2SAT 94–98; BMI 21.6
--- NOTE | 2024-12-04 00:45 | PC.NURSE ---
Pt noted to be restless and resistive to care. Pt continues to attempt to get out of bed without assistance despite staff attempts to redirect. Pt BP 167/102 at this time, telemetry applied due to irregular HR, pt is currently in Afib with a HR of 68. Contacted Kedar Prieto APRN. new orders received (see MAR)
--- NOTE | 2024-12-04 00:55 | PC.NURSE ---
Pt refuses to take medications despite multiple attempts. Kedar Prieto APRN made aware, new orders for anxiety (see MAR)
[2024-12-04] MEDS: LORazepam 2MG/ML VIAL 0.25 MG IV (02:01)
--- NOTE | 2024-12-04 04:28 | PC.NURSE ---
Pt is alert to self and is tolerating 2L well at this time. Pt continues to refuse most care, and has rested very little this shift. Pt indwelling catheter remains in place. Pt denies pain when asked. Pt alarm set and active
[2024-12-04 08:22] LABS: Hematocrit 33.1 % (42.0-52.0); Hemoglobin 10.3 g/dL (14.1-18.0); Immature Granulocytes % 0.4 %; Mean Corpuscular HGB Conc 31.1 g/dL (31.8-35.4); Mean Corpuscular Hemoglobin 29.9 pg (27.0-31.2); Mean Corpuscular Volume 96.2 fl (80-94); Nucleated Red Blood Cells % 0 %; Platelet Count 133 K/mm3 (142-424); Red Blood Count 3.44 M/mm3 (4.60-6.20); Red Cell Distribution Width-SD 56.3 fL; White Blood Count 5.1 K/mm3 (4.8-10.8)
[2024-12-04 08:29] LABS: Albumin Level 3.7 g/dl (3.5-5.0); Chloride 109 mmol/L (98-107); Potassium 3.2 mmoL/L (3.5-5.1); Sodium 145 mmol/L (136-145)
[2024-12-04 08:32] LABS: Alanine Aminotransferase 20 U/L (12-78); Albumin/Globulin Ratio 1.2 (1.1-1.8); Alkaline Phosphatase 77 U/L (38-126); Anion Gap 9.2 mEq/L (5-15); Aspartate Amino Transferase 29 U/L (17-59); Bilirubin,Total 1.0 mg/dl (0.2-1.3); Blood Urea Nitrogen 46 mg/dl (9-20); Calcium 9.1 mg/dl (8.4-10.2); Carbon Dioxide 30 mmol/L (22.0-30.0); Creatinine Clearance Estimated 46 mL/min (50-200); Creatinine,Serum 1.10 mg/dl (0.66-1.25); Estimated Glomerular Filt Rate 63 ml/min (>60); GFR (African American) 76 ML/MIN (>60); Globulin 3.1 g/dL (1.3-3.2); Glucose 147 mg/dl (74-100); Total Protein,Serum 6.8 g/dl (6.3-8.2)
[2024-12-04 09:05] LABS: RBC Morphology Normal
[2024-12-04 09:06] LABS: Total Cells Counted 100
[2024-12-04] MEDS: SODIUM CHLORIDE 0.9% 10ML VIAL 10 ML IV (09:39)
--- NOTE | 2024-12-04 09:46 | XR_ITS ---
FINAL REPORT CLINICAL HISTORY: CHF, COPD COMPARISON: 12/01/2024 FINDINGS: A single frontal view of the chest was obtained. Right basilar atelectasis and pleural effusion are stable. The lungs are hypoinflated. There is evidence of prior median sternotomy, presumably from CABG. A left-sided pacer is present. Otherwise, mediastinum is unremarkable. Heart size is moderately enlarged. IMPRESSION: No significant change from prior. Reviewed, Interpreted and Dictated by Breonna Prado MD Transcribed by Awa Brewster Authenticated and . [facility]
[2024-12-04] MEDS: METOPROLOL TARTRATE 25MG TABLET 25 MG PO (09:49)
[2024-12-04] MEDS: POTASSIUM CHLORIDE 20MEQ TAB 40 MEQ PO ×2 (09:49→15:13)
[2024-12-04] MEDS: DOCUSATE SODIUM 100 MG CAPSULE PO (09:49)
[2024-12-04] MEDS: POLYETHYLENE GLYCOL 3350 238GM POWDER 17 GM PO (10:04)
[2024-12-04 11:02] LABS: NT Pro Brain Natriuretic Pep. 7510 pg/mL (0-450)
--- NOTE | 2024-12-04 11:02 | EXP.CARD.PN ---
Subjective Subjective Date: 12/04/24 Time: 09:30 Principal diagnosis: UTI, sepsis Interval history: No major events overnight. Pt not eating well and K low at 3.3. Cr back to normal. Pt removed IV last night and initially refused replacement - agreed after we talked for a bit. He appears weak/frail Reduced airflow bilaterally on exam, no peripheral edema. Exam Data for Last 24 hours Vital signs and Labs for Last 24 Hours: Temp Pulse Resp BP Pulse Ox O2 Del Method O2 Flow Rate 97.6 F 65 18 148/80 H 94 L Nasal Cannula 2 12/04/24 07:54 12/04/24 07:54 12/04/24 07:54 12/04/24 07:54 12/04/24 07:54 12/04/24 07:54 12/04/24 07:54 FiO2 28 12/03/24 22:16 Laboratory Results - last 24 hr 12/03/24 13:36: Stool Occult Blood Positive A 12/03/24 19:31: PSA Screen 17.7 H 12/04/24 08:12: WBC 5.1, RBC 3.44 L, Hgb 10.3 L, Hct 33.1 L, MCV 96.2 H, MCH 29.9, MCHC 31.1 L, RDW 16.0, Plt Count 133 L, MPV 11.1 H, Neut % (Auto) 77.3, Lymph % (Auto) 8.1 L, [place] % (Auto) 12.6 H, Eos % (Auto) 1.4, Baso % (Auto) 0.2, Neut # (Auto) 3.9, Lymph # (Auto) 0.4 L, [place] # (Auto) 0.6, Eos # (Auto) 0.1, Baso # (Auto) 0.0, Total Counted 100, Neutrophils % (Manual) 81 H, Lymphocytes % (Manual) 7 L, Monocytes % (Manual) 11 H, Eosinophils % (Manual) 1, Platelet Estimate Slight decrease, RBC Morphology Normal, Sodium 145, Potassium 3.2 L, Chloride 109 H, Carbon Dioxide 30, Anion Gap 9.2, BUN 46 H D, Creatinine 1.10 D, Estimated Creat Clear 46, Estimated GFR 63, Est GFR ( Amer) 76 D, Glucose 147 H, Calcium 9.1, Total Bilirubin 1.0, AST 29 D, ALT 20, Alkaline Phosphatase 77, Total Protein 6.8, Albumin 3.7, Globulin 3.1, Albumin/Globulin Ratio 1.2 I & O for Last 24 hours: Intake & Output 12/01/24 12/02/24 12/03/24 12/04/24 23:59 23:59 23:59 23:59 Intake Total 1698 / 1818 1250 / 1310 60 60 Output Total 650 / 650 525 / 525 Balance 1048 / 1168 725 / 785 60 / 60 Weight 154 lb 8.705 oz 154 lb 8.705 oz 155 lb 154 lb 8 oz Microbiology Reports for the Last 24 Hours: Microbiology 12/01/24 19:45 Urine,Catheterized Urine Culture - Preliminary 12/01/24 20:46 Blood Blood Culture - Preliminary NO GROWTH AFTER 48 HOURS 12/01/24 20:26 Blood Blood Culture - Preliminary NO GROWTH AFTER 48 HOURS Constitutional Constitutional: no acute distress and cooperative Comments: frail/weak *Routine HEENT Exam Eye: Present PERRL *Routine Respiratory Exam Respiratory: Present wheezes; Absent accessory muscle use, CTA bilaterally or crackles Comments: reduced airflow throughout *Routine Cardiovascular Exam Cardiovascular: Present RRR, Normal S1 and Normal S2; Absent murmur, gallop or rubs *Routine Abdominal Exam Abdominal: Present soft; Absent tenderness *Routine Extremities Exam Extremities: Present pulses intact; Absent cyanosis or edema *Routine Skin Exam Skin: Present intact; Absent erythema or wounds *Routine Neurological Exam Neurological: Present alert and oriented X3 Routine Psychiatric Exam Psychiatric: Present cooperative Progress Note: A&P Assessment and plan (1) Pneumonia: Status: Acute (2) Dyspnea: Status: Acute (3) ZACK (acute kidney injury): Status: Acute (4) Failure to thrive: Status: Acute (5) Hematuria: Status: Acute (6) Atrial fibrillation: Status: Chronic (7) Heart failure with reduced ejection fraction: Status: Chronic (8) Gastroparesis: Status: Acute (9) Chronic anemia: Problem details: Due for CMP, CBC today as directed by 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 Status: Chronic (10) Hypotension: Problem details: Active follow-up with cardiology. Furosemide was discontinued and he was given a prescription for midodrine but currently not taking it. Status: Chronic (11) Altered mental status: Status: Acute (12) Severe protein-calorie malnutrition: Status: Acute Assessment and Plan Assessment and Plan for All Diagnoses:: 1. UTI/sepsis/altered mental status -IV levofloxacin -Cultures pending, no growth so far -Severe prostatomegaly on abdominal/pelvis CTA 2. Aspiration Pneumonia with acute respiratory failure/hypoxia -On oxygen -Pulmonary following -swallowing eval pending 3. HFrEF with BiV pacemaker in situ -BNP 3330 with chest x-ray evidence of small right pleural effusion and combination of atelectasis/pneumonia, R lung base -EF 45% this admission -Patient has CardioMEMS in place since 2022 -Holding diuretics due to acute on chronic renal insufficiency -12/04: reduced airflow/wheezing on exam, repeat ProBNP and CXR today 4. Chronic atrial fibrillation -continue metoprolol for rate control -Abnormal CTA with questionable chronic left atrial appendage thrombus -Continue Xarelto and add aspirin 81 mg daily -Consider outpatient KENDELL or outpatient CCTA in the future 5. Chronic gastroparesis, now with acute proctocolitis and moderate reactive ileus -Defer to hospitalist 6. CKD, stage III with chronic mild anemia in the 10-12 range -Baseline creatinine 1.7 with GFR 38 in July 2023 -Currently 2.1 with GFR 30 - 12/04: improved to 1.1 7. Liver cysts on abdominal CTA with normal liver functions -INR 2.08 on admission (likely related to Xarelto use but question clinical significance) 8. CAD -history of CABG (1990) and coronary stenting (2019) -on ASA, metoprolol and statin 9. Known ascending thoracic aorta -stable at 4.1-4.2 cm. Pt continues to appear ill. Renal function improved. Reduced airflow/wheezing on exam. Getting nebs. Will repeat ProBNP and CXR and monitor for vol overload.
--- NOTE | 2024-12-04 13:47 | EXP.GE.CONS ---
History of Present Illness *Admission Date: 12/01/24 *History of present illness: Mr. Lua an 89-year-old retirement patient, has had increased weakness no longer able to ambulate by himself blood in urine.. Also showing some confusion. After talking with the ER physician do agree there is potential for pneumonia specially right lower lung. Also blood in urine with possible UTI., Question some colitis with alternating constipation and diarrhea. Noting that the patient's H&H is also decreasing with significant amount of blood in urine after Meyers placed patient is on anticoagulation Question distal coronary artery bypass thing has had cath with extra stents has been in A-fib. Pacemaker has been placed believe it was changed to a dual chamber place maker in the past. Ejection fraction being in A-fib began to decrease from 52% down to 45% per notes. Also given a cardiac mems implant.. Patient now requiring oxygen which she normally just wears at night. Patient does have sleep apnea but never adjusted to mask and never wears it. Notes began to list congestive heart failure in 2021 and now also some gastroparesis. Will go ahead and admit the patient after talking the ER provider provide oxygen. Try to tune the patient up balance any fluid needs. Meyers catheter with blood may need to adjust anticoagulation. Consult cardiology to look at the cardiac mems and to adjust any medication as able. Patient is a DNR but will keep on monitor and pulse ox while on the floor.. Noting ER has started Rocephin and Flagyl questioning whether the patient was developing sepsis, and noting that the BNP is greater than 3000 troponin was only at 0.04 but will continue to monitor Per admission H&P This is an 89-year-old male retirement patient with acute altered mental status and failure to thrive. He is admitted with UTI, pneumonia, sepsis, anemia. Hemoglobin today is 10.3 hypochromic but macrocytic. He does have some chronic anemia. Has had significant blood in his urine. Also had a positive Hemoccult yesterday. Patient is on Xarelto and aspirin with a history of chronic A-fib. These have been held today. Has had both diarrhea and constipation. CT scan notes severe wall thickening and mucosal hyperenhancement in the rectosigmoid and ascending colon concerning for acute proctocolitis. He also has possible moderate reactive ileus. Patient has been having bowel movements on MiraLAX daily. This morning was found to have blood and mucus in his stool per nursing. He is not having rectal bleeding between bowel movements. Patient is on Levaquin currently. Patient is A&O x 1. He is acutely confused. This is not his baseline per nursing. He does appear acutely ill. However, he does report that he has not been eating much and he does not want to eat much. He reports that he has lost weight. He does have a history of chronic gastroparesis. CT scan also noted multiple liver cysts up to 8.3 cm but has had normal LFTs. Does have some hepatomegaly and hepatic steatosis. Severe prostatomegaly noted on imaging with elevated PSA. [facility] Disclaimer: The information contained in this section may have been updated after the patient was seen, as this information can be updated by other users. Medical History (Updated 12/04/24 @ 13:50 by Rachael Arceo APRN) Acute respiratory failure with hypoxia Aspiration pneumonia Altered mental status Failure to thrive Gastroparesis Chest congestion Dyspnea (HFpEF) heart failure with preserved ejection fraction History of pacemaker History of heart attack CHF (congestive heart failure) Abnormal breath sounds Bleeding nose Difficulty with speech Confusion TIA (transient ischemic attack) Surgical History Hx of CABG History of hernia repair History of esophagogastroduodenoscopy (EGD) History of cardiac catheterization History of colonoscopy History of permanent cardiac pacemaker placement Family History Other No significant family history Social History Smoking Status: Unknown if ever smoked second hand exposure: No alcohol intake: never substance use type: denies use current occupational status: retired Travel in the last 8 weeks?: None household members: none housing: house lives independently: Yes marital status: current occupational exposures/hazards: No caffeine: No special freddy needs: No agree to transfusion: No Review of Systems Constitutional Constitutional: Reports weakness ENT Ears, Nose, Mouth, and Throat: Reports abnormal hearing *Neurologic Neurologic: Reports as per HPI, Reports abnormal hearing and Reports weakness Meds Home Medications and Allergies Home Medications ?Medication ?Instructions ?Recorded ?Confirmed ?Type atorvastatin 40 mg tablet 40 mg PO HS Cholesterol 05/15/17 12/01/24 History tamsulosin 0.4 mg capsule 0.4 mg PO HS 05/15/17 12/01/24 History rivaroxaban 20 mg tablet (Xarelto) 20 mg PO QPMWITHMEAL 10/29/19 12/01/24 History anticoagulant/atrial fib alprazolam 0.25 mg tablet 0.25 mg PO BID 05/20/21 12/02/24 History Saccharomyces boulardii 250 mg 250 mg PO DAILY Supplement 07/28/22 12/01/24 History capsule (Probiotic (S.boulardii)) cholecalciferol (vitamin D3) 50 50 mcg PO DAILY Supplement 07/28/22 12/01/24 History mcg (2,000 unit) capsule acetaminophen 500 mg tablet 1,000 mg PO QIDP PRN Back Pain 07/29/22 12/02/24 History cetirizine 10 mg tablet 10 mg PO DAILY Allergy symptoms 07/29/22 12/01/24 History melatonin 5 mg tablet 5 mg PO HS sleep 07/29/22 12/01/24 History diphenhydramine-zinc acetate 2 0 applic topical BID 10 days #10 07/27/23 12/01/24 Rx %-0.1 % topical cream (Itch Relief) grams famotidine 20 mg tablet 20 mg PO BID 12/02/24 12/02/24 History gabapentin 100 mg capsule 100 mg PO DAILY 12/02/24 12/02/24 History lidocaine 4 % topical patch 1 patch topical DAILY Back Pain 12/02/24 12/02/24 History metoprolol tartrate 25 mg tablet 25 mg PO DAILY 12/02/24 12/02/24 History mirtazapine 7.5 mg tablet 7.5 mg PO HS 12/02/24 12/02/24 History omeprazole 20 mg capsule,delayed 20 mg PO DAILY 12/02/24 12/02/24 History release polyethylene glycol 3350 17 17 g PO DAILY 12/02/24 12/02/24 History gram/dose oral powder (Miralax) sennosides 8.6 mg-docusate sodium 2 tab-cap PO DAILYP PRN 12/02/24 12/02/24 History 50 mg tablet (Senna-S) Constipation therapeutic multivitamin 1 tab PO DAILY 12/02/24 12/02/24 History (Thera-Tabs tablet) New Prescriptions to Start Prescriptions: Allergies Allergy/AdvReac Type Severity Reaction Status Date / Time No Known Allergies Allergy Verified 12/01/24 18:20 Exam (Inpt) Vital signs and Labs for Last 24 Hours: Temp Pulse Resp BP Pulse Ox O2 Del Method O2 Flow Rate 99.2 F 87 16 165/88 H 96 Nasal Cannula 1 12/04/24 12:00 12/04/24 12:00 12/04/24 12:00 12/04/24 12:00 12/04/24 12:00 12/04/24 12:00 12/04/24 12:00 FiO2 28 12/03/24 22:16 Laboratory Results - last 24 hr 12/03/24 13:36: Stool Occult Blood Positive A 12/03/24 19:31: PSA Screen 17.7 H 12/04/24 08:12: WBC 5.1, RBC 3.44 L, Hgb 10.3 L, Hct 33.1 L, MCV 96.2 H, MCH 29.9, MCHC 31.1 L, RDW 16.0, Plt Count 133 L, MPV 11.1 H, Neut % (Auto) 77.3, Lymph % (Auto) 8.1 L, [place] % (Auto) 12.6 H, Eos % (Auto) 1.4, Baso % (Auto) 0.2, Neut # (Auto) 3.9, Lymph # (Auto) 0.4 L, [place] # (Auto) 0.6, Eos # (Auto) 0.1, Baso # (Auto) 0.0, Total Counted 100, Neutrophils % (Manual) 81 H, Lymphocytes % (Manual) 7 L, Monocytes % (Manual) 11 H, Eosinophils % (Manual) 1, Platelet Estimate Slight decrease, RBC Morphology Normal, Sodium 145, Potassium 3.2 L, Chloride 109 H, Carbon Dioxide 30, Anion Gap 9.2, BUN 46 H D, Creatinine 1.10 D, Estimated Creat Clear 46, Estimated GFR 63, Est GFR ( Amer) 76 D, Glucose 147 H, Calcium 9.1, Total Bilirubin 1.0, AST 29 D, ALT 20, Alkaline Phosphatase 77, NT-Pro-B Natriuret Pep 7510 H, Total Protein 6.8, Albumin 3.7, Globulin 3.1, Albumin/Globulin Ratio 1.2 I & O for Labs for Last 24 Hours: Intake & Output 12/02/24 12/03/24 12/04/24 12/05/24 11:59 11:59 11:59 11:59 Intake Total 480 1808 720 Output Total 375 800 Balance 105 1008 720 Weight 70.1 kg 70.307 kg 70.08 kg Microbiology Reports for the Last 24 Hours: Microbiology 12/01/24 19:45 Urine,Catheterized Urine Culture - Preliminary 12/01/24 20:46 Blood Blood Culture - Preliminary NO GROWTH AFTER 48 HOURS 12/01/24 20:26 Blood Blood Culture - Preliminary NO GROWTH AFTER 48 HOURS Constitutional: no acute distress and chronically ill appearing Comment:: Confused Head: Present normocephalic and atraumatic ENT exam ED: Present mucous membranes dry Respiratory: Present rhonchi (Very mild bilateral lower lobes) Cardiac: Present Regular Rate GI: Present soft, distention (Mild distention but unable to get patient to relax his abdominal wall) and tenderness (Mildly TTP throughout abdomen, worse epigastric) Skin: Present dry Comment:: Patient answers questions when awake, oriented x 1. Patient falls asleep easily but is quick to arouse. Results Labs 12/04/24 08:12 12/04/24 08:12 Labs: Laboratory Results - last 24 hr 12/03/24 13:36: Stool Occult Blood Positive A 12/03/24 19:31: PSA Screen 17.7 H 12/04/24 08:12: WBC 5.1, RBC 3.44 L, Hgb 10.3 L, Hct 33.1 L, MCV 96.2 H, MCH 29.9, MCHC 31.1 L, RDW 16.0, Plt Count 133 L, MPV 11.1 H, Neut % (Auto) 77.3, Lymph % (Auto) 8.1 L, [place] % (Auto) 12.6 H, Eos % (Auto) 1.4, Baso % (Auto) 0.2, Neut # (Auto) 3.9, Lymph # (Auto) 0.4 L, [place] # (Auto) 0.6, Eos # (Auto) 0.1, Baso # (Auto) 0.0, Total Counted 100, Neutrophils % (Manual) 81 H, Lymphocytes % (Manual) 7 L, Monocytes % (Manual) 11 H, Eosinophils % (Manual) 1, Platelet Estimate Slight decrease, RBC Morphology Normal, Sodium 145, Potassium 3.2 L, Chloride 109 H, Carbon Dioxide 30, Anion Gap 9.2, BUN 46 H D, Creatinine 1.10 D, Estimated Creat Clear 46, Estimated GFR 63, Est GFR ( Amer) 76 D, Glucose 147 H, Calcium 9.1, Total Bilirubin 1.0, AST 29 D, ALT 20, Alkaline Phosphatase 77, NT-Pro-B Natriuret Pep 7510 H, Total Protein 6.8, Albumin 3.7, Globulin 3.1, Albumin/Globulin Ratio 1.2 Assessment and Plan *Assessment and plan (1) Gastroparesis: Status: Acute Category: Medical Code(s): K31.84 - Gastroparesis (2) Failure to thrive: Status: Acute Qualifiers: Failure to thrive age range: in adult Qualified Code(s): R62.7 - Adult failure to thrive Category: Medical (3) Proctocolitis with rectal bleeding: Status: Acute Category: Medical Code(s): K52.9 - Noninfective gastroenteritis and colitis, unspecified; K62.5 - Hemorrhage of anus and rectum (4) Loss of appetite: Status: Acute Category: Medical Code(s): R63.0 - Anorexia (5) Weight loss: Status: Acute Category: Medical Code(s): R63.4 - Abnormal weight loss Plan 1. Gastroparesis/failure to thrive/loss of appetite/weight loss Patient is confused but does report loss of appetite and weight loss and poor p.o. intake. Does have a history of gastroparesis. May benefit from Reglan after upcoming swallowing study. 2. Proctocolitis with rectal bleeding Severe acute proctocolitis and possibly moderate reactive ileus seen on CT abdomen pelvis, although patient is still producing bowel movements daily. Patient did have a positive Hemoccult yesterday and is mildly anemic with a current hemoglobin of 10.3 but underlying chronic anemia. Anemia is hypochromic but macrocytic. Patient is on Xarelto and aspirin and developed red mucousy stool this morning per nursing. Nursing denies rectal bleeding between bowel movements. Xarelto and aspirin were held. I recommend checking iron levels, monitoring H&H, and replacing with IV iron infusion if needed. Patient on Levaquin, lets add Flagyl. Continue MiraLAX daily to keep bowels moving.
[2024-12-04] MEDS: METRONIDAZ/SOD CHL 500 MG/100 ML PIGGYBACK 100 MG IV (15:13)
--- NOTE | 2024-12-04 16:35 | PC.NURSE ---
Patient had two bright red blood mucous like bowel movements. Dr. Wallace notified, pcr ordered
[2024-12-04 17:25] LABS: Adenovirus F 40/41, stool Not Detected (NotDetected); Clostridium Difficile A/B, PCR Not Detected (NotDetected); Cyclospora Cayetanesis Not Detected (NotDetected); Plesimonas Shigalloides, PCR Not Detected (NotDetected); Salmonella, PCR Not Detected (NotDetected); Shiga-like toxin E coli Not Detected (NotDetected); Shigella Enterovasive E coli Not Detected (NotDetected); Vibrio, PCR Not Detected (NotDetected); Yersinia Entercolitica, PCR Not Detected (NotDetected)
[2024-12-04] MEDS: ACETAMINOPHEN 325MG TAB 650 MG PO (17:45)
--- NOTE | 2024-12-04 18:06 | PC.NURSE ---
pt is alert to self only. has been mildly confused today. he is wearing 1L NC. he is having mucus, bloody stools so we sent a sample down to lab. he has been up to the chair today. daughter has been at bedside. no other needs at this time. call light within reach. safety measures in place.
--- NOTE | 2024-12-04 18:44 | EXP.PN ---
Subjective *Date: 12/04/24 *Time: 18:44 Interval history: Patient continues to be intermittently confused, delirious. Likely from infection, hospital-acquired delirium. Continue antibiotics, started Flagyl in the setting of proctocolitis. Having bright red blood per rectum, likely from proctocolitis. GI consulted, started Flagyl. Follow-up morning H&H. Exam Data for Last 24 hours Vital signs and Labs for Last 24 Hours: Temp Pulse Resp BP Pulse Ox O2 Del Method O2 Flow Rate 98.3 F 69 18 145/68 H 94 L Nasal Cannula 1 12/04/24 16:00 12/04/24 16:00 12/04/24 16:00 12/04/24 16:00 12/04/24 16:00 12/04/24 17:00 12/04/24 17:00 FiO2 28 12/03/24 22:16 Laboratory Results - last 24 hr 12/03/24 19:31: PSA Screen 17.7 H 12/04/24 08:12: WBC 5.1, RBC 3.44 L, Hgb 10.3 L, Hct 33.1 L, MCV 96.2 H, MCH 29.9, MCHC 31.1 L, RDW 16.0, Plt Count 133 L, MPV 11.1 H, Neut % (Auto) 77.3, Lymph % (Auto) 8.1 L, [place] % (Auto) 12.6 H, Eos % (Auto) 1.4, Baso % (Auto) 0.2, Neut # (Auto) 3.9, Lymph # (Auto) 0.4 L, [place] # (Auto) 0.6, Eos # (Auto) 0.1, Baso # (Auto) 0.0, Total Counted 100, Neutrophils % (Manual) 81 H, Lymphocytes % (Manual) 7 L, Monocytes % (Manual) 11 H, Eosinophils % (Manual) 1, Platelet Estimate Slight decrease, RBC Morphology Normal, Sodium 145, Potassium 3.2 L, Chloride 109 H, Carbon Dioxide 30, Anion Gap 9.2, BUN 46 H D, Creatinine 1.10 D, Estimated Creat Clear 46, Estimated GFR 63, Est GFR ( Amer) 76 D, Glucose 147 H, Calcium 9.1, Total Bilirubin 1.0, AST 29 D, ALT 20, Alkaline Phosphatase 77, NT-Pro-B Natriuret Pep 7510 H, Total Protein 6.8, Albumin 3.7, Globulin 3.1, Albumin/Globulin Ratio 1.2 I & O for Last 24 hours: Intake & Output 12/01/24 12/02/24 12/03/24 12/04/24 23:59 23:59 23:59 23:59 Intake Total 1698 / 1818 1250 / 1310 300 / 300 Output Total 650 / 650 525 / 525 675 / 675 Balance 1048 / 1168 725 / 785 -375 / -375 Weight 70.1 kg 70.1 kg 70.307 kg 70.08 kg Microbiology Reports for the Last 24 Hours: Microbiology 12/01/24 19:45 Urine,Catheterized Urine Culture - Preliminary 12/01/24 20:46 Blood Blood Culture - Preliminary NO GROWTH AFTER 48 HOURS 12/01/24 20:26 Blood Blood Culture - Preliminary NO GROWTH AFTER 48 HOURS Constitutional Constitutional: no acute distress *Routine HEENT Exam Head: Present normocephalic Eye: Present EOMI and PERRL ENT: Present mucous membranes moist *Routine Neck Exam Neck: Present supple; Absent lymphadenopathy *Routine Respiratory Exam Respiratory: Present CTA bilaterally *Routine Cardiovascular Exam Cardiovascular: Present RRR *Routine Abdominal Exam Abdominal: Present soft and normoactive bowel sounds; Absent tenderness *Routine Extremities Exam Extremities: Absent cyanosis, clubbing or edema *Routine Skin Exam Skin: Present warm; Absent rash *Routine Neurological Exam Neurological: Present alert Assessment and Plan *Assessment and plan (1) Pneumonia: Status: Acute Qualifiers: Pneumonia type: due to unspecified organism Laterality: right Lung location: lower lobe of lung Qualified Code(s): J18.9 - Pneumonia, unspecified organism Category: Medical Code(s): J18.9 - Pneumonia, unspecified organism (2) Dyspnea: Status: Acute Qualifiers: Dyspnea type: dyspnea on exertion Qualified Code(s): R06.00 - Dyspnea, unspecified Category: Medical Code(s): R06.00 - Dyspnea, unspecified (3) ZACK (acute kidney injury): Status: Acute Category: Medical Code(s): N17.9 - Acute kidney failure, unspecified (4) Failure to thrive: Status: Acute Qualifiers: Failure to thrive age range: in adult Qualified Code(s): R62.7 - Adult failure to thrive Category: Medical (5) Hematuria: Status: Acute Qualifiers: Hematuria type: gross Qualified Code(s): R31.0 - Gross hematuria Category: Medical Code(s): R31.9 - Hematuria, unspecified (6) Atrial fibrillation: Status: Chronic Qualifiers: Atrial fibrillation type: unspecified chronic Qualified Code(s): I48.20 - Chronic atrial fibrillation, unspecified Category: Medical Code(s): I48.91 - Unspecified atrial fibrillation (7) Heart failure with reduced ejection fraction: Status: Chronic Category: Medical Code(s): I50.20 - Unspecified systolic (congestive) heart failure (8) Gastroparesis: Status: Acute Category: Medical Code(s): K31.84 - Gastroparesis (9) Chronic anemia: Problem Comment: Due for CMP, CBC today as directed by his bath tester. Status: Chronic Category: Medical Code(s): D64.9 - Anemia, unspecified (10) Hypotension: Problem Comment: Active follow-up with cardiology. Furosemide was discontinued and he was given a prescription for midodrine but currently not taking it. Status: Chronic Qualifiers: Hypotension type: other hypotension type Qualified Code(s): I95.89 - Other hypotension Category: Medical Code(s): I95.9 - Hypotension, unspecified (11) Altered mental status: Status: Acute Qualifiers: Altered mental status type: unspecified Qualified Code(s): R41.82 - Altered mental status, unspecified Category: Medical Code(s): R41.82 - Altered mental status, unspecified (12) Severe protein-calorie malnutrition: Status: Acute Category: Medical Code(s): E43 - Unspecified severe protein-calorie malnutrition Plan Britney Lua 89-year-old presents from nursing facility with shortness of breath. Found to have pneumonia. Also concerning for UTI associated with his catheter. Admitted for broad-spectrum antibiotics and continued monitoring. Cardiology and pulmonology consulted to assist with care. Continues to require inpatient management. Therapy evaluating today. Problems addressed as follows: Pneumonia UTI Acute metabolic encephalopathy - White count remains normal this morning at 5.1. - CT abdomen shows severe prostatomegaly. PSA significantly elevated, 17.7. - Given his enlarged prostate and concern for prostatitis, patient had previously been on ciprofloxacin for 2 weeks. May need longer duration. ? Continue IV levofloxacin 750 mg every 48 hours. - Urine cultures still pending. - Speech therapy consulted, recommend mechanical soft with normal/thin fluids. - Continue DuoNebs every 6 hours as needed. Continue supplemental oxygen for goal sats greater than 90%. - Metabolic encephalopathy due to combination of infections and hospital-acquired delirium. Patient will benefit from going back to facility as soon as medically stable to reduce the risk of delirium worsening. #GI bleed #Bright red blood per rectum #Severe proctocolitis ? CT abdomen shows severe acute proctocolitis, patient continues to have episodes of bright red blood per rectum. ? Hemoglobin downtrending from 11.6-10.3 today in the absence of IV fluids. Follow-up iron panel. ? GI consulted, believe rectal bleeding is from proctocolitis. Started metronidazole, continue levofloxacin. ? Follow-up morning H&H, transfuse if hemoglobin less than 8. ? Follow-up stool PCR. #ZACK on CKD stage III ? Initial creatinine 2.3, improved to 1.1 today with IV and oral fluid repletion. HFrEF with BiV pacemaker in situ Chronic A-fib CAD with history of CABG in 1990, coronary stents placed in 2019 -Cardiology following, patient has CardioMEMS in place since 2022. Holding diuretics due to acute on chronic renal insufficiency. BNP elevated but does not appear frankly overloaded. EF 45% on echo -Abnormal CTA with questionable chronic left atrial appendage thrombus -Continue Xarelto and add aspirin 81 mg daily -Consider outpatient KENDELL or outpatient CCTA in the future at cardiology recommendation - On imaging of chest, patient's thoracic aortic aneurysm appears stable at 4.1 to 4.2 cm. This is a known condition. Following with cardiology - Continue metoprolol tartrate 25 mg daily. ? Cardiology is evaluating CardioMEMS, will follow-up report. Chronic gastroparesis with tortuous esophagus - Speech therapy consulted, recommend mechanical soft with normal/thin fluids. Severe protein calorie malnutrition: Has documented weight loss. Evaluated by disk and tape machine tender, patient has poor p.o. intake. Initiate protein supplementation. Albumin 3.1 on labs at admission DNR/DNI Soft mechanical diet Resume Xarelto renally dosed 15mg daily
[2024-12-04] MEDS: diazePAM 10MG/2ML SYRINGE 2.5 MG IV (20:16)
[2024-12-04 20:23] LABS: Iron 61 ug/dL (49-181)
[2024-12-04 20:33] LABS: Total Iron Binding Capacity 188 ug/dL (261-462)
[2024-12-04 20:59] LABS: Ferritin 370 ng/ml (17.9-464)
[2024-12-04] MEDS: TAMSULOSIN 0.4MG CAPSULE 0.4 MG PO (21:46)
[2024-12-04] MEDS: PANTOPRAZOLE 40MG TABLET 40 MG PO (21:46)
[2024-12-04] MEDS: FAMOTIDINE 20MG TABLET 20 MG PO (21:46)
[2024-12-04] MEDS: MIRTAZAPINE 15 MG TABLET 7.5 MG PO (21:47)
[2024-12-05] VITALS (9 sets, daily range): BP systolic 120–156; BP diastolic 65–99; PULSE 70–118; RESP 15–18; TEMP 36.4–37; O2SAT 92–99; BMI 21.7; BMI 35.8
[2024-12-05] MEDS: METRONIDAZ/SOD CHL 500 MG/100 ML PIGGYBACK 100 MG IV ×2 (02:00→15:31)
[2024-12-05] MEDS: IPRATROPIUM/ALBUTEROL 3 ML NEB IH ×2 (04:26→15:49)
--- NOTE | 2024-12-05 06:41 | PC.NURSE ---
Pt became increasingly agitated, provider notified. See MAR for new order(s). v/s, alert to self only, o2 need increased from 1LNC to 3LNC. Respiratory called for breathing treatment. Pt required mittens for a few hours to prevent mendez and iv from being pulled out. Plan of care ongoing.
[2024-12-05] MEDS: METOPROLOL TARTRATE 25MG TABLET 25 MG PO (08:42)
[2024-12-05] MEDS: DOCUSATE SODIUM 100 MG CAPSULE PO (08:42)
[2024-12-05] MEDS: PANTOPRAZOLE 40MG TABLET 40 MG PO ×2 (08:42→20:01)
[2024-12-05 08:49] LABS: Hematocrit 35.3 % (42.0-52.0); Hemoglobin 10.8 g/dL (14.1-18.0); Immature Granulocytes % 0.7 %; Mean Corpuscular HGB Conc 30.6 g/dL (31.8-35.4); Mean Corpuscular Hemoglobin 29.7 pg (27.0-31.2); Mean Corpuscular Volume 97.0 fl (80-94); Nucleated Red Blood Cells % 0 %; Platelet Count 138 K/mm3 (142-424); Red Blood Count 3.64 M/mm3 (4.60-6.20); Red Cell Distribution Width-SD 57.0 fL; White Blood Count 6.7 K/mm3 (4.8-10.8)
[2024-12-05 09:07] LABS: Albumin Level 3.7 g/dl (3.5-5.0); Chloride 107 mmol/L (98-107)
[2024-12-05 09:08] LABS: Potassium 3.9 mmoL/L (3.5-5.1); Sodium 146 mmol/L (136-145)
[2024-12-05 09:10] LABS: Alanine Aminotransferase 23 U/L (12-78); Blood Urea Nitrogen 31 mg/dl (9-20); Creatinine Clearance Estimated 51 mL/min (50-200); Creatinine,Serum 0.90 mg/dl (0.66-1.25); Estimated Glomerular Filt Rate 80 ml/min (>60); GFR (African American) 96 ML/MIN (>60)
[2024-12-05 09:11] LABS: Albumin/Globulin Ratio 1.2 (1.1-1.8); Alkaline Phosphatase 81 U/L (38-126); Anion Gap 9.9 mEq/L (5-15); Aspartate Amino Transferase 35 U/L (17-59); Bilirubin,Total 1.0 mg/dl (0.2-1.3); Calcium 9.1 mg/dl (8.4-10.2); Carbon Dioxide 33 mmol/L (22.0-30.0); Globulin 3.1 g/dL (1.3-3.2); Glucose 127 mg/dl (74-100); Total Protein,Serum 6.8 g/dl (6.3-8.2)
[2024-12-05 09:14] LABS: Iron 47 ug/dL (49-181)
[2024-12-05 09:23] LABS: Total Iron Binding Capacity 190 ug/dL (261-462)
[2024-12-05 09:50] LABS: Ferritin 333 ng/ml (17.9-464)
[2024-12-05] MEDS: FUROSEMIDE 40MG/4ML VIAL 40 MG IV (10:14)
[2024-12-05] MEDS: FLUCONAZOLE 200MG TABLET 200 MG PO (10:17)
--- NOTE | 2024-12-05 10:23 | P.PN_ITS ---
Subjective *Date: 12/05/24 *Time: 16:46 Interval history: No acute respiratory vents overnight. Denies any new respiratory complaints Pulmonology Exam Inpatient Vital signs and Labs for Last 24 Hours: Temp Pulse Resp BP Pulse Ox O2 Del Method O2 Flow Rate 97.9 F 77 18 128/90 97 Nasal Cannula 1 12/05/24 08:00 12/05/24 08:00 12/05/24 08:00 12/05/24 08:00 12/05/24 08:00 12/05/24 08:00 12/05/24 08:00 FiO2 28 12/03/24 22:16 Laboratory Results - last 24 hr 12/04/24 08:12: Iron 61, TIBC 188 L, Iron Saturation 32.11697, Ferritin 370, NT-Pro-B Natriuret Pep 7510 H 12/04/24 16:35: Stl C. cayetanensis PCR Not detected, Stool Rotavirus (PCR) Not detected, Stl Adenov F 40/41 PCR Not detected, Stool Astrovirus (PCR) Not detected, Stool Campylobacter PCR Not detected, Stl C.difficile Tox PCR Not detected, Stool Cryptosporidium PCR Not detected, Stl E.coli Shiga Tox PCR Not detected, Stool E coli O157 PCR Not detected, Stl Enterotoxigenic E PCR Not detected, Stool EPEC (PCR) Not detected, Stool EAEC (PCR) Not detected, Stl E. histolytica PCR Not detected, Stool Giardia Lamblia PCR Not detected, Stool Salmonella PCR Not detected, Stool Sapovirus (PCR) Not detected, Stl P. shigelloides PCR Not detected, Stl Shigella/EIEC PCR Not detected, St Y.enterocolitica PCR Not detected, Stool Vibrio (PCR) Not detected, Stl Vibrio cholerae PCR Not detected, Stl Norovirus GI/GII PCR Not detected 12/05/24 08:38: WBC 6.7 D, RBC 3.64 L, Hgb 10.8 L, Hct 35.3 L, MCV 97.0 H, MCH 29.7, MCHC 30.6 L, RDW 15.9, Plt Count 138 L, MPV 11.1 H, Neut % (Auto) 73.7, Lymph % (Auto) 9.8 L, [place] % (Auto) 13.9 H, Eos % (Auto) 1.8, Baso % (Auto) 0.1, Neut # (Auto) 4.9, Lymph # (Auto) 0.7, [place] # (Auto) 0.9, Eos # (Auto) 0.1, Baso # (Auto) 0.0, Sodium 146 H, Potassium 3.9 D, Chloride 107, Carbon Dioxide 33 H, Anion Gap 9.9, BUN 31 H D, Creatinine 0.90, Estimated Creat Clear 51, Estimated GFR 80, Est GFR ( Amer) 96 D, Glucose 127 H, Calcium 9.1, Iron 47 L, TIBC 190 L, Iron Saturation 24.25187, Ferritin 333, Total Bilirubin 1.0, AST 35, ALT 23, Alkaline Phosphatase 81, Total Protein 6.8, Albumin 3.7, Globulin 3.1, Albumin/Globulin Ratio 1.2 Temp Pulse Resp BP Pulse Ox O2 Del Method O2 Flow Rate 97.6 F 70 16 130/75 99 Nasal Cannula 3 12/02/24 08:00 12/02/24 08:00 12/02/24 08:00 12/02/24 08:00 12/02/24 08:00 12/02/24 10:58 12/02/24 10:58 Laboratory Results - last 24 hr 12/01/24 17:24: NT-Pro-B Natriuret Pep 3330 H 12/01/24 17:27: WBC 10.0, RBC 3.66 L, Hgb 10.6 L, Hct 34.5 L, MCV 94.3 H, MCH 29.0, MCHC 30.7 L, RDW 16.2, Plt Count 172, MPV 11.1 H, Neut % (Auto) 81.1 H, Lymph % (Auto) 4.7 L, [place] % (Auto) 13.8 H, Eos % (Auto) 0.0 L, Baso % (Auto) 0.1, Neut # (Auto) 8.1 H, Lymph # (Auto) 0.5 L, [place] # (Auto) 1.4 H, Eos # (Auto) 0.0, Baso # (Auto) 0.0, Total Counted 100, Neutrophils % (Manual) 85 H, Lymphocytes % (Manual) 10, Monocytes % (Manual) 5, Platelet Estimate Normal, RBC Morphology Normal, PT 21.9 H, INR 2.08 H, Sodium 141, Potassium 3.8, Chloride 106, Carbon Dioxide 26, Anion Gap 12.8, BUN 63 H, Creatinine 2.30 H, Estimated Creat Clear 28, Estimated GFR 27 L, Est GFR ( Amer) 33 L, Glucose 152 H, Calcium 7.6 L, Phosphorus 5.2 H, Magnesium 2.6 H, Total Bilirubin 1.2, AST 28, ALT 17, Alkaline Phosphatase 68, Troponin I 0.04 H, Total Protein 5.8 L, Albumin 3.1 L, Globulin 2.7, Albumin/Globulin Ratio 1.1, Lipase 13 L 12/01/24 18:56: Stl C. cayetanensis PCR Not detected, Stool Rotavirus (PCR) Not detected, Stl Adenov F 40/41 PCR Not detected, Stool Astrovirus (PCR) Not detected, Stool Campylobacter PCR Not detected, Stl C.difficile Tox PCR Not detected, Stool Cryptosporidium PCR Not detected, Stl E.coli Shiga Tox PCR Not detected, Stool E coli O157 PCR Not detected, Stl Enterotoxigenic E PCR Not detected, Stool EPEC (PCR) Not detected, Stool EAEC (PCR) Not detected, Stl E. histolytica PCR Not detected, Stool Giardia Lamblia PCR Not detected, Stool Salmonella PCR Not detected, Stool Sapovirus (PCR) Not detected, Stl P. shigelloides PCR Not detected, Stl Shigella/EIEC PCR Not detected, St Y.enterocolitica PCR Not detected, Stool Vibrio (PCR) Not detected, Stl Vibrio cholerae PCR Not detected, Stl Norovirus GI/GII PCR Not detected 12/01/24 19:45: Urine Color Yellow, Urine Appearance Clear, Urine pH 6.5, Ur Specific [place] 1.025, Urine Protein 2+ A, Urine Glucose (UA) Negative, Urine Ketones 1+, Urine Blood 3+ A, Urine Nitrate Positive A, Urine Bilirubin 2+ A, Urine Urobilinogen 1.0, Ur Leukocyte Esterase 1+ A, Urine RBC Tntc, Ur Squamous Epith Cells 12/01/24 20:28: Lactate 1.5 12/01/24 21:25: Troponin I 0.03 12/02/24 00:50: Troponin I 0.03 12/02/24 05:53: WBC 9.5, RBC 4.02 L, Hgb 11.6 L, Hct 38.5 L, MCV 95.8 H, MCH 28.9, MCHC 30.1 L, RDW 16.4, Plt Count 146, MPV 11.2 H, Neut % (Auto) 81.4 H, Lymph % (Auto) 4.3 L, [place] % (Auto) 13.8 H, Eos % (Auto) 0.0 L, Baso % (Auto) 0.2, Neut # (Auto) 7.7, Lymph # (Auto) 0.4 L, [place] # (Auto) 1.3 H, Eos # (Auto) 0.0, Baso # (Auto) 0.0, Total Counted 100, Neutrophils % (Manual) 69, Band Neutrophils % 11 H, Lymphocytes % (Manual) 9 L, Monocytes % (Manual) 11 H, PT 14.9 H, INR 1.37 H, Sodium 142, Potassium 4.0, Chloride 107, Carbon Dioxide 22, Anion Gap 17.0 H, BUN 71 H, Creatinine 2.10 H, Estimated Creat Clear 24, Estimated GFR 30 L, Est GFR ( Amer) 36 L, Glucose 137 H, Lactate 1.6, Calcium 7.9 L, Magnesium 2.9 H D, Total Bilirubin 1.3, AST 68 H D, ALT 21, Alkaline Phosphatase 110, Total Protein 7.0, Albumin 3.9 D, Globulin 3.1, Albumin/Globulin Ratio 1.3 12/02/24 07:00: VBG pH 7.36, VBG pCO2 40.2, VBG pO2 55.8 H, VBG HCO3 22.0 L, VBG Total CO2 23.3, VBG O2 Saturation 87.1 H, VBG Base Excess -3.4 L, VBG Lactic Acid 2.3 H I & O for Labs for Last 24 Hours: Intake & Output 12/02/24 12/03/24 12/04/24 12/05/24 23:59 23:59 23:59 23:59 Intake Total 1698 / 1818 1250 / 1310 540 / 660 480 / 480 Output Total 650 / 650 525 / 525 800 / 800 250 / 250 Balance 1048 / 1168 725 / 785 -260 / -140 230 / 230 Weight 154 lb 8.705 oz 155 lb 154 lb 8 oz 155 lb 4.8 oz Intake & Output 11/29/24 11/30/24 12/01/24 08/11/25 23:59 23:59 23:59 23:59 Intake Total 0 / 0 Output Total 375 / 375 Balance -375 / -375 Weight 154 lb 8.705 oz 154 lb 8.705 oz Microbiology Reports for the Last 24 Hours: Microbiology 12/01/24 19:45 Urine,Catheterized Urine Culture - Final Constitutional: Present severe distress Head: Present normocephalic and atraumatic ENT: Present normal exam, normal oropharynx and mucous membranes moist Neck: Present normal inspection and full ROM Respiratory: Present respiratory distress and able to speak in complete sentences; Absent prolonged expiratory phase, wheezes, distant breath sounds or diminished air movement Cardiac: Present S1/S2, Tachycardia and radial pulses present GI: Present soft and distention; Absent tenderness or guarding Skin: Present intact; Absent cyanosis or jaundice Neuro: Present alert and awake; Absent oriented x 3 Comment:: Lethargic, easily arousable and responding appropriately to verbal commands and question Extremities: Present normal inspection; Absent clubbing or cyanosis Psychiatric: Present normal affect and cooperative Assessment and Plan *Assessment and plan (1) Aspiration pneumonia: Status: Acute Category: Medical Code(s): J69.0 - Pneumonitis due to inhalation of food and vomit (2) Acute respiratory failure with hypoxia: Status: Acute Category: Medical Code(s): J96.01 - Acute respiratory failure with hypoxia Plan Mr. Lua is a 89-year-old male around less than [id number] smoking last more when he was 51 years old not using any inhalers or oxygen supplementation at baseline presented to the ER with worsening weakness and increasing oxygen requirements and pulmonary was called for further evaluation and management. Afebrile. Hemodynamically stable. No evidence of leukocytosis. VBG from this morning did not show any evidence of hypercarbic respiratory failure CT abdomen concerning for Proctocolitis and also enlarged prostate CTA PE protocol, suboptimal secondary to motion artifact, no proximal pulmonary emboli noted. Distorted trachea with likely aspirated food. Likely right lower lobe atelectasis/aspiration pneumonia noted. Patient admits difficulty swallo wing. Examination mild respiratory distress. Appears lethargic. Complains of back pain. Chest clear to auscultate. Clinical update: No acute respiratory vents in the last 48 hours. Continue to receive levofloxacin . Following speech recommendations, mechanical soft diet with aspiration precautions. Chest x-ray from 12/04/2024 no acute changes. No worsening airspace disease. Chest x-ray continued showed cardiomegaly. No obvious evidence of pericardial effusion on his CTA chest from admission. Saturating 97% on 3 L nasal, weaned to 1 L this morning. Plan: Incentive spirometry and flutter valve Aspiration precautions. Follow-up with speech and swallow recommendation DuoNebs 4 times daily as needed Continue oxygen supplementation to maintain O2 saturation goal of 90% and above as tolerated. Continue levofloxacin to complete a total of 5-day course from pulmonary standpoint. # Thank you for involving pulmonary in this patient care. Will follow the patient in pulmonary clinic 2 to 4 weeks post discharge
--- NOTE | 2024-12-05 12:19 | EXP.CARD.PN ---
Subjective Subjective Date: 12/05/24 Time: 12:19 Principal diagnosis: UTI, sepsis, HFpEF Interval history: 89-year-old white male lying in bed in no acute distress. Daughter in room states patient still has some confusion but is better than yesterday. Reportedly patient did receive Ativan prior to his increasing confusion. We were able to get readings from his CardioMEMS device which do show an increase in fluid status. Patient does have some puffiness around the eyes today as well. Exam Data for Last 24 hours Vital signs and Labs for Last 24 Hours: Temp Pulse Resp BP Pulse Ox O2 Del Method O2 Flow Rate 97.6 F 71 15 124/84 96 Nasal Cannula 1 12/05/24 11:57 12/05/24 11:57 12/05/24 11:57 12/05/24 11:57 12/05/24 11:57 12/05/24 11:57 12/05/24 11:57 FiO2 28 12/03/24 22:16 Laboratory Results - last 24 hr 12/04/24 08:12: Iron 61, TIBC 188 L, Iron Saturation 32.55364, Ferritin 370 12/04/24 16:35: Stl C. cayetanensis PCR Not detected, Stool Rotavirus (PCR) Not detected, Stl Adenov F 40/41 PCR Not detected, Stool Astrovirus (PCR) Not detected, Stool Campylobacter PCR Not detected, Stl C.difficile Tox PCR Not detected, Stool Cryptosporidium PCR Not detected, Stl E.coli Shiga Tox PCR Not detected, Stool E coli O157 PCR Not detected, Stl Enterotoxigenic E PCR Not detected, Stool EPEC (PCR) Not detected, Stool EAEC (PCR) Not detected, Stl E. histolytica PCR Not detected, Stool Giardia Lamblia PCR Not detected, Stool Salmonella PCR Not detected, Stool Sapovirus (PCR) Not detected, Stl P. shigelloides PCR Not detected, Stl Shigella/EIEC PCR Not detected, St Y.enterocolitica PCR Not detected, Stool Vibrio (PCR) Not detected, Stl Vibrio cholerae PCR Not detected, Stl Norovirus GI/GII PCR Not detected 12/05/24 08:38: WBC 6.7 D, RBC 3.64 L, Hgb 10.8 L, Hct 35.3 L, MCV 97.0 H, MCH 29.7, MCHC 30.6 L, RDW 15.9, Plt Count 138 L, MPV 11.1 H, Neut % (Auto) 73.7, Lymph % (Auto) 9.8 L, [place] % (Auto) 13.9 H, Eos % (Auto) 1.8, Baso % (Auto) 0.1, Neut # (Auto) 4.9, Lymph # (Auto) 0.7, [place] # (Auto) 0.9, Eos # (Auto) 0.1, Baso # (Auto) 0.0, Sodium 146 H, Potassium 3.9 D, Chloride 107, Carbon Dioxide 33 H, Anion Gap 9.9, BUN 31 H D, Creatinine 0.90, Estimated Creat Clear 51, Estimated GFR 80, Est GFR ( Amer) 96 D, Glucose 127 H, Calcium 9.1, Iron 47 L, TIBC 190 L, Iron Saturation 24.19356, Ferritin 333, Total Bilirubin 1.0, AST 35, ALT 23, Alkaline Phosphatase 81, Total Protein 6.8, Albumin 3.7, Globulin 3.1, Albumin/Globulin Ratio 1.2 I & O for Last 24 hours: Intake & Output 12/03/24 12/04/24 12/05/24 12/06/24 11:59 11:59 11:59 11:59 Intake Total 1808 / 1808 720 / 720 960 / 960 Output Total 800 / 800 2550 / 2550 Balance 1008 / 1008 720 / 720 -1590 / -1590 Weight 155 lb 154 lb 8 oz 155 lb 4.8 oz Microbiology Reports for the Last 24 Hours: Microbiology 12/01/24 19:45 Urine,Catheterized Urine Culture - Final Constitutional Constitutional: no acute distress *Routine Respiratory Exam Respiratory: Present decreased breath sounds; Absent rhonchi or wheezes *Routine Cardiovascular Exam Cardiovascular: Present RRR; Absent murmur, gallop or rubs *Routine Extremities Exam Extremities: Absent edema Progress Note: A&P Assessment and plan (1) Aspiration pneumonia: Status: Acute (2) Acute respiratory failure with hypoxia: Status: Acute (3) Pneumonia: Status: Acute (4) Dyspnea: Status: Acute (5) ZACK (acute kidney injury): Status: Acute (6) Failure to thrive: Status: Acute (7) Hematuria: Status: Acute (8) Atrial fibrillation: Status: Chronic (9) Heart failure with reduced ejection fraction: Status: Chronic (10) Gastroparesis: Status: Acute (11) Chronic anemia: Problem details: Due for CMP, CBC today as directed by his heat treating bluer. Status: Chronic (12) Hypotension: Problem details: Active follow-up with cardiology. Furosemide was discontinued and he was given a prescription for midodrine but currently not taking it. Status: Chronic (13) Altered mental status: Status: Acute (14) Severe protein-calorie malnutrition: Status: Acute Assessment and Plan Assessment and Plan for All Diagnoses:: 1. UTI/sepsis/altered mental status -IV levofloxacin -Cultures pending, no growth so far -Severe prostatomegaly on abdominal/pelvis CTA with PSA 17.7 this month 2. Aspiration Pneumonia with acute respiratory failure/hypoxia -On oxygen -aspiration precautions 3. HFrEF with BiV pacemaker in situ -BNP 3330 up to 7510 with chest x-ray evidence of small right pleural effusion and combination of atelectasis/pneumonia, R lung base -EF 45% this admission -Patient has CardioMEMS in place since 2022 -Restart lasix due to elevated BNP and CardioMEMs reading with wheezing, periorbital swelling 4. Chronic atrial fibrillation -continue metoprolol for rate control -Abnormal CTA with questionable chronic left atrial appendage thrombus -Holding Xarelto and aspirin 81 mg daily due to heme (+) stool. -Consider outpatient KENDELL or outpatient CCTA in the future 5. Chronic gastroparesis, now with acute proctocolitis and moderate reactive ileus -Defer to hospitalist -GI consulted. Recommended adding flagyl 6. CKD, stage III with chronic mild anemia in the 10-12 range, heme (+) stool this admit. -Baseline creatinine 1.7 with GFR 38 in July 2023 -Currently 1.1 -Likely need to diurese back to baseline of 1.7 to keep out of CHF 7. Liver cysts on abdominal CTA with normal liver functions -INR 2.08 on admission (likely related to Xarelto use but question clinical significance) 8. CAD -history of CABG (1990) and coronary stenting (2019) -on ASA, metoprolol and statin 9. Known ascending thoracic aorta -stable at 4.1-4.2 cm. Pt continues to appear ill. Renal function improved. Reduced airflow on exam. Getting nebs. Start lasix for HFpEF and follow CardioMEMs and BNP Confusion improved but not resolved Pt is DNR/DNI
--- NOTE | 2024-12-05 14:04 | P.PN_ITS ---
Subjective *Date: 12/05/24 *Time: 14:48 Interval history: Patient resting in bed but is easily aroused. He still acutely confused today. His daughter is in the room and reports that he is better today than he was yesterday. He has been sitting up in the chair and able to eat and drink today. She reports that patient has been seeing Dr. Soria for a long time. His last colonoscopy was in the last 5 years and he has had multiple EGDs along the way diagnosed with gastroparesis and a tortuous esophagus. They plan to follow-up with Dr. Soria after discharge again. She denies any previous diagnosis of inflammatory bowel disease. She does report that the patient has gone between constipation and diarrhea for years. She does not know what he takes for symptoms at home. He often has a lot of bloating and belching. Exam Data for Last 24 hours Vital signs and Labs for Last 24 Hours: Temp Pulse Resp BP Pulse Ox O2 Del Method O2 Flow Rate 97.6 F 71 15 124/84 96 Nasal Cannula 1 12/05/24 11:57 12/05/24 11:57 12/05/24 11:57 12/05/24 11:57 12/05/24 11:57 12/05/24 13:00 12/05/24 13:00 FiO2 28 12/03/24 22:16 Laboratory Results - last 24 hr 12/04/24 08:12: Iron 61, TIBC 188 L, Iron Saturation 32.21709, Ferritin 370 12/04/24 16:35: Stl C. cayetanensis PCR Not detected, Stool Rotavirus (PCR) Not detected, Stl Adenov F 40/41 PCR Not detected, Stool Astrovirus (PCR) Not detected, Stool Campylobacter PCR Not detected, Stl C.difficile Tox PCR Not detected, Stool Cryptosporidium PCR Not detected, Stl E.coli Shiga Tox PCR Not detected, Stool E coli O157 PCR Not detected, Stl Enterotoxigenic E PCR Not detected, Stool EPEC (PCR) Not detected, Stool EAEC (PCR) Not detected, Stl E. histolytica PCR Not detected, Stool Giardia Lamblia PCR Not detected, Stool Salmonella PCR Not detected, Stool Sapovirus (PCR) Not detected, Stl P. alyson gelloides PCR Not detected, Stl Shigella/EIEC PCR Not detected, St Y.enterocolitica PCR Not detected, Stool Vibrio (PCR) Not detected, Stl Vibrio cholerae PCR Not detected, Stl Norovirus GI/GII PCR Not detected 12/05/24 08:38: WBC 6.7 D, RBC 3.64 L, Hgb 10.8 L, Hct 35.3 L, MCV 97.0 H, MCH 29.7, MCHC 30.6 L, RDW 15.9, Plt Count 138 L, MPV 11.1 H, Neut % (Auto) 73.7, Lymph % (Auto) 9.8 L, [place] % (Auto) 13.9 H, Eos % (Auto) 1.8, Baso % (Auto) 0.1, Neut # (Auto) 4.9, Lymph # (Auto) 0.7, [place] # (Auto) 0.9, Eos # (Auto) 0.1, Baso # (Auto) 0.0, Sodium 146 H, Potassium 3.9 D, Chloride 107, Carbon Dioxide 33 H, Anion Gap 9.9, BUN 31 H D, Creatinine 0.90, Estimated Creat Clear 51, Estimated GFR 80, Est GFR ( Amer) 96 D, Glucose 127 H, Calcium 9.1, Iron 47 L, TIBC 190 L, Iron Saturation 24.52312, Ferritin 333, Total Bilirubin 1.0, AST 35, ALT 23, Alkaline Phosphatase 81, Total Protein 6.8, Albumin 3.7, Globulin 3.1, Albumin/Globulin Ratio 1.2 I & O for Last 24 hours: Intake & Output 12/03/24 12/04/24 12/05/24 12/06/24 11:59 11:59 11:59 11:59 Intake Total 1808 720 960 Output Total 800 2550 Balance 1008 720 -1590 Weight 70.307 kg 70.08 kg 70.443 kg Microbiology Reports for the Last 24 Hours: Microbiology 12/01/24 19:45 Urine,Catheterized Urine Culture - Final Constitutional Constitutional: chronically ill appearing Comments: Somewhat cooperative when awake *Routine HEENT Exam Head: Present normocephalic and atraumatic *Routine Respiratory Exam Respiratory: Present CTA bilaterally *Routine Cardiovascular Exam Cardiovascular: Present RRR *Routine Abdominal Exam Abdominal: Present tenderness (TTP throughout) and distended (Moderate distention with gas bloat) *Routine Extremities Exam Extremities: Present pulses intact *Routine Skin Exam Skin: Present intact and dry *Routine Neurological Exam Comments: Arousable. Slow to answer questions. Intermittently cooperative. Oriented x 1 Assessment and Plan *Assessment and plan (1) Weight loss: Status: Acute Category: Medical Code(s): R63.4 - Abnormal weight loss (2) Loss of appetite: Status: Acute Category: Medical Code(s): R63.0 - Anorexia (3) Proctocolitis with rectal bleeding: Status: Acute Category: Medical Code(s): K52.9 - Noninfective gastroenteritis and colitis, unspecified; K62.5 - Hemorrhage of anus and rectum (4) Altered mental status: Status: Acute Qualifiers: Altered mental status type: unspecified Qualified Code(s): R41.82 - Altered mental status, unspecified Category: Medical Code(s): R41.82 - Altered mental status, unspecified (5) Gastroparesis: Status: Acute Category: Medical Code(s): K31.84 - Gastroparesis Plan 1. Gastroparesis/failure to thrive/loss of appetite/weight loss Patient is confused but does report loss of appetite and weight loss and poor p.o. intake. Per his daughter he does have a history of gastroparesis diagnosed by Dr. Soria and a tortuous esophagus. He has lost about 25 pounds in the past year. He is able to eat but has nausea a lot of the times. Daughter reports he was able to eat and drink today. No vomiting. They plan to see Dr. Soria after discharge. Daughter reports he has declined to place him on a motility medicine. 2. Proctocolitis with rectal bleeding Severe acute proctocolitis and possibly moderate reactive ileus seen on CT abdomen pelvis, although patient is still producing bowel movements daily. Patient did have a positive Hemoccult. Patient has underlying chronic anemia but is actively having some bright red blood per rectum with bowel movements. Now having multiple loose stools per day on MiraLAX and senna. Anemia is hypochromic but macrocytic. Hemoglobin has improved overnight from 10.3 up to 10.8. Ferritin and percent sat are within normal limits but iron is low today at 47. I recommend initial IV iron infusion prior to discharge. Xarelto and aspirin were held. Continue Levaquin and Flagyl. If he continues to have multiple loose stools throughout the day, may hold the senna and just continue the MiraLAX. May consider colonoscopy after patient improves clinically. Daughter had discussed patient seeing Dr. Soria for that.
--- NOTE | 2024-12-05 17:20 | PC.NURSE ---
alert to self, pleasantly confused. able to follow basic commands. daughter at bedside and participates in patient care. did ambulate with assistance and walker today between chair and bed. mendez cath in place. 1lnc for o2 support. still experiencing bloody diarrhea.
--- NOTE | 2024-12-05 18:27 | P.PN_ITS ---
Subjective *Date: 12/05/24 *Time: 18:27 Interval history: Mentation improved today, Ativan likely contributed to delirium. Continues to have bright red blood per rectum, given severe proctocolitis high risk for decompensation. Will monitor for 1 more day to ensure stability. Hemoglobin stable. Exam Data for Last 24 hours Vital signs and Labs for Last 24 Hours: Temp Pulse Resp BP Pulse Ox O2 Del Method O2 Flow Rate 98.3 F 70 18 120/80 92 L Nasal Cannula 1 12/05/24 16:00 12/05/24 16:00 12/05/24 16:00 12/05/24 16:00 12/05/24 16:00 12/05/24 18:19 12/05/24 18:19 FiO2 28 12/03/24 22:16 Laboratory Results - last 24 hr 12/04/24 08:12: Iron 61, TIBC 188 L, Iron Saturation 32.73522, Ferritin 370 12/04/24 16:35: Stl C. cayetanensis PCR Not detected, Stool Rotavirus (PCR) Not detected, Stl Adenov F 40/41 PCR Not detected, Stool Astrovirus (PCR) Not detected, Stool Campylobacter PCR Not detected, Stl C.difficile Tox PCR Not detected, Stool Cryptosporidium PCR Not detected, Stl E.coli Shiga Tox PCR Not detected, Stool E coli O157 PCR Not detected, Stl Enterotoxigenic E PCR Not detected, Stool EPEC (PCR) Not detected, Stool EAEC (PCR) Not detected, Stl E. histolytica PCR Not detected, Stool Giardia Lamblia PCR Not detected, Stool S almonella PCR Not detected, Stool Sapovirus (PCR) Not detected, Stl P. shigelloides PCR Not detected, Stl Shigella/EIEC PCR Not detected, St Y.enterocolitica PCR Not detected, Stool Vibrio (PCR) Not detected, Stl Vibrio cholerae PCR Not detected, Stl Norovirus GI/GII PCR Not detected 12/05/24 08:38: WBC 6.7 D, RBC 3.64 L, Hgb 10.8 L, Hct 35.3 L, MCV 97.0 H, MCH 29.7, MCHC 30.6 L, RDW 15.9, Plt Count 138 L, MPV 11.1 H, Neut % (Auto) 73.7, Lymph % (Auto) 9.8 L, [place] % (Auto) 13.9 H, Eos % (Auto) 1.8, Baso % (Auto) 0.1, Neut # (Auto) 4.9, Lymph # (Auto) 0.7, [place] # (Auto) 0.9, Eos # (Auto) 0.1, Baso # (Auto) 0.0, Sodium 146 H, Potassium 3.9 D, Chloride 107, Carbon Dioxide 33 H, Anion Gap 9.9, BUN 31 H D, Creatinine 0.90, Estimated Creat Clear 51, Estimated GFR 80, Est GFR ( Amer) 96 D, Glucose 127 H, Calcium 9.1, Iron 47 L, TIBC 190 L, Iron Saturation 24.95581, Ferritin 333, Total Bilirubin 1.0, AST 35, ALT 23, Alkaline Phosphatase 81, Total Protein 6.8, Albumin 3.7, Globulin 3.1, Albumin/Globulin Ratio 1.2 I & O for Last 24 hours: Intake & Output 12/02/24 12/03/24 12/04/24 12/05/24 23:59 23:59 23:59 23:59 Intake Total 1698 / 1818 1250 / 1310 540 / 660 480 / 480 Output Total 650 / 650 525 / 525 800 / 800 2700 / 2700 Balance 1048 / 1168 725 / 785 -260 / -140 -2220 / -2220 Weight 70.1 kg 70.307 kg 70.08 kg 70.443 kg Microbiology Reports for the Last 24 Hours: Microbiology 12/01/24 19:45 Urine,Catheterized Urine Culture - Final Constitutional Constitutional: no acute distress *Routine HEENT Exam Head: Present normocephalic Eye: Present EOMI and PERRL ENT: Present mucous membranes moist *Routine Neck Exam Neck: Present supple; Absent lymphadenopathy *Routine Respiratory Exam Respiratory: Present CTA bilaterally *Routine Cardiovascular Exam Cardiovascular: Present RRR *Routine Abdominal Exam Abdominal: Present soft and normoactive bowel sounds; Absent tenderness *Routine Extremities Exam Extremities: Absent cyanosis, clubbing or edema *Routine Skin Exam Skin: Present warm; Absent rash *Routine Neurological Exam Neurological: Present alert Assessment and Plan *Assessment and plan (1) Pneumonia: Status: Acute Qualifiers: Pneumonia type: due to unspecified organism Laterality: right Lung location: lower lobe of lung Qualified Code(s): J18.9 - Pneumonia, unspecified organism Category: Medical Code(s): J18.9 - Pneumonia, unspecified organism (2) Dyspnea: Status: Acute Qualifiers: Dyspnea type: dyspnea on exertion Qualified Code(s): R06.00 - Dyspnea, unspecified Category: Medical Code(s): R06.00 - Dyspnea, unspecified (3) ZACK (acute kidney injury): Status: Acute Category: Medical Code(s): N17.9 - Acute kidney failure, unspecified (4) Failure to thrive: Status: Acute Qualifiers: Failure to thrive age range: in adult Qualified Code(s): R62.7 - Adult failure to thrive Category: Medical (5) Hematuria: Status: Acute Qualifiers: Hematuria type: gross Qualified Code(s): R31.0 - Gross hematuria Category: Medical Code(s): R31.9 - Hematuria, unspecified (6) Atrial fibrillation: Status: Chronic Qualifiers: Atrial fibrillation type: unspecified chronic Qualified Code(s): I48.20 - Chronic atrial fibrillation, unspecified Category: Medical Code(s): I48.91 - Unspecified atrial fibrillation (7) Heart failure with reduced ejection fraction: Status: Chronic Category: Medical Code(s): I50.20 - Unspecified systolic (congestive) heart failure (8) Gastroparesis: Status: Acute Category: Medical Code(s): K31.84 - Gastroparesis (9) Chronic anemia: Problem Comment: Due for CMP, CBC 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 Status: Chronic Category: Medical Code(s): D64.9 - Anemia, unspecified (10) Hypotension: Problem Comment: Active follow-up with cardiology. Furosemide was discontinued and he was given a prescription for midodrine but currently not taking it. Status: Chronic Qualifiers: Hypotension type: other hypotension type Qualified Code(s): I95.89 - Other hypotension Category: Medical Code(s): I95.9 - Hypotension, unspecified (11) Altered mental status: Status: Acute Qualifiers: Altered mental status type: unspecified Qualified Code(s): R41.82 - Altered mental status, unspecified Category: Medical Code(s): R41.82 - Altered mental status, unspecified (12) Severe protein-calorie malnutrition: Status: Acute Category: Medical Code(s): E43 - Unspecified severe protein-calorie malnutrition Plan Britney Lua 89-year-old presents from nursing facility with shortness of breath. Found to have pneumonia. Also concerning for UTI associated with his catheter. Admitted for broad-spectrum antibiotics and continued monitoring. Cardiology and pulmonology consulted to assist with care. Continues to require inpatient management. Therapy evaluating today. Problems addressed as follows: Pneumonia UTI Acute metabolic encephalopathy - White count remains normal this morning at 6.7. - CT abdomen shows severe prostatomegaly. PSA significantly elevated, 17.7. - Given his enlarged prostate and concern for prostatitis, patient had p reviously been on ciprofloxacin for 2 weeks. May need longer duration. ? Continue levofloxacin 750 mg every 48 hours. - Urine culture growing yeast, started fluconazole 200 mg daily. - Speech therapy consulted, recommend mechanical soft with normal/thin fluids. - Continue DuoNebs every 6 hours as needed. Continue supplemental oxygen for goal sats greater than 90%. - Metabolic encephalopathy due to combination of infections and hospital- acquired delirium. Patient will benefit from going back to facility as soon as medically stable to reduce the risk of delirium worsening. ? Avoid benzodiazepines overnight as it probably contributed to delirium. #GI bleed #Bright red blood per rectum #Severe proctocolitis ? CT abdomen shows severe acute proctocolitis, patient continues to have episodes of bright red blood per rectum. Stool PCR normal. ? Hemoglobin stabilized at 10.8, but continues to have bloody stools. High risk of decompensation with severe proctocolitis, will monitor for 1 more day to ensure stability. ? GI consulted, continue levofloxacin and metronidazole. Recommend outpatient colonoscopy once medically stable. ? Follow-up morning H&H, transfuse if hemoglobin less than 8. #ZACK on CKD stage III ? Initial creatinine 2.3, improved to 0.9 today. HFrEF with BiV pacemaker in situ Chronic A-fib CAD with history of CABG in 1990, coronary stents placed in 2019 -Cardiology following, patient has CardioMEMS in place since 2022. Holding diuretics due to acute on chronic renal insufficiency. BNP elevated but does not appear frankly overloaded. EF 45% on echo -Abnormal CTA with questionable chronic left atrial appendage thrombus -Continue Xarelto and add aspirin 81 mg daily -Consider outpatient KENDELL or outpatient CCTA in the future at cardiology recommendation - On imaging of chest, patient's thoracic aortic aneurysm appears stable at 4.1 to 4.2 cm. This is a known condition. Following with cardiology - Continue metoprolol tartrate 25 mg daily. ? Cardiology is evaluating CardioMEMS, indicated slight volume overload. Given IV Lasix 40 mg one-time dose. Chronic gastroparesis with tortuous esophagus - Speech therapy consulted, recommend mechanical soft with normal/thin fluids. Severe protein calorie malnutrition: Has documented weight loss. Evaluated by hydrocrane operator, patient has poor p.o. intake. Initiate protein supplementation. Albumin 3.1 on labs at admission DNR/DNI Soft mechanical diet Resume Xarelto renally dosed 15mg daily
[2024-12-05] MEDS: TAMSULOSIN 0.4MG CAPSULE 0.4 MG PO (20:01)
[2024-12-05] MEDS: MIRTAZAPINE 15 MG TABLET 7.5 MG PO (20:01)
[2024-12-05] MEDS: OLANZapine 5 MG ODT TABLET SL (20:01)
[2024-12-06] VITALS: BP 139/88; PULSE 70; PULSE 71; RESP 14; TEMP 36.4; O2SAT 92
[2024-12-06] MEDS: METRONIDAZ/SOD CHL 500 MG/100 ML PIGGYBACK 100 MG IV (02:59)
[2024-12-06 04:00] VITALS: BP 145/67; PULSE 70; PULSE 77; RESP 14; TEMP 36.4; O2SAT 92; BMI 26.6
--- NOTE | 2024-12-06 05:59 | PC.NURSE ---
pt alert to self only, v/s, pt on 1LNC satting in 90's. No acute events to report. Plan of care ongoing.
[2024-12-06 07:03] LABS: Hematocrit 33.4 % (42.0-52.0); Hemoglobin 10.3 g/dL (14.1-18.0); Immature Granulocytes % 0.9 %; Mean Corpuscular HGB Conc 30.8 g/dL (31.8-35.4); Mean Corpuscular Hemoglobin 29.5 pg (27.0-31.2); Mean Corpuscular Volume 95.7 fl (80-94); Nucleated Red Blood Cells % 0 %; Platelet Count 143 K/mm3 (142-424); Red Blood Count 3.49 M/mm3 (4.60-6.20); Red Cell Distribution Width-SD 54.4 fL; White Blood Count 8.1 K/mm3 (4.8-10.8)
[2024-12-06 07:15] LABS: Albumin Level 3.6 g/dl (3.5-5.0); Chloride 106 mmol/L (98-107); Potassium 3.4 mmoL/L (3.5-5.1); Sodium 144 mmol/L (136-145)
[2024-12-06 07:18] LABS: Alanine Aminotransferase 23 U/L (12-78); Albumin/Globulin Ratio 1.2 (1.1-1.8); Alkaline Phosphatase 81 U/L (38-126); Aspartate Amino Transferase 34 U/L (17-59); Bilirubin,Total 0.9 mg/dl (0.2-1.3); Blood Urea Nitrogen 26 mg/dl (9-20); Calcium 8.8 mg/dl (8.4-10.2); Creatinine Clearance Estimated 49 mL/min (50-200); Creatinine,Serum 1.00 mg/dl (0.66-1.25); Estimated Glomerular Filt Rate 71 ml/min (>60); GFR (African American) 85 ML/MIN (>60); Globulin 3.0 g/dL (1.3-3.2); Glucose 119 mg/dl (74-100); Total Protein,Serum 6.6 g/dl (6.3-8.2)
[2024-12-06 08:00] VITALS: BP 150/83; PULSE 67; RESP 18; O2SAT 96
[2024-12-06 08:34] LABS: Anion Gap 8.4 mEq/L (5-15); Carbon Dioxide 33 mmol/L (22.0-30.0)
[2024-12-06] MEDS: METOPROLOL TARTRATE 25MG TABLET 25 MG PO (08:56)
[2024-12-06] MEDS: PANTOPRAZOLE 40MG TABLET 40 MG PO (08:56)
[2024-12-06] MEDS: FLUCONAZOLE 200MG TABLET 200 MG PO (08:56)
--- NOTE | 2024-12-06 10:57 | CT_ITS ---
FINAL REPORT TECHNIQUE: Noncontrast exam This study was performed with techniques to keep radiation doses as low as reasonably achievable, (ALARA). Individualized dose reduction techniques using automated exposure control or adjustment of mA and/or kV according to the patient''s size were employed. CLINICAL HISTORY: worsening confusion, weakness COMPARISON: 08/20/2022 FINDINGS: There is moderate atrophy and chronic microvascular change, similar to the prior study. There is no hemorrhage. No mass effect is seen. Bone windows show no evidence of fracture. IMPRESSION: No acute findings Reviewed, Interpreted and Dictated by Breonna Prado MD Transcribed by Awa Brewster Authenticated and [facility]
[2024-12-06] MEDS: 0.9 % SODIUM CHLORIDE 500 ML 250 ML IV (11:30)
[2024-12-06 12:00] VITALS: BP 159/84; PULSE 70; RESP 16; TEMP 36.7; O2SAT 98
--- NOTE | 2024-12-06 12:24 | EXP.CARD.PN ---
Subjective Subjective Date: 12/06/24 Time: 12:24 Principal diagnosis: UTI, sepsis, HFpEF Interval history: 89 yo WM in bed in NAD. More confused/restless than yesterday. Ate 3 meals yesterday but today patient does not seem to comprehend swallowing. He is moving all extremities. Recently started Flagyl 2 days ago. He did receive Lasix yesterday with rater than 2 L output. Periorbital swelling has resolved. Exam Data for Last 24 hours Vital signs and Labs for Last 24 Hours: Temp Pulse Resp BP Pulse Ox O2 Del Method O2 Flow Rate 98.1 F 70 16 159/84 H 98 Nasal Cannula 2 12/06/24 12:00 12/06/24 12:00 12/06/24 12:00 12/06/24 12:00 12/06/24 12:00 12/06/24 12:00 12/06/24 12:00 FiO2 28 12/03/24 22:16 Laboratory Results - last 24 hr 12/06/24 06:30: WBC 8.1, RBC 3.49 L, Hgb 10.3 L, Hct 33.4 L, MCV 95.7 H, MCH 29.5, MCHC 30.8 L, RDW 15.7, Plt Count 143, MPV 10.8 H, Neut % (Auto) 71.2, Lymph % (Auto) 9.8 L, [place] % (Auto) 16.1 H, Eos % (Auto) 1.9, Baso % (Auto) 0.1, Neut # (Auto) 5.8, Lymph # (Auto) 0.8, [place] # (Auto) 1.3 H, Eos # (Auto) 0.2, Baso # (Auto) 0.0, Sodium 144, Potassium 3.4 L, Chloride 106, Carbon Dioxide 33 H, Anion Gap 8.4, BUN 26 H, Creatinine 1.00, Estimated Creat Clear 49, Estimated GFR 71, Est GFR ( Amer) 85, Glucose 119 H, Calcium 8.8, Total Bilirubin 0.9, AST 34, ALT 23, Alkaline Phosphatase 81, Total Protein 6.6, Albumin 3.6, Globulin 3.0, Albumin/Globulin Ratio 1.2 I & O for Last 24 hours: Intake & Output 12/04/24 12/05/24 12/06/24 12/07/24 11:59 11:59 11:59 11:59 Intake Total 720 / 720 960 / 960 580 / 580 Output Total 2550 / 2550 1350 / 1350 Balance 720 / 720 -1590 / -1590 -770 / -770 Weight 154 lb 8 oz 155 lb 4.8 oz 150 lb 11.2 oz Microbiology Reports for the Last 24 Hours: Microbiology 12/01/24 20:46 Blood Blood Culture - Preliminary NO GROWTH AFTER 4 DAYS 12/01/24 20:26 Blood Blood Culture - Preliminary NO GROWTH AFTER 4 DAYS 12/01/24 19:45 Urine,Catheterized Urine Culture - Final Constitutional Constitutional: no acute distress *Routine Respiratory Exam Respiratory: Present decreased breath sounds and diminished air movement *Routine Cardiovascular Exam Cardiovascular: Present RRR Progress Note: A&P Assessment and plan (1) Pneumonia: Status: Acute (2) Dyspnea: Status: Acute (3) ZACK (acute kidney injury): Status: Acute (4) Failure to thrive: Status: Acute (5) Hematuria: Status: Acute (6) Atrial fibrillation: Status: Chronic (7) Heart failure with reduced ejection fraction: Status: Chronic (8) Gastroparesis: Status: Acute (9) Chronic anemia: Problem details: Due for CMP, CBC 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 Status: Chronic (10) Hypotension: Problem details: Active follow-up with cardiology. Furosemide was discontinued and he was given a prescription for midodrine but currently not taking it. Status: Chronic (11) Altered mental status: Status: Acute (12) Severe protein-calorie malnutrition: Status: Acute (13) Aspiration pneumonia: Status: Acute (14) Acute respiratory failure with hypoxia: Status: Acute Assessment and Plan Assessment and Plan for All Diagnoses:: 1. UTI/sepsis/altered mental status -IV levofloxacin -Cultures pending, no growth so far -Severe prostatomegaly on abdominal/pelvis CTA with PSA 17.7 this month 2. Aspiration Pneumonia with acute respiratory failure/hypoxia -On oxygen -aspiration precautions 3. HFrEF with BiV pacemaker in situ -BNP 3330 up to 7510 with chest x-ray evidence of small right pleural effusion and combination of atelectasis/pneumonia, R lung base -EF 45% this admission -Patient has CardioMEMS in place since 2022 -Restart lasix as needed due to elevated BNP and CardioMEMs reading with wheezing, periorbital swelling -now resolved 12/06/2024 4. Chronic atrial fibrillation -continue metoprolol for rate control -Abnormal CTA with questionable chronic left atrial appendage thrombus -Holding Xarelto and aspirin 81 mg daily due to heme (+) stool. -Consider outpatient KENDELL or outpatient CCTA in the future 5. Chronic gastroparesis, now with acute proctocolitis and moderate reactive ileus -Defer to hospitalist -GI consulted. Recommended adding flagyl 6. CKD, stage III with chronic mild anemia in the 10-12 range, heme (+) stool this admit. -Baseline creatinine 1.7 with GFR 38 in July 2023 -Currently 1.1 -Likely need to diurese back to baseline of 1.7 to keep out of CHF 7. Liver cysts on abdominal CTA with normal liver functions -INR 2.08 on admission (likely related to Xarelto use but question clinical significance) 8. CAD -history of CABG (1990) and coronary stenting (2019) -on ASA, metoprolol and statin 9. Known ascending thoracic aorta -stable at 4.1-4.2 cm. Pt continues to appear ill. Renal function improved. Reduced airflow on exam. Getting nebs. Start PRN lasix for HFpEF and follow CardioMEMs and BNP Confusion returned Pt is DNR/DNI
[2024-12-06 14:01] LABS: VBG HCO3 34.0 mmol/L (23-30); VBG PCO2 52.7 mmol/L (35-51); VBG PH 7.43 mmol/L (7.31-7.41); VBG PO2 33.2 mmol/L (28-40)
[2024-12-06 14:03] LABS: Lactate Venous 2.2 mmol/L (0.4-2.0)
[2024-12-06] MEDS: PIPERCILLIN/TAZO 3.375 GM in 0.9 % SODIUM CHLORIDE 50 ML IV (14:04)
--- NOTE | 2024-12-06 14:26 | EXP.DC.SUM ---
General Admission date:: 12/01/24 HPI HPI HPI: Mr. Lua an 89-year-old [facility] patient, has had increased weakness no longer able to ambulate by himself blood in urine.. Also showing some confusion. After talking with the ER physician do agree there is potential for pneumonia specially right lower lung. Also blood in urine with possible UTI., Question some colitis with alternating constipation and diarrhea. Noting that the patient's H&H is also decreasing with significant amount of blood in urine after Meyers placed patient is on anticoagulation Question distal coronary artery bypass thing has had cath with extra stents has been in A-fib. Pacemaker has been placed believe it was changed to a dual chamber place maker in the past. Ejection fraction being in A-fib began to decrease from 52% down to 45% per notes. Also given a cardiac mems implant.. Patient now requiring oxygen which she normally just wears at night. Patient does have sleep apnea but never adjusted to mask and never wears it. Notes began to list congestive heart failure in 2021 and now also some gastroparesis. Will go ahead and admit the patient after talking the ER provider provide oxygen. Try to tune the patient up balance any fluid needs. Meyers catheter with blood may need to adjust anticoagulation. Consult cardiology to look at the cardiac mems and to adjust any medication as able. Patient is a DNR but will keep on monitor and pulse ox while on the floor.. Noting ER has started Rocephin and Flagyl questioning whether the patient was developing sepsis, and noting that the BNP is greater than 3000 troponin was only at 0.04 but will continue to monitor Per admission H&P This is an 89-year-old male [facility] patient with acute altered mental status and failure to thrive. He is admitted with UTI, pneumonia, sepsis, anemia. Hemoglobin today is 10.3 hypochromic but macrocytic. He does have some chronic anemia. Has had significant blood in his urine. Also had a positive Hemoccult yesterday. Patient is on Xarelto and aspirin with a history of chronic A-fib. These have been held today. Has had both diarrhea and constipation. CT scan notes severe wall thickening and mucosal hyperenhancement in the rectosigmoid and ascending colon concerning for acute proctocolitis. He also has possible moderate reactive ileus. Patient has been having bowel movements on MiraLAX daily. This morning was found to have blood and mucus in his stool per nursing. He is not having rectal bleeding between bowel movements. Patient is on Levaquin currently. Patient is A&O x 1. He is acutely confused. This is not his baseline per nursing. He does appear acutely ill. However, he does report that he has not been eating much and he does not want to eat much. He reports that he has lost weight. He does have a history of chronic gastroparesis. CT scan also noted multiple liver cysts up to 8.3 cm but has had normal LFTs. Does have some hepatomegaly and hepatic steatosis. Severe prostatomegaly noted on imaging with elevated PSA. Hospital Course Hospital Course Hospital Course: Britney Lua 89-year-old presents from nursing facility with shortness of breath and was admitted for further evaluation management. #Acute metabolic encephalopathy #Hospital-acquired delirium ? Multifactorial from infection, medications, prostamegaly. ? Continue treatment of infections as below for pneumonia, proctocolitis. ? Continues to have waxing and waning mentation, will benefit from returning to [facility] and continued treatment of proctocolitis. ? Discontinued home alprazolam (was not restarted during admission), mirtazapine, gabapentin, famotidine, cetirizine as these can contribute to delirium. ? Initially thought to have UTI, urine culture showed yeast growth. Continue fluconazole for 3 more days. ? CT head unremarkable for acute findings. #Community-acquired pneumonia ? CTA chest shows right lower lobe pneumonia, treated with levofloxacin. ? Continue baseline 2 L as needed. #GI bleed #Bright red blood per rectum #Severe proctocolitis ? CT abdomen shows severe acute proctocolitis, patient continues to have episodes of bright red blood per rectum. Stool PCR normal. ? Hemoglobin stabilized at 10.3, bloody stools resolving. ? Treated with levofloxacin, metronidazole. Will transition to Augmentin 100 mg 3 times daily for 9 more days for total of 14 days. ? GI consulted, recommend outpatient colonoscopy once proctocolitis improves. #Enlarged prostate #Bladder outlet obstruction #Urinary retention - CT abdomen shows severe prostatomegaly. PSA significantly elevated, 17.7. - Given his enlarged prostate and concern for prostatitis, patient had previously been on ciprofloxacin for 2 weeks. ? Will need close follow-up with urology. ? Continue Meyers catheter until follow-up with urology. #ZACK on CKD stage III ? Initial creatinine 2.3, improved to 1.0. #HFrEF with BiV pacemaker in situ #Chronic A-fib #CAD with history of CABG in 1990, coronary stents placed in 2019 - Cardiology following, patient has CardioMEMS in place since 2022. EF 45% on echo. - Abnormal CTA with questionable chronic left atrial appendage thrombus. - Continue Xarelto and add aspirin 81 mg daily - On imaging of chest, patient's thoracic aortic aneurysm appears stable at 4.1 to 4.2 cm. This is a known condition. Following with cardiology - Continue metoprolol tartrate 25 mg daily. #Suspected aspiration - Speech therapy consulted, recommend mechanical soft with normal/thin fluids. Small pills with applesauce, crushed large pills with applesauce, small bites and sips, alternate liquids and solids. #Chronic gastroparesis with tortuous esophagus ? Daughter not interested in medical management with metoclopramide due to side effects. GI recommends continued MiraLAX daily. Severe protein calorie malnutrition: Has documented weight loss. Evaluated by candle molder hand, patient has poor p.o. intake. Initiate protein supplementation. Total time spent on discharge: 35 minutes on chart review, counseling, documentation, and direct care with patient. Exam Data for Last 24 hours Vital signs and Labs for Last 24 Hours: Temp Pulse Resp BP Pulse Ox O2 Del Method O2 Flow Rate 98.1 F 70 16 159/84 H 98 Nasal Cannula 2 12/06/24 12:00 12/06/24 12:00 12/06/24 12:00 12/06/24 12:00 12/06/24 12:00 12/06/24 13:00 12/06/24 13:00 FiO2 28 12/03/24 22:16 Laboratory Results - last 24 hr 12/06/24 06:30: WBC 8.1, RBC 3.49 L, Hgb 10.3 L, Hct 33.4 L, MCV 95.7 H, MCH 29.5, MCHC 30.8 L, RDW 15.7, Plt Count 143, MPV 10.8 H, Neut % (Auto) 71.2, Lymph % (Auto) 9.8 L, [place] % (Auto) 16.1 H, Eos % (Auto) 1.9, Baso % (Auto) 0.1, Neut # (Auto) 5.8, Lymph # (Auto) 0.8, [place] # (Auto) 1.3 H, Eos # (Auto) 0.2, Baso # (Auto) 0.0, Sodium 144, Potassium 3.4 L, Chloride 106, Carbon Dioxide 33 H, Anion Gap 8.4, BUN 26 H, Creatinine 1.00, Estimated Creat Clear 49, Estimated GFR 71, Est GFR ( Amer) 85, Glucose 119 H, Calcium 8.8, Total Bilirubin 0.9, AST 34, ALT 23, Alkaline Phosphatase 81, Total Protein 6.6, Albumin 3.6, Globulin 3.0, Albumin/Globulin Ratio 1.2 12/06/24 13:52: VBG pH 7.43 H, VBG pCO2 52.7 H, VBG pO2 33.2, VBG HCO3 34.0 H, VBG Total CO2 35.6 H, VBG O2 Saturation 69.2, VBG Base Excess 9.6 H, VBG Lactic Acid 2.2 H I & O for Last 24 hours: Intake & Output 12/03/24 12/04/24 12/05/24 12/06/24 23:59 23:59 23:59 23:59 Intake Total 1250 / 1310 540 / 660 760 / 860 300 / 300 Output Total 525 / 525 800 / 800 3100 / 3100 Balance 725 / 785 -260 / -140 -2340 / -2240 300 / 300 Weight 70.307 kg 70.08 kg 91.654 kg 68.356 kg Microbiology Reports for the Last 24 Hours: Microbiology 12/01/24 20:46 Blood Blood Culture - Preliminary NO GROWTH AFTER 4 DAYS 12/01/24 20:26 Blood Blood Culture - Preliminary NO GROWTH AFTER 4 DAYS Constitutional Constitutional: no acute distress *Routine HEENT Exam Head: Present normocephalic Eye: Present EOMI and PERRL ENT: Present mucous membranes moist *Routine Neck Exam Neck: Present supple; Absent lymphadenopathy *Routine Respiratory Exam Respiratory: Present CTA bilaterally *Routine Cardiovascular Exam Cardiovascular: Present RRR *Routine Abdominal Exam Abdominal: Present soft and normoactive bowel sounds; Absent tenderness *Routine Extremities Exam Extremities: Absent cyanosis, clubbing or edema *Routine Skin Exam Skin: Present warm; Absent rash *Routine Neurological Exam Neurological: Present alert Results Data Completed and Pending Labs on day of discharge: Labs from last 24 hours 12/06/24 12/06/24 13:52 06:30 WBC 8.1 RBC 3.49 L Hgb 10.3 L Hct 33.4 L MCV 95.7 H MCH 29.5 MCHC 30.8 L RDW 15.7 Plt Count 143 MPV 10.8 H Neut % (Auto) 71.2 Lymph % (Auto) 9.8 L [place] % (Auto) 16.1 H Eos % (Auto) 1.9 Baso % (Auto) 0.1 Neut # (Auto) 5.8 Lymph # (Auto) 0.8 [place] # (Auto) 1.3 H Eos # (Auto) 0.2 Baso # (Auto) 0.0 VBG pH 7.43 H VBG pCO2 52.7 H VBG pO2 33.2 VBG HCO3 34.0 H VBG Total CO2 35.6 H VBG O2 Saturation 69.2 VBG Base Excess 9.6 H VBG Lactic Acid 2.2 H Sodium 144 Potassium 3.4 L Chloride 106 Carbon Dioxide 33 H Anion Gap 8.4 BUN 26 H Creatinine 1.00 Estimated Creat Clear 49 Estimated GFR 71 Est GFR ( Amer) 85 Glucose 119 H Calcium 8.8 Total Bilirubin 0.9 AST 34 ALT 23 Alkaline Phosphatase 81 Total Protein 6.6 Albumin 3.6 Globulin 3.0 Albumin/Globulin Ratio 1.2 Preliminary micro results at discharge 12/01/24 20:46 Blood Culture - Preliminary Blood NO GROWTH AFTER 4 DAYS 12/01/24 20:26 Blood Culture - Preliminary Blood NO GROWTH AFTER 4 DAYS DS: Diagnosis Discharge Diagnosis (1) Pneumonia: Status: Acute Code(s): J18.9 - Pneumonia, unspecified organism Qualifiers: Laterality: right Lung location: lower lobe of lung Pneumonia type: due to unspecified organism Qualified Code(s): J18.9 - Pneumonia, unspecified organism (2) Dyspnea: Status: Acute Code(s): R06.00 - Dyspnea, unspecified Qualifiers: Dyspnea type: dyspnea on exertion Qualified Code(s): R06.00 - Dyspnea, unspecified (3) ZACK (acute kidney injury): Status: Acute Code(s): N17.9 - Acute kidney failure, unspecified (4) Failure to thrive: Status: Acute Qualifiers: Failure to thrive age range: in adult Qualified Code(s): R62.7 - Adult failure to thrive (5) Hematuria: Status: Acute Code(s): R31.9 - Hematuria, unspecified Qualifiers: Hematuria type: gross Qualified Code(s): R31.0 - Gross hematuria (6) Atrial fibrillation: Status: Chronic Code(s): I48.91 - Unspecified atrial fibrillation Qualifiers: Atrial fibrillation type: unspecified chronic Qualified Code(s): I48.20 - Chronic atrial fibrillation, unspecified (7) Heart failure with reduced ejection fraction: Status: Chronic Code(s): I50.20 - Unspecified systolic (congestive) heart failure (8) Gastroparesis: Status: Acute Code(s): K31.84 - Gastroparesis (9) Chronic anemia: Status: Chronic Code(s): D64.9 - Anemia, unspecified Problem details: Due for CMP, 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 (10) Hypotension: Status: Chronic Code(s): I95.9 - Hypotension, unspecified Qualifiers: Hypotension type: other hypotension type Qualified Code(s): I95.89 - Other hypotension Problem details: Active follow-up with cardiology. Furosemide was discontinued and he was given a prescription for midodrine but currently not taking it. (11) Altered mental status: Status: Acute Code(s): R41.82 - Altered mental status, unspecified Qualifiers: Altered mental status type: unspecified Qualified Code(s): R41.82 - Altered mental status, unspecified (12) Severe protein-calorie malnutrition: Status: Acute Code(s): E43 - Unspecified severe protein-calorie malnutrition (13) Aspiration pneumonia: Status: Acute Code(s): J69.0 - Pneumonitis due to inhalation of food and vomit (14) Acute respiratory failure with hypoxia: Status: Acute Code(s): J96.01 - Acute respiratory failure with hypoxia Meds Home Medications and Allergies Home Medications ?Medication ?Instructions ?Recorded ?Confirmed ?Type atorvastatin 40 mg tablet 40 mg PO HS Cholesterol 05/15/17 12/01/24 History tamsulosin 0.4 mg capsule 0.4 mg PO HS 05/15/17 12/01/24 History rivaroxaban 20 mg tablet (Xarelto) 20 mg PO QPMWITHMEAL 10/29/19 12/01/24 History anticoagulant/atrial fib Saccharomyces boulardii 250 mg 250 mg PO DAILY Supplement 07/28/22 12/01/24 History capsule (Probiotic (S.boulardii)) cholecalciferol (vitamin D3) 50 50 mcg PO DAILY Supplement 07/28/22 12/01/24 History mcg (2,000 unit) capsule acetaminophen 500 mg tablet 1,000 mg PO QIDP PRN Back Pain 07/29/22 12/02/24 History melatonin 5 mg tablet 5 mg PO HS sleep 07/29/22 12/01/24 History diphenhydramine-zinc acetate 2 0 applic topical BID 10 days #10 07/27/23 12/01/24 Rx %-0.1 % topical cream (Itch Relief) grams lidocaine 4 % topical patch 1 patch topical DAILY Back Pain 12/02/24 12/02/24 History metoprolol tartrate 25 mg tablet 25 mg PO DAILY 12/02/24 12/02/24 History omeprazole 20 mg capsule,delayed 20 mg PO DAILY 12/02/24 12/02/24 History release polyethylene glycol 3350 17 17 g PO DAILY 12/02/24 12/02/24 History gram/dose oral powder (Miralax) sennosides 8.6 mg-docusate sodium 2 tab-cap PO DAILYP PRN 12/02/24 12/02/24 History 50 mg tablet (Senna-S) Constipation therapeutic multivitamin 1 tab PO DAILY 12/02/24 12/02/24 History (Thera-Tabs tablet) amoxicillin 500 mg-potassium 1 tab PO TID 9 days #27 tabs 12/06/24 Rx clavulanate 125 mg tablet (Augmentin) fluconazole 200 mg tablet 200 mg PO DAILY 4 days #4 tabs 12/06/24 Rx New Prescriptions to Start Prescriptions: amoxicillin-pot clavulanate [Augmentin] Rodrigo Ford fluconazole Rodrigo Ford Allergies Allergy/AdvReac Type Severity Reaction Status Date / Time No Known Allergies Allergy Verified 12/01/24 18:20 Discharge Plan Disposition Patient Disposition: [facility] Condition: Fair Discharge Order Discharge Orders: Discharge Order (Routine); Ordered 12/06/24 Ordered By: Rodrigo Ford Follow up Plan Follow up with: Rodrigo Funk MD [Staff Physician, Urology] - 12/09/24 10:45 am Referral Note: Severely enlarged prostate Stump,Rachael Reynolds APRN [Nurse Practitioner, Gastroenterology] - 2 weeks Prescriptions/Medication Reconciliation: New fluconazole 200 mg Tablet 200 mg PO DAILY 4 Days Qty: 4 0RF amoxicillin-pot clavulanate [Augmentin] 500-125 mg tablet 1 tab PO TID 9 Days Qty: 27 0RF Continued atorvastatin 40 mg tablet 40 mg PO HS tamsulosin 0.4 mg capsule,extended release 24hr 0.4 mg PO HS Xarelto 20 mg tablet 20 mg PO QPMWITHMEAL Rx Instructions: must administer with evening meal Saccharomyces boulardii [Probiotic (S.boulardii)] 250 mg capsule 250 mg PO DAILY Patient Comments: TAKE ONE (1) CAPSULE BY MOUTH EVERY DAY cholecalciferol (vitamin D3) 50 mcg (2,000 unit) capsule 50 mcg PO DAILY Patient Comments: TAKE ONE (1) CAPSULE EVERY DAY BY ORAL ROUTE FOR 30 DAYS. acetaminophen 500 mg tablet 1,000 mg PO QIDP PRN (Reason: Back Pain) Rx Instructions: TAKE TWO (2) TABLETS (1,000 MG) BY MOUTH IN THE MORNING AND TAKE ONE (1) TABLET IN THE EVENING melatonin 5 mg tablet 5 mg PO HS Patient Comments: TAKE ONE (1) TABLET EVERY DAY BY ORAL ROUTE AT BEDTIME FOR 30 DAYS. Itch Relief 2-0.1 % Cream 0 applic topical BID 10 Days Qty: 10 0RF lidocaine 4 % Adhesive Patch,Medicated 1 patch TOPICAL DAILY Thera-Tabs Tablet 1 tab PO DAILY omeprazole 20 mg capsule,delayed release(DR/EC) 20 mg PO DAILY polyethylene glycol 3350 [Miralax] 17 gram/dose Powder 17 g PO DAILY metoprolol tartrate 25 mg tablet 25 mg PO DAILY sennosides-docusate sodium [Senna-S] 8.6-50 mg tablet 2 tab-cap PO DAILYP PRN (Reason: Constipation) Discontinued cetirizine 10 mg tablet 10 mg PO DAILY Patient Comments: TAKE ONE (1) TABLET BY MOUTH EVERY DAY famotidine 20 mg tablet 20 mg PO BID gabapentin 100 mg capsule 100 mg PO DAILY mirtazapine 7.5 mg tablet 7.5 mg PO HS alprazolam 0.25 mg tablet 0.25 mg PO BID Problem Reconciliation Problems Reviewed?: Yes Patient Discharge Instructions Patient Instructions: DI for Urinary Tract Infection (UTI), DI for Sepsis -- Adult, Stop Light Pneumonia, NCM High-Calorie High-Protein Diet, Stop Light Heart Failure Print Language: [place] Providers Primary Care Provider: Provider,Referral Admit Provider: Terrell Harden Attending Provider: Terrell Harden
--- NOTE | 2024-12-06 14:27 | EXP.PULM.PN ---
Subjective *Date: 12/06/24 *Time: 14:27 Interval history: No acute respiratory events overnight. Patient was lethargic this morning. Pulmonology Exam Inpatient Vital signs and Labs for Last 24 Hours: Temp Pulse Resp BP Pulse Ox O2 Del Method O2 Flow Rate 98.1 F 70 16 159/84 H 98 Nasal Cannula 2 12/06/24 12:00 12/06/24 12:00 12/06/24 12:00 12/06/24 12:00 12/06/24 12:00 12/06/24 13:00 12/06/24 13:00 FiO2 28 12/03/24 22:16 Laboratory Results - last 24 hr 12/06/24 06:30: WBC 8.1, RBC 3.49 L, Hgb 10.3 L, Hct 33.4 L, MCV 95.7 H, MCH 29.5, MCHC 30.8 L, RDW 15.7, Plt Count 143, MPV 10.8 H, Neut % (Auto) 71.2, Lymph % (Auto) 9.8 L, Williamson % (Auto) 16.1 H, Eos % (Auto) 1.9, Baso % (Auto) 0.1, Neut # (Auto) 5.8, Lymph # (Auto) 0.8, Williamson # (Auto) 1.3 H, Eos # (Auto) 0.2, Baso # (Auto) 0.0, Sodium 144, Potassium 3.4 L, Chloride 106, Carbon Dioxide 33 H, Anion Gap 8.4, BUN 26 H, Creatinine 1.00, Estimated Creat Clear 49, Estimated GFR 71, Est GFR ( Amer) 85, Glucose 119 H, Calcium 8.8, Total Bilirubin 0.9, AST 34, ALT 23, Alkaline Phosphatase 81, Total Protein 6.6, Albumin 3.6, Globulin 3.0, Albumin/Globulin Ratio 1.2 12/06/24 13:52: VBG pH 7.43 H, VBG pCO2 52.7 H, VBG pO2 33.2, VBG HCO3 34.0 H, VBG Total CO2 35.6 H, VBG O2 Saturation 69.2, VBG Base Excess 9.6 H, VBG Lactic Acid 2.2 H Temp Pulse Resp BP Pulse Ox O2 Del Method O2 Flow Rate 97.6 F 70 16 130/75 99 Nasal Cannula 3 12/02/24 08:00 12/02/24 08:00 12/02/24 08:00 12/02/24 08:00 12/02/24 08:00 12/02/24 10:58 12/02/24 10:58 Laboratory Results - last 24 hr 12/01/24 17:24: NT-Pro-B Natriuret Pep 3330 H 12/01/24 17:27: WBC 10.0, RBC 3.66 L, Hgb 10.6 L, Hct 34.5 L, MCV 94.3 H, MCH 29.0, MCHC 30.7 L, RDW 16.2, Plt Count 172, MPV 11.1 H, Neut % (Auto) 81.1 H, Lymph % (Auto) 4.7 L, Williamson % (Auto) 13.8 H, Eos % (Auto) 0.0 L, Baso % (Auto) 0.1, Neut # (Auto) 8.1 H, Lymph # (Auto) 0.5 L, Williamson # (Auto) 1.4 H, Eos # (Auto) 0.0, Baso # (Auto) 0.0, Total Counted 100, Neutrophils % (Manual) 85 H, Lymphocytes % (Manual) 10, Monocytes % (Manual) 5, Platelet Estimate Normal, RBC Morphology Normal, PT 21.9 H, INR 2.08 H, Sodium 141, Potassium 3.8, Chloride 106, Carbon Dioxide 26, Anion Gap 12.8, BUN 63 H, Creatinine 2.30 H, Estimated Creat Clear 28, Estimated GFR 27 L, Est GFR ( Amer) 33 L, Glucose 152 H, Calcium 7.6 L, Phosphorus 5.2 H, Magnesium 2.6 H, Total Bilirubin 1.2, AST 28, ALT 17, Alkaline Phosphatase 68, Troponin I 0.04 H, Total Protein 5.8 L, Albumin 3.1 L, Globulin 2.7, Albumin/Globulin Ratio 1.1, Lipase 13 L 12/01/24 18:56: Stl C. cayetanensis PCR Not detected, Stool Rotavirus (PCR) Not detected, Stl Adenov F 40/41 PCR Not detected, Stool Astrovirus (PCR) Not detected, Stool Campylobacter PCR Not detected, Stl C.difficile Tox PCR Not detected, Stool Cryptosporidium PCR Not detected, Stl E.coli Shiga Tox PCR Not detected, Stool E coli O157 PCR Not detected, Stl Enterotoxigenic E PCR Not detected, Stool EPEC (PCR) Not detected, Stool EAEC (PCR) Not detected, Stl E. histolytica PCR Not detected, Stool Giardia Lamblia PCR Not detected, Stool Salmonella PCR Not detected, Stool Sapovirus (PCR) Not detected, Stl P. shigelloides PCR Not detected, Stl Shigella/EIEC PCR Not detected, St Y.enterocolitica PCR Not detected, Stool Vibrio (PCR) Not detected, Stl Vibrio cholerae PCR Not detected, Stl Norovirus GI/GII PCR Not detected 12/01/24 19:45: Urine Color Yellow, Urine Appearance Clear, Urine pH 6.5, Ur Specific Gepp 1.025, Urine Protein 2+ A, Urine Glucose (UA) Negative, Urine Ketones 1+, Urine Blood 3+ A, Urine Nitrate Positive A, Urine Bilirubin 2+ A, Urine Urobilinogen 1.0, Ur Leukocyte Esterase 1+ A, Urine RBC Tntc, Ur Squamous Epith Cells 12/01/24 20:28: Lactate 1.5 12/01/24 21:25: Troponin I 0.03 12/02/24 00:50: Troponin I 0.03 12/02/24 05:53: WBC 9.5, RBC 4.02 L, Hgb 11.6 L, Hct 38.5 L, MCV 95.8 H, MCH 28.9, MCHC 30.1 L, RDW 16.4, Plt Count 146, MPV 11.2 H, Neut % (Auto) 81.4 H, Lymph % (Auto) 4.3 L, Williamson % (Auto) 13.8 H, Eos % (Auto) 0.0 L, Baso % (Auto) 0.2, Neut # (Auto) 7.7, Lymph # (Auto) 0.4 L, Williamson # (Auto) 1.3 H, Eos # (Auto) 0.0, Baso # (Auto) 0.0, Total Counted 100, Neutrophils % (Manual) 69, Band Neutrophils % 11 H, Lymphocytes % (Manual) 9 L, Monocytes % (Manual) 11 H, PT 14.9 H, INR 1.37 H, Sodium 142, Potassium 4.0, Chloride 107, Carbon Dioxide 22, Anion Gap 17.0 H, BUN 71 H, Creatinine 2.10 H, Estimated Creat Clear 24, Estimated GFR 30 L, Est GFR ( Amer) 36 L, Glucose 137 H, Lactate 1.6, Calcium 7.9 L, Magnesium 2.9 H D, Total Bilirubin 1.3, AST 68 H D, ALT 21, Alkaline Phosphatase 110, Total Protein 7.0, Albumin 3.9 D, Globulin 3.1, Albumin/Globulin Ratio 1.3 12/02/24 07:00: VBG pH 7.36, VBG pCO2 40.2, VBG pO2 55.8 H, VBG HCO3 22.0 L, VBG Total CO2 23.3, VBG O2 Saturation 87.1 H, VBG Base Excess -3.4 L, VBG Lactic Acid 2.3 H I & O for Labs for Last 24 Hours: Intake & Output 12/03/24 12/04/24 12/05/24 12/06/24 23:59 23:59 23:59 23:59 Intake Total 1250 / 1310 540 / 660 760 / 860 300 / 300 Output Total 525 / 525 800 / 800 3100 / 3100 Balance 725 / 785 -260 / -140 -2340 / -2240 300 / 300 Weight 155 lb 154 lb 8 oz 202 lb 1 oz 150 lb 11.2 oz Intake & Output 11/29/24 11/30/24 12/01/24 12/02/24 23:59 23:59 23:59 23:59 Intake Total 0 / 0 Output Total 375 / 375 Balance -375 / -375 Weight 154 lb 8.705 oz 154 lb 8.705 oz Microbiology Reports for the Last 24 Hours: Microbiology 12/01/24 20:46 Blood Blood Culture - Preliminary NO GROWTH AFTER 4 DAYS 12/01/24 20:26 Blood Blood Culture - Preliminary NO GROWTH AFTER 4 DAYS Constitutional: Present severe distress Head: Present normocephalic and atraumatic ENT: Present normal exam, normal oropharynx and mucous membranes moist Neck: Present normal inspection and full ROM Respiratory: Present respiratory distress, rhonchi and able to speak in complete sentences; Absent prolonged expiratory phase, wheezes, distant breath sounds or diminished air movement Cardiac: Present S1/S2, Tachycardia and radial pulses present GI: Present soft and distention; Absent tenderness or guarding Skin: Present intact; Absent cyanosis or jaundice Neuro: Absent alert, awake or oriented x 3 Comment:: Lethargic, easily arousable and responding appropriately to verbal commands and question Extremities: Present normal inspection; Absent clubbing or cyanosis Psychiatric: Present unable to assess Assessment and Plan *Assessment and plan (1) Aspiration pneumonia: Status: Acute Category: Medical Code(s): J69.0 - Pneumonitis due to inhalation of food and vomit (2) Acute respiratory failure with hypoxia: Status: Acute Category: Medical Code(s): J96.01 - Acute respiratory failure with hypoxia Plan Mr. Lua is a 89-year-old male around less than 61-fbtn-mmzu smoking last more when he was 51 years old not using any inhalers or oxygen supplementation at baseline presented to the ER with worsening weakness and increasing oxygen requirements and pulmonary was called for further evaluation and management. Afebrile. Hemodynamically stable. No evidence of leukocytosis. VBG from this morning did not show any evidence of hypercarbic respiratory failure CT abdomen concerning for Proctocolitis and also enlarged prostate CTA PE protocol, suboptimal secondary to motion artifact, no proximal pulmonary emboli noted. Distorted trachea with likely aspirated food. Likely right lower lobe atelectasis/aspiration pneumonia noted. Patient admits difficulty swallowing. Examination mild respiratory distress. Appears lethargic. Complains of back pain. Chest clear to auscultate. Clinical update: No acute respiratory vents overnight. Stable oxygen requirements. Continue to receive levofloxacin. Following speech and swallow recommendations with mechanical soft diet and aspiration precautions. CT head no acute findings. Following delirium precautions Plan: Incentive spirometry and flutter valve Aspiration precautions. Follow-up with speech and swallow recommendation DuoNebs 4 times daily as needed Continue oxygen supplementation to maintain O2 saturation goal of 90% and above as tolerated. Continue levofloxacin to complete a total of 5-day course from pulmonary standpoint. # Thank you for involving pulmonary in this patient care. Will follow the patient in pulmonary clinic 2 to 4 weeks post discharge
[2024-12-06 14:31] LABS: Ammonia < 9 umol/L (9-30)
[2024-12-06 15:20] LABS: Vitamin B12 896 pg/mL (239-931)
[2024-12-06 18:02] LABS: Reflex Lactic Add Lactic Reflex
[2024-12-06 19:44] LABS: Folate > 20.00 ng/mL
== END 2024-12-06 17:50 | DRG 177 ==
LOC: ER 18:02 → 2ND 12-02 04:49
PROVIDERS: Nurse Practitioner Family; Physician Assistant; Student in an Organized Health Care Education/Training Program; Admitting Provider Internal Medicine Adolescent Medicine; Emergency Provider Student in an Organized Health Care Education/Training Program; Visit Provider Internal Medicine Adolescent Medicine
DX: J69.0 Pneumonitis due to inhalation of food and vomit (principal); E43 Unspecified severe protein-calorie malnutrition; G93.41 Metabolic encephalopathy; J96.01 Acute respiratory failure with hypoxia; N39.0 Urinary tract infection, site not specified; N17.9 Acute kidney failure, unspecified; I50.22 Chronic systolic (congestive) heart failure; I48.20 Chronic atrial fibrillation, unspecified; K51.311 Ulcerative (chronic) rectosigmoiditis with rectal bleeding; N40.1 Benign prostatic hyperplasia with lower urinary tract symptoms; R33.8 Other retention of urine; I25.10 Atherosclerotic heart disease of native coronary artery without angina pectoris; K31.84 Gastroparesis; K22.89 Other specified disease of esophagus; Z68.26 Body mass index [BMI] 26.0-26.9, adult; Z66 Do not resuscitate; R62.7 Adult failure to thrive; D63.1 Anemia in chronic kidney disease; K76.89 Other specified diseases of liver; G47.33 Obstructive sleep apnea (adult) (pediatric); N18.32 Chronic kidney disease, stage 3b; B37.9 Candidiasis, unspecified; Z95.0 Presence of cardiac pacemaker; Z95.1 Presence of aortocoronary bypass graft; Z95.5 Presence of coronary angioplasty implant and graft; Z86.73 Personal history of transient ischemic attack (TIA), and cerebral infarction without residual deficits; Z79.01 Long term (current) use of anticoagulants; Z79.899 Other long term (current) drug therapy
CPT/HCPCS: 36415; 51702; 70450; 71045; 71275; 74177; 80053; 81001; 82140; 82272; 82607; 82728; 82746; 82803; 83540; 83550; 83605; 83690; 83735; 83880; 84100; 84484; 85007; 85025; 85610; 87040; 87086; 87506; 92610; 93005; 93306; 94640; 94761; 97162; 97166; 97530; G0103; G0328; J0696; J1836; J1938; J1956; J2060; J2405; J2470; J2543; J3360; J3480; J7030; J7040; J7120; Q9957; Q9967

== ENCOUNTER 2024-12-16 13:20 | Outpatient (CLI) | payer MEDICARE, OTHER, SELFPAY ==
--- OUTSIDE RECORDS SUMMARY | 2024-11-29 09:40 | XMS_ITS | Encounter Summary ---
Author Organization Healthcare Address [address] 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); Neuroendocrine neoplasm of stomach Social History Tobacco Use Types Packs/Day Years Used Date Smoking Tobacco: Former Pipe Smokeless Tobacco: Never Comments:Remote hx of pipe s moking and younger years smoked cigarettes Alcohol Use Standard Drinks/Week Comments Not Currently 0 (1 standard drink = 0.6 oz pur e alcohol) PHQ-2 Answer Date Recorded Patient Health Questionnaire-2 Score 0 11/29/2024 PHQ-9 Answer Date Recorded Patient Health Questionnaire-9 Score 0 11/29/2024 Sex and Gender Information Value Date Recorded Sex Assigned at Not on file Legal Sex Male 6:12 PM EDT Gender Identity Not on file Sexual Orientation Not on file documented as of this encounter Last Filed Vital Signs Vital Sign Reading Time Taken Comments Blood Pressure - - Pulse - - Temperature - - Respiratory Rate - - Oxygen Saturation - - Inhaled Oxygen Concentration - - Weight 71.2 kg (157 lb) 11/29/2024 9:42 AM EDT Height 180.3 cm (5' 11 ) 11/29/2024 9:42 AM EDT Body Mass Index 21.9 11/29/2024 9:42 AM EDT documented in this encounter Functional Status * Over the past 2 weeks, how often have you been bothered by any of the following problems? Question Answer Date of Assessment Author Little interest or pleasure in doing things Not at all 11/29/2024 10:01 AM RONALDT Pete Khan Feeling down, depressed, or hopeless Not at all 11/29/2024 10:01 AM RONALDT Pete Khan Patient Health Questionnaire -2 Score 0 11/29/2024 10:01 AM RONALDT Pete Khan * Question Answer Date of Assessment Author Trouble falling or staying asleep, or sleeping too much Not at all 11/29/2024 10:01 AM Pete Bullard Feeling tired or having le le energy Not at all 11/29/2024 10:01 AM EDT Pete Khan Poor appetite or overeating Not at all 11/29/2024 10 :01 AM Pete Bullard Feeling bad about yourself - or that you are a failure or have let yourself or your family down Not at all 11/29/2024 10:01 AM RONALDT Pete Stock Trouble concentrating on thi ngs, such as reading the newspaper or watching television Not at all 11/29/2024 10:01 AM Pete Bullard Moving or speaking so slowly that other people could have noticed? Or the opposite - being so fidgety or restless that you have been moving around a lot more than usual. Not at all 11/29/2024 10:01 AM Pete Bullard Thoughts that you would be b juan off or hurting yourself in some way Not at all 11/29/2024 10:01 AM Pete Bullard Patient Health Questionnaire -9 Score 0 11/29/2024 10:01 AM EDT Pete Khan * If you checked off any problems on this questionnaire so far, Question Answer Date of Assessment Author How difficult have these problems made it for you to do your work, take care of things at home, or get along with other people? Not difficult at all 11/29/2024 10:01 AM EDT Pete Khan documented as of this encounter Miscellaneous Notes * Progress Notes - Justin Daniels MD - 11/29/2024 9:40 AM EDT Outpatient Gastroenterology, Hepatology and Nutrition Clinic Note: Patient: Britney Lua Date of : 1935 Telehealth Statement Patient Verification Patient identity has been confirmed using name and date of ? Yes Authorizations and Agreements/Telemedicine Consent sent and consent confirmed? Yes Patient Location: Healthcare Facility Patient confirms they are physically located in [place]? Yes If the patient is not physically located in [place], the provider has confirmed with [facility] thatthe provider is authorized to provide services in patient's stated location? N/A Provider Location: [facility] facility Audio and video or audio only? Audio and video Total visit time: 12:51 minutes Subjective: History of present illness: Mr. Britney Lua is a 89 y.o. year old male being seen today in clinic for follow-up after recent EGD with biopsies showed an area of abnormal mucosa in the proximal stomach which biopsies showed to be gastric intestinal metaplasia with low-grade dysplasia. He has a past medical history of Coronary artery disease, Gastroparesis, Hyperlipidemia, Hypertension, Irregular heart beat, Neuroendocrine tumor, and Personal history of other diseases of the circulatory system. Mr. Lua was seen today via telehealth accompanied by his daughter. We discussed his endoscopy and the biopsy findings of intestinal metaplasia with low grade dysplasia. We discussed that this can be viewed as a potential precursor lesion to a gastric cancer. I expressed that there is no established best way forward but there essentially four options: 1) Resection: this involves referral for endoscopic mucosal resection (EMR) or endoscopic submucosal dissection (ESD). These are endoscopy procedures that involve removing the surface of the stomach in the area impacted. I have reviewed the images with colleagues here at and also with an ESD provider in the region and all who have reviewed the case believe the location is not resectable with endoscopy, due to location. 2) Radiofrequency ablation (RFA): this involves using endoscopy to deliver heat to the area of the stomach involved. The goal is to destroy the top layer of cells and allow non-dysplastic cells to grow back. 3) Endoscopic surveillance: Periodic endoscopy with visual examination and the biopsies to evaluatefor any change or progression in the lesion 4) No further investigation: This decreases risk in the short term (no risk of the procedure, complications, anesthesia, etc.) but transfers risk to later with the deferred risk of lesion progression, cancer, gastrointestinal bleeding, etc. Mr. Lua says he identifies very strongly with the desire to have no further interventions or investigations for his gastric lesion. He is currently in a skilled nursing following pneumonia and UTI and he tells me he does not feel this is likely to have any impact on his overall health. He says hewill continue to follow with Dr. Soria, who is helping manage his gastroparesis. Review of Systems: Negative except as per HPI Past Medical History[1] Surgical History[2] Family History[3] Social History[4] Allergies[5] Current Medications[6] Objective: Weight: 71.2 kg (157 lb) Body mass index is 21.9 kg/m??. Physical Examination: General Appearance: Awake, alert, oriented x 3 Head: Normocephalic, atraumatic Eyes: EOMI. Neurologic: Mental status intact. No gross neurologic deficits. Ambulates with walked and assist x1 Assessment and Plan: is a 89 y.o. year old male being seen today in clinic for follow-up after recent EGD with biopsies showed an area of abnormal mucosa in the proximal stomach which biopsies showed to be gastric intestinal metaplasia with low-grade dysplasia. He has a past medical history of Coronary artery disease, Gastroparesis, Hyperlipidemia, Hypertension, Irregular heart beat, Neuroendocrine tumor, and Personal history of other diseases of the circulatory system. 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 Soria with pathology showing + margin - 08/15/24: EGD, EUS: no evidence of residual NET on EGD, radial EUS and biopsies 3) Gastroparesis RECOMMENDATIONS: - Discussed management options with the patient and his daughter via TeleHealth visit on 11/29/24 andthey both favor no further investigation. He will continue to follow with Dr. Soria for his GI care. Justin Daniels MD [1] Past Medical History: Diagnosis Date Coronary artery disease Gastroparesis Hyperlipidemia Hypertension Irregular heart beat Neuroendocrine tumor Personal history of other diseases of the circulatory system History of hypertension [2] Past Surgical History: Procedure Laterality Date BACK SURGERY N/A Back Surgery from [facility] CARDIAC STENT x2 most recent ~ 2019 CARDIAC SURGERY N/A CABG 5V ~ 1989 CATARACT EXTRACTION W/ INTRAOCULAR LENS IMPLANT N/A Cataract Extraction With Insertion Of Intraocular Lens from [facility] ESOPHAGOGASTRODUODENOSCOPY 05/28/2024 with biopsy x2 in 2024. GALLBLADDER SURGERY N/A Gallbladder Surgery from [facility] HERNIA REPAIR N/A Hernia Repair from [facility] INSERT / REPLACE / REMOVE PACEMAKER pacemaker implant and changed 2023. [3] Family History Problem Relation Name Age of Onset Cataracts Mother Cardiac disorder Mother Hypertension Mother Cardiac disorder Father Hypertension Father Diabetes Daughter Anesthesia problems Neg Hx Malig Hyperthermia Neg Hx [4] Social History Tobacco Use Smoking status: Former Types: Pipe Smokeless tobacco: Never Tobacco comments: Remote hx of pipe smoking and younger years smoked cigarettes Vaping Use Vaping status: Never Used Substance Use Topics Alcohol use: Not Currently Drug use: Never [5] Allergies Allergen Reactions Carbamazepine Other - please document in the comment field Hallucinations Clopidogrel Unknown - Patient states they do not know rxn details Patient and daughter states they do not recall him having a reaction to Plavix Nitroglycerin Unknown - Patient states they do not know rxn details and Headache [6] Current Outpatient Medications: acetaminophen (Tylenol) 500 MG tablet, Take 2 tablets by mouth 2 (two) times a day. 1000 qam, 500mgqhs, Disp: , Rfl: ALPRAZolam (Xanax) 0.25 MG tablet, Take 0.0125 mg by mouth nightly., Disp: , Rfl: cetirizine (ZyrTEC) 10 MG tablet, Take 1 tablet by mouth daily., Disp: , Rfl: cholecalciferol (Vitamin D-3) 50 MCG (1999) capsule, Take 1 capsule by mouth daily., Disp: , Rfl: docusate sodium (Colace) 100 MG capsule, Take 1 capsule by mouth 2 (two) times a day., Disp: , Rfl: famotidine (Pepcid) 20 MG tablet, Take 1 tablet by mouth daily., Disp: , Rfl: gabapentin (Neurontin) 300 MG capsule, Take 1 capsule by mouth nightly., Disp: , Rfl: ipratropium-albuterol (Duo-Neb) 0.5-2.5 mg/3 mL nebulizer solution, Take 3 mL by nebulization as needed for wheezing., Disp: , Rfl: lactobacillus (Culturelle Immunity Support) capsule, Take 1 capsule by mouth daily., Disp: , Rfl: Melatonin 5 MG tablet tablet, Take 1 tablet by mouth at night as needed., Disp: , Rfl: metoprolol tartrate (Lopressor) 25 MG tablet, Take 1 tablet by mouth daily., Disp: , Rfl: mirtazapine (Remeron) 7.5 MG tablet, Take 1 tablet by mouth nightly., Disp: , Rfl: ofloxacin (Ocuflox) 0.3 % ophthalmic solution, Administer 2 drops into both eyes as needed., Disp: , Rfl: olopatadine (Patanol) 0.1 % ophthalmic solution, Take by mouth every 6 (six) hours., Disp: , Rfl: omeprazole (PriLOSEC) [address] capsule, Take 1 capsule by mouth daily., Disp: , Rfl: ondansetron (Zofran) 4 MG tablet, Take 1 tablet by mouth as needed., Disp: , Rfl: pantoprazole (ProtoNix) 20 MG EC tablet, Take 1 tablet by mouth 2 (two) times a day., Disp: , Rfl: polyethylene glycol (Miralax) 17 GM/SCOOP powder, Take 17 g by mouth as needed., Disp: , Rfl: tamsulosin (Flomax) 0.4 MG 24 hr capsule, Take 1 capsule by mouth nightly., Disp: , Rfl: Xarelto 20 MG tablet, Take 1 tablet by mouth nightly., Disp: , Rfl: atorvastatin (Lipitor) 40 MG tablet, Take 1 tablet by mouth nightly. (Patient not taking: Reported on 11/29/2024), Disp: , Rfl: clotrimazole-betamethasone (Lotrisone) cream, Apply 1 Application topically 2 (two) times a day. (Patient not taking: Reported on 11/29/2024), Disp: , Rfl: Cyanocobalamin ER 1000 MCG tablet controlled-release, daily. (Patient not taking: Reported on 11/29/2024), Disp: , Rfl: folic acid (Folvite) 1 MG tablet, Take 1 tablet by mouth daily. 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
[2024-12-16 16:30] LABS: Microscopic, Urine URINE MICROSCOPIC (MICROSCOPIC)
[2024-12-16 18:06] LABS: Bilirubin,Urine Negative (Negative); Color,Urine YELLOW (Yellow); Glucose,Urine (UA) Negative (Negative); Ketones,Urine TRACE (Negative); Leukocyte Esterase,Urine 2+ (Negative); PH,Urine 6.0 (5.0-8.5); Protein,Urine 2+ (Negative); Specific Gravity, Urine 1.025 (1.005-1.030); Urobilinogen,Urine 0.2 EU/dl (0.2)
[2024-12-16 20:30] LABS: Bacteria,Urine 1+ /lpf; WBC,Urine TNTC #/hpf (0-3)
--- OUTSIDE RECORDS SUMMARY | 2024-12-18 10:14 | XMS_ITS | Clinical Summary ---
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 Provider MEDROL 4 MG TBPK Use as directed METHYLPREDNISOLONE 26288317154 Gail Sims MD LISINOPRIL 10 MG TABS 1 daily [place] LISINOPRIL 95980939526 Gail Sims MD NAPROXEN SODIUM TABS 1 daily [place] NAPROXEN SODIUM TABS 95432045597 Gail Sims MD FLOMAX 0.4 MG ORAL CAPSULE 1 daily [place] TAMSULOSIN HCL 21560531058 Gail Sims MD PRADAXA CAPS 1 daily Non-[place] DABIGATRAN ETEXILATE MESYLATE CAPS 64165255678 Gail Sims MD VYTORIN 10-80 MG TABS 1 daily Non-Fry EZETIMIBE-SIMVASTATI N 38509894637 Gail Sims MD Medications Administered No information available. Allergies, Adverse Reactions, Alerts Allergy Name Reaction Description Start Date Severity Statu s Provider NITROGLYCERIN Severe headache Critical Gail Sims MD Results No information available. Plan of Care No information available. Procedures Code Procedure Name Date Entry Date G8427 Medication Reconciliation Completed CPT-G 8427 [id number] Lumbar or Sacral CPT-44185 2 [id number] Additional Level, Lumbar or Sacral CPT-64 484 [...]
--- OUTSIDE RECORDS SUMMARY | 2024-12-18 10:15 | XMS_ITS | Encounter Summary ---
Author Organization [facility] Address [address] [place] [address] Care Team Providers Care Signal Manager Name Role Phone Robel Castellanos MD Primary Care Provider [phone] Encounter Details Date Type Department Care Team [...] documented as of this encounter Care Teams Signal Manager Relationship Specialty Start Date End Date Robel Castellanos MD [address] [place] [address] PCP - General 09/04/20 documented as of this encounter
--- OUTSIDE RECORDS SUMMARY | 2024-12-18 10:15 | XMS_ITS | Encounter Summary ---
Author Organization [facility] Address [address] [place] [address] Care Team Providers Care Airport Maintenance Laborer Name Role Phone Robel Castellanos MD Primary Care Provider [phone] Encounter Details Date Type Department Care Team (Late st Contact Info) Description 08/26/2024 Lab Requisition [facility] [address] [place] [address] Wolfgang Abraham MD [address] [facility] [address] [place] [address] Acute gastric ulcer without hemorrhage or perforation [...] EDT) Case Report Sugical Pathology Consult Case: [id number] Authorizing Provider: Wolfgang Abraham MD Collected: 08/26/2024 1015 Ordering Location: [facility] Lab Received: 08/26/2024 1015 Pathologist: Yanet Bella MD Specimen: Gastric, [id number] 08/27/2024 11:16 AM EDT [facility] Final Diagnosis STOMACH, ANTRUM, BIOPSY ([id number]; 04/23/2024): - REACTIVE GASTROPATHY. - NO H. PYLORI ORGANISMS IDENTIFIED ON H&E SLIDE. - NEGATIVE FOR INTESTINAL METAPLASIA. STOMACH, BODY, BIOPSY ([id number]; 04/23/2024): - NO PATHOLOGIC ABNORMALITIES. - NO H. PYLORI ORGANISMS IDENTIFIED ON H&E SLIDE. - NEGATIVE FOR INTESTINAL METAPLASIA. STOMACH, POLYPOID LESION, BIOPSY ([id number]; 04/23/2024): - WELL-DIFFERENTIATED NEUROENDOCRINE TUMOR, GRADE 1 (Ki-67 INDEX: <1%, SIZE OF TUMOR ON THE BIOPSY: 5 MM). - NEGATIVE FOR INTESTINAL METAPLASIA ON THE SUBMITTED BIOPSY. 08/27/2024 11:16 AM EDT [facility] at 1116 EDT Comment The submitted immunohistochemical stains are positive for INSM1 and negative for gastrin. 08/27/2024 11:16 AM EDT [facility] Clinical Information K25.3 - Acute gastric ulcer without hemorrhage or perforation [ICD-10-CM] 08/27/2024 11:16 AM EDT [facility] Gross Description A. [id number] Received along with a corresponding pathology report from [facility] are 7 slide(s) labeled outside case: [id number] collected on 04/23/2024. 08/27/2024 11:16 AM EDT [facility] Note: A resident was involved in the service. I attest I examined the relevant preparations for the specimens and confirmed the diagnosis or interpretation. 08/27/2024 11:16 AM EDT [facility] Tissue Stomach structure / Unknown 08/26/2024 10:15 AM EDT 08/26/2024 10:15 AM EDT us Wolfgang Abraham MD LAB PATHOLOGY ORDERABLES Fin al Result [facility] [address] [place] [address] documented in this encounter Visit Diagnoses Diagnosis Acute gastric ulcer without hemorrhage or perforation Acute gastric ulcer without mention of hemorrhage, perforation, or obstruction documented in this encounter Additional Health Concerns Assessment Noted Time A fall risk assessment has been complete d for the patient 12/03/2020 2:58 PM EDT documented as of this encounter Care Teams Airport Maintenance Laborer Relationship Specialty Start Date End Date Robel Castellanos MD [address] [place] [address] PCP - General 09/04/20 documented as of this encounter
--- OUTSIDE RECORDS SUMMARY | 2024-12-18 10:15 | XMS_ITS | Clinical Summary ---
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); Neuroendocrine neoplasm of stomach 11/25/2024 Travel 10/15/2024 Telephone [facility] Medicine Specialties [address] [place] [address] Izabella Lugo from Last 3 [...] Vaccines (2 of 2) 01/25/2023 11/30/2022, 06/10/2009 [id number] Vaccine (6 - 2023- season) 2023 02/14/2023, [...] this topic Medical Devices Implanted Type Area Sodder Device Identifier Shelf Expiration Date Model / Serial / Lot Duraclip 16mm - [id number] Implanted:Qty: 1 on 08/15/2024 by Justin Daniels MD at [id number] 11/21/2026 [id number] / / [id number] Insurance MEDICARE [facility] Care Teams Auctioneer Tobacco Relationship Specialty Start Date End Date Robel Castellanos MD [address] [place] [address] PCP - General 09/04/20
--- OUTSIDE RECORDS SUMMARY | 2024-12-18 10:15 | XMS_ITS | Encounter Summary ---
Author Organization [facility] Address [address] [place] [address] Care Team Providers Care Core Analyst Name Role Phone Robel Castellanos MD Primary Care Provider [phone] Encounter Details Date Type Department Care Team (Late st Contact Info) Description 10/15/2024 Telephone [facility] Medicine Specialties [address] [place] [id number] [place] [address] Social History Tobacco Use Types Packs/Day Years [...] Monday can be a telehealth appointment CB: [phone] * Telephone Encounter - Izabella Lugo - [...] documented as of this encounter Care Teams Core Analyst Relationship Specialty [place] [address] [place] [address] PCP - General 09/04/20 documented as of this encounter
--- OUTSIDE RECORDS SUMMARY | 2024-12-18 10:15 | XMS_ITS | Encounter Summary ---
Author Organization [facility] Address [address] [place] [address] Care Team Providers Care Tassel Clipper Name Role Phone Robel Castellanos MD Primary Care Provider [phone] Encounter Details Date Type Department Care Team (Late st Contact Info) Description 04/09/2024 Orders Only External Location [address] [place] [address] Kymberly Syed, KILN LOADER [address] [place] [address] Social History Tobacco Use Types [...] 12:2 9 PM EST us Kymberly Syed KILN LOADER IMG US PROCEDURES Final Result documented in this encounter Visit Diagnoses Not on filedocumented in this encounter Additional Health Concerns Assessment Noted Time A fall risk assessment has been complete d for the patient 12/03/2020 2:58 PM EDT documented as of this encounter Care Teams Tassel Clipper Relationship Specialty Start Date End Date Robel Castellanos MD [address] [place] [address] PCP - General 09/04/20 documented as of this encounter
== END 2024-12-16 23:59 | disposition home or self-care (01) ==
LOC: LAB.DROPOF 12-18 10:10
PROVIDERS: PCP Urology; Visit Provider Urology
DX: N39.0 Urinary tract infection, site not specified (principal); R33.9 Retention of urine, unspecified
CPT/HCPCS: 81001; 87086; 87088

== ENCOUNTER 2025-01-31 06:54 | Emergency (ER) | payer MEDICARE, OTHER, SELFPAY ==
[2025-01-31] VITALS (12 sets, daily range): BP systolic 142–172; BP diastolic 74–90; PULSE 68–79; RESP 16–18; TEMP 36.8–36.9; O2SAT 93–96; BMI 22.3
--- NOTE | 2025-01-31 07:11 | HMH.EDGENADL ---
Discharge Plan Disposition Patient Disposition: Home, Self-Care Condition: Good Prescriptions Prescriptions: New cefpodoxime 200 mg tablet 200 mg PO BID 10 Days Qty: 20 0RF Rx Instructions: must administer with a meal/food No Action alprazolam 0.25 mg tablet 0.25 mg PO BID mupirocin 2 % ointment topical tamsulosin 0.4 mg capsule 0.4 mg PO HS 90 Days Qty: 90 1RF Rx Instructions: Take 1/2 hour after same meal dialy. atorvastatin 40 mg tablet 40 mg PO HS Saccharomyces boulardii [Probiotic (S.boulardii)] 250 mg capsule 250 mg PO DAILY Patient Comments: TAKE ONE (1) CAPSULE BY MOUTH EVERY DAY cholecalciferol (vitamin D3) 50 mcg (2,000 unit) capsule 50 mcg PO DAILY Patient Comments: TAKE ONE (1) CAPSULE EVERY DAY BY ORAL ROUTE FOR 30 DAYS. acetaminophen 500 mg tablet 1,000 mg PO QIDP PRN (Reason: Back Pain) Rx Instructions: TAKE TWO (2) TABLETS (1,000 MG) BY MOUTH IN THE MORNING AND TAKE ONE (1) TABLET IN THE EVENING melatonin 5 mg tablet 5 mg PO HS Patient Comments: TAKE ONE (1) TABLET EVERY DAY BY ORAL ROUTE AT BEDTIME FOR 30 DAYS. lidocaine 4 % Adhesive Patch,Medicated 1 patch TOPICAL DAILY Thera-Tabs Tablet 1 tab PO DAILY omeprazole 20 mg capsule,delayed release(DR/EC) 20 mg PO DAILY polyethylene glycol 3350 [Miralax] 17 gram/dose Powder 17 g PO DAILY metoprolol tartrate 25 mg tablet 25 mg PO DAILY sennosides-docusate sodium [Senna-S] 8.6-50 mg tablet 2 tab-cap PO DAILYP PRN (Reason: Constipation) Referrals Follow up/Referrals: Provider,Referral, MD [Referring, Medical] - See instructions Activity Restrictions/Add. Instructions Additional Instructions/Restrictions: Please take cefpodoxime as instructed for 10 days for UTI. Clinical Impressions Clinical Impression: UTI (urinary tract infection) Qualifiers: Urinary tract infection type: acute cystitis Hematuria presence: with hematuria Qualified Code(s): N30.01 - Acute cystitis with hematuria Instructions Patient Instructions: DI for Urinary Tract Infection (UTI) Print Language Print Language: Montenegrin Discharge ED Provider: Venancio Baker JR General Adult HPI General Chief complaint: Urogenital-Male Stated complaint: Catheter Time Seen by Provider: 01/31/25 07:00 History of Present Illness HPI narrative: This is an 89-year-old male with history of heart failure, history of UTI, BPH, CKD, failure to thrive, history of pacemaker placement, atrial fibrillation, hypertension who presents from longterm for evaluation of Meyers catheter displacement. Patient reportedly accidentally took out his Meyers catheter. Patient has no memory of the event however does have underlying dementia. Has no acute complaints this time. Arrives afebrile, hemodynamically stable, in no acute distress, overall well-appearing and resting comfortably. Related Data Home Medications ?Medication ?Instructions ?Recorded ?Confirmed atorvastatin 40 mg tablet 40 mg PO HS Cholesterol 05/15/17 12/24/24 Saccharomyces boulardii 250 mg 250 mg PO DAILY Supplement 07/28/22 12/24/24 capsule (Probiotic (S.boulardii)) cholecalciferol (vitamin D3) 50 50 mcg PO DAILY Supplement 07/28/22 12/24/24 mcg (2,000 unit) capsule acetaminophen 500 mg tablet 1,000 mg PO QIDP PRN Back Pain 07/29/22 12/24/24 melatonin 5 mg tablet 5 mg PO HS sleep 07/29/22 12/24/24 lidocaine 4 % topical patch 1 patch topical DAILY Back Pain 12/02/24 12/24/24 metoprolol tartrate 25 mg tablet 25 mg PO DAILY 12/02/24 12/24/24 omeprazole 20 mg capsule,delayed 20 mg PO DAILY 12/02/24 12/24/24 release polyethylene glycol 3350 17 17 g PO DAILY 12/02/24 12/24/24 gram/dose oral powder (Miralax) sennosides 8.6 mg-docusate sodium 2 tab-cap PO DAILYP PRN 12/02/24 12/24/24 50 mg tablet (Senna-S) Constipation therapeutic multivitamin 1 tab PO DAILY 12/02/24 12/24/24 (Thera-Tabs tablet) alprazolam 0.25 mg tablet 0.25 mg PO BID 12/16/24 12/24/24 mupirocin 2 % topical ointment topical 12/16/24 12/24/24 Previous Rx's ?Medication ?Instructions ?Recorded tamsulosin 0.4 mg capsule 0.4 mg PO HS 90 days #90 caps 12/16/24 cefpodoxime 200 mg tablet 200 mg PO BID 10 days #20 tabs 01/31/25 Allergies Allergy/AdvReac Type Severity Reaction Status Date / Time No Known Allergies Allergy Verified 12/24/24 10:58 [facility] Disclaimer: The information contained in this section may have been updated after the patient was seen, as this information can be updated by other users. Medical History (Updated 01/31/25 @ 08:14 by Venancio Baker JR, DO) HFrEF (heart failure with reduced ejection fraction) Acute respiratory failure with hypoxia Aspiration pneumonia Altered mental status Failure to thrive Gastroparesis Chest congestion Dyspnea (HFpEF) heart failure with preserved ejection fraction History of pacemaker History of heart attack CHF (congestive heart failure) Abnormal breath sounds Bleeding nose Difficulty with speech Confusion TIA (transient ischemic attack) Surgical History Hx of CABG History of hernia repair History of esophagogastroduodenoscopy (EGD) History of cardiac catheterization History of colonoscopy History of permanent cardiac pacemaker placement Family History Other No significant family history Social History Smoking Status: Former smoker second hand exposure: No alcohol intake: never substance use type: denies use current occupational status: retired Travel in the last 8 weeks?: None household members: none housing: house lives independently: Yes marital status: current occupational exposures/hazards: No caffeine: No special freddy needs: No agree to transfusion: No Other Medical History Have you received the Flu Vaccine for this season: No Have you received the Pneumonia Vaccine: No ROS Obtained: Yes All systems reviewed & no additional complaints except as documented and Yes Systems reviewed as appropriate & no additional complaints except as documented Constitutional Constitutional: Reports system reviewed and no additional complaints, except as documented and Reports as per HPI Eyes Eyes: Reports system reviewed and no additional complaints, except as documented and Reports as per HPI ENT Ears, Nose, Mouth, and Throat: Reports system reviewed and no additional complaints, except as documented and Reports as per HPI Cardiovascular Cardiovascular: Reports system reviewed and no additional complaints, except as documented and Reports as per HPI Respiratory Respiratory: Reports system reviewed and no additional complaints, except as documented and Reports as per HPI Gastrointestinal Gastrointestingal: Reports system reviewed and no additional complaints, except as documented and as per HPI Musculoskeletal Musculoskeletal: Reports system reviewed and no additional complaints, except as documented and Reports as per HPI Neurologic Neurologic: Reports system reviewed and no additional complaints, except as documented and Reports as per HPI Physical Exam General General appearance: alert and in no apparent distress Head Head exam: atraumatic and normocephalic Eye Eye exam: Present normal appearance Neck Neck exam: Present normal inspection Chest Chest inspection: Present normal inspection Respiratory Respiratory exam: Present normal lung sounds bilaterally; Absent respiratory distress Cardiovascular Cardiovascular exam: Present regular rate and normal rhythm Abdominal Exam Abdominal exam: Present soft; Absent tenderness exam: Present normal inspection (Meyers catheter replaced upon arrival) Back Exam Back exam: Present normal inspection and full ROM Neurological Exam Neurological exam: Present alert Psychiatric Psychiatric exam: Present normal affect and normal mood Skin Skin exam: Present warm and dry Medical Decision Making Medical Records Screening: Per USPSTF and CDC recommendations, given the prevalence of disease in our region, it is our hospital?s policy to screen for HIV and viral Hepatitis for all patients aged 18 and over and those with ongoing risk factors. Jluis Inquiry Pt receiving controlled substance: No Vital Signs: 01/31/25 07:00 01/31/25 07:09 01/31/25 07:12 Temperature 98.5 F Temperature Source Oral Pulse Rate 68 79 Pulse Rate [Left] 72 Respiratory Rate 16 Blood Pressure 149/79 H 149/79 H Blood Pressure [Right Arm] 149/82 H Blood Pressure Mean Blood Pressure Mean [Right Arm] 104 Blood Pressure Source [Right Arm] Automatic Cuff Blood Pressure Position [Right Arm] Sitting 02 Sat by Pulse Oximetry 93 L 96 94 L Oxygen Delivery Method Room Air Room Air 01/31/25 07:30 01/31/25 08:01 Temperature Temperature Source Pulse Rate 72 69 Pulse Rate [Left] Respiratory Rate Blood Pressure 147/79 H 157/77 H Blood Pressure [Right Arm] Blood Pressure Mean 103 Blood Pressure Mean [Right Arm] Blood Pressure Source [Right Arm] Blood Pressure Position [Right Arm] 02 Sat by Pulse Oximetry 94 L 95 Oxygen Delivery Method Room Air Room Air Lab Data Lab Results 01/31/25 07:00: Urine Color Yellow, Urine Appearance Clear, Urine pH 5.5, Ur Specific Moran 1.020, Urine Protein 2+ A, Urine Glucose (UA) Negative, Urine Ketones Negative, Urine Blood 3+ A, Urine Nitrate Positive A, Urine Bilirubin Negative, Urine Urobilinogen 0.2, Ur Leukocyte Esterase 2+ A, Urine RBC 3-5, Urine WBC 10-20, Ur Squamous Epith Cells None, Urine Bacteria 4+ Orders (Tests/Meds): ORDERS Category Date Time Status Urinalysis and Microscopic Stat Lab 01/31/25 07:00 Completed Urine Culture Stat Micro 01/31/25 07:00 Received Medical Decision Narrative: 89-year-old male presenting from longterm for Meyers catheter dislodgment. Replaced upon arrival. Urinalysis ordered. Patient is overall afebrile hemodynamically stable, in no acute distress, well-appearing. Has no acute complaints. Urinalysis reviewed and independently interpreted, significant for UTI. Will prescribe 10 days of cefpodoxime 200 mg twice daily. Technically with patient being over the age of 65 and being a male, he qualifies as complicated UTI. Thus treatment with cefpodoxime. Has remained afebrile, stable, tolerating p.o. intake, no acute distress. cleared for discharge at this time. Critical Care Critical Care Time Critical Care Time: No
--- OUTSIDE RECORDS SUMMARY | 2025-01-31 07:15 | XMS_ITS | Clinical Summary ---
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); Neuroendocrine neoplasm of stomach 11/25/2024 Travel from Last 3 Months Immunizations Immunization Administration [...] Vaccines (2 of 2) 01/25/2023 11/30/2022, 06/10/2009 [id number] Vaccine ( season) 2024 02/14/2023, 02/14/2022, 03/12/2021, Additional history exists [facility]-Influenza [...] this topic Medical Devices Implanted Type Area Senior Editor Device Identifier Shelf Expiration Date Model / Serial / Lot Duraclip 16mm - [id number] Implanted:Qty: 1 on 08/15/2024 by Justin Daniels MD at [facility] [id number] 11/21/2026 [id number] / / [id number] Insurance [place] [address] [address] [address] COMMERCIAL Care Teams Auto Glass Worker Relationship Specialty Start Date End Date Robel Castellanos MD [address] [place] [id number] PCP - General 09/04/20
--- OUTSIDE RECORDS SUMMARY | 2025-01-31 07:15 | XMS_ITS | Clinical Summary ---
Author Organization [facility] Address [address] [facility] [place], [facility] [address] [place] [address] Phone Care Team Providers Care Shaper And Presser Name Role Phone Anabelle Brar Conditions or Problems Problem Name Problem Code Onset Date Status Entry Date Provider Comment Standard Description Annotate SPONDYLOLIST HESIS 299084461 (SNOMED CT) 05/29 Resolved 05/29 Denis Vincent MD Spondylolisthes is SPONDYLOLIST HESIS 758391166 (SNOMED CT) 05/29 Removed 05/29 Red Jane MA Spondylolisthes is LUMBAR RADICULOPATH Y, RIGHT 778063389 (SNOMED CT) 05/29 Active 05/29 Denis Vincent MD Lumbar radiculopathy SACROILIAC JOINT DYSFUNCTION 758511589 (SNOMED CT) 05/11 Active 05/11 Gail Sims MD Sacroiliac disorder SPINAL STENOSIS, LUMBAR M48.06 (ICD-10-CM ) 05/11 Active 05/11 Gail Sims MD Spinal stenosis, lumbar region SPONDYLOLIST HESIS 463219189 (SNOMED CT) 05/11 Active 05/11 Gail Sims MD Spondylolisthes is Medications Medication Instructions Start Date Stop Date Generic Name [facility] Provider MEDROL 4 MG TBPK Use as directed METHYLPREDNISOLONE 09062706679 Gail Sims MD LISINOPRIL 10 MG TABS 1 daily [place] LISINOPRIL 42986622948 Gail Sims MD NAPROXEN SODIUM TABS 1 daily [place] NAPROXEN SODIUM TABS 86791632534 Gail Sims MD FLOMAX 0.4 MG ORAL CAPSULE 1 daily Non[place] TAMSULOSIN HCL 73766470326 Gail Sims MD PRADAXA CAPS 1 daily Non-[place] DABIGATRAN ETEXILATE MESYLATE CAPS 35952998883 Gail Sims MD VYTORIN 10-80 MG TABS 1 daily Non-Fry EZETIMIBE-SIMVASTATI N 88569853364 Gail Sims MD Medications Administered No information available. Allergies, Adverse Reactions, Alerts Allergy Name Reaction Description Start Date Severity Statu s Provider NITROGLYCERIN Severe headache Critical Gail Sims MD Results No information available. Plan of Care No information available. Procedures Code Procedure Name Date Entry Date G8427 Medication Reconciliation Completed CPT-G 8427 [id number] Lumbar or Sacral CPT-19161 2 02401YUS Additional Level, Lumbar or Sacral CPT-64 484 [...]
--- OUTSIDE RECORDS SUMMARY | 2025-01-31 07:15 | XMS_ITS | Encounter Summary ---
Author Organization [facility] Address [address] [place] [address] Care Team Providers Care Operations Asst Name Role Phone Robel Castellanos MD Primary Care Provider [phone] Encounter Details Date Type Department Care Team (Late st Contact Info) Description 04/09/2024 Orders Only External Location [address] [place] [address] Kymberly Syed, MOLD COOLER [address] [place] [address] Social History Tobacco Use Types [...] 12:2 9 PM EST us Kymberly Syed MOLD COOLER IMG US PROCEDURES Final Result documented in this encounter Visit Diagnoses Not on filedocumented in this encounter Additional Health Concerns Assessment Noted Time A fall risk assessment has been complete d for the patient 12/03/2020 2:58 PM EDT documented as of this encounter Care Teams Operations Asst Relationship Specialty Start Date End Date Robel Castellanos MD [address] [place] [address] PCP - General 09/04/20 documented as of this encounter
--- OUTSIDE RECORDS SUMMARY | 2025-01-31 07:15 | XMS_ITS | Encounter Summary ---
Author Organization [facility] Address [address] [place] [address] Care Team Providers Care Lawn Care Specialist Name Role Phone Robel Castellanos MD Primary Care Provider [phone] Encounter Details Date Type Department Care Team (Late st Contact Info) Description 08/26/2024 Lab Requisition [facility] [address] [place] [address] Wolfgang Abraham MD [address] [facility] [address] [place] [address] Acute gastric ulcer without hemorrhage or perforation [...] EDT) Case Report Sugical Pathology Consult Case: [id number] Authorizing Provider: Wolfgang Abraham MD Collected: 08/26/2024 1015 Ordering Location: [facility] Lab Received: 08/26/2024 1015 Pathologist: Yanet Bella MD Specimen: Gastric, [id number] 08/27/2024 11:16 AM EDT [facility] Final Diagnosis STOMACH, ANTRUM, BIOPSY ([id number]; 04/23/2024): - REACTIVE GASTROPATHY. - NO H. PYLORI ORGANISMS IDENTIFIED ON H&E SLIDE. - NEGATIVE FOR INTESTINAL METAPLASIA. STOMACH, BODY, BIOPSY ([id number]; 04/23/2024): - NO PATHOLOGIC ABNORMALITIES. - NO H. PYLORI ORGANISMS IDENTIFIED ON H&E SLIDE. - NEGATIVE FOR INTESTINAL METAPLASIA. STOMACH, POLYPOID LESION, BIOPSY ([id number]; 04/23/2024): - WELL-DIFFERENTIATED NEUROENDOCRINE TUMOR, GRADE 1 (Ki-67 INDEX: <1%, SIZE OF TUMOR ON THE BIOPSY: 5 MM). - NEGATIVE FOR INTESTINAL METAPLASIA ON THE SUBMITTED BIOPSY. 08/27/2024 11:16 AM EDT [facility] at 1116 EDT Comment The submitted immunohistochemical stains are positive for INSM1 and negative for gastrin. 08/27/2024 11:16 AM EDT [facility] Clinical Information K25.3 - Acute gastric ulcer without hemorrhage or perforation [ICD-10-CM] 08/27/2024 11:16 AM EDT [facility] Gross Description A. [id number] Received along with a corresponding pathology report from [facility] are 7 slide(s) labeled outside case: [id number] collected on 04/23/2024. 08/27/2024 11:16 AM EDT [facility] Note: A resident was involved in the service. I attest I examined the relevant preparations for the specimens and confirmed the diagnosis or interpretation. 08/27/2024 11:16 AM EDT [facility] Tissue Stomach structure / Unknown 08/26/2024 10:15 AM EDT 08/26/2024 10:15 AM EDT us Wolfgang Abraham MD LAB PATHOLOGY ORDERABLES Fin al Result [facility] [address] [place] [address] documented in this encounter Visit Diagnoses Diagnosis Acute gastric ulcer without hemorrhage or perforation Acute gastric ulcer without mention of hemorrhage, perforation, or obstruction documented in this encounter Additional Health Concerns Assessment Noted Time A fall risk assessment has been complete d for the patient 12/03/2020 2:58 PM EDT documented as of this encounter Care Teams Lawn Care Specialist Relationship Specialty Start Date End Date Robel Castellanos MD [address] [place] [address] PCP - General 09/04/20 documented as of this encounter
[2025-01-31 07:29] LABS: Microscopic, Urine URINE MICROSCOPIC (MICROSCOPIC)
[2025-01-31 07:43] LABS: Bilirubin,Urine Negative (Negative); Color,Urine YELLOW (Yellow); Glucose,Urine (UA) Negative (Negative); Ketones,Urine Negative (Negative); Leukocyte Esterase,Urine 2+ (Negative); PH,Urine 5.5 (5.0-8.5); Protein,Urine 2+ (Negative); Specific Gravity, Urine 1.020 (1.005-1.030); Urobilinogen,Urine 0.2 EU/dl (0.2)
[2025-01-31 07:56] LABS: Bacteria,Urine 4+ /lpf
--- NOTE | 2025-01-31 08:30 | PC.NURSE ---
Report called to Angela NUGENT at [facility].
--- NOTE | 2025-01-31 08:55 | PC.NURSE ---
I called and spoke with Sheree in case management. She is going to [facility] to inquire if the pt would qualify for transport with them.
--- NOTE | 2025-01-31 09:11 | PC.NURSE ---
Spoke with Kylah in case management regarding transportation for patient. They state that patient can be transported by [facility] bus but he has to be able to pay for it. She states that patient can go by EMS. Explained that patient does not meet medical necessity to go by ambulance because he is able to sit in a wheelchair. She states that she will call the director of EMS and speak with him.
--- NOTE | 2025-01-31 09:16 | PC.NURSE ---
Kylah from case management called back and advised she got ahold of patient's daughter. Daughter will be here to pick patient up but will be about an hour and half. Daughter lives in [place]
--- NOTE | 2025-01-31 09:19 | CARE MANAGER ---
Per nursing patient doesn't qualify for ambulance transportation. Spoke with daughter who states she can get him, but she is coming from [place] and it will be about an hour and half. Notified Al in the ER of this information.
--- NOTE | 2025-01-31 11:05 | PC.NURSE ---
I called and spoke with the pts daughter. She states she is about to pull into the hospital.
--- NOTE | 2025-02-01 17:24 | PC.NURSE ---
Prelim urine culture discussed with . No change needed to treatment.
--- NOTE | 2025-02-03 17:43 | PC.NURSE ---
Final urine culture discussed with . No change needed to his treatment.
== END 2025-01-31 11:16 | disposition home or self-care (01) ==
PROVIDERS: Emergency Provider Student in an Organized Health Care Education/Training Program; PCP Nurse Practitioner Family
DX: N39.0 Urinary tract infection, site not specified (principal); T83.091A Other mechanical complication of indwelling urethral catheter, initial encounter
CPT/HCPCS: 51702; 81001; 87086; 87088; 87186; 99283; 99284